=== PATIENT | female | born 1950 | race Caucasian/White ===

== ENCOUNTER 2022-04-20 11:32 | Outpatient (REF) | payer MEDICARE, OTHER, SELFPAY ==
[2022-04-20 13:52] LABS: Hematocrit 41.2 % (37.0-47.0); Hemoglobin 13.5 g/dl (12.0-16.0); Mean Corpuscular HGB Conc 32.8 g/dl (31.0-35.0); Mean Corpuscular Hemoglobin 27.2 pg (27.0-33.0); Mean Corpuscular Volume 82.9 fL (80.0-98.0); Mean Platelet Volume 10.8 fL (9.4-12.3); Platelet Count 329 X10*3/uL (160-400); Red Blood Count 4.97 X10*6/uL (4.20-5.50); Red Cell Distribution Width 13.4 % (11.0-16.0)
[2022-04-20 14:08] LABS: Alanine Aminotransferase 20 U/L (0-31); Albumin Level 4.4 g/dL (3.5-5.0); Alkaline Phosphatase 83 U/L (39-117); Anion Gap 15 (12-20); Aspartate Amino Transferase 20 U/L (5-31); Bilirubin Direct 0.2 mg/dL (0.0-0.5); Bilirubin Total 0.3 mg/dL (0.0-1.0); Blood Urea Nitrogen 12 mg/dL (9-16); C Reactive Protein 0.53 mg/dL (< or = 0.50); Calcium 9.5 mg/dL (8.4-10.2); Carbon Dioxide 24 mmol/L (22-29); Chloride 104 mmol/L (96-108); Estimated Glomerular Filt Rate > 60; Glucose Random 115 mg/dL (60-115); Potassium 4.1 mmol/L (3.3-5.1); Sodium 139 mmol/L (135-145); Total Protein 7.5 g/dL (6.5-8.0)
[2022-04-20 14:28] LABS: Erythrocyte Sedimentation Rate 22 MM/HR (0-20)
[2022-04-20 14:31] LABS: Thyroid Stimulating Hormone 1.27 uIU/mL (0.32-4.0)
== END 2022-04-20 11:33 | disposition home or self-care (01) ==
LOC: HO.HMGCLDS 11:32
PROVIDERS: Visit Provider Internal Medicine
DX: G43.909 Migraine, unspecified, not intractable, without status migrainosus (principal)
CPT/HCPCS: 36415; 80048; 80076; 84443; 85027; 85652; 86140

== ENCOUNTER → 2022-06-24 19:30 | Outpatient (REF) | payer MEDICARE, OTHER, SELFPAY | LOC: HO.SL 19:30 | PROVIDERS: PCP Physician Assistant Medical; Visit Provider Nurse Practitioner Primary Care | DX: G47.33 Obstructive sleep apnea (adult) (pediatric) (principal); G47.31 Primary central sleep apnea; G47.61 Periodic limb movement disorder; R06.83 Snoring | CPT/HCPCS: 95810 ==

== ENCOUNTER 2023-01-26 11:58 | Outpatient (AMB) | payer MEDICARE, OTHER, SELFPAY ==
--- OUTSIDE RECORDS SUMMARY | 2023-01-26 12:00 | XMS_ITS | Continuity of Care Document ---
Author Name Unknown Organization [facility] Address [address] [facility], 3r d Floor, [address] [place] [address]- Care Team Providers Care Professional Fighter Name Role Phone Alyce Fernandez Primary Care Physician Encounter [facility] [place] Date(s): 07/04/22 - 08/03/22 [facility] [address], 3[address] Floor, [address] [place] [id number] Allergies, Adverse Reactions, Alerts Substance Reaction Severity Status doxycycline rash hives Active sulfa drugs rash and itching Active penicillin rash and swelling Active lisinopril cough Active Immunizations Given and Recorded Vaccine Date Status Refusal Reason pneumococcal 23-valent vaccine 09/10/14 Recorded influenza virus vaccine, inactivated 03/18/12 Milton rded influenza virus vaccine, inactivated 06/19/11 Milton rded influenza virus vaccine, inactivated 04/11/10 Milton rded Medications Advair Diskus 100 mcg-50 mcg inhalation powder Inhalation, 2 times a day, Refills 0, Maintenance, 06/01/22 9:04:00 EST Start Date: 06/01/22 Status: Ordered amitriptyline 10 mg oral tablet 10 mg, 1, tablet, By Mouth, Daily at bedtime, # 30 tablet, Refills 2, Tot. Refills 2, Maintenance, 08/01/22 16:55:00 EST, Route to Pharmacy Electronically, [facility] #[id number], Partial fill upon patient request if the prescription is for a edith... Start Date: 08/01/22 Status: Ordered Buprenorphine 0 Refills, Maintenance, 06/01/22 9:06:00 EST, Partial fill upon patient request if the prescriptionis for a schedule II opioid drug. Start Date: 06/01/22 Status: Ordered celecoxib 100 mg oral capsule 1 capsule = 100 mg, By Mouth, Daily, PRN for pain, No refills before 30 days contents of capsule may be mixed with soft foods such as applesauce, # 14 capsule, 2 Refills, Maintenance, 08/01/22 16:55:00 EST, Capsule, [facility] #[id number], [place]... Start Date: 08/01/22 Status: Ordered Citracal Tablet 950 mg, By Mouth, 2 times a day, Refills 0, Maintenance, 09/26/15 11:08:13 Start Date: 09/26/15 Status: Ordered cyanocobalamin 1000 mcg/ml injectable solution = 1,000 mcg, Intramuscular, Every 28 days, Please dispense as 3 separate doses (each in its own vial)., # 3 Doses, 0 Refills, Maintenance, 04/03/16 10:05:04 Start Date: 04/03/16 Status: Ordered Freestyle Lite Test Strips See Instructions, # 600 each, Refills 3, Tot. Refills 3, Maintenance, Use as directed for Type 2 Diabetes Mellitus ICD 10 E 11.9. Test 4 times daily., 02/01/16 9:02:56, Compound Start Date: 02/01/16 Stop Date: 01/26/17 Status: Ordered LORazepam 0.5 mg oral tablet 1 tablet = 0.5 mg, By Mouth, Once, Take 1/2 hour before MRI, # 1 tablet, 0 Refills, Soft Stop, 07/05/22 15:55:00 EST, Tablet, [facility] #[id number], Partial fill upon patient request if the prescription is for a schedule II opioid drug., 169, cm... Start Date: 07/05/22 Status: Ordered metoprolol 25 mg oral tablet See Instructions, 2 tablets in AM and 1 tablet in PM, # 180 tablet, Refills 2, Tot. Refills 2, Maintenance, 03/16/16 15:12:44, Instructions Replace Required Details, Route to Pharmacy Electronically,[id number], [facility]... Start Date: 03/16/16 Status: Ordered Montelukast = 10 mg, By Mouth, Daily, 0 Refills, Maintenance, 07/28/15 6:59:27 Start Date: 1/14/16 Status: Ordered Multiple Vitamins with Minerals and Essential Fatty Acids oral kit Daily, 0 Refills, Maintenance Start Date: 10/16/10 Status: Ordered omeprazole 20 mg oral enteric coated capsule 1 capsule = 20 mg, By Mouth, Daily, # 30 capsule, 2 Refills, Maintenance, 06/01/22 14:08:00 EST, ECCthomasule, [facility] #[id number], Partial fill upon patient request if the prescription is for a schedule II opioid drug., 169, cm, 06/01/22 9:00:0... Start Date: 06/01/22 Status: Ordered spironolactone 25 mg oral tablet 25 mg, 1, tablet, By Mouth, 2 times a day, Refills 0, Maintenance, 09/21/16 14:55:29 Start Date: 09/21/16 Status: Ordered traZODone 50 mg oral tablet 50 mg, 1, tablet, By Mouth, 3 times a day, Refills 0, Maintenance, 12/29/15 13:28:22 Start Date: 12/29/15 Status: Ordered Victoza Victoza, Refills 0, Maintenance, 04/24/18 10:29:31 EDT, Compound Start Date: 04/24/18 Status: Ordered Problem List Condition Confirmation Course Effective Dates Status H ealth Status Informant Atypical chest pain 1 Confirmed Active Benign essential hypertension Confirmed Active Chronic Cough Confirmed Active Type 2 Diabetes mellitus Confirmed Active Fibromyalgia Confirmed Active GERD Confirmed Active L4-L5 Spondylitis Confirmed Active Irritable bowel syndrome Confirmed Active Pulmonary nodules 2 Confirmed Active Osteoarthritis Confirmed Active Obesity Confirmed Active Obstructive sleep apnea 3 Confirmed Active Severe obesity Confirmed Active History of SVT s/p ablation in 2010 Confirmed Active Thyroid nodule Confirmed Active 1Negative cardiac cath Jul 2015 2followed by [facility] pulmonology 3Has CPAP, but unable to use recently secondary to cough Social History Social History Type Response Smoking Status Never smoker entered on: 09/27/15 Sex Patient Care team information Care Team Personnel Name: Mita Red Position: S Outreach Member Role: Lifetime Consulting Physician Name: Alyce Fernandez Position: Reference Physician Member Role: PCP Address: Address: [address] [place] [address]- Care Team Related Persons Name: URSZULA ARAMBULA Address: home [address] [place] [address]
--- OUTSIDE RECORDS SUMMARY | 2023-01-26 12:00 | XMS_ITS | Continuity of Care Document ---
Author Name Unknown Organization [facility] ter Address [address] [place] [address]- Care Team Providers Care Product Sales Engineer Name Role Phone Yuri MOYA, Yudith Tai Primary Care Physician Encounter [facility] [place] Date(s): 09/01/19 - 09/01/[address] [address]- [facility] Attending Physician: Srini Ravi MD Allergies, Adverse Reactions, Alerts Substance Reaction Severity Status doxycycline rash hives Active penicillin rash and swelling Active lisinopril cough Active sulfa drugs rash and itching Active Immunizations Given and Recorded Vaccine Date Status Refusal Reason pneumococcal 23-valent vaccine 09/10/14 Recorded influenza virus vaccine, inactivated 03/18/12 Milton rded influenza virus vaccine, inactivated 06/19/11 Milton rded influenza virus vaccine, inactivated 04/11/10 Milton rded Medications aspirin 81 mg oral tablet 1 tablet = 81 mg, By Mouth, Daily, # 30 tablet, 0 Refills, Maintenance, 02/01/16 8:55:43, Tablet Start Date: 02/01/16 Status: Ordered Citracal Tablet 950 mg, By Mouth, 2 times a day, Refills 0, Maintenance, 09/26/15 11:08:13 Start Date: 09/26/15 Status: Ordered cyanocobalamin 1000 mcg/ml injectable solution = 1,000 mcg, Intramuscular, Every 28 days, Please dispense as 3 separate doses (each in its own vial)., # 3 Doses, 0 Refills, Maintenance, 04/03/16 10:05:04 Start Date: 04/03/16 Status: Ordered escitalopram 20 mg oral tablet 1 tablet = 20 mg, By Mouth, Daily, 0 Refills, Maintenance, 09/21/16 14:56:10 Start Date: 09/21/16 Status: Ordered Estrace Vaginal = 1 Gm, Vaginally, Daily at bedtime, 0 Refills, Maintenance, 10/27/15 11:16:39 Start Date: 10/27/15 Status: Ordered Freestyle Lite Test Strips See Instructions, # 600 each, Refills 3, Tot. Refills 3, Maintenance, Use as directed for Type 2 Diabetes Mellitus ICD 10 E 11.9. Test 4 times daily., 02/01/16 9:02:56, Compound Start Date: 02/01/16 Stop Date: 01/26/17 Status: Ordered hyoscyamine 0.125 mg sublingual tablet 1 tablet = 0.125 mg, Sublingual, Every 4 hours, # 30 tablet, 0 Refills, Maintenance, 12/29/15 14:37:44, Tablet Start Date: 12/29/15 Status: Ordered Lopressor Lopressor, Refills 0, Maintenance, 04/24/18 10:31:05 EDT, Compound Start Date: 04/24/18 Status: Ordered losartan 25 mg oral tablet 25 mg, 1, tablet, By Mouth, Daily, Refills 0, Maintenance, 09/21/16 14:55:40 Start Date: 09/21/16 Status: Ordered Lyrica 50 mg oral capsule 1 capsule = 50 mg, By Mouth, 2 times a day, 0 Refills, Maintenance, 09/21/16 14:55:58 Start Date: 09/21/16 Status: Ordered metoprolol 25 mg oral tablet See Instructions, 2 tablets in AM and 1 tablet in PM, # 180 tablet, Refills 2, Tot. Refills 2, Maintenance, 03/16/16 15:12:44, Instructions Replace Required Details, Route to Pharmacy Electronically,[id number], [facility]... Start Date: 03/16/16 Status: Ordered Montelukast = 10 mg, By Mouth, Daily, 0 Refills, Maintenance, 07/28/15 6:59:27 Start Date: 07/28/15 Status: Ordered Multiple Vitamins with Minerals and Essential Fatty Acids oral kit Daily, 0 Refills, Maintenance Start Date: 10/16/10 Status: Ordered spironolactone 25 mg oral tablet 25 mg, 1, tablet, By Mouth, 2 times a day, Refills 0, Maintenance, 09/21/16 14:55:29 Start Date: 09/21/16 Status: Ordered traZODone 50 mg oral tablet 50 mg, 1, tablet, By Mouth, 3 times a day, Refills 0, Maintenance, 12/29/15 13:28:22 Start Date: 12/29/15 Status: Ordered Trulicity Pen Subcutaneous Infusion, 0 Refills, Maintenance, 09/21/16 14:55:09 Start Date: 09/21/16 Status: Ordered Victoza Victoza, Refills 0, Maintenance, 04/24/18 10:29:31 EDT, Compound Start Date: 04/24/18 Status: Ordered Problem List Condition Effective Dates Status Health Status Inform ant Atypical chest pain(Confirmed) 1 Active Benign essential hypertension(Confirmed) Active Chronic Cough(Confirmed) Active Type 2 Diabetes mellitus(Confirmed) Active Fibromyalgia(Confirmed) Active GERD(Confirmed) Active L4-L5 Spondylitis(Confirmed) Active Irritable bowel syndrome(Confirmed) Active Pulmonary nodules(Confirmed) 2 Active Osteoarthritis(Confirmed) Active Obesity(Confirmed) Active Obstructive sleep apnea(Confirmed) 3 Active History of SVT s/p ablation in 2010(Confirmed) Active Thyroid nodule(Confirmed) Active 1Negative cardiac cath Jul 2015 2followed by [facility] pulmonology 3Has CPAP, but unable to use recently secondary to cough Social History Social History Type Response Smoking Status Never smoker entered on: 09/27/15 Sex
--- OUTSIDE RECORDS SUMMARY | 2023-01-26 12:00 | XMS_ITS | Continuity of Care Document ---
Author Name Unknown Organization [facility] ter Address [address] [place] [address]- Care Team Providers Care Netting Weaver Name Role Phone Yudith Welch MD Primary Care Physician [place] [facility] [place]/07[place] - 11/05/[address] [address] [facility] Discharge Disposition: A-D/C Home Attending Physician: Yao Hernandez MD Admitting Physician: Yao Hernandez MD Referring Physician: Yao Hernandez MD Allergies, Adverse Reactions, Alerts Substance Reaction [...] 0 Refills, Maintenance, 04/03/16 10:05:04 Start Date: 9/20/16 Status: Ordered escitalopram 20 mg oral tablet [...] Instructions Replace Required Details, Route to Pharmacy Electronically,[id number], [facility]... Start Date: 03/16/16 Status: Ordered [...] 1Negative cardiac cath Jul 2015 2followed by [facility] pulmonology 3Has CPAP, but unable to use recently secondary to cough Social History Social History Type Response Smoking Status Never smoker entered on: 09/27/15 Sex
--- OUTSIDE RECORDS SUMMARY | 2023-01-26 12:00 | XMS_ITS | Continuity of Care Document ---
Author Name Unknown Organization [facility] Address [address] [facility], [address]r d Floor, [address] [place] [address]- Care Team Providers Care Plate Glass Installer Helper Name Role Phone Alyce Fernandez Primary Care Physician Encounter [facility] [id number] Date(s): 10/02/22 - 11/01/22 [facility] [address], [address], [address] [place] [address] Attending Physician: Alexandria Farmer Admitting Physician: AdmtrAlexandria Referring Physician: Admtr, Ar8 Allergies, Adverse Reactions, Alerts Substance Reaction Severity [...] 08/01/22 16:55:00 EST, Route to Pharmacy Electronically, [facility] #[id number], Partial fill upon patient request if the prescription is for a edith... Start Date: 08/01/22 Status: Ordered Buprenorphine 0 Refills, Maintenance, 06/01/22 9:06:00 EST, Partial fill upon patient request if the prescriptionis for a schedule II opioid drug. Start Date: 06/01/22 Status: Ordered Citracal Tablet 950 mg, By [...] Date: 02/01/16 Stop Date: 01/26/17 Status: Ordered indomethacin 25 mg oral capsule 1 capsule, By Mouth, Daily, PRN NEEDED FOR PAIN WITH FOOD OR MILK, # 90 capsule, 2 Refills, Maintenance, 10/02/22 15:20:00 EDT, [facility] #[id number], 169, cm, 10/02/22 13:27:00 EDT, Height Start Date: 10/02/22 Status: Ordered LORazepam 0.5 mg oral tablet 1 tablet = 0.5 mg, By Mouth, Once, Take 1/2 hour before MRI, # 1 tablet, 0 Refills, Soft Stop, 07/05/22 15:55:00 EST, Tablet, [facility] #[id number], Partial fill upon patient request if the prescription is for a schedule II opioid drug., 169, cm... Start Date: 07/05/22 Status: Ordered metoprolol 25 mg oral tablet See Instructions, 2 tablets in AM and 1 tablet in PM, # 180 tablet, Refills 2, Tot. Refills 2, Maintenance, 03/16/16 15:12:44, Instructions Replace Required Details, Route to Pharmacy Electronically,[id number], [facility]... Start Date: 03/16/16 Status: Ordered Montelukast = 10 mg, By Mouth, Daily, 0 Refills, Maintenance, 07/28/15 6:59:27 Start Date: 07/28/15 Status: Ordered Multiple Vitamins with Minerals and Essential Fatty Acids oral kit Daily, 0 Refills, Maintenance Start Date: 10/16/10 Status: Ordered omeprazole 20 mg oral enteric coated capsule 1 capsule, By Mouth, Daily, # 30 capsule, 0 Refills, Maintenance, 09/08/22 15:18:00 EST, [facility] #[id number], 169, cm, 07/31/22 11:11:00 EST, Height Start Date: 09/08/22 Status: Ordered spironolactone 25 mg oral tablet [...] 1Negative cardiac cath Jul 2015 2followed by [facility] pulmonology 3Has CPAP, but unable to use recently secondary to cough Social History Social History Type Response Smoking Status Never smoker entered on: 09/27/15 Sex Patient Care team information Care Team Personnel Name: Mita Red Position: S Outreach Member Role: Lifetime Consulting Physician Name: Alyce Fernandez Position: Reference Physician Member Role: PCP Address: Address: [address] [place] [address]- Care Team Related Persons Name: URSZULA ARAMBULA Address: home [address] [place] [address]
--- OUTSIDE RECORDS SUMMARY | 2023-01-26 12:00 | XMS_ITS | Continuity of Care Document ---
Author Name Unknown Organization [facility] ter Address [address] [place] [address]- Care Team Providers Care Grain Shipper Name Role Phone Yuri MOYA, Yudith Tai Primary Care Physician [phone] [place] [facility] [place] Date(s): 07/30/19 - 08/06/[address] [address]- [facility] Attending Physician: Nikko Mares MD Allergies, Adverse Reactions, Alerts Substance Reaction [...] Instructions Replace Required Details, Route to Pharmacy Electronically,[id number], [facility] Start Date: 03/16/16 Status: Ordered [...] 1Negative cardiac cath Jul 2015 2followed by [facility] pulmonology 3Has CPAP, but unable to use recently secondary to cough Social History Social History Type Response Smoking Status Never smoker entered on: 09/27/15 Sex
--- OUTSIDE RECORDS SUMMARY | 2023-01-26 12:00 | XMS_ITS | Continuity of Care Document ---
Author Name Unknown Organization [facility] ter Address [address] [place] [address]- Care Team Providers Care Pump Station Operator Name Role Phone Yuri MOYA, Yudith Tai Primary Care Physician Encounter [facility] [place] Date(s): 08/21/19 - 08/21/[address] [address]- [facility] Attending Physician: Srini Ravi MD Allergies, Adverse [...] Instructions Replace Required Details, Route to Pharmacy Electronically,[id number], [facility] Start Date: 03/16/16 Status: Ordered [...] 1Negative cardiac cath Jul 2015 2followed by [facility] pulmonology 3Has CPAP, but unable to use recently secondary to cough Social History Social History Type Response Smoking Status Never smoker entered on: 09/27/15 Sex
--- OUTSIDE RECORDS SUMMARY | 2023-01-26 12:00 | XMS_ITS | Continuity of Care Document ---
Author Name Unknown Organization [facility] Address [address] [facility], [address]r d Floor, [address] [place] [address]- Care Team Providers Care Photoengraving Supervisor Name Role Phone Alyce Fernandez Primary Care Physician Encounter [facility] [place] Date(s): 07/04/22 - 08/03/22 [facility] [address], [address], [address] [place] [email or web address] Allergies, Adverse Reactions, Alerts Substance Reaction Severity [...] 08/01/22 16:55:00 EST, Route to Pharmacy Electronically, [facility] #[id number], Partial fill upon patient request if the [...] 2 Refills, Maintenance, 08/01/22 16:55:00 EST, Capsule, [facility] #[id number], [place]... Start Date: 08/01/22 Status: Ordered Citracal [...] Refills, Soft Stop, 07/05/22 15:55:00 EST, Tablet, [facility] #[id number], Partial fill upon patient request if the prescription is for a schedule II opioid drug., 169, cm... Start Date: 07/05/22 Status: Ordered metoprolol 25 mg oral tablet See Instructions, 2 tablets in AM and 1 tablet in PM, # 180 tablet, Refills 2, Tot. Refills 2, Maintenance, 03/16/16 15:12:44, Instructions Replace Required Details, Route to Pharmacy Electronically,[id number], [facility] Start Date: 03/16/16 Status: Ordered [...] 2 Refills, Maintenance, 06/01/22 14:08:00 EST, ECCthomasule, [facility] #[id number], Partial fill upon patient request if the [...] 1Negative cardiac cath Jul 2015 2followed by [facility] pulmonology 3Has CPAP, but unable to use recently secondary to cough Social History Social History Type Response Smoking Status Never smoker entered on: 09/27/15 Sex Patient Care team information Care Team Personnel Name: Mita Red Position: S Outreach Member Role: Lifetime Consulting Physician Name: Alyce Fernandez Position: Reference Physician Member Role: PCP Address: Address: [address] [place] [address]- Care Team Related Persons Name: URSZULA ARAMBULA Address: home [address] [place] [address]
--- OUTSIDE RECORDS SUMMARY | 2023-01-26 12:00 | XMS_ITS | Patient Health Record ---
Author Name Unknown [facility] Address [address] [place] [address] Care Team Providers Care Commercial Credit Lead Name Role Phone Alyce Pham Primary Care Provider Unavailabl e Arabella Charles Unavailable [phone] ALLERGIES Allergen (clinical drug ingredient) Drug/Non Drug Allergy documented on EMR Reaction Allergy Type Onset Date Status amoxicillin Amoxicillin Unknown Drug Allergy Act devora sulfamethoxazole / trimethoprim Bactrim Unknown Drug Allergy Active RESULTS Component Value Reference Range Notes HEMOGLOBIN A1C (GLYCOHEMOGLO BIN) Reviewed date:03/26/2022 10:58:26 AM Interpretation: Performing Lab: Notes/Report: TOTAL HEMOGLOBIN (HGBA1C) HEMOGLOBIN A1C (HH) HEMOGLOBIN A1C % (HH) 6.9 ESTIMATED AVG GLUCOSE REASON FOR REFERRAL No Information MEDICATIONS Medication SIG (Take, Route, Frequency, Duration) Notes Start Date End Date Status Extra Depth Orthopedic Shoes (1 Pair) with Customized Heat Molded Multidensity Innersoles (3 Pair) as directed Dx: NIDDM/Polyneuropath y (E11.42), Hammertoe Foot Deformity (M20.41,M20.42), Preulcerative Skin Lesion(s) (L85.1 Active Extra-Depth Diabetic Shoes with 3 Pair Custom heat-molded multi-density innersoles . for 1 year . Dx: pedal deformities and calloused lesions for . 10/15/2014 Active Clotrimazole-Betamethason e 1-0.05 % 1 application Externally Twice a day for 14 days 03/26/2022 Active Extra Depth Orthopedic Shoes (1 Pair) with Customized Heat Molded Multidensity Innersoles (3 Pair) as directed Dx: NIDDM/Polyneuropath y (E11.42), Hammertoe Foot Deformity (M20.41,M20.42), Preulcerative Skin Lesion(s) (L85.1 09/18/2021 Active Extra Depth Orthopedic Shoes (1 Pair) with Customized Heat Molded Multidensity Innersoles (3 Pair) as directed Dx: NIDDM/Polyneuropath y (E11.42), Hammertoe Foot Deformity (M20.41,M20.42), Preulcerative Skin Lesion(s) (L85.1 09/22/2018 Not-Taking Extra Depth Orthopedic Shoes (1 Pair) with Customized Heat Molded Multidensity Innersoles (3 Pair) as directed Dx: NIDDM/Polyneuropath y (E11.42), Hammertoe Foot Deformity (M20.41,M20.42), Preulcerative Skin Lesion(s) (L85.1 09/16/2017 Not-Taking Doxycycline Hyclate 100 MG 1 capsule Orally Once a day for 10 day(s) 06/27/2020 Not-Taking Ammonium Lactate 12 % 1 application Externally Twice a day for 30 days 10/01/2022 Active Singulair Active Victoza Not-Taking vitamin b-12 shot Active hydroCHLOROthiazide Not-Taking Cymbalta Not-Taking Ozempic Active Atorvastatin Calcium Not-Taking Januvia Not-Taking Ciclopirox Olamine 0.77 % 1 application to affected area Externally Twice a day for 30 days 09/16/2017 Active Amitriptyline HCl Ac tive Wellbutrin Not-Takin g Spironolactone 25 MG Orally Once a day Active Lopressor Active Ciclopirox Olamine 0.77% external Apply to effected areas twice a day for 30 days 12/23/2014 Not-Taking Ciclopirox Olamine 0.77 % 1 application to affected area Externally Twice a day for 30 days 09/16/2017 Not-Taking Trulicity 150mg once a week No t-Taking Zoloft Not-Taking IMMUNIZATIONS Vaccine Route Administration Date Status Comme nts COVID-19 Moderna Vaccine Unknown 10/24/2020 Administere d 09/26/2020 Influenza Unknown 03/15/2017 Administered Influenza Unknown 05/15/2018 Administered Influenza Unknown 04/01/2019 Administered Influenza Unknown 03/15/2020 Administered SOCIAL HISTORY Tobacco Use: Social History Observation Description Date Details (start date - stop date) Never Smoker NA - NA Sex Assigned At : Social History Observation Description Sex Assigned At Unknown Tobacco Use/Smoking Question Answer Notes Are you a: nonsmoker Additional Findings: Tobacco Non-User Current no n-smoker Alcohol Screen Question Answer Notes Did you have a drink containing alcohol in the p ast year? No Points 0 Interpretation Negative Tobacco use other than smoking: Question Answer Notes Are you an other tobacco user? No PROBLEMS Problem Type ICD Code Onset Dates Problem Status W/U Status Risk SNOMED Code Notes Problem Other hammer toe(s) (acquired), right foot (M20.41) Active confirmed Acquired hamme r toe of right foot (4648210394098639 ) Problem Other hammer toe(s) (acquired), left foot (M20.42) Active confirmed Acquired hamme r toe of left foot (2143340406903311 ) Problem Non-pressure chronic ulcer of other part of right foot limited to breakdown of skin (L97.511) Active confirmed Ulcer of toe (900348478) Problem Type 2 diabetes mellitus with other diabetic neurological complication (E11.49) Active confirmed Neurologic disorder associated with type II diabetes mellitus (313710237) Problem Type 2 diabetes mellitus with diabetic polyneuropathy (E11.42) Active confirmed Polyneuropathy due to type 2 diabetes mellitus (481592697) PROCEDURES Procedure Date Ordered Date Performed Result Body Sit e 07031-ZEYX SKIN LESIONS, 2 TO 4 03/26/2022 N/A 04731-VWFX NAIL(S) 03/26/2022 N/A 52769-DYBD SKIN LESIONS, 2 TO 4 10/01/2022 N/A 20211-WJYF NAIL(S) 10/01/2022 N/A Encounters Encounter Location Date Provider Diagnosis [facility] [address] [address] 03/26/2022 Aarbella Black Type 2 diabetes mellitus with diabetic polyneuropathy E11.42 and Tinea pedis B35.[address] [facility] [address] [address] 10/01/2022 Arabella Black Type 2 diabetes mellitus with diabetic polyneuropathy E11.42 ; Cramping of feet R25.2 ; Xerosis cutis L85.3 ; Other hammer toe(s) (acquired), right foot M20.41 and Other hammer toe(s) (acquired), left foot M20.42 ASSESSMENTS Encounter Date Diagnosis Assessment Notes Treatment Notes Treatment Clinical Notes 03/26/2022 Type 2 diabetes mellitus with diabetic polyneuropathy (ICD-10 - E11.42) 10/01/2022 Type 2 diabetes mellitus with diabetic polyneuropathy (ICD-10 - E11.42) 10/01/2022 Cramping of feet (ICD-10 - R25.2) 10/01/2022 Xerosis cutis (ICD-1 0 - L85.3) 03/26/2022 Tinea pedis (ICD-10 - B35.3) 10/01/2022 Other hammer toe(s) (acquired), right foot (ICD-10 - M20.41) 10/01/2022 Other hammer toe(s) (acquired), left foot (ICD-10 - M20.42) PLAN OF TREATMENT Pending Test Test Name Order Date 95032-Qqieqjek Plate 09/22/2018 13209-Yztqznqu Plate 03/28/2020 58725-QQC 06/27/2020 33360- Debride <25 sq cm 07/18/2020 03808-CUKM SKIN LESIONS, 2 TO 4 08/03/19 16 99911-DQPU SKIN LESIONS, 2 TO 4 10/16/19 15 52592-TZNI SKIN LESIONS, 2 TO 4 12/24/19 15 97294-BIPT SKIN LESIONS, 2 TO 4 09/17/19 18 31671-OGZS SKIN LESIONS, 2 TO 4 02/18/20 18 62552-LHQS SKIN LESIONS, 2 TO 4 06/23/20 18 86670-NNCR SKIN LESIONS, 2 TO 4 09/23/19 19 72804-VJHW SKIN LESIONS, 2 TO 4 12/24/19 20 39873-GRVJ SKIN LESIONS, 2 TO 4 11/15/19 21 03194-NBJP SKIN LESIONS, 2 TO 4 02/14/20 21 55172-WPZQ SKIN LESIONS, 2 TO 4 12/23/19 19 11806-NHHQ SKIN LESIONS, 2 TO 4 04/13/20 19 35389-OERJ SKIN LESIONS, 2 TO 4 07/20/19 20 16364-IJVJ SKIN LESIONS, 2 TO 4 09/21/19 20 83897-VDYY SKIN LESIONS, 2 TO 4 09/19/19 22 81365-CRDE SKIN LESIONS, 2 TO 4 03/26/20 22 90288-AJRP SKIN LESIONS, 2 TO 4 10/02/19 23 10616-TOKT SKIN LESIONS, 2 TO 4 03/28/20 20 13401-QRCV SKIN LESION 07/28/2014 37728-XQJW SKIN LESION 12/23/2014 79636-XTBD SKIN LESION 10/15/2014 68648-SPKP NAIL(S) 08/03/2015 16728-YJMS NAIL(S) 12/23/2014 12812-NIJT NAIL(S) 10/15/2014 66230-GKXY NAIL(S) 09/22/2018 27024-ZUFK NAIL(S) 06/23/2018 45760-UTNA NAIL(S) 02/17/2018 18292-CDGJ NAIL(S) 09/16/2017 29648-LETG NAIL(S) 09/21/2019 83720-XVFN NAIL(S) 07/20/2019 97283-RSBD NAIL(S) 04/13/2019 16364-RGEM NAIL(S) 12/22/2018 29798-JHUT NAIL(S) 02/13/2021 84463-FXAG NAIL(S) 11/14/2020 21681-DQOM NAIL(S) 12/24/2019 54401-HSFR NAIL(S) 03/28/2020 06942-EMSY NAIL(S) 10/01/2022 98553-CHNG NAIL(S) 03/26/2022 45238-VFMY NAIL(S) 09/18/2021 Next Appt Details Provider Name:Arabella Charles , 04/01/2023 11:00:00 AM, [address] [place], [address], Insurance Providers Payer Name Payer Address Payer Phone Subscriber Number Group Number Insured Name Patient Relationship to Insured Coverage Start Date Coverage End Date Medicare National [employer] [address] [place] [address] [id number] Yessi Joya Self - patient is the insured [facility] [place] [employer] [address] [place] [address] [phone] [id number] Joya, Yessi Self - patient is the insured MEDICAL (GENERAL) HISTORY Medical History History ICD Code Anemia Anxiety Arthritis Back,Hip,and Knee pain Diabetic Chicken pox Headaches Migraines Hypertension keloids Neuropathy Poor circulation Psoriasis/eczema Reflux Sciatica Thyroid disorder Measles Mumps Joint implants/screws Transfusions Surgical History Surgery Date(Month/Year) knee surgery, left knee surgery, right hysterectomy bypass surgery angioplasty vaginal surgery 07/2017 Right shoulder spur removed 07/2018 Hospitalization History Reason Date(Month/Year) [facility] ER; fall 09/2014
--- OUTSIDE RECORDS SUMMARY | 2023-01-26 12:00 | XMS_ITS | Continuity of Care Document ---
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 Name Role Phone Alyce Fernandez Primary Care Physician [place] [facility] [place] [facility] [address], [address], [address] [place] [phone]- Allergies, Adverse Reactions, Alerts Substance Reaction Severity [...] 9:04:00 EST Start Date: 06/01/22 Status: Ordered Buprenorphine 0 Refills, Maintenance, 06/01/22 [...] 02/01/16 Stop Date: 01/26/17 Status: Ordered indomethacin 75 mg oral capsule, extended release 1 capsule = 75 mg, By Mouth, Daily, with food or milk, # 30 capsule, 2 Refills, Maintenance, 06/01/22 14:07:00 EST, ER Capsule, [facility] #[id number], Partial fill upon patient request if the prescription is for a schedule II opioid drug., 169,... Start Date: 06/01/22 Status: Ordered LORazepam 0.5 mg oral tablet 1 tablet = 0.5 mg, By Mouth, Once, Take 1/2 hour before MRI, # 1 tablet, 0 Refills, Soft Stop, 07/05/22 15:55:00 EST, Tablet, [facility] #[id number], Partial fill upon patient request if the prescription is for a schedule II opioid drug., 169, cm... Start Date: 07/05/22 Status: Ordered metoprolol 25 mg oral tablet See Instructions, 2 tablets in AM and 1 tablet in PM, # 180 tablet, Refills 2, Tot. Refills 2, Maintenance, 03/16/16 15:12:44, Instructions Replace Required Details, Route to Pharmacy Electronically,[id number], [facility]... Start Date: 03/16/16 Status: Ordered Montelukast = 10 mg, By Mouth, Daily, 0 Refills, Maintenance, 07/28/15 6:59:27 Start Date: 07/28/15 Status: Ordered Multiple Vitamins with Minerals and Essential Fatty Acids oral kit Daily, 0 Refills, Maintenance Start Date: 10/16/10 Status: Ordered Nortriptyline By Mouth, 0 Refills, Maintenance, 06/01/22 9:04:00 EST, Partial fill upon patient request if the prescription is for a schedule II opioid drug. Start Date: 06/01/22 Status: Ordered omeprazole 20 mg oral enteric coated capsule 1 capsule = 20 mg, By Mouth, Daily, # 30 capsule, 2 Refills, Maintenance, 06/01/22 14:08:00 [facility][id number], Partial fill upon patient request if the [...] 1Negative cardiac cath Jul 2015 2followed by [facility] pulmonology 3Has CPAP, but unable to use recently secondary to cough Social History Social History Type Response Smoking Status Never smoker entered on: 09/27/15 Sex Patient Care team information Care Team Personnel Name: Mita Red Position: S Outreach Member Role: Lifetime Consulting Physician Name: Alyce Fernandez Position: Reference Physician Member Role: PCP Address: Address: [address] [place] [address]- Care Team Related Persons Name: URSZULA ARAMBULA Address: home [address] [place] [address]
--- NOTE | 2023-01-26 12:02 | MHC.OFFWIV ---
Intake Vital Signs 01/26/23 12:04 Height 5 ft 6 in BP 130/80 Blood Pressure Location Lt brachial Position Sitting Pulse 89 Pulse Source Pulse Oximeter Temp 97.6 F Temp Source Oral Pulse Oximetry (%) 97 Intake Visit Reasons: EP ear infection? vertigo Intake Note: pt is here for c/o head pounding, dizziness Patient Tobacco Use Status: Never used Tobacco Allergies penicillin V Allergy (Mild, Verified 01/26/23 12:22) Rash Medication List - Last Reconciled 01/26/23 by Jeff Powell PA-C albuterol sulfate 90 mcg/actuation 2 puffs inhalation Q4H PRN buprenorphine 5 mcg/hour 1 patch topical QWEEK cyanocobalamin (vitamin B-12) 500 mcg PO DAILY cyclosporine 0.05% drps ophthalmic (eye) duloxetine mg PO fluticasone propionate 110 mcg/actuation (Flovent HFA) 2 puffs inhalation BID indomethacin 50 mg PO TID liraglutide (Victoza 2-Tyler) 1.2 mg subcut DAILY metoprolol tartrate 50 mg PO BID montelukast (Singulair) 10 mg PO DAILY semaglutide (Ozempic) mg subcut spironolactone 25 mg PO DAILY trazodone 100 mg PO BEDTIME triamcinolone acetonide 0.1% topical BID PRN Do you need a note to return to daycare/school/sports/work: No HPI EP ear infection? vertigo HPI Details Patient is a 72-year-old female here today reporting headaches, dizziness and left ear pain over the last 4 days. report having some nausea and hot flashes. She denies any sick contacts. Otherwise denies any coughing, vomiting, chest discomfort or shortness of breath. Does report recently having diarrhea over the last week to which she attributes to IBS- D [facility] Social History Patient Tobacco Use Status: Never used Tobacco Review of Systems Const Denies headache(s) Eyes Denies loss of vision ENT Denies vertigo, Denies dizziness, Denies headache(s) and Denies sore throat Card Denies chest pain, Denies leg edema and Denies lightheadedness Resp Denies cough, Denies hemoptysis and Denies wheezing GI Denies abdominal pain, Denies melena, Denies constipation, Denies diarrhea and Denies vomiting Denies urinary frequency, Denies dysuria and Denies urinary urgency Musc Denies arthralgias, Denies joint swelling, Denies numbness and Denies tingling Neuro Denies Abnormal speech present, Denies behavioral changes, Denies vertigo, Denies dizziness, Denies headache(s), Denies loss of vision, Denies memory loss, Denies numbness and Denies tingling Psych Denies anxiety, Denies behavioral changes, Denies depression, Denies memory loss and Denies panic attacks Ricky/Lymph Denies easy bleeding and Denies easy bruising Aller/Immun Denies wheezing Physical Exam Vital Signs: Last Vital Signs Temp 97.6 F 01/26/23 12:04 Pulse 89 01/26/23 12:04 BP 130/80 01/26/23 12:04 Pulse Ox 97 01/26/23 12:04 Const General: healthy appearing, no acute distress, alert and awake Nutritional Appearance: well nourished Orientation/consciousness: oriented to person, oriented to place and oriented to time HEENT Ears: TM's normal bilaterally General nose exam: Normal nasal mucous membranes and turbinates present Eyes Conjunctivae: conjunctivae normal Sclerae: sclerae normal Pupils: Equal, round and reactive pupils present Neck Neck: Yes no lymphadenopathy and Yes no JVD Thyroid: Thyroid normal Carotids: no bruits Resp Effort & Inspection: normal respiratory effort and not tachypneic Auscultation: no crackles, no rales, no rhonchi and no wheezes Cardio Rate: regular rate Rhythm: regular rhythm Heart sounds: no murmurs and normal S1 and S2 GI Palpation (GI): Soft to palpation, nontender, no hepatomegaly and no splenomegaly Auscultation: normal bowel sounds Skin General skin exam: no rashes or lesions noted and dry skin Neuro General: oriented to person, oriented to place and oriented to time Cranial nerves: Yes Equal, round and reactive pupils present Speech: No Abnormal speech present Gait exam (Neuro): Normal gait present Motor exam (neuro): no tremor noted Extrem Right upper extremity: full ROM Left upper extremity: full ROM Right lower extremity: full ROM; no edema Left lower extremity: full ROM; no edema Psych Mental Status: mental status grossly normal Speech and movement: Normal speech and movement present Affect: normal affect Attitude: cooperative Thought process: Normal thought process present Assessment & Plan Assessment & Plan (1) Otitis media: Code(s): H66.90 - Otitis media, unspecified, unspecified ear Qualifiers: Chronicity: acute Laterality: left Otitis media type: serous Recurrence: non-recurrent Qualified Code(s): H65.02 - Acute serous otitis media, left ear Plan: Patient with erythematous left tympanic membrane most consistent with otitis media. Will supply with doxycycline and on dancer trying for nausea. (2) Nausea: Code(s): R11.0 - Nausea Medications: New doxycycline monohydrate 100 mg PO BID 5 days 10 caps 0RF H65.02 - Acute serous otitis media, left ear ondansetron HCl 4 mg PO Q8H 5 days 15 tabs 0RF R11.0 - Nausea Coding Level of Care Code Est Pt Level 3 (35444) Diagnoses Otitis media H65.02 Chronicity: acute Laterality: left Otitis media type: serous Recurrence: non-recurrent Nausea R11.0
[2023-01-26 12:04] VITALS: BP 130/80; PULSE 89; TEMP 36.4; O2SAT 97
== END 2023-01-26 13:01 | disposition home or self-care (01) ==
PROVIDERS: PCP Physician Assistant Medical; Visit Provider Physician Assistant
DX: H65.02 Acute serous otitis media, left ear (principal); R11.0 Nausea
CPT/HCPCS: 99213

== ENCOUNTER → 2023-02-18 09:06 | Outpatient (REF) | payer MEDICARE, OTHER, SELFPAY ==
--- NOTE | 2023-02-18 09:09 | CA_ITS ---
Transthoracic Echocardiogram Patient (Last, First, Middle): Yessi Joya W Gender: Female Date of : 1950 Age: 73 Procedure Date: 02/18/2023 Procedure Type: Transthoracic Echocardiogram Location: OP Height: 167.64 cm Weight: 116.58 kg BSA: 2.23 m2 Heart Rate: bpm BP: 120 / 74 mmHg Merchant Police: STEPHANIA Referring MD: Yonny Masters CNP Symptoms: G47.31 CENTRALK SLEEP URRTFZ97.10 ASCD Study Quality: Fair ECG Rhythm: Sinus with prolonged ME Conclusions: - The left ventricular systolic function is normal. The calculated ejection fraction is 64% by biplane method. - There is paradoxical septal motion consistent with a left bundle branch block. - No obvious valvular pathology seen on this study. Findings Left Ventricle Normal left ventricular cavity size. There is mildly increased left ventricular wall thickness. The left ventricular systolic function is normal. The calculated ejection fraction is 64% by biplane method. There is no evidence of regional wall motion abnormalities. There is paradoxical septal motion consistent with a left bundle branch block. Evidence suggests grade I (mild) diastolic dysfunction. Right Ventricle Normal right ventricular cavity size and systolic function. Atria Both atria are normal in size. Aortic Valve There is a normal trileaflet aortic valve. There is no aortic valve stenosis. There is no aortic valve regurgitation. Mitral Valve There is mild anterior mitral leaflet thickening. There is mild mitral annular calcification. There is no mitral valve regurgitation. There is no mitral valve stenosis. Pulmonic Valve The pulmonic valve is likely normal. Tricuspid Valve Normal tricuspid valve structure. There is mild tricuspid valve regurgitation. There is no evidence of pulmonary hypertension. Great Vessels The asc aorta is normal in size. Venous The inferior vena cava is normal in size and collapses greater than 50% with inspiration. Pericardium/Pleural There is no evidence of pericardial effusion. Prior Study Comparison No prior study available for comparison. Recommendations, Care & Conclusions No obvious valvular pathology seen on this study. Measurements 2D Linear Measurements IVSd: 1.21 0.6-0.9/0.6-1.0 cm LVIDd: 3.99 3.9-5.3/4.2-5.9 cm LVIDd Index: 1.79 2.4-3.2/2.2-3.1 cm/m2 LVIDs: 2.64 2.0-3.6 cm LVPWd: 1.10 0.7-1.1 cm LA Diam: 3.00 2.7-3.8/3.0-4.0 cm LAIDs Index: 1.35 1.5-2.3 cm/m2 LV Mass: 193.99 67-162/88-224 g LV Mass Index: 86.99 43-95/49-115 g/m2 LVOT Diam: 2.00 3.0+(-)1.3 cm 2D Systolic Function EF 4C: 63.70 >55% EF 2C: 65.00 >55% EF BiP: 63.70 >55% Mitral Valve MV Pk E: 0.46 MV PK A: 1.16 MV Decel Time: 130.00 E/A: 0.40 E'Lateral: 4.35 E'Medial: 4.35 E/E' Med: 10.60 E/E' Lat: 10.60 PHT: 38.00 MVA PHT: 5.79 Decel [place]: 3.52 Aortic Valve AoV Pk Sai: 2.35 AoV Mn Sai: 1.33 AoV VTI: 0.43 AoV Pk Grad: 22.00 Aov Mn Grad: 8.00 SWATHI Cont.VTI: 1.83 LVOT LVOT Pk Sai: 1.10 LVOT Mn Sai: 0.73 LVOT VTI: 0.25 LVOT Pk Grad: 5.00 LVOT Mn Grad: 2.00 LVOT Diam: 2.00 LVOT Area: 3.14 Diastolic Function MV Pk E: 0.46 MV Pk A: 1.16 E/A: 0.40 E'Medial: 4.35 E/E' Med: 10.60 E' Laterial: 4.35 E/E' Lat: 10.60 Right Ventricle TAPSE (mm): 24.30 TVS' Sai: 10.40 Tricuspid Valve TR Pk Sai: 2.44 TR Pk Grad: 24.00 RA Press: 3.00 RVSP: 27.00 Great Vessels Aorta Sinus of Valsalva: 2.99 2.0-3.[address] [place]: 2.49 1.7-3.4 cm Ao Asc: 3.20 2.1-3.4 cm Updated in Other Vendor System with Status of Final Rajesh Ambrosio MD electronically signed on 02/18/2023 12:22:32 PM with status of Final
== END ==
LOC: HO.CARD 09:06
PROVIDERS: PCP Physician Assistant Medical; Visit Provider Nurse Practitioner Primary Care
DX: I25.10 Atherosclerotic heart disease of native coronary artery without angina pectoris (principal); G47.31 Primary central sleep apnea
CPT/HCPCS: 93306

== ENCOUNTER → 2023-02-18 09:09 | Outpatient (BNV) | payer MEDICARE, OTHER, SELFPAY | PROVIDERS: PCP Physician Assistant Medical; Visit Provider Internal Medicine | DX: I25.10 Atherosclerotic heart disease of native coronary artery without angina pectoris (principal); I36.1 Nonrheumatic tricuspid (valve) insufficiency | CPT/HCPCS: 93306 ==

== ENCOUNTER 2023-03-20 07:09 | Outpatient (REF) | payer MEDICARE, OTHER, SELFPAY ==
--- NOTE | ~2023-03-20 | XR_ITS ---
EXAMINATION: XR KNEE, BILATERAL CLINICAL INDICATION: Pain. TECHNIQUE: 3 views each knee. FINDINGS: RIGHT KNEE: There is a total right knee prosthesis with prosthetic components in satisfactory alignment. No visible acute fracture, dislocation or subluxation seen. The soft tissues are normal. LEFT KNEE: There is a total left knee prosthesis with prosthetic components in satisfactory alignment. No visible acute fracture, dislocation or subluxation seen. XR/XR knee RT 3V IMPRESSION: Bilateral total left knee prosthesis with prosthetic components in alignment. No loosening seen. No joint effusion. No acute fracture.
--- NOTE | ~2023-03-20 | XR_ITS ---
EXAMINATION: XR KNEE, BILATERAL CLINICAL INDICATION: Pain. TECHNIQUE: 3 views each knee. FINDINGS: RIGHT KNEE: There is a total right knee prosthesis with prosthetic components in satisfactory alignment. No visible acute fracture, dislocation or subluxation seen. The soft tissues are normal. LEFT KNEE: There is a total left knee prosthesis with prosthetic components in satisfactory alignment. No visible acute fracture, dislocation or subluxation seen. XR/XR knee LT 3V IMPRESSION: Bilateral total left knee prosthesis with prosthetic components in alignment. No loosening seen. No joint effusion. No acute fracture.
== END 2023-03-20 07:10 | disposition home or self-care (01) ==
LOC: HO.HOSX 07:09
PROVIDERS: Visit Provider Orthopaedic Surgery
DX: M25.561 Pain in right knee (principal); M25.562 Pain in left knee; M54.50 Low back pain, unspecified
CPT/HCPCS: 73562; 99212

== ENCOUNTER 2023-03-20 10:46 | Outpatient (AMB) | payer MEDICARE, OTHER, SELFPAY ==
--- NOTE | 2023-03-20 10:52 | MHC.OFFVIS ---
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 Today she is most concerned with low back pain which radiates down her left leg. She has been seen at [facility] for low back pain. She states that she had a cortisone injection given into her low back approximately 1 year ago which gave her fairly good relief. She denies any fevers or chills. She has taken Tylenol which gives only mild relief. She also reports intermittent weakness in her left leg. She does not wish to get an MRI at this time because of claustrophobia. Allergies penicillin V Allergy (Mild, Verified 01/26/23 12:22) Rash Medication List - Last Reconciled 03/20/23 by Alec uDrant MD albuterol sulfate 90 mcg/actuation 2 puffs inhalation Q4H PRN buprenorphine 5 mcg/hour 1 patch topical QWEEK cyanocobalamin (vitamin B-12) 500 mcg PO DAILY cyclosporine 0.05% drps ophthalmic (eye) doxycycline monohydrate 100 mg PO BID 5 days fluticasone propionate 110 mcg/actuation (Flovent HFA) 2 puffs inhalation BID metoprolol tartrate 50 mg PO BID montelukast (Singulair) 10 mg PO DAILY semaglutide (Ozempic) mg subcut spironolactone 25 mg PO DAILY trazodone 100 mg PO BEDTIME triamcinolone acetonide 0.1% topical BID PRN PFSH Surgical History (Updated 03/20/23 @ 11:07 by Adriane Castillo Wilfred) History of bilateral knee replacement Hx of shoulder surgery Social History Patient Tobacco Use Status: Never used Tobacco Current occupational status: unemployed Physical Exam Const Other: Well-nourished well-developed very friendly female awake alert and oriented x3 in no acute distress Extrem Other: Bilateral lower extremity examination shows good capillary refill, no skin lesions noted, normal sensation light touch Bilateral knee examination shows that the surgical incisions are well healed, no erythema, full active extension and flexion 115 degrees, her patellae track well Results Reviewed Results Reviewed: Her x-rays of the patient's bilateral knee show total knee arthroplasties in good position with no signs of loosening, no acute bony abnormalities Assessment & Plan Assessment & Plan (1) Right knee pain: Code(s): M25.561 - Pain in right knee Plan: Ms. Joya continues to do fairly well after undergoing bilateral total knee replacement surgeries. She will continue with her home exercise program. She does know to take antibiotics before any dental work. Patient does have low back pain which radiates down her left leg most likely due to lumbar stenosis versus a disc herniation. The patient does not want to get an MRI at this point because of claustrophobia. The patient has had cortisone injections given into her low back at [facility] which gave her fairly good relief. She would like to be evaluated by our physiatry team here at [facility]. Thus, I placed a referral for her. I also gave her a prescription for tramadol to help with her discomfort. She will contact me prior to her follow-up appointment in 3 months should then questions or concerns arise. Feel free to call me at any time should questions regarding her orthopedic management arise. I spent 22 minutes in reviewing the patient's records and imaging studies, seeing the patient and documenting in the medical record. (2) Left knee pain: Code(s): M25.562 - Pain in left knee (3) Low back pain: Code(s): M54.50 - Low back pain, unspecified Orders: Orders XR knee LT 3V Today M25.562 - Pain in left knee XR knee RT 3V Today M25.561 - Pain in right knee Referrals Pain Management Referral M54.50 - Low back pain, unspecified Medications: New tramadol 50 mg PO Q8H PRN 40 tabs 0RF pain Coding Level of Care Code Est Pt Level 2 (14149) Diagnoses Right knee pain M25.561 Left knee pain M25.562 Low back pain M54.50
[2023-03-20 11:08] VITALS: BMI 41.3
== END 2023-03-20 11:41 | disposition home or self-care (01) ==
PROVIDERS: PCP Physician Assistant Medical; Visit Provider Orthopaedic Surgery
DX: M25.561 Pain in right knee (principal); M25.562 Pain in left knee; M54.50 Low back pain, unspecified
CPT/HCPCS: 99212

== ENCOUNTER → 2023-03-22 20:30 | Outpatient (BNV) | payer MEDICARE, OTHER, SELFPAY | PROVIDERS: Visit Provider Internal Medicine | DX: G47.33 Obstructive sleep apnea (adult) (pediatric) (principal) | CPT/HCPCS: 95811 ==

== ENCOUNTER → 2023-03-22 20:30 | Outpatient (REF) | payer MEDICARE, OTHER, SELFPAY | LOC: HO.SL 20:30 | PROVIDERS: Visit Provider Nurse Practitioner Primary Care | DX: G47.33 Obstructive sleep apnea (adult) (pediatric) (principal) | CPT/HCPCS: 95811 ==

== ENCOUNTER 2023-03-25 09:47 | Outpatient (AMB) | payer MEDICARE, OTHER, SELFPAY ==
[2023-03-25 09:52] VITALS: BP 114/72; PULSE 85; RESP 14; O2SAT 97; BMI 42.4
--- NOTE | 2023-03-25 09:52 | A.OFFVIS_ITS ---
Intake Vital Signs 03/25/23 09:52 Height 5 ft 6 in Weight 263 lb BMI 42.4 BP 114/72 Blood Pressure Location Rt brachial Position Sitting Respiration 14 Pulse 85 Pulse Source Pulse Oximeter Pulse Oximetry (%) 97 Oxygen Delivery Method Room Air Intake Visit Reasons: Low back pain, unspecified Allergies penicillin V Allergy (Mild, Verified 03/25/23 09:55) Rash Medication List - Last Reconciled 03/25/23 by Hina Mcgarry LPN albuterol sulfate 90 mcg/actuation 2 puffs inhalation Q4H PRN buprenorphine 5 mcg/hour 1 patch topical QWEEK cyanocobalamin (vitamin B-12) 500 mcg PO DAILY cyclosporine 0.05% drncik ophthalmic (eye) fluticasone propionate 110 mcg/actuation (Flovent HFA) 2 puffs inhalation BID metoprolol tartrate 50 mg PO BID montelukast (Singulair) 10 mg PO DAILY semaglutide (Ozempic) mg subcut spironolactone 25 mg PO DAILY tramadol 50 mg PO Q8H PRN trazodone 100 mg PO BEDTIME triamcinolone acetonide 0.1% topical BID PRN HPI Low back pain, unspecified HPI Details 73-year-old female who presents today to the office for a new patient evaluation of low back pain that has been going on for several years. The patient was referred by Dr. Ernandez. The pain is described as an aching, stabbing sensation. She also complains of radiation down her legs with pins and needles and a numbness sensation in her bilateral calves and toes. She also complains of an aching, burning sensation in her neck and shoulders that radiates down to her upper extremities, with a pins and needles sensation in her hands. These pain complaints are constant in nature, are worse in the evenings, and interfere with our general activity as well as sleeping. The patient had some epidural steroid injections at [facility] that were moderately helpful last year. She also underwent an MRI at [facility] about three years ago, the results of which are not available for review today. Today, her worst pain is in the low back. The patient is claustrophobic and requested a script for lorazepam. She has a prior history of shoulder pain secondary to mild right glenohumeral arthritis and has had an acromioplasty on the left shoulder. She had bilateral knee replacements. [facility] Surgical History (Updated 03/20/23 @ 11:07 by SLAVA Gusman) Hx of shoulder surgery History of bilateral knee replacement Social History (Updated 03/20/23 @ 11:08 by SLAVA Gusman) Patient Tobacco Use Status: Never used Tobacco Current occupational status: unemployed Review of Systems Const All systems reviewed & are unremarkable except as noted in HPI and below Physical Exam Vital Signs: Last Vital Signs Pulse 85 03/25/23 09:52 Resp 14 03/25/23 09:52 BP 114/72 03/25/23 09:52 Pulse Ox 97 03/25/23 09:52 Oxygen Delivery Method Room Air 03/25/23 09:52 BMI result Body Mass Index 42.4 General: Appears afebrile. Alert and oriented. Mood and affect appropriate. Follows and participates in conversation appropriately. Respiratory effort is unlabored. Able to transition from sit to stand unassisted. Ambulates with bilaterally normal heel strike and toe off. Results Reviewed Results Reviewed: 03/19/23: XR KNEE, BILATERAL FINDINGS: RIGHT KNEE: There is a total right knee prosthesis with prosthetic components in satisfactory alignment. No visible acute fracture, dislocation or subluxation seen. The soft tissues are normal. LEFT KNEE: There is a total left knee prosthesis with prosthetic components in satisfactory alignment. No visible acute fracture, dislocation or subluxation seen. IMPRESSION: Bilateral total left knee prosthesis with prosthetic components in alignment. No loosening seen. No joint effusion. No acute fracture. Assessment & Plan Assessment & Plan (1) Low back pain: Code(s): M54.50 - Low back pain, unspecified Qualifiers: Chronicity: chronic Back pain laterality: bilateral Sciatica presence: with sciatica Sciatica laterality: bilateral sciatica Qualified Code(s): M54.42 - Lumbago with sciatica, left side; M54.41 - Lumbago with sciatica, right side; G89.29 - Other chronic pain Plan Ordered an MRI of the lumbar spine for further evaluation. The patient will follow up to review the MRI images and report, and we can discuss the potential treatment options based on the MRI findings. A script of Lorazepam was provided to the patient. Advised to take one hour prior to her MRI. Scribed for Dr. Alegre by David Rai, biomedical technician, on 03/25/2023. I, Dr. Alegre, have personally reviewed and agree with the information entered by the scribe. Medications: New lorazepam Take 1 hour prior to MRI 1 mg PO DAILY PRN 1 tab 0RF anxiety Coding Level of Care Code New Pt Level 3 (52044) Diagnoses Chronic bilateral low back pain with bilateral sciatica M54.42; M54.41; G89.29 Chronicity: chronic Back pain laterality: bilateral Sciatica presence: with sciatica Sciatica laterality: bilateral sciatica
== END 2023-03-25 10:19 | disposition home or self-care (01) ==
PROVIDERS: PCP Physician Assistant Medical; Visit Provider Internal Medicine
DX: M54.42 Lumbago with sciatica, left side (principal); M54.41 Lumbago with sciatica, right side; G89.29 Other chronic pain
CPT/HCPCS: 99203

== ENCOUNTER → 2023-03-25 09:47 | Outpatient (BNVA) | payer MEDICARE, OTHER, SELFPAY | PROVIDERS: PCP Physician Assistant Medical; Visit Provider Internal Medicine ==

== ENCOUNTER 2023-06-19 12:46 | Outpatient (AMB) | payer MEDICARE, OTHER, SELFPAY ==
--- NOTE | 2023-06-19 12:53 | A.OFFVIS_ITS ---
Intake Vital Signs 06/19/23 12:56 Height 5 ft 6 in Weight 263 lb BMI 42.4 Intake Visit Reasons: OV-B/L knee follow up Intake Note: Yessi is a 73 year old female who presents today for a follow up of her bilateral knee pain. Patient reports that tramadol is helping her with her pain. She reports mild intermittent discomfort in both of her knees. She denies any fevers or chills. The patient also has progressively worsening low back pain which radiates into both of her legs. She has done physical therapy exercises which aggravated her pain. She has not had surgery on her low back. Allergies penicillin V Allergy (Mild, Verified 06/19/23 12:56) Rash [facility] Surgical History (Updated 03/20/23 @ 11:07 by Adriane Castillo Wilfred) Hx of shoulder surgery History of bilateral knee replacement Social History Patient Tobacco Use Status: Never used Tobacco Current occupational status: unemployed Physical Exam Vital Signs: BMI result Body Mass Index 42.4 Const Other: Well-nourished well-developed very friendly female awake alert and oriented x3 in no acute distress Extrem Other: Bilateral lower extremity examination shows good capillary refill, no skin lesions noted, normal sensation light touch Bilateral knee examination shows that the surgical incisions are well healed, no erythema, full active extension and flexion to 120 degrees, her patellae track well Results Reviewed Results Reviewed: MRI report of the patient's lumbar spine shows severe facet arthropathy at level L4-L5, mild to moderate left and mild right neural foraminal narrowing at L4-L5 Assessment & Plan Assessment & Plan (1) Low back pain: Code(s): M54.50 - Low back pain, unspecified Qualifiers: Back pain laterality: bilateral Chronicity: chronic Sciatica laterality: bilateral sciatica Sciatica presence: with sciatica Qualified Code(s): M54.42 - Lumbago with sciatica, left side; M54.41 - Lumbago with sciatica, right side; G89.29 - Other chronic pain Plan Ms. Joya continues to do well after undergoing bilateral total knee replacement surgeries. She will continue with her home stretching program to prevent stiffness. She does know to take antibiotics before any dental work. The patient does have intermittent low back pain most likely due to lumbar stenosis. I will refer her to the neurosurgery department here at [facility] for further evaluation. She will contact me prior to her annual follow-up appointment should any questions or concerns arise. Feel free to call me at any time should questions regarding her orthopedic management arise. I spent 22 minutes in reviewing the patient's records and imaging studies, seeing the patient and documenting in the medical record. Orders: Referrals Neurosurgery Referral M54.50 - Low back pain, unspecified Medications: New gabapentin 300 mg PO BEDTIME 30 caps 0RF Refilled tramadol 50 mg PO Q8H PRN 40 tabs 0RF pain Coding Level of Care Code Est Pt Level 2 (06892) Diagnoses Chronic bilateral low back pain with bilateral sciatica M54.42; M54.41; G89.29 Back pain laterality: bilateral Chronicity: chronic Sciatica laterality: bilateral sciatica Sciatica presence: with sciatica
[2023-06-19 12:56] VITALS: BMI 42.4
== END 2023-06-19 13:35 | disposition home or self-care (01) ==
PROVIDERS: PCP Physician Assistant Medical; Visit Provider Orthopaedic Surgery
DX: M54.42 Lumbago with sciatica, left side (principal); M54.41 Lumbago with sciatica, right side; G89.29 Other chronic pain
CPT/HCPCS: 99212

== ENCOUNTER → 2023-06-19 12:46 | Outpatient (BNVA) | payer MEDICARE, OTHER, SELFPAY | PROVIDERS: PCP Physician Assistant Medical; Visit Provider Orthopaedic Surgery | DX: M54.42 Lumbago with sciatica, left side (principal); M54.41 Lumbago with sciatica, right side; G89.29 Other chronic pain | CPT/HCPCS: 99212 ==

== ENCOUNTER 2023-08-14 13:20 | Outpatient (AMB) | payer MEDICARE, OTHER, SELFPAY ==
--- NOTE | 2023-08-14 13:36 | HO.SPINEOV ---
Intake Intake Visit Reasons: low back pain Allergies penicillin V Allergy (Mild, Verified 06/19/23 12:56) Rash Assessment & Plan Assessment & Plan (1) Low back pain: Code(s): M54.50 - Low back pain, unspecified Qualifiers: Chronicity: chronic Back pain laterality: bilateral Sciatica presence: with sciatica Sciatica laterality: bilateral sciatica Qualified Code(s): M54.42 - Lumbago with sciatica, left side; M54.41 - Lumbago with sciatica, right side; G89.29 - Other chronic pain (2) Spondylolisthesis, lumbar region: Code(s): M43.16 - Spondylolisthesis, lumbar region Plan Dear colleague Thank you for referring Yessi Joya to the office today with a chief complaint of progressive low back pain. HPI: This 73-year-old female is complaining of progressive low back pain. The pain starts in the center of her lower spine and then radiates to the front and then down her left leg into her foot. She denies weakness or numbness. She tried physical therapy, acupuncture and cortisone injections in the past without improvement. ts PMH: Hypertension, diabetes, fibromyalgia Bilateral knee replacement, cholecystectomy, hysterectomy Medications: Lopressor, spironolactone, tramadol, trazodone, Ativan, Cymbalta Allergies: Penicillin and sulfa drugs Social history: Nonsmoker Physical Exam: Pleasant female height 5 ft 6 weight 260 lb. Normal gait. Absent pain on palpation of the lumbar spine. Straight leg raise negative. No neurological deficits for motor sensation or reflexes. Radiological Studies: MRI done at [facility] on 04/01/2023 shows a grade 1 L3-4 spondylolisthesis with mild central spinal stenosis; severe lumbar degenerative disc disease L4-5, severe facet arthropathy and mild left L5 foraminal stenosis. Dynamic x-rays of the lumbar spine show no instability of the L3-4 spondylolisthesis Impression/Plan: This patient is suffering from back pain with radiation down her left leg that can not be explained by the MRI findings. Her symptoms are not severe enough to offer her a 2 level lumbar fusion to address the L3-4 spondylolisthesis and severe degenerative disc disease L4-5. I reviewed the images in detail with the patient and she agreed with my advice. I discharge her from further follow-up Thank you for allowing me to participate in your patients care. total time spent was 50 minutes in counseling ,coordination of plan, personal review of imaging, and subsequent plan Jose Juan Dunn MD, PhD Spine Fellowship Trained Neurosurgeon Director, [facility] Orders: Orders XR lumbar spine 4V min Today M54.50 - Low back pain, unspecified Coding Level of Care Code New Pt Level 4 (94091) Diagnoses Chronic bilateral low back pain with bilateral sciatica M54.42; M54.41; G89.29 Chronicity: chronic Back pain laterality: bilateral Sciatica presence: with sciatica Sciatica laterality: bilateral sciatica Spondylolisthesis, lumbar region M43.16
== END 2023-08-14 14:06 | disposition home or self-care (01) ==
PROVIDERS: PCP Physician Assistant Medical; Referring Provider Orthopaedic Surgery; Visit Provider Neurological Surgery
DX: M54.42 Lumbago with sciatica, left side (principal); M54.41 Lumbago with sciatica, right side; G89.29 Other chronic pain; M43.16 Spondylolisthesis, lumbar region
CPT/HCPCS: 99204

== ENCOUNTER 2023-08-14 13:20 | Outpatient (REF) | payer MEDICARE, OTHER, SELFPAY ==
--- NOTE | ~2023-08-14 | XR_ITS ---
EXAMINATION: XR LUMBOSACRAL SPINE WITH OBLIQUES CLINICAL INFORMATION: Low back pain COMPARISON: None available. TECHNIQUE: AP, and lateral views of the lumbar spine. Lateral flexion and extension view of the lumbar spine. FINDINGS: The visualized lumbar vertebrae are intact with mild L3-L4 levoscoliosis. There is sacralization of L5. Bilateral 12th ribs are rudimentary. Intervertebral disc space is markedly decreased at L4-L5. There is anterior L3 on L4 displacement by 0.5 cm, which remains unchanged in flexion and extension. XR/XR lumbar spine 4V min IMPRESSION: 1. Grade 1 L3-L4 spondylolisthesis, unchanged in flexion and extension. 2. Advanced L4-L5 degenerative lumbar disc disease. 3. No fracture or dislocation of lumbar spine is seen.
== END 2023-08-14 13:21 | disposition home or self-care (01) ==
LOC: HO.HOSX 13:20
PROVIDERS: PCP Physician Assistant Medical; Referring Provider Orthopaedic Surgery; Visit Provider Neurological Surgery
DX: M54.42 Lumbago with sciatica, left side (principal); M54.41 Lumbago with sciatica, right side; G89.29 Other chronic pain; M43.16 Spondylolisthesis, lumbar region
CPT/HCPCS: 72110; 99202

== ENCOUNTER 2024-09-16 08:28 | Outpatient (AMB) | payer MEDICARE, OTHER, SELFPAY ==
[2024-09-16 08:30] VITALS: BMI 42.4
--- NOTE | 2024-09-16 08:30 | A.OFFVIS_ITS ---
Vital Signs 09/16/24 08:30 Height 5 ft 6 in Weight 263 lb BMI 42.4 Intake Visit Reasons: Low back pain Intake Note: Yessi is a 74 year old female who presents with complaints of progressively worsening low back pain. She describes her as sharp severe in nature. The patient states that several months ago her low back pain was so intense that she was not able to get out of bed. She was seen in the emergency room and she was given morphine for her pain. She has tried physical therapy exercises which aggravated her pain. She also reports intermittent weakness in her legs. She has been seen by Dr. Dunn in the past. No surgery was recommended. Allergies penicillin V Allergy (Mild, Verified 09/16/24 08:30) Rash Medication List - Last Reconciled 09/16/24 by Alec Durant MD albuterol sulfate 90 mcg/actuation 2 puffs inhalation Q4H PRN buprenorphine 5 mcg/hour 1 patch topical QWEEK cyanocobalamin (vitamin B-12) 500 mcg PO DAILY cyclosporine 0.05% drps ophthalmic (eye) fluticasone propionate 110 mcg/actuation (Flovent HFA) 2 puffs inhalation BID gabapentin 300 mg PO BEDTIME lorazepam 1 mg PO DAILY PRN metoprolol tartrate 50 mg PO BID montelukast (Singulair) 10 mg PO DAILY semaglutide (Ozempic) mg subcut spironolactone 25 mg PO DAILY tramadol 50 mg PO Q8H PRN trazodone 100 mg PO BEDTIME triamcinolone acetonide 0.1% topical BID PRN PFSH Surgical History (Updated 03/20/23 @ 11:07 by Adriane Castillo Wilfred) Hx of shoulder surgery History of bilateral knee replacement Social History Patient Tobacco Use Status: Never used Tobacco Current occupational status: unemployed Physical Exam Vital Signs: BMI result Body Mass Index 42.4 Back/Spine/Pelvis Other: Low back examination shows bilateral paraspinal muscle tenderness, pain with range of motion, positive straight leg raise test bilaterally at 70 degrees Results Reviewed Results Reviewed: MRI of the patient's lumbar spine shows evidence of moderate to severe lumbar st enosis and degenerative disc disease Assessment & Plan Assessment & Plan (1) Low back pain: Code(s): M54.50 - Low back pain, unspecified Category: Medical Qualifiers: Chronicity: chronic Back pain laterality: bilateral Sciatica presence: with sciatica Sciatica laterality: bilateral sciatica Qualified Code(s): M54.42 - Lumbago with sciatica, left side; M54.41 - Lumbago with sciatica, right side; G89.29 - Other chronic pain Plan Ms. Joya presents with progressively worsening low back pain which radiates down both of her legs as well as bilateral leg weakness possibly due to lumbar stenosis. I had a lengthy discussion with the patient regarding the treatment options. The patient states that she would like to get a 2nd opinion regarding her back pain treatment options. I agree with this plan. She states that she would like to see Dr. Martinez from [facility]. She will contact his office to make a consultation appointment. She will call me prior to that appointment should her symptoms worsen in any way. I spent 22 minutes in reviewing the patient's records and imaging studies, seeing the patient and documenting in the medical record. Coding Level of Care Code Est Pt Level 3 (01607) Complex EM visit Add On G2211 Diagnoses Chronic bilateral low back pain with bilateral sciatica M54.42; M54.41; G89.29 Chronicity: chronic Back pain laterality: bilateral Sciatica presence: with sciatica Sciatica laterality: bilateral sciatica
--- OUTSIDE RECORDS SUMMARY | 2024-09-16 09:01 | XMS_ITS | Clinical Summary ---
Author Organization [facility] [address] [facility] Address [address] [place] [address] Phone Care Team Providers Care Alternative Education Teacher Name Role Phone Alyce Pham Primary Care Provider [phone] Allergies Active Allergy Reactions Criticality Noted Date Comments Cephalexin Rash 05/31/2024 Doxycycline 10/28/2017 Other Reaction(s): Hives/Urticaria Lisinopril Cough 10/18/2017 Penicillins Low 11/12/2001 Other Reaction(s): Hives/Urticaria, Rash/Dermatitis rash Quetiapine 04/01/2019 Sulfa (Sulfonamide Antibiotics) 10/18/2017 Other Reaction(s): Hives/Urticaria Sulfadiazine 05/04/2024 Sulfamethoxazole-Trimethopri m 11/12/2001 Other Reaction(s): OTHER rash Allergy entered as BACTRIM Medications albuterol HFA (PROAIR HFA ; PROVENTIL HFA ; VENTOLIN HFA) 90 mcg/actuation inhaler albuterol sulfate HFA 90 mcg/actuation aerosol inhaler Active cholecalciferol (VITAMIN D-3) 1,250 mcg (50,000 unit) capsule Take 1 Capsule by mouth every 7 days. 04/18/20 22 Active flash glucose sensor (FREESTYLE ELOISE 14 DAY SENSOR MISC) 08/07/19 21 Active fluconazole (DIFLUCAN) 200 mg tablet TAKE 1 TABLET BY MOUTH EVERY Saturday02/14/20 21 Active hydrOXYzine HCL (ATARAX) 10 mg tablet Take 1 Tab by mouth daily as needed for Anxiety. 06/13/20 20 Active insulin glargine (Lantus Solostar U-100 Insulin) 100 unit/mL (3 mL) injection pen Inject 22 Units into the skin at bedtime. Active insulin lispro 100 unit/mL injection Inject as directed. Active metFORMIN XR (GLUCOPHAGE-XR) 500 mg 24 hr tablet Take 3 Tablets by mouth daily (with breakfast). Active montelukast (SINGULAIR) 10 mg tablet Take 1 tablet by mouth at bedtime. 04/25/20 21 Active metoprolol tartrate (LOPRESSOR) 50 mg tablet Take 1 Tab by mouth 2 times daily. 06/14/20 20 Active multivit-min/iro n/folic acid/K (ADULTS MULTIVITAMIN ORAL) Take by mouth daily. Active omeprazole (PriLOSEC) [address] capsule TAKE 1 CAPSULE BY MOUTH EVERY MORNING 08/19/19 21 Active rosuvastatin (CRESTOR) 5 mg tablet Take 1 Tablet by mouth daily. 09/12/19 24 Active spironolactone (ALDACTONE) 25 mg tablet Take 1 tablet by mouth daily. 04/25/20 21 Active traZODone (DESYREL) 50 mg tablet Take 1 tablet by mouth at bedtime. 04/25/20 21 Active tirzepatide (MOUNJARO) 2.5 mg/0.5 mL injection Inject 0.5 mL (2.5 mg total) under the skin. Active diazePAM (VALIUM) 5 mg tablet Take 1 tablet (5 mg total) by mouth 3 (three) times a day if needed for muscle spasms (severe pain) for up to 20 doses. Max Daily Amount: 15 mg 20 each 05/31/20 24 Active chlordiazePOXIDE -clidinium (LIBRAX) 5-2.5 mg per capsuleIndicatio ns:Functional diarrhea,Left sided abdominal pain Take 1 capsule by mouth 3 (three) times a day with meals. Take with meals and at bedtime 90 capsule 5 08/21/19 25 02/07/2 025 Discontinued Active Problems Problem Noted Date Diagnosed Date Morbid obesity with BMI of 45.0-49.9, adult 04/15 Multiple premature ventricular complexes 024 Overview (05/04/2024): Frequent PVCs documented by twelve-lead ECG. Left ventricular origin. Normal left ventricular function by PET/CT scan and echocardiogram. Last Assessment & Plan: It is not completely clear whether the PVCs are causing any symptoms as the patient does feel some heart pounding from time to time. Nevertheless, there is no LV dysfunction based on the recent studies from the past year. I talked her about the potential to use catheter ablation or suppress these pharmacologically but at this point I do not see a compelling need. I did recommend continued efforts at weight loss and healthy diet. She will continue with metoprolol. Lumbar facet arthropathy 11/07/2020 Overview (05/04/2024): Follows with Dr. Bland from physical medicine and rehab receiving facet injections Paroxysmal supraventricular tachycardia 10/05/19 Overview (05/04/2024): Paroxysmal supraventricular tachycardia status post radiofrequency ablation in 2010 without recurrence Last Assessment & Plan: Doing well with no recurrent SVT. No specific treatment needed as this should be cured long-term. Dyspnea 10/04/2020 Overview (05/04/2024): Dyspnea Conduction disorder of the heart 10/04/2020 Overview (05/04/2024): Conduction disorder of the heart Chronic diarrhea 09/27/2020 Overview (05/04/2024): Follows with GI, stomach biopsies negative for H. pylori. Negative celiac's work-up, negative esophageal biopsies as well as colon biopsies. 3 precancerous polyps removed. Repeat colonoscopy in 3 years CKD (chronic kidney disease) stage 3, GFR 30-59 ml/min 04/08/2020 Trigger finger of right thumb 03/24/2020 Primary osteoarthritis of left shoulder 09/03/19 20 Pain in both hands 09/03/2019 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 f 09/03/2019 Dry eyes 09/03/2019 Type 2 diabetes mellitus 08/26/2019 Vitamin D deficiency 10/10/2018 Restless leg syndrome 10/10/2018 Pernicious anemia 10/10/2018 Overactive bladder 10/10/2018 Overview (05/04/2024): Mixed urinary incontinence. Major depressive disorder, recurrent episode, mo derate 10/10/2018 DDD (degenerative disc disease), lumbar 10/11/19 19 Agoraphobia with panic disorder 10/10/2018 Osteoarthritis 10/28/2017 Overview (05/04/2024): Spine, knees Follows with [facility] YAN (obstructive sleep apnea) 10/28/2017 Overview (05/04/2024): Unable to tolerate CPAP Multinodular goiter 10/28/2017 Overview (05/04/2024): 2010 Right jeannine thyroidectomy IBS (irritable bowel syndrome) 10/28/2017 Overview (05/04/2024): Follows with gastroenterology Assessment & Plan (08/21/2024 11:57 AM EST): Hypertension 10/28/2017 GERD (gastroesophageal reflux disease) 8 Coronary artery disease 10/28/2017 Overview (05/04/2024): Cardiac catheterization 2016 showed minor luminal irregularities. This followed a nuclear study anteroseptal wall hypokinesis. She is an insulin-dependent diabetic. She is tolerating a small dose of Crestor with a higher dose causing muscle aches. Last Assessment & Plan: Patient will continue efforts at weight loss and improving the diet. She will continue low-dose Crestor and metoprolol. Continue diabetic management to her primary care team. Fibromyalgia 10/28/2017 Allergic rhinitis 10/28/2017 Moderate asthma 10/18/2017 Encounters Date Type Department Care Team Description 09/10/2024 Lab Requisition [facility] - Main Lab [address] [facility] [employer] [place] [address] Corrina Alvarez PA Urinary tract infection, site not specified 09/07/2024 10:01 AM EST - 09/07/2024 11:59 PM EST Hospital Encounter [facility] at [address] [phone] Encounter for screening mammogram for malignant neoplasm of breast Discharge Disposition: Home or Self Care 08/21/2024 10:40 AM EST Office Visit Gastroenterology - [address] [phone] Wilfrido May PA Functional diarrhea (Primary Dx); Left sided abdominal pain; Irritable bowel syndrome with both constipation and diarrhea 06/26/2024 2:34 PM EST - 06/26/2024 11:59 PM EST Hospital Encounter [facility] Xray [address] [place] [phone] Right sided abdominal pain Discharge Disposition: Home or Self Care 06/26/2024 1:40 PM EST Office Visit Gastroenterology - [address] [phone] Wilfrido May PA Diarrhea, unspecified type (Primary Dx); Right sided abdominal pain; Other specified diabetes mellitus with diabetic autonomic (poly)neuropathy ([facility]) 06/26/2024 Telephone Gastroenterology - [address] [place] [phone] Wilfrido May PA from Last 3 Months Immunizations Name Administration Dates Next Due Influenza, Unspecified 03/25/2020 Moderna SARS-CoV-2 COVID-19, mRNA, LNP-S, preservative free 10/24/2020,09/26/2020 Surgical History Surgery Date Site/Laterality Comments APPENDECTOMY 1970 PROCEDURE: HISTORICAL APPENDECTOMY HYSTERECTOMY 1996 PROCEDURE: HISTORICAL HYSTERECTOMY; COMMENT: partial BREAST LUMPECTOMY 1980 Left PROCEDURE: HISTORICAL BREAST LUMPECTOMY CHOLECYSTECTOMY 2006 PROCEDURE: HISTORICAL CHOLECYSTECTOMY GASTRIC BYPASS 2002 PROCEDURE: GASTRIC BYPASS FOR OBESIT TOTAL KNEE ARTHROPLASTY 2013 Right PROCEDURE: HISTORICAL TOTAL KNEE REPLACE; COMMENT: Left 2010 OTHER SURGICAL HISTORY 05/2011 Right PROCEDURE: HISTORICAL SUBTOTAL THYROIDECTOMY; COMMENT: Right jeannine thyroidectomy OTHER SURGICAL HISTORY 2003 Left PROCEDURE: ARTHROSCOPY PROCEDURE NEC OTHER SURGICAL HISTORY 12/19/2011 PROCEDURE: PULMONOLOGY BRONCHOSCOPY; COMMENT: & 04/07/2012 OTHER SURGICAL HISTORY 12/2013 Left PROCEDURE: ARTHROSCOPY SHOULDER SURGI; COMMENT: bone spur FOOT SURGERY 12/2015 Left PROCEDURE: HISTORICAL FOOT SURGERY ANGIOPLASTY 07/28/2015 PROCEDURE: HISTORICAL ANGIOPLASTY SHOULDER SURGERY PROCEDURE: HISTORICAL SHOULDER SURGERY; COMMENT: 2018; spur removal COLONOSCOPY 12/14/2023 - 01/12/2024 TA x6 HP x1 left sided tics, rhoids ESOPHAGOGASTRODUODENOSCOPY 08/15/2020 - 09/11/202009/04 gastric bypass with medium pouch. Nl bx of stomach, sb and esophagus COLONOSCOPY 08/15/2020 - 09/11/2020 TA x3 HPx1 left sided tics, rhoids BREAST BIOPSY Left Medical History Medical History Date Comments YAN (obstructive sleep apnea) 10/28/2017 DX :YAN (obstructive sleep apnea); COMMENT: Unable to tolerate CPAP Morbid obesity with BMI of 4 5.0-49.9, adult ([facility]) 10/18/2017 DX:Morbid obesity with BMI o f 45.0-49.9, adult ([facility]) Moderate asthma 10/18/2017 DX:Moderate asth ma Osteoarthritis 10/28/2017 DX:Osteoarthriti s; COMMENT: spine, knees GERD (gastroesophageal reflux disease) 10/28/2017 DX:GERD (gastroesophageal reflux disease) Hypertension 10/28/2017 DX:Hypertension Multinodular goiter 10/28/2017 DX:Multinodu lar goiter; COMMENT: Right jeannine thyroidectomy Allergic rhinitis 10/28/2017 DX:Allergic rh initis IBS (irritable bowel syndrome) 10/28/2017 D X:IBS (irritable bowel syndrome) Fibromyalgia 10/28/2017 DX:Fibromyalgia History of cardiac arrhythmia 10/28/2017 DX :History of cardiac arrhythmia; COMMENT: S/p Ablation Diabetes mellitus type 2, uncomplicated ([facility]) 10/28/2017 DX:Diabetes mellitus type 2, uncomplicated ([facility]) H/O total knee replacement 10/28/2017 DX:H/ O total knee replacement; COMMENT: Left 2010 CAD (coronary artery disease) 10/28/2017 DX :CAD (coronary artery disease); COMMENT: 2016 Angioplasty Major depressive disorder, r ecurrent episode, moderate ([facility]) 10/10/2018 DX:Major depressive disord er, recurrent episode, moderate (HCC) Agoraphobia with panic disorder 10/10/2018 DX:Agoraphobia with panic disorder Restless leg syndrome 10/10/2018 DX:Restles s leg syndrome Vitamin D deficiency 10/10/2018 DX:Vitamin D deficiency Pernicious anemia 10/10/2018 DX:Pernicious anemia Overactive bladder 10/10/2018 DX:Overactive bladder; COMMENT: Mixed urinary incontinence. DDD (degenerative disc disea se), lumbar 10/10/2018 DX:DDD (degenerative disc di sease), lumbar First degree AV block 10/10/2018 DX:First d egree AV block Colon polyp Family History Medical History Relation Name Comments Diabetes Aunt maternal (myast henia gravis, hypothyroidism), Cousins Lung cancer Father CAD, @ 67 Diabetes Father's side Aunt, Uncle Breast cancer Mother TIA, Osteoarth ritis, hypertension, CAD Diabetes Sister IBS, Hypertensi on,Hypothyroidism, Osteoarthritis, GERD Relation Name Status Comments Aunt Father Father's side Mother Sister Social History Tobacco Use Types Packs/Day Years Used Date Smoking Tobacco: Never Smokeless Tobacco: Never Alcohol Use Standard Drinks/Week Comments No 0 (1 standard drink = 0.6 oz pur e alcohol) Comments No Sex and Gender Information Value Date Recorded Sex Assigned at Female 06/23/2024 10:17 AM EST Legal Sex Female 10:59 PM EST Gender Identity Female 06/23/2024 10:17 AM EST Sexual Orientation Straight 06/23/2024 10 :17 AM EST Obstetrics History Para Term AB IAB SAB Ectopic Multiple Livin g Live Births 2 Last Filed Vital Signs Vital Sign Reading Time Taken Comments Blood Pressure 143/81 05/31/2024 7:51 AM EST Pulse 81 05/31/2024 7:51 AM EST Temperature 36.5 ??C (97.7 ??F) 05/31/2024 7:51 AM ES T Respiratory Rate 18 05/31/2024 7:51 AM EST Oxygen Saturation 100% 05/31/2024 7:51 AM EST Inhaled Oxygen Concentration - - Weight 118 kg (260 lb) 09/07/2024 10:16 AM EST Height 167.6 cm (5' 6 ) 09/07/2024 10:16 AM EST Body Mass Index 41.97 09/07/2024 10:16 AM EST Plan of Treatment Health Maintenance Due Date Last Done Comments Diabetes: Annual Foot Exam 1959 Diabetes: Annual Retina Eye Exam 1959 Zoster Vaccines (2 of 3) 09/09/2010 07/15/2010 Depression Screening 06/22/2022 Falls Risk Assessment 06/22/2022 Osteoporosis Screening (Bone Density Screening) 06/22/2022 Social Influencers of Health Screening 06/22/2022 Diabetes: Blood Sugar Control Test (HGBA1C) 04/03/2023 10/01/2022 Medicare Annual Wellness Visit 08/20/2023 08/20/2022 Diabetes: Annual Urine Albumin-Creatinine Ratio (uACR) 06/16/2025 06/16/2024, 04/17/2022 Diabetes: Annual GFR (Glomerular Filtration Rate) 06/16/2025 06/16/2024, 01/10/2023, 01/10/2023, Additional history exists Hypertension/CHF/CAD Annual BMP Blood Test 06/16/2025 06/16/2024, 01/10/2023, 01/10/2023, Additional history exists Cholesterol Screening (Lipid Panel) 09/24/2028 09/25/2023 Colorectal Cancer Screening: Colonoscopy 09/09/2030 09/09/2020 DTaP,Tdap,and Td Vaccines (2 - Td or Tdap) 06/06/2031 06/06/2021 Hepatitis C Screening Completed 09/17/2018 RSV Immunization Patients 60+ Years Old Completed 03/15/2023 Pneumococcal Vaccine: 50+ Years Completed 06/25/2023, 07/10/2022, 04/24/2019, Additional history exists COVID-19 Vaccine Completed 03/24/2024, 06/2023, 04/13/2022, Additional history exists Influenza Vaccine Completed 03/24/2024, , 04/13/2022, Additional history exists Breast Cancer Screening Discontinued 09/07/19, 09/04/2023, 08/23/2020, Additional history exists HIB Vaccines Aged Out No longer eligi ble based on patient's age to complete this topic HPV Vaccines Aged Out No longer eligi ble based on patient's age to complete this topic Hepatitis A Vaccines Aged Out No long er eligible based on patient's age to complete this topic Hepatitis B Vaccines Aged Out No long er eligible based on patient's age to complete this topic IPV Vaccines Aged Out No longer eligi ble based on patient's age to complete this topic MMR Vaccines Aged Out No longer eligi ble based on patient's age to complete this topic Meningococcal ACWY Vaccine Aged Out N o longer eligible based on patient's age to complete this topic Meningococcal B Vacine Aged Out No lo nger eligible based on patient's age to complete this topic RSV Immunization Patients Under 20 months Aged Out No longer eligible based on patient's age to complete this topic Varicella Vaccines Aged Out No longer eligible based on patient's age to complete this topic Procedures Procedure Name Priority Date/Time Associated Diagnosis Comments GASTROINTESTINAL PATHOGENS BY PCR Routine 09/15/2024 1:56 PM EST Diarrhea, unspecified type Other specified diabetes mellitus with diabetic autonomic (poly)neuropathy (CMS/HCC) CULTURE URINE Routine 09/10/2024 12:00 AM EST Urinary tract infection, site not specified MG MAMMO DIGITAL SCREENING W HARSHA BILAT Routine 09/07/2024 10:29 AM EST Encounter for screening mammogram for malignant neoplasm of breast XR ABDOMEN 1 VIEW STAT 06/26/2024 2:5 2 PM EST Right sided abdominal pain LIPID PANEL Routine 09/25/2023 ANNUAL BMP BLOOD TEST Routine 01/10/2023 HEMOGLOBIN A1C Routine 10/01/2022 URINE ALBUMIN CREATININE RATIO Routine 04/17/2022 COLONOSCOPY Routine 09/09/2020 HEPATITIS C SCREENING Routine 09/17/2018 from Last 3 Months or Most Recently Relevant to Health Maintenance Results * Gastrointestinal pathogens molecular study (09/15/2024 1:56 PM EST) Campylobacter Detection by PCR Not Detected Not Detected LAB MICROBIOLOGY METHOD 5:39 PM [facility] Plesiomonas shigelloides Detection by PCR Not Detected Not Detected LAB MICROBIOLOGY METHOD 5 5:39 PM [facility] Salmonella Detection by PCR Not Detected Not Detected LAB MICROBIOLOGY METHOD 5 5:39 PM [facility] Vibrio Detection by PCR Not Detected Not Detected LAB MICROBIOLOGY METHOD 5 5:39 PM [facility] Vibrio cholerae Detection by PCR Not Detected Not Detected LAB MICROBIOLOGY METHOD 5 5:39 PM [facility] Yersinia enterocolitica Detection by PCR Not Detected Not Detected LAB MICROBIOLOGY METHOD 5 5:39 PM [facility] Enteroaggregative E coli EAEC Detection by PCR Not Detected Not Detected LAB MICROBIOLOGY METHOD 5 5:39 PM [facility] Enteropathogenic E coli EPEC Detection Not Detected Not Detected LAB MICROBIOLOGY METHOD 5 5:39 PM [facility] Enterotoxigenic E coli ETEC LTST Detection Not Detected Not Detected LAB MICROBIOLOGY METHOD 5 5:39 PM [facility] Shiga-like toxin producing E coli STEC STX1 STX2 Det Not Detected Not Detected LAB MICROBIOLOGY METHOD 5 5:39 PM [facility] Shigella Enteroinvasive E coli EIEC Detection Not Detected Not Detected LAB MICROBIOLOGY METHOD 5 5:39 PM [facility] Cryptosporidium Detection by PCR Not Detected Not Detected LAB MICROBIOLOGY METHOD 5 5:39 PM [facility] Cyclospora cayetanensis Detection by PCR Not Detected Not Detected LAB MICROBIOLOGY METHOD 5 5:39 PM [facility] Entamoeba histolytica Detection by PCR Not Detected Not Detected LAB MICROBIOLOGY METHOD 5 5:39 PM [facility] Giardia lamblia Detection by PCR Not Detected Not Detected LAB MICROBIOLOGY METHOD 5 5:39 PM EST [facility] Adenovirus F 40 41 Detection by PCR Not Detected Not Detected LAB MICROBIOLOGY METHOD 5 5:39 PM EST [facility] Astrovirus Detection by PCR Not Detected Not Detected LAB MICROBIOLOGY METHOD 5 5:39 PM EST [facility] Norovirus GI GII Detection by PCR Not Detected Not Detected LAB MICROBIOLOGY METHOD 5 5:39 PM EST [facility] Sapovirus Detection by PCR Not Detected Not Detected LAB MICROBIOLOGY METHOD 5 5:39 PM [facility] Rotavirus A Detection by PCR Not Detected Not Detected LAB MICROBIOLOGY METHOD 5 5:39 PM [facility] Stool Rectum structure / Unknown Non-blood Collection / Unknown 09/15/2024 1:56 PM EST 09/15/2024 4:08 PM EST Narrative [facility] - 09/15/2024 5:39 PM EST PCR testing is much more sensitive than traditional techniques and allows for the detection of low numbers of stool pathogens. The clinical correlation of PCR results with the need for treatment and clinical outcomes has not been established. Therefore the results of PCR testing for stool pathogens must be taken into clinical context when making treatment decisions. This is a diagnostic test only, repeat testing for cure is not advised. You may consider infectious disease consult for additional guidance. ??Testing Performed by MULTIPLEXED PCR us Wilfrido KENYON LAB MICROBIOLOGY - GENERAL O RDERABLES Final Result [facility] [address] [place] [address], * (ABNORMAL) Culture urine (09/10/2024 12:00 AM EST) Culture, Urine >100,000 CFU/mL Klebsiella pneumoniae ssp pneumoniae(A) BRENT 09/12/2024 10:33 AM EST [facility] Comment: This is an edited result. Previous organism was Gram negative bacilli on 09/11/2024 at 1340 EST. Urine Urine specimen obtained by clean catch procedure / Unknown 09/10/2024 09/10/2024 6:44 PM EST Narrative Organism Antibiotic Method Susceptibility Klebsiella pneumoniae ssp pneumoniae Amoxicillin/Clavulanate BRENT <=2 ug/ml: Susceptible Klebsiella pneumoniae ssp pneumoniae Ampicillin/Sulbactam BRENT 4 ug/ml: Susceptible Klebsiella pneumoniae ssp pneumoniae Piperacillin/Tazobactam BRENT <=4 ug/ml: Susceptible Klebsiella pneumoniae ssp pneumoniae Cefazolin (Urine) BRENT 2 ug/ml: Susceptible Klebsiella pneumoniae ssp pneumoniae Cefoxitin BRENT <=4 ug/ml: Susceptible Klebsiella pneumoniae ssp pneumoniae Ceftazidime BRENT <=0.5 ug/ml: Susceptible Klebsiella pneumoniae ssp pneumoniae Ceftriaxone BRENT <=0.25 ug/ml: Susceptible Klebsiella pneumoniae ssp pneumoniae Cefepime BRENT <=0.12 ug/ml: Susceptible Klebsiella pneumoniae ssp pneumoniae Meropenem BRENT <=0.25 ug/ml: Susceptible Klebsiella pneumoniae ssp pneumoniae Amikacin BRENT <=1 ug/ml: Susceptible Klebsiella pneumoniae ssp pneumoniae Gentamicin BRENT <=1 ug/ml: Susceptible Klebsiella pneumoniae ssp pneumoniae Ciprofloxacin BRENT <=0.06 ug/ml: Susceptible Klebsiella pneumoniae ssp pneumoniae Levofloxacin BRENT <=0.12 ug/ml: Susceptible Klebsiella pneumoniae ssp pneumoniae Nitrofurantoin BRENT 32 ug/ml: Susceptible Klebsiella pneumoniae ssp pneumoniae Trimethoprim/Sulfamethoxazo le BRENT <=20 ug/ml: Susceptible us Corrina KENYON LAB MICROBIOLOGY - GENERAL ORD ERABLES Final Result [facility] [address] [place] [address], * MG Mammo Digital Screening w Harsha bilat (09/07/2024 10:29 AM EST) Anatomical Region Laterality Modality Breast Bilateral Mammography 09/07/2024 1:33 PM EST Impressions 09/07/2024 1:59 PM EST No mammographic evidence of malignancy. ?? No suspicious interval change. A negative mammogram in the presence of a clinically suspicious palpable abnormality does not preclude the possibility of malignancy or alter the indications for biopsy. ASSESSMENT: ?? BI-RADS 2: BENIGN RECOMMENDATION(S): 1: Routine screening mammogram BILATERAL in 1 year. -------- FINAL REPORT -------- Dictated By: Kyler Vizcarra Dictated Date: 09/07/2024 13:33 ET Assigned Physician: Kyler Vizcarra Reviewed and Electronically Signed By: Kyler Vizcarra Signed Date: 09/07/2024 13:59 ET Workstation ID: [id number] Transcribed By: Self Edit Transcribed Date: 09/07/2024 13:41 ET Narrative 09/07/2024 1:59 PM EST EXAM: ??SCREENING MAMMOGRAPHY, BILATERAL HISTORY: ??SCREENING. ??Previous report indicates left breast biopsy 1981 yielding benign results yielded mother diagnosed with breast cancer age 75 COMPARISON: ??09/04/2023, 08/23/2020, 05/06/2019, 09/19/2017, 06/01/2016 TECHNIQUE: Synthesized CC and MLO projections of each breast. ??Tomosynthesis of each breast in the CC and MLO projections. ADDITIONAL IMAGING: None Computer-aided detection was employed with the iCAD ??profound AI 3-D. TISSUE DENSITY: There are scattered areas of fibroglandular density. (BI-RADS category B) FINDINGS: RIGHT BREAST: No new suspicious mass. No new suspicious calcification. No distortion. ?? There is a stable low-density focal asymmetry in the 3 o'clock position 6.6 cm from the nipple (40/69; 63/94). There are multiple groups of calcifications. ??The calcifications are not tightly associated with each other and have coarse heterogeneous configuration. ??Some may be associated with a small mass. ??These may represent degenerating fibroadenomas. ??No suspicious interval changes LEFT BREAST: No suspicious mass. No suspicious calcification. No new areas of distortion. ?? No additional suspicious left breast findings. Evidence of previous surgery in the 12 o'clock region. Procedure Note Kyler Vizcarra MD - 09/07/2024 EXAM: SCREENING MAMMOGRAPHY, BILATERAL HISTORY: SCREENING. Previous report indicates left breast biopsy 1981yielding benign results yielded mother diagnosed with breast cancer age75 COMPARISON: 09/04/2023, 08/23/2020, 05/06/2019, 09/19/2017, 06/01/2016 TECHNIQUE: Synthesized CC and MLO projections of each breast.Tomosynthesis of each breast in the CC and MLO projections. ADDITIONAL IMAGING: None Computer-aided detection was employed with the iCAD profound AI 3-D. TISSUE DENSITY: There are scattered areas of fibroglandular density.(BI-RADS category B) FINDINGS: RIGHT BREAST: No new suspicious mass. No new suspicious calcification. No distortion. There is a stable low-density focal asymmetry in the 3 o'clock position6.6 cm from the nipple (40/69; 63/94). There are multiple groups of calcifications. The calcifications are nottightly associated with each other and have coarse heterogeneousconfiguration. Some may be associated with a small mass. These mayrepresent degenerating fibroadenomas. No suspicious interval changes LEFT BREAST: No suspicious mass. No suspicious calcification. No new areas ofdistortion. No additional suspicious left breast findings. Evidence of previous surgery in the 12 o'clock region. IMPRESSION: No mammographic evidence of malignancy. No suspicious interval change. A negative mammogram in the presence of a clinically suspicious palpableabnormality does not preclude the possibility of malignancy or alter theindications for biopsy. ASSESSMENT: BI-RADS 2: BENIGN RECOMMENDATION(S): 1: Routine screening mammogram BILATERAL in 1 year. -------- FINAL REPORT -------- Dictated By: Kyler Vizcarra Dictated Date: 09/07/2024 13:33 ET Assigned Physician: Kyler Vizcarra Reviewed and Electronically Signed By: Kyler Vizcarra Signed Date: 09/07/2024 13:59 ET Workstation ID: [id number] Transcribed By: Self Edit Transcribed Date: 09/07/2024 13:41 ET us Malgorzata Wilkerson MD IMG BI PROCEDURES Final Resu lt * XR Abdomen 1 View (06/26/2024 2:52 PM EST) Anatomical Region Laterality Modality Body Radiographic Bre ging 06/26/2024 2:54 PM EST Impressions 06/26/2024 2:57 PM EST No acute findings. -------- FINAL REPORT -------- Dictated By: Fernandez Lucia Dictated Date: 06/26/2024 14:54 ET Assigned Physician: Fernandez Lucia Reviewed and Electronically Signed By: Fernandez Lucia Signed Date: 06/26/2024 14:57 ET Workstation ID: [id number] Transcribed By: Self Edit Transcribed Date: 06/26/2024 14:54 ET Narrative 06/26/2024 2:57 PM EST Abdominal radiographs, 06/26/2024. HISTORY: abdominal pain of unknown cause diarrhea with history of constipation, rule out overflow. COMPARISON: 09/01/2022. FINDINGS: Limited views of the lung bases are unremarkable. ??Cholecystectomy clips. ??Nonobstructive bowel gas pattern. ??Surgical clip in the right lower quadrant pain and the left pelvis. ??No significant colonic fecal loading. ??No extraluminal gas collection. ??No concerning calcification. ??Slight S-shaped curvature of the lower thoracic and lumbar spine with degenerative changes of the spine, hips, and pubic symphysis. ??Transitional anatomy on the left at the lumbosacral junction with degenerative changes of an associated pseudoarticulation. Procedure Note Fernandez Lucia MD - 06/26/2024 Abdominal radiographs, 06/26/2024. HISTORY: abdominal pain of unknown cause diarrhea with history of constipation, rule out overflow. COMPARISON: 09/01/2022. FINDINGS: Limited views of the lung bases are unremarkable. Cholecystectomy clips.Nonobstructive bowel gas pattern. Surgical clip in the right lowerquadrant pain and the left pelvis. No significant colonic fecal loading.No extraluminal gas collection. No concerning calcification. SlightS-shaped curvature of the lower thoracic and lumbar spine withdegenerative changes of the spine, hips, and pubic symphysis.Transitional anatomy on the left at the lumbosacral junction withdegenerative changes of an associated pseudoarticulation. IMPRESSION: No acute findings. -------- FINAL REPORT -------- Dictated By: Fernandez Lucia Dictated Date: 06/26/2024 14:54 ET Assigned Physician: Fernandez Lucia Reviewed and Electronically Signed By: Fernandez Lucia Signed Date: 06/26/2024 14:57 ET Workstation ID: [id number] Transcribed By: Self Edit Transcribed Date: 06/26/2024 14:54 ET Result [facility] Wilfrido KENYON IMG XR PROCEDURES Final Resu lt * Lipid panel (09/25/2023) [facility] LDL/HDL Ratio 3 0 - 4 Triglycerides 82 0 - 150 mg/dL Cholesterol 149 0 - 200 mg/dL HDL 54 >=40 mg/dL LDL Cholesterol 79 0 - 100 mg/dL Blood Venous blood specimen / Unknown Result [facility] Provider LAB BLOOD ORDERABLES Leona l Result * Annual BMP Blood Test (01/10/2023) [facility] Annual BMP Blood Test Abstracted Result [facility] Provider HEALTH MAINTENANCE Final Result * Hemoglobin A1c (10/01/2022) [facility] Hemoglobin A1C 0.0 % Comment:No interpretation Blood Venous blood specimen / Unknown Result [facility] Provider LAB BLOOD ORDERABLES Leona l Result * Urine Albumin Creatinine Ratio (04/17/2022) [facility] Urine Albumin Creatinine Ratio Abstracted Result [facility] Provider HEALTH MAINTENANCE Final Result * Colonoscopy (09/09/2020) [facility] Colonoscopy Abstracted, No interpretation Anatomical Region Laterality Modality Other Result [facility] Provider HEALTH MAINTENANCE Final Result * Hepatitis C Screening (09/17/2018) [facility] Hepatitis C Screening Abstracted Result [facility] Provider HEALTH MAINTENANCE Final Result from Last 3 Months or Most Recently Relevant to Health Maintenance Insurance MEDICARE [facility] Advance Directives Documents on File Type Date Recorded Patient Preschool Assistant Teacher Expl anation Health Care Decision (hx) 08/14/2010 AD RILEY DIRECTIVE Health Care Decision (hx) 08/14/2010 AD RILEY DIRECTIVE Health Care Decision (hx) 08/14/2010 AD RILEY DIRECTIVE Health Care Decision (hx) 08/14/2010 AD RILEY DIRECTIVE Health Care Decision (hx) 08/14/2010 AD RILEY DIRECTIVE Health Care Decision (hx) 08/14/2010 AD RILEY DIRECTIVE Health Care Decision (hx) 08/14/2010 AD RILEY DIRECTIVE Health Care Decision (hx) 08/14/2010 AD RILEY DIRECTIVE Health Care Decision (hx) 08/14/2010 AD RILEY DIRECTIVE Health Care Decision (hx) 08/14/2010 AD RILEY DIRECTIVE Health Care Decision (hx) 08/14/2010 AD RILEY DIRECTIVE Care Teams Alternative Education Teacher Relationship Specialty Start Date End Date Alyce Pham PA PCP - General 08/09/22
--- OUTSIDE RECORDS SUMMARY | 2024-09-16 09:01 | XMS_ITS | Continuity of Care Document ---
Author Organization [facility] Address [address] [place] [address]- Care Team Providers Care Floor Inspector Name Role Phone Alyce Fernandez Primary Care Physician Encounter 09/03/24 - 09/10/24 [facility] [address], [address] [place], [place] [address] Attending Physician: Frederick Martinez Admitting Physician: Frederick Martinez Referring Physician: Frederick Martinez Encounter Type: OutPatient One Time Allergies, Adverse Reactions, Alerts Substance Criticality Severity Reaction Reaction Severity Status doxycycline rash hives Active penicillin rash and swelling A ctive lisinopril cough Active sulfa drugs rash and itching A ctive Immunizations Given and Recorded Vaccine Date Status Refusal Reason pneumococcal 23-valent vaccine 09/10/14 Recorded influenza virus vaccine, inactivated 03/18/12 Milton rded influenza virus vaccine, inactivated 06/19/11 Milton rded influenza virus vaccine, inactivated 04/11/10 Milton rded Medications Citracal Tablet 950 mg, By Mouth, 2 times a day, Refills 0, Maintenance, 09/26/15 11:08:13 AM EDT Start Date: 09/26/15 Status: Ordered Repeat number: 1 clobetasol 0.05% topical ointment 1 application, Topically, 2 times a day, # 180 each, 3 Refills, Maintenance, 05/06/23 3:12:00 PM EDT, Ointment, [facility], Partial fill upon patient request if the prescription isfor a schedule II opioid drug., 1 application Topically 2 times a day, 169, cm, 03/25/23 13:28:00 EDT, Height, 121.5, kg, 05/06/23 14:30:00 EDT, Dry Weight Start Date: 05/06/23 Status: Ordered Quantity: 180.0 Unit: each Repeat number: 4 fluconazole 150 mg oral tablet 1 tablet = 150 mg, By Mouth, Once, # 1 tablet, 1 Refills, Soft Stop, 06/12/23 10:27:00 AM EST, Tablet, [id number], Partial fill upon patient request if the prescription is for a schedule II opioid drug., 168, cm, 05/24/23 12:26:00 EST, Height, 123, kg, 06/12/23 9:47:00 EST, Dry Weight Start Date: 06/12/23 Status: Ordered Quantity: 1.0 Unit: tablet Repeat number: 2 Freestyle Lite Test Strips See Instructions, # 600 each, Refills 3, Tot. Refills 3, Maintenance, Use as directed for Type 2 Diabetes Mellitus ICD 10 E 11.9. Test 4 times daily., 02/01/16 9:02:56 AM EDT, Compound Start Date: 02/01/16 Stop Date: 01/26/17 Status: Ordered Quantity: 600.0 Unit: each Repeat number: 4 Lantus 100 u/ml subcutaneous solution = 10 units, Subcutaneous Injection, Daily at bedtime, # 10 mL, 0 Refills, Maintenance, 09/10/23 1:07:00 PM EST, Solution, Partial fill upon patient request if the prescription is for a schedule II opioid drug. Start Date: 09/10/23 Status: Ordered Quantity: 10.0 Unit: mL Repeat number: 1 metFORMIN 1000 mg oral tablet 1 tablet = 1,000 mg, By Mouth, Daily, 0 Refills, Maintenance, 09/10/23 1:08:00 PM EST, Partial fill upon patient request if the prescription is for a schedule II opioid drug. Start Date: 09/10/23 Status: Ordered Repeat number: 1 methenamine hippurate 1 gm oral tablet 1 tablet = 1 Gm, By Mouth, 2 times a day, for 30 days, # 60 tablet, 5 Refills, Acute 09/13/24 9:15:00AM EST, 03/17/24 9:15:00 AM EDT, Tablet, [facility] #[id number], Partial fill upon patient request if the prescription is for a schedule II opioid drug., 168, cm, 01/21/24 9:31:00 EDT, Height, 120.6, kg, 09/16/23 9:29:00 EST, Dry Weight Start Date: 03/17/24 Stop Date: 09/13/24 Status: Ordered Quantity: 60.0 Unit: tablet Repeat number: 6 metoprolol 50 mg oral tablet 50 mg, 1, tablet, By Mouth, 2 times a day, # 180 tablet, Refills 0, Maintenance, 09/10/23 1:07:00 [facility], Partial fill upon patient request if the prescription is for a schedule II opioid drug. Start Date: 09/10/23 Status: Ordered Quantity: 180.0 Unit: tablet Repeat number: 1 Montelukast = 10 mg, By Mouth, Daily, 0 Refills, Maintenance, 07/28/15 6:59:27 AM EST Start Date: 07/28/15 Status: Ordered Repeat number: 1 Multiple Vitamins with Minerals and Essential Fatty Acids oral kit Daily, 0 Refills, Maintenance, 10/16/10 7:46:00 AM EDT Start Date: 10/16/10 Status: Ordered Repeat number: 1 omeprazole 20 mg oral enteric coated capsule 1 capsule, By Mouth, Daily, # 30 capsule, 0 Refills, Maintenance, 09/08/22 3:18:00 PM EST, [facility] #[id number], 169, cm, 07/31/22 11:11:00 EST, Height Start Date: 09/08/22 Status: Ordered Quantity: 30.0 Unit: capsule Repeat number: 1 phenazopyridine 200 mg oral tablet 200 mg, 1, tablet, By Mouth, 3 times a day after meals, PRN, with food, # 21 tablet, Refills 0, Tot. Refills 0, Maintenance, as needed for urinary discomfort, 09/16/23 11:38:00 AM EST, Route to Pharmacy Electronically, [facility] #[id number], Partial fill upon patient request if the prescriptionis for a schedule II opioid drug., 168, cm, 09/16/23 9:29:00 EST, Height, 120.6, kg, 09/16/23 9:29:00 EST, Dry Weight Start Date: 09/16/23 Status: Ordered Quantity: 21.0 Unit: tablet Repeat number: 1 phenazopyridine 200 mg oral tablet 200 mg, 1, tablet, By Mouth, 3 times a day after meals, PRN, with food, # 21 tablet, Refills 0, Tot. Refills 0, Maintenance, as needed for urinary discomfort, 05/24/23 12:51:00 PM EST, Route to Pharmacy Electronically, [facility] #[id number], Partial fill upon patient request if the prescription is for a schedule II opioid drug., 168, cm, 05/24/23 12:26:00 EST, Height, 120.5, kg, 05/24/23 12:26:00 EST, Dry Weight Start Date: 05/24/23 Stop Date: 05/31/23 Status: Ordered Quantity: 21.0 Unit: tablet Repeat number: 1 spironolactone 25 mg oral tablet 25 mg, 1, tablet, By Mouth, 2 times a day, Refills 0, Maintenance, 09/21/16 2:55:29 PM EST Start Date: 09/21/16 Status: Ordered Repeat number: 1 tiZANidine 4 mg oral tablet 4 mg, 1, tablet, By Mouth, Daily at bedtime, # 30 tablet, Refills 3, Tot. Refills 3, Maintenance, 05/22/24 10:49:00 AM EST, Route to Pharmacy Electronically, [facility] #[id number], Partial fill upon patient request if the prescription is for a schedule II opioid drug., 168, cm, 05/22/24 10:27:0 0 EST, Height, 120.6, kg, 09/16/23 9:29:00 EST, Dry Weight Start Date: 05/22/24 Status: Ordered Quantity: 30.0 Unit: tablet Repeat number: 4 traZODone 50 mg oral tablet 50 mg, 1, tablet, By Mouth, Daily at bedtime, Refills 0, Maintenance, 12/29/15 1:28:22 PM EDT Start Date: 12/29/15 Status: Ordered Repeat number: 1 Vitamin C 500 mg oral tablet 1 tablet = 500 mg, By Mouth, 2 times a day, # 60 tablet, 5 Refills, Maintenance, 03/17/24 9:15:00 AM EDT, Tablet, [id number], Partial fill upon patient request if the prescription is for a schedule II opioid drug., 168, cm, 01/21/24 9:31:00 EDT, Height, 120.6, kg, 09/16/23 9:29:00 EST, Dry Weight Start Date: 03/17/24 Stop Date: 09/13/24 Status: Ordered Quantity: 60.0 Unit: tablet Repeat number: 6 Problem List Condition Confirmation Course Effective Dates [...] 1Negative cardiac cath Jul 2015 [address] [facility] pulmonology 3Has CPAP, but unable to use recently secondary to cough Results Radiology Reports * Exam Date Time Procedure Performing Provider Status 09/03/24 10:44 AM US Renal Bladder Carlos Manuel Goldberg; [facility] (Verified) Notes: (US Renal Bladder) Reason For Exam: Mixed incontinence RESULT: US Renal Bladder [facility], [address] [place] [address] Reason: Mixed incontinence COMPARISON: 08/25/2021. Correlation is made with CT abdomen/pelvis dated 05/07/2024. FINDINGS: Right kidney: 10.6 cm in length. Overall size may have been underestimated due to partial obscuration of the upper pole and lower pole. No hydronephrosis. Normal parenchymal thickness and echotexture. No stones. No suspicious mass. Left kidney: 10.9 cm in length. No hydronephrosis. Normal parenchymal thickness and echotexture. Nostones. No suspicious mass. Urinary bladder: Incompletely distended, but no evidence of stone, mass or debris. Ureteral jets are not visualized during the course of the scan. Prevoid volume: 125.3 cc. Postvoid volume: 19.1 cc. IMPRESSION: Normal kidneys and underdistended bladder. WSN: [id number] Ordering Physician: Frederick Forrest Dictated By: Nan Burnham MD Dictated Date/Time: 09/03/24 11:38 a Reviewed By: Nan Burnham MD Signed By: Nan Burnham MD Signed Date/Time: 09/03/24 11:38 am Transcribed By: SITA Transcribed Date/Time: 09/03/24 11:35 am Social History Social History Type Response Smoking Status Never smoker entered on: 09/27/15 Sex Sex Representation Female (finding) Patient Care team information Care Team Personnel Name: Mita Red [facility] Member Role: Lifetime Consulting Physician Name: Alyce Fernandez Position: Reference Physician Member Role: PCP [address]: [address] [place] [address] Telecom: Care Team Related Persons Name: URSZULA ARAMBULA Name: SVITLANA ARAMBULA Insurance Providers Guarantor name: FRANCISCO ARAMBULA Health Plan Information #: 2 Payer: [employer] A ONLY Member Number: [id number] Policy Number: NA Group Number: [id number] Health Plan Information #: 1 Payer: MEDICARE PART B OUTPT Member Number: [id number] Policy Number: NA Group Number: [id number]
--- OUTSIDE RECORDS SUMMARY | 2024-09-16 09:01 | XMS_ITS ---
Author Organization [facility] Address [address] [place] [address] Care Team Providers Care Ham Trimmer Name Role Phone PhamAlyce davis Primary Care Provider UnavailArabella Singh Unavailable [phone] REASON FOR VISIT Shoe Rx Medications Medication SIG (Take, Route, Frequency, Duration) Notes Start Date End Date Status Extra-Depth Diabetic Shoes with 3 Pair Custom heat-molded multi-density innersoles . for 1 year . Dx: pedal deformities and calloused lesions for . 10/15/2014 Active Encounters Encounter Location Date Provider Diagnosis [address] [address] 05/11/2024 Arabella Melvin Diabetic - NIDDM/Neuropathy 250.60 Assessments Encounter Date Diagnosis (ICD Code) Assessment Notes Treatment Notes Treatment Clinical Notes Section Notes 05/11/2024 Diabetic - NIDDM/Neuropath y (ICD9-CM - 250.60) Plan Of Treatment Medication Medication Name Sig Start Date Stop Date Notes Extra-Depth Diabetic Shoes with 3 Pair Custom heat-molded multi-density innersoles . for 1 year . Dx: pedal deformities and calloused lesions for . 10/15/2014 Next Appt Details Provider Name:Arabella Charles , 02/04/2025 11:00:00 AM, [address] [place], [address], Progress Notes * Anabela JOYAOB:1950 ( 74 yo F)Acc No.[id number]:05/11/2024 Patient:?Yessi Joya :1950???Age:74 Y???Sex:Female Address:[address] [place] [address], [facility] * Refills? Refill Extra-Depth Diabetic Shoes with 3 Pair Custom heat-molded multi-density innersoles ., ., ., for 1 year, Dx: pedal deformities and calloused lesions, ., Refills=0 * true * Date:? Generated for Elijah thompson/Bassam/eTransmitting on:?09/16/2024 09:00 AM EST
--- OUTSIDE RECORDS SUMMARY | 2024-09-16 09:01 | XMS_ITS | Data Portability ---
Author Organization [place] - [facility],, MALGORZATA WILKERSON MD Address [address] [address] Care Team Providers Care Prototype Sewer Name Role Phone ANTONI ANDREW Primary Care Provider Assessment No assessment recorded. Plan of Treatment Reminders Order Date Submit Date Provider Last Modified By Organization Details Last Modified Time Details Appointments None recorded. Lab cytology report, thin prep, smear or scraping, cervical or vaginal 2023 024 PASCALE [facility] (Centralized Electronic Ordering - All Locations), Patient Can Go To The Location Of Their Choice, [id number] 4 12:16:28 pap test, thinprep, cervical 2021 022 [facility] ([facility] Order[facility] - All Locations), Patient Can Go To The Location Of Their Choice, [id number] 2 07:33:41 urinalysi s, dipstick, auto 2019 020 P[place] In-Office Order, Internal Use Only DO Not Attach Compendium DO Not Attach Compendium, Do Not Delete/merge, [id number] 0 14:25:11 culture, urine 2019 020 [facility], [address] [place], [address], 0 08:30:15 pap test, thinprep, cervical 2019 020 [facility], Cytopathology Service, [address] [place], [address], 0 07:35:03 Referral None recorded. Procedures None recorded. Surgeries None recorded. Imaging MAMMO, screening , digital, bilateral - Breast Aspiratio n and/or Biopsy if needed 2023 024 [facility], [address], [place], [address], 5 14:15:54 bone density 2023 024 [email or web address], [address], [place], [address], 4 10:53:46 MAMMO, screening , digital, bilateral 2021 022 [facility] (Mammography), [address], [place], [address], 4 07:14:02 bone density 2021 022 [facility], [address], [address], [place], [address], 4 07:35:21 MAMMO, screening , digital, bilateral 2019 020 [facility], [address], [address], [place], [address], 1 11:51:11 bone density 2019 020 [facility], [address], [address], [place], [address], 2 07:28:43 Medication Orders nystatin 100,000 unit/gram topical powder [address] [facility] #[id number], [address] [place], [address], 4 09:47:31 triamcino lone acetonide 0.1 % topical ointment [address] [facility] #[id number], [address] [place], [address], 4 09:44:01 triamcino lone acetonide 0.1 % topical ointment 2023 024 [facility], [address] [place] [address], [address], 4 10:35:23 estradiol 0.01% (0.1 mg/gram) vaginal cream 2023 024 smacmillan 1 [facility], [address] [place] [address], [address], 4 11:55:44 triamcino lone acetonide 0.1 % topical ointment 2021 022 [id number], [address] [facility] [place], [id number], 2 11:31:00 fluconazo le 200 mg tablet 2021 022 pending sale to [facility], [address] [place] [address], [address], 4 09:23:46 Estring 2 mg (7.5 mcg/24 hour) vaginal ring 2021 022 pending [facility] to [facility], [address] [place] [address], [address], 4 10:24:53 Patient TargetsNo targets recorded. Patient Instructions Encounter Date Encounter Id Patient Instructions Last Modified By Organization Details Last Modified Time 04/15/2020 [id number] urinary tract infection in women information Not available 04/15/2020 14:21:16 atrophic vaginit is: care instructions Not available 04/15/2020 14:21:16 learning about healthy weight Not available 04/15/2020 14:21:16 She had an Enterobacter UTI with > 10 6th colonies, she has now finished her antibiotic, and is here for ANGELA, and also for her annual exam. __ note from 03/31/20: She was here initially for her annual, but she has had 6 days of progressively worsening dysuria, frequency and urgency. It started 7 days ago with a sharp pain that kept her in bed for several hours, starting in the right renal area and slowly progressing down her back and around to her lower right pelvic front, with the pain coming in waves every several minutes. She has nausea, no vomiting. Did have lightheadedness. After that pain resolved she started to have spasms in the suprapubic area that have persisted to the present time. She has a significant UTI, and may have a renal stone that passed from the right kidney to the bladder and may still be in the bladder. RX macrobid, call if symptoms persist or wrosen. She is advised on how to get a bladder stone to pass, using a pelvic 3 D model for instruction. All questions answered. Return in 10-14 days for annual and also to do ANGELA. Note from 2019: She is here for annual exam, she just had right shoulder surgery for a bone spur, still in therapy. She has been having recurrent vaginal yeast, she had antibiotics for surgery and since then it has been an issue. Her HgB A1C was last 6.8. She appears to be doing well. Her UTI symptoms are allresolved, check urine culture for ANGELA. She is advised to get 1500 mg of calcium daily into her diet and supplements combined. We discussed the benefits of adequate vitamin D supplementation to at least 400 units daily, daily aerobic exercise of 30 minutes, and stress reduction. Monthly self breast exam was taught, and stressed, and is advised to call if she discovers any new mass in the breast. Seat belt use for herself and passengers advised. The significant health benefits of becoming and remainig fit, with an optimal BMI, were also discussed. We discussed the potential reduction in chronic discomfort, the diminished risks of hypertension, diabetes, and heart disease with the proper weight management, and improved mobility as she ages. Strategies to reach and maintain her target weight wer discussed in detail, all questions answered. Not available 04/15/2020 14:21:53 09/05/2021 [id number] vaginal yeast infection: care instructions Not available 09/05/2021 10:31:18 type 2 diabetes: care instructions Not available 09/05/2021 12:03:37 This visit is a phone telehealth visit. The patient consented to the visit by phone. The patient was at home at the time of the call and the provider and patient were the only people on the line. I was at [address] [place] [address], [address], [place], at the time of the call. 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 It has worked well but the dermatology department was let go by [place] and she has no access to a transformer assembly supervisor right now, and she is out of pills. She has been using the E2 vaginal cream three times a week, 1 gram, but she still had 4 UTIs last year. Also she has vaginal mesh after surgery, and had recent radiology testing to find out if the mesh is causing the UTIs. Her type 2 diabetes has been in good control, her A1C was 6.2 recently. We discussed that using the estradiol daily may help to improve the recurrent UTIs and vaginal yeast infections. It is difficult for her to remember daily. We discussed the option of the Estring, she would like to try that. On annual exam no mesh issues had been noted so it should be reasonable to try the Estring. We discussed that if her vaginal canal is properly estrogenized, and her sugars are in good control, it would be reasonable to stop the weekly diflucan to see if the problem persists. She will use three months of the Estring then stop the diflucan and see what happens. Also the dermatologists will be in our building in October so she can follow up with them. She has a past history of UT, however the estradiol levels in serum are not significantly affected by the vaginal estrogen in standard amounts and so it is reasonable to use this treatment. All questions answered. The patient was agreeable to this plan. She is aware of the limitations caused by the covid restrictions, and this phone call, but was appreciative of the efforts to complete the evaluation. Face to face discussion 30 minutes olivia Not available 09/05/2021 12:04:47 06/13/2022 [id number] type 2 diabetes: care instructions Not available 06/13/2022 11:30:51 atrophic vaginit is: care instructions Not available 06/13/2022 11:30:51 learning about healthy weight Not available 06/13/2022 11:30:51 She is here for annual exam, is grieving, she found her son from cardiac issues. She needs a refill on her aristocort which is working well for her lichen sclerosis. Note from 2019: She had an Enterobacter UTI with > 10 6th colonies, she has now finished her antibiotic, and is here for ANGELA, and also for her annual exam. __ She appears to be doing well. Monthly self breast exam was taught, and stressed, and is advised to call if she discovers any new mass in the breast. [email or web address] Not available 06/13/2022 11:31:09 09/17/2023 [id number] This visit is a phone telehealth visit. The patient consented to the visit by phone. The patient was at home at the time of the call and the provider and patient were the only people on the line. I was at [address] [facility], [address], [place], [place], at the time of the call. She had a recent mammogram that showed dense breasts and she has concerns about needing a screening breast sonogram. My life is in the toilet. Her son and her sister both and she is still grieving. Her diabetes ins not in good control, her A1C was 9, she is taking metformin and also lantus. She tried ozempic but had pruritus, and had to stop it. She was taking Victoza until it was denied in 2021, that was keeping her A1Cs in the normal range and she tolerated it well but she has tried to do prior auth and appeals since then and they keep denying the only thing that works for me! She also needs refills on her aristocort and her estradiol vaginal cream. We had a long discussion about all this, and advised on ways to try to get her necessary meds prior auth'd. Refill estradiol vaginal cream, and Aristocort, discussed posible side effects and how to best use it. The patient was agreeable to this plan. She is aware of the limitations caused by the covid restrictions, and this phone call. Face to face discussion 14 minutes Not available 09/17/2023 12:01:48 06/22/2024 [id number] atrophic vaginit is: care instructions Not available 06/22/2024 09:43:59 learning about healthy weight Not available 06/22/2024 09:43:59 She is here for annual, doing well, needs refill on Aristocort. She has been having a terrible pain in the stomach had a recent CT scan, nothing was found. Note from 2021: She is here for annual exam, is grieving, she found her son from cardiac issues. She needs a refill on her aristocort which is working well for her lichen sclerosis. She has a stable right hydrosalpinx, she has declined surgery in the past. She notes the CT showed it to be stable still, she will get me a copy of that test to review. Her pain was right flank radiating to the right lower quadrant, a mnth ago, it was worse a month ago but still noticeable. She notes the urologist stated she did not have a stone. She had gone to the ED, and then saw urology. She notes a topical pain in her axillae fo several weeks, she has visual monilia there, rx nystop powder nad advised to see her transformer assembly supervisor if it does not improve. She appears to be doing well. Monthly self breast exam was taught, and stressed, and is advised to call if she discovers any new mass in the breast. Not available 06/22/2024 09:48:36 Reason for Referral None Reported. Results Created Date Observation Date Name Description Value Unit Range Abnormal Flag Note LastModifiedBy Organization Detail LastModifiedTime 03/31/20 20 03/31/2020 cultu re, urine comments [facility] [address] [place] [address] Medic al Dire trice davidson MD NURSE D/O @1015 [facility] E: URINE ,ADAM N CATCH ; Not Available [facility] [address] [place] [address], [address], 04/02/2020 09:51:35 03/31/20 20 04/02/2020 cultu re, urine urine culture [facility] [address] [place] [address] Medic al Dire trice davidson MD NURSE D/O @1015 COLLE CTION TIME: 2019 10:00 :00 AM -04:0 0 URINE CULTU RE ENTER OBACT ER AEROG DANIELLE ( ENTAE R ) F URINE CULTU RE COLON Y COUNT F URINE CULTU RE >100, 000 F Not Available [facility] [address] [place] [address], [address], 04/02/2020 09:51:35 03/31/20 20 03/31/2020 antib iotic sensi tivit y, isola te comments PAREN T ORGAN ISM: ENTER OBACT ER AEROG DANIELLE ( ENTAE R ) [facility] [address] [place] [address] Medic al Dire trice davidson MD [facility] E: URINE ,ADAM N CATCH ; Not Available [facility] [address] [place] [address], [address], 04/02/2020 09:51:41 03/31/20 20 04/02/2020 antib iotic sensi tivit y, isola te gram negative susceptibili ty [facility] [address] [place] [address] Medic al Dire trice davidson MD COLLE CTION TIME: 2019 10:00 :00 AM -04:0 0 TRIME THOPR IM/PASCUAL LFAME THOXA ZOLE <=20 S F AMOXI CILLI N/CLA VULAN IC ACID 16 R F CEFAZ PADMINI >=64 R F CEFTA ZIDIM E <=1 S F CEFTR IAXON E <=1 S F CEFEP FRANCISCO <=1 S F CIPRO FLOXA KJ <=0.2 5 S F ERTAP ENEM <=0.5 S F GENTA MICIN <=1 S F LEVOF LOXAC IN <=0.1 2 S F IMIPE NEM 2 I F NITRO FURAN TOIN 128 R F TOBRA MYCIN <=1 S F Not Available [facility] [address] [facility], [place], [address], 04/02/2020 09:51:41 03/31/2003/31/2020 urina lysis , dipst ick, auto glucose negati ve Not Available In-Office Order Internal Use Only DO Not Attach Compendium DO Not Attach Compendium, Do Not Delete/merge, [id number] 03/31/2020 09:49:47 03/31/20 20 03/31/2020 urina lysis , dipst ick, auto MEENAKSHI negati ve Not Available In-Office Order Internal Use Only DO Not Attach Compendium DO Not Attach Compendium, Do Not Delete/merge, [id number] 03/31/2020 09:49:47 03/31/2003/31/2020 urina lysis , dipst ick, auto ket negati ve Not Available In-Office Order Internal Use Only DO Not Attach Compendium DO Not Attach Compendium, Do Not Delete/merge, [id number] 03/31/2020 09:49:47 03/31/20 20 03/31/2020 urina lysis , dipst ick, auto SG 1.030 Not Available In-Office Order Internal Use Only DO Not Attach Compendium DO Not Attach Compendium, Do Not Delete/merge, [id number] 03/31/2020 09:49:47 03/31/2003/31/2020 urina lysis , dipst ick, auto BLO HEMOLY ZED: TRACE Not Available In-Office Order Internal Use Only DO Not Attach Compendium DO Not Attach Compendium, Do Not Delete/merge, 03/31/2020 09:49:47 03/31/2003/31/2020 urina lysis , dipst ick, auto PH 5.0 Not Available In-Office Order Internal Use Only DO Not Attach Compendium DO Not Attach Compendium, Do Not Delete/merge, 03/31/2020 09:49:47 03/31/20 20 03/31/2020 urina lysis , dipst ick, auto PRO NEGATI VE Not Available In-Office Order Internal Use Only DO Not Attach Compendium DO Not Attach Compendium, Do Not Delete/merge, 03/31/2020 09:49:47 03/31/20 20 03/31/2020 urina lysis , dipst ick, auto URO 0.2 E.U. /dl Not Available In-Office Order Internal Use Only DO Not Attach Compendium DO Not Attach Compendium, Do Not Delete/merge, 03/31/2020 09:49:47 03/31/2003/31/2020 urina lysis , dipst ick, auto NIT POSITI VE Not Available In-Office Order Internal Use Only DO Not Attach Compendium DO Not Attach Compendium, Do Not Delete/merge, 03/31/2020 09:49:47 03/31/20 20 03/31/2020 urina lysis , dipst ick, auto ALEKSEY TRACE Not Available In-Office Order Internal Use Only DO Not Attach Compendium DO Not Attach Compendium, Do Not Delete/merge, 03/31/2020 09:49:47 04/15/2004/15/2020 cultu re, urine comments [facility] a [facility] of [facility] [address] [facility] [place] [address] Medic al Dire trice davidson MD [facility] E: URINE ,ADAM N CATCH ; Not Available [facility] [address], [place], [address], 04/16/2020 08:30:15 04/15/20 20 04/16/2020 cultu re, urine urine culture [facility], a [facility] r of [facility] nd [address] [place] [address] Medic al Direc MD CHEYENNE Nichols CTION TIME: 2019 11:00 :00 AM -04:0 0 URINE CULTU RE 10,00 0 - 49,00 0 CFU/m L F URINE CULTU RE TIAGO L SKIN/ UROGE NITAL ZEINAB PRESE NT. F Not Available [facility] [address] [place], [address], 04/16/2020 08:30:15 04/15/2004/15/2020 pap test, thinp rep, cervi love [id number] ThinP rep Pap, Image d: NEGAT JIM FOR SQUAM OUS INTRA EPITH ELIAL LESIO N AND MALIG KATI . Patricia Farfan , CT( CP) (Case elect munir franklin d 04 19 2020) ADEQU ACY: Satis facto ry . SOURC E: ThinP rep Pap HPV IF ASCUS , Vagin al, Image d CLINI LOVE INFOR MATIO N: HPV If Diagn osis of ASCUS . LPS NEG [Z12. 4] Not Available [facility], Cytopathology Service [address] [place], [address], 04/19/2020 12:41:05 04/15/2004/15/2020 urina lysis , dipst ick, auto glucose negati ve Not Available In-Office Order Internal Use Only DO Not Attach Compendium DO Not Attach Compendium, Do Not Delete/merge, [id number] 04/15/2020 11:00:55 04/15/2004/15/2020 urina lysis , dipst ick, auto MEENAKSHI small Not Available In-Office Order Internal Use Only DO Not Attach Compendium DO Not Attach Compendium, Do Not Delete/merge, [id number] 04/15/2020 11:00:55 04/15/2004/15/2020 urina lysis , dipst ick, auto ket negati ve Not Available In-Office Order Internal Use Only DO Not Attach Compendium DO Not Attach Compendium, Do Not Delete/merge, 04/15/2020 11:00:55 04/15/2004/15/2020 urina lysis , dipst ick, auto SG 1.030 Not Available In-Office Order Internal Use Only DO Not Attach Compendium DO Not Attach Compendium, Do Not Delete/merge, 04/15/2020 11:00:55 04/15/2004/15/2020 urina lysis , dipst ick, auto BLO NEGATI VE Not Available In-Office Order Internal Use Only DO Not Attach Compendium DO Not Attach Compendium, Do Not Delete/merge, 04/15/2020 11:00:55 04/15/2004/15/2020 urina lysis , dipst ick, auto PH 5.0 Not Available In-Office Order Internal Use Only DO Not Attach Compendium DO Not Attach Compendium, Do Not Delete/merge, 04/15/2020 11:00:55 04/15/2004/15/2020 urina lysis , dipst ick, auto PRO NEGATI VE Not Available In-Office Order Internal Use Only DO Not Attach Compendium DO Not Attach Compendium, Do Not Delete/merge, 04/15/2020 11:00:55 04/15/2004/15/2020 urina lysis , dipst ick, auto URO 0.2 E.U. /dl Not Available In-Office Order Internal Use Only DO Not Attach Compendium DO Not Attach Compendium, Do Not Delete/merge, 04/15/2020 11:00:55 04/15/2004/15/2020 urina lysis , dipst ick, auto NIT NEGATI VE Not Available In-Office Order Internal Use Only DO Not Attach Compendium DO Not Attach Compendium, Do Not Delete/merge, 04/15/2020 11:00:55 04/15/2004/15/2020 urina lysis , dipst ick, auto ALEKSEY NEGATI VE Not Available In-Office Order Internal Use Only DO Not Attach Compendium DO Not Attach Compendium, Do Not Delete/merge, 04/15/2020 11:00:55 06/13/20 22 06/13/2022 [facility] [facility] [place] Live nt Name: YESSI ARAMBULA nt : 1949 (Age: 72) Lab Acces eligio #: [id number] Colle ction Date: 06/13 Acces eligio Date: 2021 Sign Out Date: 2021 Tissu e Sourc e: 1: 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 Satis facto ry for evalu ation . Clini love Histo ry: Date of Last Menst rual Perio d: not avail able Menst rual Histo ry: Post- menop ausal Contr acept jim Histo ry: not avail able Ancil gómez Testi ng: HPV (ASCU S) Case image d by the ThinP rep Imagi ng Syste m with corinne forbes or keiko gaming Perfo rmed at [facility] ate Refer ence Labor atory depar t[facility] Cytol ogy, [address] [place] Clini love Histo ry (othe r): Z12.4 , LPS 04/15 negat jim, routpiotr jacobs scree n, low risk, cervi love, every 2 years Phone #: [phone], On-Ca ll Patho logis t: [id number] Not Available [facility] (Centralized Electronic Ordering - All Locations) Patient Can Go To The Location Of Their Choice, [id number] 06/18/2022 14:46:07 06/22/2006/27/2024 IGP, RFX APTIM A HPV ASCU diagnosis: Commen t NEGAT JIM FOR INTRA EPITH ELIAL LESIO N OR MALIG KATI . Not Available [facility] ([facility]) [address] [facility], [place], [address], 06/27/2024 12:16:27 06/22/20 24 06/27/2024 IGP, RFX APTIM A HPV ASCU specimen adequacy: Commen t Satis facto ry for evalu ation . No endoc ervic al compo nent is ident ified . Not Available [facility] ([facility]) [address] [facility], [place], [address], 06/27/2024 12:16:27 06/22/20 24 06/27/2024 IGP, RFX APTIM A HPV ASCU clinician provided ICD10: Ashley larsen Z12.4 Not Available [facility] ([facility]) [address] [facility], [place], [address], 06/27/2024 12:16:27 06/22/20 24 06/27/2024 IGP, RFX APTIM A HPV ASCU performed by: Ashley enrique, Kristal larsen (ASCP ) Not Available [facility] ([facility]) [address] [facility], [place], [address], 06/27/2024 12:16:27 06/22/20 24 06/27/2024 IGP, RFX APTIM A HPV ASCU . . Not Available [facility] ([facility]) [address] [facility], [place], [address], 06/27/2024 12:16:27 06/22/20 24 06/27/2024 IGP, RFX APTIM A HPV ASCU note: Ashley larsen The Pap smear is a scree dalia test desmarcelo ronald to aid in the detec tion of cristela ligna nt and malig nant condi tions of the uteri ne cervi x. It is not a diagn ostic proce dure and shoul d not be used as the sole means of detec ting cervi love cance r. Both false -posi tive and false -nega tive repor ts do occur . Not Available [facility] ([facility]) [address] [facility], [place], [address], 06/27/2024 12:16:27 06/22/20 24 06/27/2024 IGP, RFX APTIM A HPV ASCU test methodology: Commen t This liqui d based ThinP rep(R ) pap test was aki cardenas with the use of an image guide ilene lieberman Not Available [facility] ([facility]) [address] [facility], [place], [address], 06/27/2024 12:16:27 06/22/20 24 06/27/2024 IGP, RFX APTIM A HPV ASCU . Commen t The HPV DNA refle x crite brianna were not met with this speci men resul t there fore, no HPV testi ng was perfo rmed. Not Available [facility] ([facility]) [address] [facility], [place], [address], 06/27/2024 12:16:27 08/23/19 21 08/23/2020 MAMMO , scree dalia, digit al, bilat eral No observ ation record ed. [address] [facility] Dept [address] [place], [address], 08/23/2020 12:05:17 09/04/19 24 09/04/2023 MAMMO , scree dalia, digit al, bilat eral No observ ation record ed. [address] [facility] [address] [place], [address], 09/05/2023 08:16:44 09/07/19 25 09/07/2024 MAMMO , scree dalia, digit al, bilat eral No observ ation record ed. [address] [place], [address], 09/07/2024 14:35:46 Result Notes None recorded. Problems Name Problem SNOMED Code Status Onset Date Resolution Date Notes Provider Name and Address Organization Details Recorded Time Dysuria 52661790 Active Malgorzata Wilkerson MD [address] [place] [address], [address], [place], [address], [place] [facility], 6 11:10:51 Type 2 diabetes mellitus without complicati on 458889204 Active Malgorzata Wilkerson MD [address], [place], [address], [place] - [facility], 6 11:10:51 Candidal vulvovagin itis 38437285 Active Malgorzata Wilkerson MD [address], [place], [address], [place] - [facility], 6 11:32:46 Obesity 248091962 Active Malgorzata Wilkerson MD [address], SULAIMAN Fang, 5, [place] - [facility], 6 11:10:51 Female stress incontinen ce [id number] Active Malgorzata Wilkerson MD [address], [place] Fang, 5, [place] - [facility], 6 11:10:51 Acute lower urinary tract infection [id number] Active Malgorzata Wilkerson MD [address], [place] Fang, 5, [place] - [facility], 6 11:10:51 Benign essential hypertensi on [id number] Active Malgorzata Wilkerson MD [address], [place]IMAN Fang, 5, [place] - [facility], 6 11:10:51 Silent myocardial infarction [id number] Active stress test 06/2015, angioplast y 07/2015. Malgorzata Wilkerson MD [address], [place]IMAN Fang, 5, [place] - [facility], 6 11:10:51 Atrophic vulvovagin itis [id number] Active Malgorzata Wilkerson MD [address], [place]IM[place] Fang, 5, [place] - [facility], 6 11:32:46 Complex cyst of uterine adnexa [id number] Active 2016 right side She had a laparoscop y by a surgeon in [place] in 04/2017. His operative note reads: The pelvis was free of pathology. MD [address]anta Cummings,[address], [place], [phone], [place] - [facility], 8 09:46:16 Hydrosalpi nx [id number] Active 2018 MD [address]anta Cummings,[address], [place] Fang, [address], [place] - [facility], 9 11:21:41 Diverticul osis of colon [id number] Active 2018 Malgorzata Wilkerson MD [address], [place], [address], [place] - [facility], 9 11:21:55 Pain in pelvis 90636226 Active 2018 Malgorzata Wilkerson MD [address], [place] Fang, [address], [place] - [facility], 9 11:22:06 Neoplasm of skin [id number] Active 11/2018: On exam she has a 4 by 5 mm triangular raised lesion of upper left abdominal wall, lateral to xyphoid, dark black with slightly irregular edges. She notes it was new 2 years ago and smaller, has been steadily growing in size. Strongly advised to see dermatolog y right away to have it checked, she will do so. MD Fanta Cummings,[address], [place], [address], [place] - [facility], 9 09:57:36 Menopausal syndrome [id number] Active MD Fanta Cummings,[address], [place], [phone], [place] - [facility], 6 11:10:51 Problem Notes None recorded. Procedures Surgical History Date Name Laterality Status Provider Name and Address Organization Details Recorded Time 09/04/19 24 Most Recent Mammogram completed Lina Mota [place] - [facility], 09/17/2023 10:29:40 07/24/19 19 Unlisted procedure shoulder completed Lina Mecsalimawor [place] - [facility], 11/21/2018 09:23:21 05/06/20 17 Laparoscopy completed Charo Sykes [place] - [facility], 05/28/2017 13:07:38 01/09/20 16 Other completed Lina Meczywor [place] - [facility], 02/15/2016 08:13:26 10/10/19 14 Most Recent Bone Density completed Charo Sykes [place] - [facility], 03/20/2016 13:44:35 07/15/19 14 Other completed Lina Meczywor [place] - [facility], 11/22/2014 10:38:40 07/15/19 14 Other completed Lina Meczywor [place] - [facility], 11/22/2014 10:38:40 07/15/19 11 Thyroid Surgery completed Malgorzata Wilkerson MD [address], [place], [phone], [place] - [facility], 08/01/2012 11:02:31 07/15/19 07 Other completed Lina Mecsarahor [place] - [facility], 08/01/2012 10:45:35 07/15/19 05 Cholecystectomy completed Lina Meczidaliawor [place] - [facility], 08/01/2012 10:45:35 07/15/19 03 Other completed Lina Funmilayoor [place] - [facility], 08/01/2012 10:45:35 07/15/18 96 Hysterectomy completed Malgorzata Wilkerson MD [address], [place], [phone], [place] - [facility], 03/21/2017 14:29:46 01/01/19 82 Other completed Malgorzata Wilkerson MD [address] [facility],[address], [place], [phone], SULAIMAN Price in [facility], 08/01/2012 11:00:31 07/15/18 70 Appendectomy completed Lina [facility] in [facility], 08/01/2012 10:45:35 Imaging Results Imaging Date Name Status LastModified by Organiz ation Details LastModified Time 08/23/2020 MAMMO, screening, digital, bilateral completed [address] [facility] [address] [place] [address], [id number], 08/23/2020 12:05:17 09/04/2023 MAMMO, screening, digital, bilateral completed [address] [facility] [address] [place] [address], [id number], 09/05/2023 08:16:44 09/07/2024 MAMMO, screening, digital, bilateral completed [address] Department [address] [place] [address], [id number], 09/07/2024 14:35:46 Procedure Notes None recorded. Medical Equipment None Reported. Allergies Allergen ID Allergen Name Allergen Category Reaction Reaction Severity Criticality Documentation Date Start Date Code Code System Note Provider Name and Address Organization Details Recorded Time 30007 Seroquel medicatio n other Not available Not available 09/15/2013 88938 RxNorm make her ...ou t of it... . SULAIMAN Butcher in [facility], 4 10:51:58 6224 Product containin g penicilli n (product) medicatio n rash Not available Not available 08/01/2012 50391 [id number] SNOMED SULAIMAN Butcher in [facility], 3 10:45:36 Medications Name Sig Start Date Stop Date Status Note LastModified by Organization Details LastModified Time vitamin b12 500mcg tablets 100's TK 1 T PO QD 09/05 completed Not Available Not Available Not Available vitamin b-12 500mcg tablets TAKE 1 TABLET BY MOUTH ONCE DAILY active Not Available Not Available No t Available carisoprodo l 350 mg tablet active Not Available Not Available Not Available celecoxib 200 mg capsule 09/05 completed Not Available Not Available Not Available cyclobenzap rine 10 mg tablet TAKE 1 TABLET BY MOUTH THREE TIMES NEEDED 07/04 completed Not Available Not Available Not Available amoxicillin 500 mg capsule active Not Available Not Available Not Available fluconazole 100 mg tablet 07/04 completed Not Available Not Available Not Available atorvastati n 40 mg tablet TAKE 1 TABLET BY ORAL ROUTE EVERY DAY 10/15 completed Not Available Not Available Not Available methocarbam ol 500 mg tablet 03/31 completed Not Available Not Available Not Available clotrimazol e 10 mg jorge a HOLD 1 JORGE A IN THE MOUTH 5 TIMES A DAY active Not Available Not Available No t Available buspirone 5 mg tablet 07/04 completed Not Available Not Available Not Available Levsin 0.125 mg tablet 07/04 completed Not Available Not Available Not Available terconazole 0.4 % vaginal cream active Not Available Not Available Not Available clonidine HCl 0.1 mg tablet active Not Available Not Available Not Available prednisone 10 mg tablet TAKE 2 TABS BY MOUTH FOR 5 DAYS THEN 1 TAB DAILY FOR 5 DAYS THEN DISCONTIN UE 03/31 completed Not Available Not Available Not Available Estring 2 mg (7.5 mcg/24 hour) vaginal ring Insert 1 vaginal ring every 3 months by vaginal route. 09/16 completed Not Available Not Available Not Available doxycycline hyclate 100 mg capsule TAKE 1 CAPSULE BY MOUTH EVERY DAY FOR ACUTE OPIOID THERAPY DAYS 09/05 completed Not Available Not Available Not Available cefuroxime axetil 250 mg tablet 03/31 completed Not Available Not Available Not Available ketoconazol e 2 % shampoo SHAMPOO EVERY OTHER DAY AND A FACE WASH EVERY DAY active Not Available Not Available No t Available tizanidine 2 mg tablet TAKE 1 TABLET BY MOUTH AT BEDTIME MAY INCREASE TO TWICE A DAY IF TOLERATED WELL 10/15 completed Not Available Not Available Not Available clindamycin HCl 300 mg capsule active Not Available Not Available Not Available albuterol sulfate 2.5 mg/3 mL (0.083 %) solution for nebulizatio n INHALE 1 VIAL VIA NEBULIZER Q 4 H PRF SOB 10/15 completed Not Available Not Available Not Available ammonium lactate 12 % lotion APPLY 1 APPLICATI ON EXTERNALL Y TWICE DAILY active Not Available Not Available No t Available trazodone 50 mg tablet TAKE 1-2 TABLETS BY MOUTH AT BEDTIME NEEDED active Not Available Not Available No t Available oxybutynin chloride ER 10 mg tablet,exte nded release 24 hr TK 1 T PO ONCE D 07/04 completed Not Available Not Available Not Available azithromyci n 250 mg tablet TAKE 2 TABLET BY MOUTH 1 HOUR BEFORE INJECTION 06/22 completed Not Available Not Available Not Available ibuprofen 800 mg tablet TAKE 1 TABLET BY MOUTH 3 TIMES A DAY NEEDED active Not Available Not Available No t Available tizanidine 4 mg tablet TAKE 1 TABLET BY MOUTH DAILY AT BEDTIME active Not Available Not Available No t Available fluconazole 150 mg tablet TAKE 1 TABLET BY MOUTH 1 TIME 09/16 completed Not Available Not Available Not Available valacyclovi r 1 gram tablet TAKE 1 TABLET BY MOUTH THREE TIMES DAILY FOR 7 DAYS 09/05 completed Not Available Not Available Not Available ranitidine 300 mg tablet TAKE 1 TABLET BY MOUTH AT BEDTIME active Not Available Not Available No t Available sumatriptan 100 mg tablet active Not Available Not Available Not Available hydrocodone 5 mg-acetamin ophen 325 mg tablet TAKE 1 TABLET BY MOUTH EVERY 24 HOURS NEEDED FOR PAIN 06/13 completed Not Available Not Available Not Available minocycline 100 mg capsule TAKE ONE CAPSULE BY MOUTH TWICE A DAY active Not Available Not Available No t Available fluconazole 200 mg tablet TAKE 1 TABLET BY MOUTH EVERY DAY X3-5 DAYS THEN NEEDED 06/22 completed Not Available Not Available Not Available meloxicam 15 mg tablet TAKE 1 TABLET BY MOUTH DAILY FOR PAIN 09/05 completed Not Available Not Available Not Available FreeStyle Lancets 28 gauge USE TO TEST BLOOD SUGAR QD active Not Available Not Available No t Available phenazopyri dine 200 mg tablet TAKE 1 TABLET BY MOUTH THREE TIMES DAILY AFTER MEALS FOR 7 DAYS NEEDED FOR URINARY DISCOMFOR T WITH FOOD 09/16 completed Not Available Not Available Not Available ondansetron HCl 4 mg tablet TAKE 1 TABLET BY MOUTH EVERY 8 HOURS FOR 5 DAYS 09/16 completed Not Available Not Available Not Available prednisone 20 mg tablet TAKE 3 TABLETS BY MOUTH DAILY 09/16 completed Not Available Not Available Not Available sertraline 100 mg tablet 10/15 completed Not Available Not Available Not Available metronidazo le 250 mg tablet TAKE 1 TABLET BY MOUTH THREE TIMES A DAY active Not Available Not Available No t Available Allergy Relief (chlorpheni ramine) 4 mg tablet TAKE 1 TABLET BY MOUTH EVERY 4 TO 6 HOURS NEEDED active Not Available Not Available No t Available clindamycin HCl 150 mg capsule TAKE 2 CAPSULE BY MOUTH EVERY 6 HOURS FOR 7 DAYS 09/16 completed Not Available Not Available Not Available diphenoxyla te-atropine 2.5 mg-0.025 mg tablet TAKE 1 TO 2 TABLETS BY MOUTH TWICE DAILY NEEDED 09/05 completed Not Available Not Available Not Available Nexium 40 mg capsule,del ayed release active Not Available Not Available Not Available topiramate 25 mg tablet TAKE 1 TABLET BY MOUTH ONCE DAILY AT BEDTIME FOR 2 WEEKS THEN HERSON... (REFER TO PRESCRIPT ION NOTES). active Not Available Not Available No t Available amlodipine 2.5 mg tablet 09/16 completed Not Available Not Available Not Available potassium chloride ER 10 mEq tablet,exte nded release TAKE 2 TABLETS BY MOUTH EVERY DAY WITH FOOD. 05/15 completed Not Available Not Available Not Available metronidazo le 500 mg tablet TAKE 1 TABLET BY MOUTH THREE TIMES A DAY 03/20 completed Not Available Not Available Not Available acetaminoph en 300 mg-codeine 30 mg tablet active Not Available Not Available Not Available ciprofloxac in 250 mg tablet TAKE 1 TABLET BY MOUTH EVERY 12 HOURS FOR 5 DAYS 06/22 completed Not Available Not Available Not Available levofloxaci n 250 mg tablet TAKE 1 TAB BY MOUTH DAILY active Not Available Not Available No t Available valacyclovi r 500 mg tablet TAKE 1 TABLET BY MOUTH EVERY DAY active Not Available Not Available No t Available ciprofloxac in 500 mg tablet TAKE ONE TBALET BY MOUTH TWICE A DAY X 5 DAYS 06/22 completed Not Available Not Available Not Available sulfamethox azole 800 mg-trimetho prim 160 mg tablet TK 1 T PO Q 12 H FOR 7 DAYS 04/15 completed Not Available Not Available Not Available hydrocodone 10 mg-acetamin ophen 325 mg tablet TAKE 1/2 TO 1 TABLET BY MOUTH UP TO THREE TIMES DAILY 09/05 completed Not Available Not Available Not Available omeprazole 40 mg capsule,del ayed release TAKE ONE CAPSULE EVERY DAY active Not Available Not Available No t Available tramadol 50 mg tablet TAKE 1 TABLET BY MOUTH DAILY FOR BREAKTHRO UGH PAIN WITH TYLENLOL active Not Available Not Available No t Available quetiapine 100 mg tablet active Not Available Not Available Not Available spironolact one 25 mg tablet active Not Available Not Available Not Available butalbital- acetaminoph en-caffeine 50 mg-325 mg-40 mg tablet active Not Available Not Available Not Available Cholestyram ine Light 4 gram powder for susp in a packet 05/28 completed Not Available Not Available Not Available lamotrigine 25 mg tablet 05/28 completed Not Available Not Available Not Available terconazole 80 mg vaginal suppository INSERT 1 SUPPOSITO RY VAGINALLY BID X 3 DAYS 05/28 completed Not Available Not Available Not Available nystatin-tr iamcinolone 100,000 unit/gram-0 .1 % topical ointment APPLY TO THE AFFECTED AREA(S) BY TOPICALLY 2 TIMES PER DAY 10/02 completed Not Available Not Available Not Available nortriptyli ne 25 mg capsule TK 1 C PO HS 10/15 completed Not Available Not Available Not Available meloxicam 7.5 mg tablet 03/31 completed Not Available Not Available Not Available oxycodone-a cetaminophe n 5 mg-325 mg tablet TAKE 1 TABLET BY MOUTH UP TO 3 TIMES A DAY FOR SEVERE PAIN 09/05 completed Not Available Not Available Not Available alprazolam 0.5 mg tablet TAKE 1 TABLET BY MOUTH TWICE DAILY NEEDED FOR ANXIETY 05/15 completed Not Available Not Available Not Available methenamine hippurate 1 gram tablet TAKE 1 TABLET BY MOUTH TWICE DAILY active Not Available Not Available No t Available alprazolam 0.25 mg tablet TAKE 1 TABLET BY MOUTH 2 HOURS BEFORE MRI 09/16 completed Not Available Not Available Not Available hydrocortis one-pramoxi ne 2.5 %-1 % topical cream APPLY A SMALL AMOUNT TO AFFECTED AREA TWICE A DAY active Not Available Not Available No t Available ziprasidone 20 mg capsule take 1 capsule by mouth once daily 02/14 completed Not Available Not Available Not Available potassium chloride ER 20 mEq tablet,exte nded release(par t/cryst) take 1 tablet by mouth once daily 11/21 completed Not Available Not Available Not Available magnesium oxide 400 mg (241.3 mg magnesium) tablet take 1 tablet by mouth twice a day active Not Available Not Available No t Available lorazepam 0.5 mg tablet TAKE 1/2 A TABLET BY MOUTH 1/2 AN HOUR BEFORE MRI 06/13 completed Not Available Not Available Not Available methocarbam ol 750 mg tablet 10/15 completed Not Available Not Available Not Available cyanocobala min (vit B-12) 500 mcg tablet TAKE 1 TABLET BY MOUTH ONCE DAILY 06/22 completed Not Available Not Available Not Available ascorbic acid (vitamin C) 500 mg tablet TAKE 1 TABLET BY MOUTH TWICE DAILY active Not Available Not Available No t Available Nitrostat 0.[address] 1 TABLET UNDER TONGUE 1ST SIGN OF ATTACK,RE PEAT EVERY 5 MINUTES X 3.IF 2 TABS NEEDED 911 10/15 completed Not Available Not Available Not Available aspirin 325 mg tablet,socorro yed release TAKE 1 TABLET BY MOUTH EVERY DAY 03/20 completed Not Available Not Available Not Available trazodone 100 mg tablet TAKE 1 TABLET BY MOUTH EVERY DAY AT BEDTIME active Not Available Not Available No t Available dicyclomine 20 mg tablet TAKE 1 TABLET BY MOUTH THREE TIMES DAILY 06/22 completed Not Available Not Available Not Available amitriptyli ne 10 mg tablet TAKE 1 TABLET BY MOUTH DAILY AT BEDTIME 09/16 completed Not Available Not Available Not Available meclizine 25 mg tablet 07/04 completed Not Available Not Available Not Available diazepam 2 mg tablet active Not Available Not Available No t Available phenazopyri dine 100 mg tablet TAKE 1 TABLET BY MOUTH 3 TIMES A DAY NEEDED FOR 2 DAYS active Not Available Not Available No t Available baclofen 10 mg tablet active Not Available Not Available No t Available doxycycline monohydrate 100 mg capsule TAKE 1 CAPSULE BY MOUTH TWICE DAILY FOR 5 DAYS 09/16 completed Not Available Not Available Not Available hydrocodone 7.5 mg-acetamin ophen 325 mg tablet TAKE 1/2 TO 1 TABLET BY MOUTH UP TO THREE TIMES DAILY 09/05 completed Not Available Not Available Not Available ropinirole 2 mg tablet 10/15 completed Not Available Not Available Not Available cephalexin 500 mg capsule 03/31 completed Not Available Not Available Not Available pantoprazol e 40 mg tablet,socorro yed release active Not Available Not Available Not Available erythromyci n 5 mg/gram (0.5 %) eye ointment APPLY TO AFFECTED EYELID BOTH EYES EVERY NIGHT AT BEDTIME active Not Available Not Available No t Available nortriptyli ne 10 mg capsule TAKE 1 CAPSULE BY MOUTH EVERY DAY AT BEDTIME 09/16 completed Not Available Not Available Not Available cyanocobala min (vit B-12) 1,000 mcg/mL injection solution INJECT 1000MCG EVERY 28 DAYS 09/05 completed Not Available Not Available Not Available tacrolimus 0.1 % topical ointment 03/31 completed Not Available Not Available Not Available trazodone 150 mg tablet TAKE 1 TABLET BY MOUTH AT BEDTIME active Not Available Not Available No t Available oseltamivir 75 mg capsule 10/15 completed Not Available Not Available Not Available ferrous sulfate 325 mg (65 mg iron) tablet take 1 tablet by mouth twice a day active Not Available Not Available No t Available nitrofurant oin macrocrysta l 100 mg capsule TAKE 1 CAPSULE BY MOUTH TWICE DAILY FOR 5 DAYS 09/16 completed Not Available Not Available Not Available triamcinolo ne acetonide 0.1 % topical ointment Apply 1 applicati on twice a day by topical route as needed for 30 days. active Not Available Not Available No t Available nystatin 100,000 unit/gram topical cream APPLY PEA SIZED AMOUNT TOPICALLY TO THE AFFECTED AREA THREE TIMES DAILY AFTER MEALS active Not Available Not Available No t Available ranitidine 150 mg tablet TK 1 T PO BID 11/21 completed Not Available Not Available Not Available dexamethaso ne 4 mg tablet 10/15 completed Not Available Not Available Not Available buspirone 10 mg tablet TAKE 1 TABLET BY MOUTH TWICE DAILY 06/22 completed Not Available Not Available Not Available clotrimazol e-betametha sone 1 %-0.05 % topical cream APPLY TOPICALLY TO THE AFFECTED AREA TWICE DAILY FOR 14 DAYS active Not Available Not Available No t Available olopatadine 0.1 % eye drops INT 1 GTT IN OU QAM PRF ITCHING 09/05 completed Not Available Not Available Not Available Alrex 0.2 % eye drops,suspe nsion INSTILL 1 DROP IN BOTH EYES 4 TIMES A DAY active Not Available Not Available No t Available lidocaine 5 % topical patch APPLY 1 PATCH TOPICALLY TO THE SKIN DAILY. MAY WEAR UP TO 12 HOURS ON AND 12 HOURS OFF active Not Available Not Available No t Available metronidazo le 0.75 % topical cream APPLY TOPICALLY ONCE A DAY active Not Available Not Available No t Available losartan 25 mg tablet 10/15 completed Not Available Not Available Not Available indomethaci n 25 mg capsule TAKE 1 CAPSULE BY MOUTH DAILY NEEDED FOR PAIN WITH FOOD OR MILK active Not Available Not Available No t Available metoprolol tartrate 50 mg tablet TAKE 1 TABLET BY MOUTH EVERY DAY FOR 14 DAYS active Not Available Not Available No t Available indomethaci n 50 mg capsule TAKE 1 CAPSULE BY MOUTH THREE TIMES DAILY WITH FOOD OR MILK 09/16 completed Not Available Not Available Not Available hydrochloro thiazide 12.5 mg capsule TAKE 1 CAPSULE EVERY DAY 10/15 completed Not Available Not Available Not Available fluoxetine 10 mg capsule TAKE 1 CAPSULE BY MOUTH EVERY NIGHT 09/05 completed Not Available Not Available Not Available pramipexole 0.25 mg tablet 10/15 completed Not Available Not Available Not Available betamethaso ne, augmented 0.05 % topical ointment apply to affected area twice a day for 10 days active Not Available Not Available No t Available gabapentin 300 mg capsule TAKE 1 CAPSULE BY MOUTH AT BEDTIME 09/16 completed Not Available Not Available Not Available lidocaine HCl 2 % mucosal solution active Not Available Not Available Not Available omeprazole 20 mg capsule,del ayed release TAKE 1 CAPSULE BY MOUTH DAILY 09/16 completed Not Available Not Available Not Available chlordiazep oxide-clidi nium 5 mg-2.5 mg capsule 03/31 completed Not Available Not Available Not Available diclofenac sodium 75 mg tablet,socorro yed release active Not Available Not Available Not Available cephalexin 500 mg tablet TAKE 1 TABLET BY MOUTH TWICE DAILY FOR 5 DAYS 09/16 completed Not Available Not Available Not Available montelukast 10 mg tablet TAKE 1 TABLET BY MOUTH ONCE A DAY active Not Available Not Available No t Available hydroxyzine HCl 25 mg tablet TAKE 1 TABLET BY MOUTH THREE TIMES DAILY EVERY DAY NEEDED FOR ANXIETY active Not Available Not Available No t Available morphine ER 15 mg tablet,exte nded release active Not Available Not Available Not Available hydrocodone 5 mg-acetamin ophen 500 mg tablet active Not Available Not Available No t Available Levsin/SL 0.125 mg sublingual tablet DISSOLVE 1 TABLET UNDER THE TONGUE TWICE DAILY active Not Available Not Available No t Available hydrochloro thiazide 25 mg tablet active Not Available Not Available No t Available mometasone 0.1 % topical ointment 03/31 completed Not Available Not Available Not Available mupirocin 2 % topical ointment active Not Available Not Available Not Available gabapentin 100 mg capsule TK 1 C PO HS 09/05 completed Not Available Not Available Not Available ergocalcife rol (vitamin D2) 1,250 mcg (50,000 unit) capsule 07/04 completed Not Available Not Available Not Available clobetasol 0.05 % topical ointment active Not Available Not Available Not Available nystatin 100,000 unit/gram topical powder Apply 1 applicati on twice a day by topical route as needed for 30 days. active Not Available Not Available No t Available dexamethaso ne sodium phosphate 4 mg/mL injection solution active Not Available Not Available Not Available lorazepam 1 mg tablet TAKE 1 TABLET BY MOUTH ONCE A DAY NEEDED EXTREME ANXIETY active Not Available Not Available No t Available azelastine 137 mcg (0.1 %) nasal spray USE 2 SPRAYS IN EACH NOSTRIL TWICE DAILY DIRECTED active Not Available Not Available No t Available warfarin 1 mg tablet take 6 tablets by mouth once daily active Not Available Not Available No t Available acebutolol 200 mg capsule 07/04 completed Not Available Not Available Not Available ibuprofen 600 mg tablet TAKE 1 TABLET ONE HOUR PRIOR TO DENTAL APPOINTME NT AND 1 TABLET EVERY 6 HOURS FOR PAIN 06/22 completed Not Available Not Available Not Available levofloxaci n 500 mg tablet TAKE 1 TABLET BY MOUTH EVERY DAY 02/14 completed Not Available Not Available Not Available estradiol 0.01% (0.1 mg/gram) vaginal cream Insert 0.5 g every day by vaginal route for 85 days. active Not Available Not Available No t Available zolpidem 10 mg tablet active Not Available Not Available No t Available methylpredn isolone 4 mg tablets in a dose pack TAKE 1 TABLET DIRECTED ORAL FOR 6 DAYS 03/31 completed Not Available Not Available Not Available albuterol sulfate HFA 90 mcg/actuati on aerosol inhaler INHALE 2 PUFFS BY MOUTH INTO THE LUNGS EVERY 4 HOURS NEEDED FOR WHEEZING/ SHORTNESS OF BREATH USE WITH A SPACER active Not Available Not Available No t Available ipratropium bromide 42 mcg (0.06 %) nasal spray SPRAY 2 SPRAYS IN EACH NOSTRIL 2 TO 3 TIMES DAILY 03/31 completed Not Available Not Available Not Available Vitamin B-1 100 mg tablet active Not Available Not Available Not Available hydroxyzine HCl 10 mg tablet 09/05 completed Not Available Not Available Not Available indomethaci n ER 75 mg capsule,ext ended release TAKE 1 CAPSULE BY MOUTH DAILY WITH FOOD OR MILK 09/16 completed Not Available Not Available Not Available clobetasol 0.05 % scalp solution 10/15 completed Not Available Not Available Not Available fluticasone propionate 50 mcg/actuati on nasal spray,suspe nsion SPRAY ONCE TO SKIN WHERE PATCH WILL BE APPLIED ALLOW TO DRY APPLY PATCH active Not Available Not Available No t Available metformin ER 500 mg tablet,exte nded release 24 hr active Not Available Not Available Not Available clotrimazol e 1 % topical cream 03/31 completed Not Available Not Available Not Available doxycycline hyclate 100 mg tablet TAKE 1 TABLET BY MOUTH TWICE DAILY 09/05 completed Not Available Not Available Not Available dicyclomine 10 mg capsule TK 1 C PO TID 03/31 completed Not Available Not Available Not Available lamotrigine 100 mg tablet 05/28 completed Not Available Not Available Not Available ipratropium bromide 21 mcg (0.03 %) nasal spray USE 2 SPRAYS IN EACH NOSTRIL TWICE DAILY DIRECTED 09/05 completed Not Available Not Available Not Available sulindac 200 mg tablet 03/31 completed Not Available Not Available Not Available Lotemax 0.5 % eye drops,suspe nsion 03/31 completed Not Available Not Available Not Available diazepam 5 mg tablet TAKE 1 TABLET BY MOUTH 3 TIMES A DAY IF NEEDED FOR MUSCLE SPASMS (SEVERE PAIN) FOR UP TO 20 DOSES. 06/22 completed Not Available Not Available Not Available metoclopram elysia 10 mg tablet active Not Available Not Available Not Available oxycodone 5 mg tablet TAKE 1 TO 2 TABLETS BY MOUTH EVERY 4 HOURS NEEDED FOR PAIN 06/13 completed Not Available Not Available Not Available neomycin-po lymyxin-hyd rocort 3.5 mg-10,000 unit/mL-1 % ear drops,susp active Not Available Not Available N ot Available Anefrin 0.05 % nasal spray 2 SPRAY IN NOSTRIL BID FOR 3 DAYS 09/16 completed Not Available Not Available Not Available ciclopirox 0.77 % topical cream MARGARET EXT AA BID 11/21 completed Not Available Not Available Not Available azithromyci n 500 mg tablet active Not Available Not Available Not Available escitalopra m 10 mg tablet 10/02 completed Not Available Not Available Not Available escitalopra m 20 mg tablet 10/15 completed Not Available Not Available Not Available cyclobenzap rine 5 mg tablet TAKE 1 TABLET BY MOUTH DAILY AT BEDTIME active Not Available Not Available No t Available cyclosporin e 0.05 % eye drops in a dropperette INSTILL 1 DROP INTO BOTH EYES TWICE DAILY active Not Available Not Available No t Available Lorata-D 10 mg-240 mg tablet,exte nded release take 1 tablet by mouth once daily active Not Available Not Available No t Available cholestyram ine (with sugar) 4 gram powder for susp in a packet 03/31 completed Not Available Not Available Not Available rosuvastati n 5 mg tablet TAKE 1 TABLET BY MOUTH DAILY active Not Available Not Available No t Available Klor-Con M10 mEq tablet,exte nded release TAKE 1 TABLET TWICE DAILY 05/15 completed Not Available Not Available Not Available bupropion HCl XL 150 mg 24 hr tablet, extended release active Not Available Not Available Not Available metoprolol tartrate 25 mg tablet TK 2 TS PO BID X 5 DAYS 11/21 completed Not Available Not Available Not Available topiramate 50 mg tablet TAKE 1 TABLET BY MOUTH ONCE A DAY AT BEDTIME active Not Available Not Available No t Available clobetasol 0.05 % shampoo active Not Available Not Available Not Available nitrofurant oin monohydrate /macrocryst als 100 mg capsule TAKE 1 CAPSULE BY MOUTH EVERY 12 HOURS FOR 7 DAYS 06/22 completed Not Available Not Available Not Available duloxetine 20 mg capsule,del ayed release TAKE 1 CAPSULE BY MOUTH TWICE DAILY 09/16 completed Not Available Not Available Not Available duloxetine 30 mg capsule,del ayed release TAKE 1 CAPSULE BY MOUTH EVERY DAY 09/05 completed Not Available Not Available Not Available duloxetine 60 mg capsule,del ayed release TAKE 1 CAPSULE BY MOUTH EVERY DAY 06/22 completed Not Available Not Available Not Available Vesicare 5 mg tablet active Not Available Not Available No t Available Flovent HFA 110 mcg/actuati on aerosol inhaler active Not Available Not Available Not Available Rayna-D 24 Hour 180 mg-240 mg tablet,exte nded release TAKE 1 TABLET EVERY DAY 05/15 completed Not Available Not Available Not Available Lyrica 50 mg capsule 10/15 completed Not Available Not Available Not Available chlorhexidi ne gluconate 0.12 % mouthwash active Not Available Not Available No t Available Daily Multi-Vitam in active Not Available Not Available Not Available Calcium 500 + D active Not Available Not Available Not Available vitamin L70-kggcb acid and b1 07/04 completed Not Available Not Available Not Available lubiproston e 24 mcg capsule TAKE 1 CAPSULE BY MOUTH TWICE DAILY 06/22 completed Not Available Not Available Not Available mometasone 0.1 % topical solution 03/31 completed Not Available Not Available Not Available Zostavax (PF) 19,400 unit/0.65 mL subcutaneou s suspension active Not Available Not Available N ot Available Oracea 40 mg capsule,imm ediate - delay release active Not Available Not Available Not Available fluticasone propionate 115 mcg-salmete rol 21 mcg/actuati on HFA inhaler active Not Available Not Available Not Available Xopenex HFA 45 mcg/actuati on aerosol inhaler active Not Available Not Available Not Available Januvia 100 mg tablet active Not Available Not Available No t Available Symbicort 160 mcg-4.5 mcg/actuati on HFA aerosol inhaler active Not Available Not Available Not Available Symbicort 80 mcg-4.5 mcg/actuati on HFA aerosol inhaler active Not Available Not Available Not Available FreeStyle Lite Meter kit USE TO TEST BLOOD GLUCOSE UTD active Not Available Not Available No t Available Veramyst 27.5 mcg/actuati on nasal spray,suspe nsion active Not Available Not Available Not Available FreeStyle Lite Strips USE TO TEST BLOOD SUGAR QD active Not Available Not Available No t Available cholecalcif misbah (vitamin D3) 1,250 mcg (50,000 unit) capsule TAKE 1 CAPSULE BY MOUTH EVERY WEEK active Not Available Not Available No t Available Lantus Solostar U-100 Insulin 100 unit/mL (3 mL) subcutaneou s pen INJECT 10 UNITS UNDER THE SKIN EVERY NIGHT AT BEDTIME active Not Available Not Available No t Available budesonide 1 mg/2 mL suspension for nebulizatio n INHALE 1 THE CONTENTS OF 1 VIAL, VIA NEBULIZER , TWICE A DAY 03/20 completed Not Available Not Available Not Available Humalog KwikPen (U-100) Insulin 100 unit/mL subcutaneou s 06/22 completed Not Available Not Available Not Available PreviDent 5000 Dry Mouth 1.1 % dental paste BRUSH THOROUGHL Y ONCE DAILY X 2 MINS AT BEDTIME DO NOT EAT,RINSE OR DRINK FOR 30 MINUTES active Not Available Not Available No t Available Novofine 32 32 gauge x 1/4 needle USE TO INJECT VICTOZA ONCE A DAY active Not Available Not Available No t Available lubiproston e 8 mcg capsule TAKE 1 CAPSULE BY MOUTH TWICE DAILY 09/16 completed Not Available Not Available Not Available Flovent Diskus 250 mcg/actuati on powder for inhalation INHALE 1 PUFF TWICE A DAY 02/14 completed Not Available Not Available Not Available Savella 12.5 mg tablet active Not Available Not Available Not Available Savella 25 mg tablet active Not Available Not Available No t Available Promiseb topical cream active Not Available Not Available Not Available Creon 24,000-76,0 00-120,000 unit capsule,del ayed release active Not Available Not Available Not Available Botox 200 unit injection active Not Available Not Available No t Available Prevnar 13 (PF) 0.5 mL intramuscul ar syringe ADM 0.5ML IM UTD active Not Available Not Available No t Available OneTouch Delica Lancets 33 gauge active Not Available Not Available Not Available Xifaxan 550 mg tablet TAKE 1 TABLET BY MOUTH THREE TIMES A DAY 09/05 completed Not Available Not Available Not Available buprenorphi ne 5 mcg/hour weekly transdermal patch APPLY 1 PATCH TOPICALLY ONCE WEEKLY 06/22 completed Not Available Not Available Not Available Adult Wal-Tussin 100 mg/5 mL oral liquid TK 5 ML PO BID FOR 10 DAYS 03/31 completed Not Available Not Available Not Available Vitamin D3 50 mcg (2,000 unit) capsule TAKE 2 CAPSULES BY MOUTH ONCE A DAY active Not Available Not Available No t Available Viibryd 40 mg tablet 07/04 completed Not Available Not Available Not Available lidocaine 5 % topical ointment APPLY TOPICALLY UP TO THREE TIMES DAILY TO PAINFUL AREA ON THE LEFT BACK 09/05 completed Not Available Not Available Not Available Combivent Respimat 20 mcg-100 mcg/actuati on solution for inhalation 09/05 completed Not Available Not Available Not Available Linzess 145 mcg capsule active Not Available Not Available Not Available Gynazole-1 2 % vaginal cream Insert 1 applicato rful every day by vaginal route for 1 day. 05/28 completed Not Available Not Available Not Available Lotemax 0.5 % eye gel drops INT 1 GTT IN OS QID 03/31 completed Not Available Not Available Not Available Comfort EZ Pen [place] 32 gauge x 5/32 USE DIRECTED DAILY active Not Available Not Available No t Available Vitron-C 65 mg iron-125 mg tablet,socorro yed release TAKE 1 TABLET BY MOUTH EVERY DAY active Not Available Not Available No t Available Victoza 3-Tyler 0.6 mg/0.1 mL (18 mg/3 mL) subcutaneou s pen injector INJECT 1.2 MG D SC 09/16 completed Not Available Not Available Not Available Barbie-rachell 8.6 mg tablet 09/05 completed Not Available Not Available Not Available Fetzima 40 mg capsule,ext ended release 07/04 completed Not Available Not Available Not Available Fetzima 120 mg capsule,ext ended release active Not Available Not Available Not Available Virtussin AC 10 mg-100 mg/5 mL oral liquid TK 5 ML PO Q 4 TO 6 H PRN 05/28 completed Not Available Not Available Not Available Fluzone High-Dose 2013- (PF) 180 mcg/0.5 mL intramuscul ar syringe inject 0.5 millilite r intramusc ularly active Not Available Not Available No t Available Bydureon 2 mg/0.65 mL subcutaneou s pen injector USE 1 PRE-FILLE D PEN SYRINGE WEEKLY SUBCUTANE OUS 02/14 completed Not Available Not Available Not Available NovoFine Plus 32 gauge x 1/6 needle active Not Available Not Available Not Available Trulicity 1.5 mg/0.5 mL subcutaneou s pen injector 10/15 completed Not Available Not Available Not Available ProAir RespiClick 90 mcg/actuati on breath activated INHALE 2 PUFFS EVERY 4 HOURS NEEDED FOR SHORTNESS OF BREATH/WH EEZING/CO UGH 10/15 completed Not Available Not Available Not Available duloxetine 40 mg capsule,del ayed release TAKE 1 CAPSULE BY MOUTH TWICE DAILY 09/16 completed Not Available Not Available Not Available Viberzi 75 mg tablet TAKE 1 TABLET BY MOUTH TWICE A DAY 05/15 completed Not Available Not Available Not Available Fluzone High-Dose (PF) 180 mcg/0.5 mL intramuscul ar syringe TO BE ADMINISTE RED BY PHARMACIS T FOR IMMUNIZAT ION active Not Available Not Available No t Available Proctosol HC 2.5 % topical cream perineal applicator APPLY TOPICALLY TO THE AFFECTED AREA TWICE DAILY active Not Available Not Available No t Available Trulance 3 mg tablet TAKE 1 TABLET BY MOUTH EVERY DAY 09/16 completed Not Available Not Available Not Available Ozempic 0.25 mg or 0.5 mg (2 mg/1.5 mL) subcutaneou s pen injector INJECT 0.25MG UNDER THE SKIN EVERY WEEK FOR 4 WEEKS THEN 0.5MG UNDER THE SKIN ONCE A WEEK 09/16 completed Not Available Not Available Not Available Fluzone High-Dose (PF) 180 mcg/0.5 mL intramuscul ar syringe ADM 0.5ML IM UTD active Not Available Not Available No t Available FreeStyle Alexandra 14 Day Sensor kit USE TO CHECK BLOOD SUGAR CHANGE SENSOR EVERY 14 DAYS active Not Available Not Available No t Available Cequa 0.09 % eye drops in a dropperette INT 1 GTT IN OU BID active Not Available Not Available No t Available Fluzone High-Dose (PF) 180 mcg/0.5 mL intramuscul ar syringe ADM 0.5ML IM UTD active Not Available Not Available No t Available Rybelsus 14 mg tablet 09/16 completed Not Available Not Available Not Available Rybelsus 7 mg tablet 09/16 completed Not Available Not Available Not Available Rybelsus 3 mg tablet 09/16 completed Not Available Not Available Not Available Fluad Quad (6 5yr up)(PF) 60 mcg (15 mcg x 4)/0.5mL IM syringe ADM 0.5ML IM UTD active Not Available Not Available No t Available Ozempic 1 mg/dose (4 mg/3 mL) subcutaneou s pen injector 09/16 completed Not Available Not Available Not Available Mounjaro 5 mg/0.5 mL subcutaneou s pen injector active Not Available Not Available Not Available Mounjaro 2.5 mg/0.5 mL subcutaneou s pen injector INJECT 0.5 ML (2.5 MG) SUBCUTANE OUSLY ONE TIME PER WEEK active Not Available Not Available No t Available Ozempic 0.25 mg or 0.5 mg (2 mg/3 mL) subcutaneou s pen injector INJECT 0.5MG UNDER THE SKIN ONCE A WEEK 06/22 completed Not Available Not Available Not Available Vitals Date Recorded Body height Body mass index (BMI) Body weight Heart rate Body temperature Systolic blood pressure Diastolic blood pressure Provider Name and Address Organization Details Last Updated DateTime 0 168.91 cm 46.1 kg/m2 406314. 51 g 89 /min 97 [degF] 139 mm[Hg] 69 mm[Hg] Lina Price in [facility], 0 11:00:14 Date Recorded Body height Body mass index (BMI) Body weight Body temperature Heart rate Systolic blood pressure Diastolic blood pressure Provider Name and Address Organization Details Last Updated DateTime 2 167.64 cm 42.8 kg/m2 173928. 7 g 97.4 [degF] 101 /min 139 mm[Hg] 60 mm[Hg] Lina Price in [facility], 2 10:04:46 Date Recorded Body weight Body mass index (BMI) Body height Body temperature Heart rate Systolic blood pressure Diastolic blood pressure Provider Name and Address Organization Details Last Updated DateTime 4 414053. 42 g 41.8 kg/m2 167.64 cm 97.2 [degF] 73 /min 138 mm[Hg] 76 mm[Hg] Lina Price in [facility], 4 09:21:14 Social History Question Answer Notes LastModified by Organizat ion Details LastModified Time Tobacco Smoking Status Never Smoker Not Available [facility] 05/17/2020 03:19:42 What Is Your Level Of Alcohol Consumption? None [id number] Information not available 05/17/2020 What Is Your Level Of Caffeine Consumption? Moderate [id number] Information not available 05/17/2020 In The 14 Days Before Symptom Onset, Have You Had Close Contact With A Laboratory-confir med COVID-19 While That Case Was Ill? No Information not available 06/13/2022 In The 14 Days Before Symptom Onset, Have You Had Close Contact With A Person Who Is Under Investigation For COVID-19 While That Person Was Ill? No Information not available 06/13/2022 Have You Been To An Area Known To Be High Risk For COVID-19? No Information not available 06/13/2022 Are You Currently Employed? No Information not available 09/05/2021 What Type Of Diet Are You Following? REGULAR [id number] Information not available 05/17/2020 Which Illicit Or Recreational Drugs Have You Used? No [id number] Information not available 05/17/2020 Do You Reside In Or Have You Traveled To An Area Where Ebola Virus Transmission Is Active? No [id number] Information not available 05/17/2020 Do You Or Have You Ever Used E-cigarettes Or Vape? Never Used Electronic Cigarettes [id number] Information not available 05/17/2020 Education 2 Year College Informatio n not available 08/01/2012 What Is The Highest Grade Or Level Of School You Have Completed Or The Highest Degree You Have Received? [id number] Information not available 09/05/2021 What Is Your Occupation? Retired [id number] Information not available 05/17/2020 How Many Days In The Past Year Have You Had A Heavy Drinking Consumption (4+ Female, 5+ Male)? 0 [email or web address] Information no t available 03/20/2016 Are There Any Guns Present In Your Home? No Information not available 06/13/2022 High Number Of Sexual Partners No Information not available 02/15/2016 To Which Gender Do You Self-identify? Female Information not available 02/15/2016 Marital Status Informatio n not available 08/01/2012 What Was The Date Of Your Most Recent Tobacco Screening? 06/22/2024 Information not available 06/22/2024 What Is Your Relationship Status? Information not available 06/13/2022 Are You Sexually Active? No [id number] Information not available 05/17/2020 Do You Or Have You Ever Used Smokeless Tobacco? Never Used Smokeless Tobacco [id number] Information not available 05/17/2020 How Much Tobacco Do You Smoke? No [id number] Information not available 05/17/2020 General Stress Level High Information not available 09/15/2013 Do You Feel Stressed (tense, Restless, Nervous, Or Anxious, Or Unable To Sleep At Night)? [id number] Information not available 06/13/2022 Do You Use Any Illicit Or Recreational Drugs? No Information not available 06/13/2022 Have You Recently (within The Last 12 Weeks, Or During A Current ) Traveled To Or Lived In A Zika-affected Area? No Information not available 02/15/2016 Do You Or Have You Ever Used Any Other Forms Of Tobacco Or Nicotine? No Information not available 09/17/2023 Sex: Female Functional Status Question Answer Note LastModified by Organizat ion Details LastModified Time What is your exercise level? Occasional [id number] Information not available 05/17/2020 Mental Status None recorded. Family History Relationship Description Onset Age of this Age Resolved Age Notes LastModified by Organization Details LastModified Time Mother Malignant tumor of breast 76 previo usly record ed as Breast Cancer Not available 11/03/2015 11:12:21 Father Malignant tumor of lung previo usly record ed as Lung Cancer Not available 11/03/2015 11:12:21 Brother Kidney disease cancer Not available 10/14 11:12:21 Paternal Aunt Malignant tumor of colon 67 previo usly record ed as Colon Cancer Not available 11/03/2015 11:12:21 Medical History Condition Response Anesthesia complications N High Blood Pressure Y Candidate for MyRisk panel N Autoimmune Condition N Thyroid Problems Y Kidney or Bladder Problems Y GI Problems Y Lung Disease Y Depression N Defects or Inherited Disease N Anemia Y History of Ovarian Cancer N History of Breast Cancer N VETO exposure N BRCA testing in past N Osteopenia N Psychiatric Illness N Anxiety Disorder Y Diabetes Y Arthritis Y Headaches or Migraines Y Infertility N Asthma N History of Cancer N Endometriosis N Hepatitis N Heart Disease N Hypertension Y Osteoporosis N Gynecological History Statement/Question Response If Post Menopausal, Age at Menopause 46 Age at Menarche 10 Most Recent Mammogram 09/04/2023 Age at First Child 21 Most Recent Bone Density 10/09/2013 Obstetrics History GPAL:G 2 P 2 0 0 2 Type Value Full Term 2 Living 2 Total 2 Immunizations Vaccine Type Date Status Note Provider Nam e and Address Organization Details Recorded Time Influenza, split virus, quadrivalent, preservative 6 completed Lina [facility]eczywor [facility]yda [facility], 05/15/2016 14:00:19 Influenza, split virus, quadrivalent, preservative 7 completed Lina Meczywor null [facility], 04/24/2017 08:03:48 influenza, unspecified formulation 8 completed Charo call [facility], 05/26/2018 13:01:46 Pneumococcal conjugate PCV 13 8 completed Lina Saldivarzywor oneyda [facility], 09/17/2023 10:21:57 Influenza, adjuvanted, quadrivalent, PF 2 completed Lina Meczywor null [facility], 09/17/2023 10:21:57 Influenza, adjuvanted, quadrivalent, PF 1 completed Lina Meczywor null [facility], 09/17/2023 10:21:57 COVID-19, mRNA, LNP-S, PF, 100 mcg/0.5mL dose or 50 mcg/0.25mL dose 1 completed Lina Meczywor null [facility], 09/17/2023 10:21:57 COVID-19, mRNA, LNP-S, PF, 100 mcg/0.5mL dose or 50 mcg/0.25mL dose 2 completed Lina Meczywor null, [facility], 09/17/2023 10:21:57 COVID-19, mRNA, LNP-S, PF, 100 mcg/0.5mL dose or 50 mcg/0.25mL dose 1 completed Lina Meczywor null, [facility], 09/17/2023 10:21:57 COVID-19, mRNA, LNP-S, PF, 100 mcg/0.5mL dose or 50 mcg/0.25mL dose 1 completed Lina Meczywor null, [facility], 09/17/2023 10:21:57 COVID-19, mRNA, LNP-S, bivalent, PF, 50 mcg/0.5 mL or 25mcg/0.25 mL dose 2 completed Lina Meczywor null, [facility], 09/17/2023 10:21:57 Pneumococcal conjugate PCV 13 0 completed Lina Meczywor null, [facility], 09/17/2023 10:21:57 Pneumococcal conjugate PCV 13 9 completed Lina Meczywor null, [facility], 09/17/2023 10:21:57 Pneumococcal conjugate PCV 13 9 completed Lina Meczywor null, [facility], 09/17/2023 10:21:57 zoster live 1 completed Lina Meczywor null, [facility], 09/17/2023 10:21:57 Influenza, high-dose, trivalent, PF 6 completed Lina Meczywor null, [facility], 09/17/2023 10:21:57 Influenza, high-dose, trivalent, PF 8 completed Lina Meczywor null, [facility], 09/17/2023 10:21:57 Influenza, high-dose, trivalent, PF 9 completed Lina Meczywor null, [facility], 09/17/2023 10:21:57 Influenza, split virus, trivalent, preservative 4 completed Lina Meczywor null, [facility], 09/17/2023 10:21:57 Influenza, split virus, trivalent, preservative 3 completed Lina Meczywor null, [facility], 09/17/2023 10:21:57 Influenza, split virus, trivalent, preservative 5 completed Lina Meczywor null, [facility], 09/17/2023 10:21:57 Influenza, split virus, trivalent, preservative 2 completed Lina Meczywor null, [facility], 09/17/2023 10:21:58 Influenza, split virus, trivalent, PF 0 completed Lina Meczywor null, [facility], 09/17/2023 10:21:58 Td (adult), 2 Lf tetanus toxoid, preservative free, adsorbed 1 completed Lina Meczywor null, [facility], 09/17/2023 10:21:58 Pneumococcal Conjugate, unspecified formulation 0 completed Lina Meczywor null, [facility], 09/17/2023 10:21:58 Influenza, split virus, quadrivalent, preservative 1 completed Lina Meczywor null, [facility], 06/22/2024 09:20:59 Influenza, adjuvanted, quadrivalent, PF 3 completed Lina Meczywor null, [facility], 06/22/2024 09:20:59 COVID-19, mRNA, LNP-S, PF, 100 mcg/0.5mL dose or 50 mcg/0.25mL dose 1 completed Lina Meczywor null, [facility], 06/22/2024 09:20:59 COVID-19, mRNA, LNP-S, PF, 100 mcg/0.5mL dose or 50 mcg/0.25mL dose 1 completed Lina Meczywor null, [facility], 06/22/2024 09:20:59 COVID-19, mRNA, LNP-S, PF, 100 mcg/0.5mL dose or 50 mcg/0.25mL dose 1 completed Lina Meczywor null, [facility], 06/22/2024 09:20:59 Pneumococcal conjugate PCV20, polysaccharide [id number] conjugate, adjuvant, PF 3 completed Lina Meczywor null, [facility], 06/22/2024 09:20:59 Pneumococcal conjugate PCV20, polysaccharide [id number] conjugate, adjuvant, PF 2 completed Lina Meczywor null, [facility], 06/22/2024 09:20:59 RSV, recombinant, protein subunit RSVpreF, adjuvant reconstituted, 0.5 mL, PF 3 completed Lina Meczywor null, [facility], 06/22/2024 09:20:59 COVID-19, mRNA, LNP-S, PF, 50 mcg/0.5 mL 3 completed Lina Meczywor null, [facility], 06/22/2024 09:20:59 Past Encounters Encounter ID Performer Location Encounter Start Date Encounter Closed Date Diagnosis/Indication Diagnosis SNOMED-CT Code Diagnosis ICD10 Code Diagnosis Note [id number] MD MALGORZATA Cummings MD [address] [place] [id number] 08/01/2012 10:15:46 08/04/2012 08:23:04 [id number] Lina WILKERSON MD [address] [place] [address] 09/02/2012 07:46:58 09/02/2012 16:10:06 [id number] Lina WILKERSON MD [address] [place], [place] [address] [address] 03/31/2013 13:38:31 03/31/2013 15:42:54 [id number] Lina WILKERSON MD [address] [place], [place] [address] [address] 04/20/2013 13:04:31 04/20/2013 16:32:43 [id number] Lina WILKERSON MD [address] [place], [place] [address] [address] 09/15/2013 10:24:59 09/15/2013 16:13:58 Specialized medical examination [id number] Screening for malignant neoplasm of rectum 885663530 Screening mammography 00743444 Menopausal syndrome [id number] Acute lowe r urinary tract infection 232790033 Atrophic vulvovaginitis 16404803 [id number] MALGORZATA WILKERSON MD [address] [place] [address],[place] [address] 11/22/2014 10:23:00 11/22/2014 11:06:28 Dysuria [id number] MD MALGORZATA Cummings MD [address] [place] [address],[place] [address] 05/10/2015 10:17:59 05/10/2015 13:06:55 Candidal vulvovaginitis 46241926 B37.3 [id number] MD MALGORZATA Cummings MD [address] [place] [address],[place] [address] 11/03/2015 10:41:30 11/03/2015 12:12:49 Screening for malignant neoplasm of rectum 460348205 Z12.12 Screening for malignant neoplasm of cervix 293571557 Z12.4 Atrophic vulvovaginitis 89749924 N95.2 Candidal vulvovaginitis 37268456 B37.3 [id number] MD MALGORZATA Cummings MD [address] [place] [address], [place] [address] 02/15/2016 07:54:54 02/15/2016 10:48:29 Dysuria 38695220 R30.0 Candidal vulvovaginitis 55602067 B37.3 [id number] MD MALGORZATA Cummings MD [address] [place] [address],[facility] [place] [address] 03/20/2016 13:42:34 03/20/2016 15:08:31 Dysuria 21494116 R30.0 Pain in pelvis 76272380 R10.2 Screening mammography 24 139133 Z12.31 [id number] MD MALGORZATA Cummings MD [address] [place] [address],[facility] [place] [address] 05/15/2016 13:43:03 05/15/2016 14:48:17 Candidal vulvovaginitis 39380181 B37.3 Superficia l folliculitis 903911557 L73.9 Type 2 amy betes mellitus without complication 269572347 E11.[address] ess incontinence 70880780 N39.3 14204 MD MALGORZATA Cummings MD [address] [place] [address],[facility] [place] [address] 10/02/2016 09:35:29 10/02/2016 12:53:45 Candidal vulvovaginitis 87640541 B37.3 Vulvitis 01869741 N76.2 Dysuria 92557788 R30.0 Cares for self 480307226 Z76.89 [id number] MD MALGORZATA Cummings MD [address] [place] [address],[facility] [place] [address] 12/07/2016 09:10:47 12/07/2016 13:08:53 Candidal vulvovaginitis 48958657 B37.3 [id number] MD MALGORZATA Cummings MD [address] [place] [address],[facility] [place] [address] 12/20/2016 14:39:28 12/21/2016 10:11:22 Cyst of ovary 52189596 N83.01 Type 2 amy betes mellitus without complication 682027773 E11.9 [id number] MD MALGORZATA Cummings MD [address] [place] [address],[place] [address] 03/21/2017 09:59:52 03/21/2017 14:41:01 Complex cyst of uterine adnexa 432655285 N85.8 [id number] MD MALGORZATA Cummings MD [address] [place] [address],[place] [address] 04/24/2017 07:58:24 04/24/2017 11:29:00 Candidal vulvovaginitis 63116804 B37.3 Lichen scl erosus et atrophicus 05584881 L90.0 [id number] MD MALGORZATA Cummings MD [address] [place] [address], [place] [address] 05/28/2017 10:11:50 05/28/2017 13:12:39 Dysuria 23402560 R30.0 Abdominal pain 75674124 R10.31 Right lowe r quadrant pain 160385534 R10.31 [id number] MD MALGORZATA Cummings MD [address] [place] [address],[place] [address] 09/13/2017 10:44:59 09/13/2017 16:01:10 Dysuria 18360780 R30.0 Candidal vulvovaginitis 32908120 B37.3 Atrophic vulvovaginitis 19382051 N95.2 Screening mammography 24 728730 Z12.31 [id number] MD MALGORZATA Cummings MD [address] [place] [address],[place] [address] 10/15/2017 09:01:36 10/15/2017 13:09:18 Candidal vulvovaginitis 15883426 B37.3 Type 2 amy betes mellitus without complication 372239226 E11.[address] of uterine adnexa 221567998 N85.8 [id number] MD MALGORZATA Cummings MD [address] [place] [address],[place] [address] 11/21/2017 13:10:20 11/21/2017 15:51:25 Atrophic vulvovaginitis 00460278 N95.2 Screening for malignant neoplasm of cervix 103676991 Z12.4 Screening mammography 24 808490 Z12.31 Dysuria 06999158 R30.0 Candidal vulvovaginitis 56398367 B37.3 39474 MD MALGORZATA Cummings MD [address] [place] [address],[address] [place] [address] 05/26/2018 12:53:21 05/26/2018 13:42:49 Candidal vulvovaginitis 86587949 B37.3 [id number] MD MALGORZATA Cummings MD [address] [place] [address], [place] [address] 06/19/2018 10:38:10 06/19/2018 14:45:45 Pain in pelvis 17062476 R10.[address] of uterine adnexa 251352322 N85.8 Female str ess incontinence 19141128 N39.3 [id number] MD MALGORZATA Cummings MD [address] [place] [address],[address] [place] [address] 07/04/2018 14:39:45 07/04/2018 15:27:56 Pelvic mass 75188014 R19.00 [id number] MD MALGORZATA Cummings MD [address] [place] [address], [place] [address] 07/23/2018 08:52:55 07/23/2018 11:46:45 Hydrosalpinx 91501177 N70.11 Pain in pelvis 77662635 R10.2 Diverticul ar disease of colon 450108640 K57.30 [id number] MD MALGORZATA Cummings MD [address] [place] [address],[place] [address] 11/21/2018 08:53:56 11/21/2018 12:51:02 Candidal vulvovaginitis 97800285 B37.3 Screening for malignant neoplasm of cervix 370218969 Z12.4 Screening mammography 24 849183 Z12.31 [id number] MD MALGORZATA CummingsAN MD [address] [place] [address], [place] [address] 07/31/2019 09:53:19 07/31/2019 12:06:56 Mass of vulva 258523053 N90.89 Cyst of breast 315464133 N60.09 Unilateral mastalgia 315 788581 N64.4 [id number] MD MALGORZATA Cummings MD [address] [place], [place] [address]Mark [place] [address] 03/31/2020 09:37:06 03/31/2020 10:52:14 Dysuria 59478505 R30.0 [id number] MD MALGORZATA Cummings MD [address] [place], [place] [address] [place] [address] 04/15/2020 10:56:24 04/15/2020 14:33:15 Screening for malignant neoplasm of cervix 419530377 Z12.4 Screening mammography 24 099190 Z12.31 Screening for osteoporosis 380483155 Z13.820 Dysuria 11923742 R30.0 [id number] MD MALGORZATA Cummings MD [address] [place] [address] [place] [address] 09/05/2021 09:56:29 09/05/2021 12:08:32 Candidal vulvovaginitis 07629396 B37.3 Atrophic vulvovaginitis 64656312 N95.2 Type 2 amy betes mellitus without complication 450186435 E11.9 [id number] MD MALGORZATA Cummings MD [address] [place] [address] [place] [address] 06/13/2022 09:57:11 06/13/2022 11:50:21 Screening for malignant neoplasm of cervix 116996943 Z12.4 Screening mammography 24 665588 Z12.31 Screening for osteoporosis 452966069 N95.8 Type 2 amy betes mellitus without complication 270897325 E11.9 Genital li jimenez sclerosus 185318003 L90.0 [id number] MD MALGORZATA Cummings MD [address] [place] [address] [place] [address] 09/17/2023 10:18:36 09/17/2023 13:34:44 Genital lichen sclerosus 393097089 L90.0 Atrophic vulvovaginitis 29233495 N95.2 [id number] MD MALGORZATA Cummings MD [address] [facility] [address] [place] [address] 06/22/2024 09:10:11 06/22/2024 10:53:46 Genital lichen sclerosus 796683670 L90.0 Screening for malignant neoplasm of cervix 203162833 Z12.4 Screening mammography 24 709763 Z12.31 Screening for osteoporosis 960611993 N95.8 Candidiasis of skin 4988 3006 B37.2 Health Concerns Section Related Observation LastModified by Organization Detai ls LastModified Time None Recorded Concern Status LastModified by Organization Details LastModified Time None Recorded Advance Directives Directive None Recorded Payers Encounter Date Sequence Insurance Name Policy Number Policy Fournier Covered Member ID Fournier Member ID Guarantor Name 04/15/2020 2 WPS - FOR LIFE (MEDICARE SUPPLEMENT) Stephon Arambula [id number] Yessi Arambula 04/15/2020 1 MEDICARE [place]: [employer]ATIONAL [employer] Yessi Arambula [id number] Yessi Arambula 09/05/2021 2 WPS - FOR LIFE (MEDICARE SUPPLEMENT) Stephon Arambula [id number] Yessi Arambula 09/05/2021 1 MEDICARE [place]: NATIONAL [facility] SERVICES Yessi Bermudez Arambula [id number] Yessi Arambula 06/13/2022 2 WPS - FOR LIFE (MEDICARE SUPPLEMENT) Stephon Arambula [id number] Yessi Arambula 06/13/2022 1 MEDICARE [place]: [facility] Yessi Bermudez Arambula [id number] Yessi Arambula 09/17/2023 2 WPS - FOR LIFE (MEDICARE SUPPLEMENT) Stephon Arambula [id number] Yessi Arambula 09/17/2023 1 MEDICARE [place]: [facility] Yessi Arambula [id number] Yessi Arambula 06/22/2024 2 WPS - FOR LIFE (MEDICARE SUPPLEMENT) Stephon Arambula [id number] Yessi Arambula 06/22/2024 1 MEDICARE [place]: [facility] Yessi Arambula [id number] Yessi Arambula Notes Date Note Type Note Provider Name and Address Organization Details Recorded Time 04/15/2020 text/html She had an Enterobacter UTI with > 10 6th colonies, she has now finished her antibiotic, and is here for ANGELA, and also for her annual exam. __ note from 03/31/20: She was here initially for her annual, but she has had 6 days of progressively worsening dysuria, frequency and urgency. It started 7 days ago with a sharp pain that kept her in bed for several hours, starting in the right renal area and slowly progressing down her back and around to her lower right pelvic front, with the pain coming in waves every several minutes. She has nausea, no vomiting. Did have lightheadedness. After that pain resolved she started to have spasms in the suprapubic area that have persisted to the present time. She has a significant UTI, and may have a renal stone that passed from the right kidney to the bladder and may still be in the bladder. RX macrobid, call if symptoms persist or wrosen. She is advised on how to get a bladder stone to pass, using a pelvic 3 D model for instruction. All questions answered. Return in 10-14 days for annual and also to do ANGELA. ____ Note from 2019: She is here for annual exam, she just had right shoulder surgery for a bone spur, still in therapy. She has been having recurrent vaginal yeast, she had antibiotics for surgery and since then it has been an issue. Her HgB A1C was last 6.8. Malgorzata Wilkerson MD [address] [place] [address],[facility] [address], [place], [address], [place] - [facility], 04/15/2020 14:22:22 09/05/2021 text/html This visit is a phone telehealth visit. The patient consented to the visit by phone.The patient was at home at the time of the call and the provider and patient were the only people on the line.I was at [address] [place] [address], [place], at the time of the call. 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 It has worked well but the dermatology department was let go by [facility] and she has no access to a transformer assembly supervisor right now, and she is out of pills. She has been using the E2 vaginal cream three times a week, 1 gram, but she still had 4 UTIs last year. Also she has vaginal mesh after surgery, and had recent radiology testing to find out if the mesh is causing the UTIs. Her type 2 diabetes has been in good control, her A1C was 6.2 recently. Malgorzata Wilkerson MD [address] [facility],[address], [place], [address], [facility], 09/05/2021 12:05:10 06/13/2022 text/html She is here for annual exam, is grieving, she found her son from cardiac issues. She needs a refill on her aristocort which is working well for her lichen sclerosis. Note from 2020: She had an Enterobacter UTI with > 10 6th colonies, she has now finished her antibiotic, and is here for ANGELA, and also for her annual exam. Malgorzata Wilkerson MD [address] [facility],[address], [place], [address], [facility], 06/13/2022 11:31:29 09/17/2023 text/html This visit is a phone telehealth visit. The patient consented to the visit by phone.The patient was at home at the time of the call and the provider and patient were the only people on the line.I was at [address] [facility], [address], [place], [place], at the time of the call. She had a recent mammogram that showed dense breasts and she has concerns about needing a screening breast sonogram. My life is in the toilet. Her son and her sister both and she is still grieving. Her diabetes ins not in good control, her A1C was 9, she is taking metformin and also lantus. She tried ozempic but had pruritus, and had to stop it. She was taking Victoza until it was denied in 2021, that was keeping her A1Cs in the normal range and she tolerated it well but she has tried to do prior auth and appeals since then and they keep denying the only thing that works for me! She also needs refills on her aristocort and her estradiol vaginal cream. Malgorzata Wilkerson MD [address] [facility],[address], [place], [address], [place] - [facility], 09/17/2023 12:02:08 06/22/2024 text/html She is here for annual, doing well, needs refill on Aristocort. She has been having a terrible pain in the stomach had a recent CT scan, nothing was found. Note from 2021: She is here for annual exam, is grieving, she found her son from cardiac issues.She needs a refill on her aristocort which is working well for her lichen sclerosis. Malgorzata Wilkerson MD [address] [facility],[address], [place], [address], [place] - [facility], 06/22/2024 09:48:56 OBGyn Episode No OBEpisode recorded.
--- OUTSIDE RECORDS SUMMARY | 2024-09-16 09:01 | XMS_ITS | Data Portability ---
Author Organization [place] [facility] [place] Address [address] [facility] [address] [place] [address] Care Team Providers Care Academic Manager Name Role Phone HILDA VITALE Primary Care Provider [phone] Assessment Encounter Date Assessment Date Assessment LastModified by Organization Details LastModified Time 10/05/2022 10/05/2022 Ms. Joya presents with intermittent right shoulder pain due to glenohumeral joint arthritis. I had a lengthy discussion with the patient regarding the treatment options. At this point the patient's symptoms are tolerable to her. We will hold off on a cortisone injection. She will continue with her home stretching program to prevent stiffness. She will follow-up with me on an as-needed basis should her symptoms worsen in any way. [email or web address] Not available 10/05/2022 12:35:51 Plan of Treatment Reminders Order Date Submit Date Provider Last Modified By Organization Details Last Modified Time Details Appointments None record ed. Lab None record ed. Referral None record ed. Procedures None record ed. Surgeries None record ed. Imaging None record ed. Medication Orders None record ed. Patient TargetsNo targets recorded. Patient InstructionsNo instructions recorded. Reason for Referral None Reported. Problems Name Problem SNOMED Code Status Onset Date Resolution Date Notes Provider Name and Address Organization Details Recorded Time 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 [id number] 01 Active 2022 Alec Durant MD [address] [facility] [address], [place], [address] , [place] [facility], 12:36:02 Problem Notes None recorded. Procedures Surgical History Date Name Laterality Status Provider Name and Address Organization Details Recorded Time Appendectomy completed Fabiola Rizo [facility] 10/05/2022 11:36:25 hysteroscopy completed [facility], 10/05/2022 11:36:42 Gastric bypass for obesity completed [facility], P 10/05/2022 11:36:53 Shoulder Surgery completed [facility], P 10/05/2022 11:37:02 Knee Surgery completed [facility] - [facility], 10/05/2022 11:37:12 cholecystectomy completed [facility], P 10/05/2022 11:37:24 Imaging Results None recorded. Procedure Notes None recorded. Medical Equipment None Reported. Allergies Allergen ID Allergen Name Allergen Category Reaction Reaction Severity Criticality Documentation Date Start Date Code Code System Note Provider Name and Address Organization Details Recorded Time 863 Product containin g penicilli n (product) medicatio n Not available Not available Not available 10/05/2022 [id number] 11:34:06 864 Substance with sulfonami de structure and antibacte rial mechanism of action (substanc e) medicatio n Not available Not available Not available 10/05/2022 14190 [id number] [facility], P 3 11:34:13 Medications Name Sig Start Date Stop Date Status Note LastModified by Organization Details LastModified Time vitamin b-12 500mcg tablets TABLET TAKE 1 TABLET BY MOUTH EVERY DAY active Not Available Not Available No t Available Estring 2 mg (7.5 mcg/24 hour) vaginal ring active Not Available Not Available Not Available ketoconazole 2 % shampoo active Not Available Not Available Not Available ammonium lactate 12 % lotion APPLY TO SKIN AFTER BATH EVERY DAY active Not Available Not Available No t Available trazodone 50 mg tablet active Not Available Not Available No t Available fluconazole 150 mg tablet TAKE 1 TABLET BY MOUTH EVERY DAY AT BEDTIME FOR 1 DAY active Not Available Not Available No t Available hydrocodone 5 mg-acetamino phen 325 mg tablet TAKE 1 TABLET BY MOUTH EVERY 24 HOURS NEEDED FOR PAIN active Not Available Not Available No t Available senna 8.6 mg tablet TAKE 1 TABLET BY MOUTH AT BEDTIME NEEDED CONSTIPATIO N TAKE 2 TABLETS IF NEEDED active Not Available Not Available No t Available fluconazole 200 mg tablet TAKE 1 TABLET BY MOUTH EVERY DAY FOR 3-5 DAYS THEN NEEDED active Not Available Not Available No t Available prednisone 20 mg tablet TAKE 3 TABLETS BY MOUTH DAILY active Not Available Not Available Not Available amlodipine 2.5 mg tablet active Not Available Not Available Not Available ciprofloxaci n 250 mg tablet TAKE 1 TABLET BY MOUTH EVERY 12 HOURS FOR 3 DAYS active Not Available Not Available N ot Available valacyclovir 500 mg tablet TAKE 1 TABLET BY MOUTH EVERY DAY active Not Available Not Available No t Available spironolacto ne 25 mg tablet active Not Available Not Available Not Available methenamine hippurate 1 gram tablet TAKE 1 TABLET BY MOUTH TWICE DAILY active Not Available Not Available No t Available lorazepam 0.5 mg tablet TAKE 1/2 A TABLET BY MOUTH 1/2 AN HOUR BEFORE MRI active Not Available Not Available N ot Available amitriptylin e 10 mg tablet TAKE 1 TABLET BY MOUTH DAILY AT BEDTIME active Not Available Not Available N ot Available nortriptylin e 10 mg capsule TAKE 1 CAPSULE BY MOUTH EVERY DAY active Not Available Not Available No t Available triamcinolon e acetonide 0.1 % topical ointment APPLY THIN LAYER TOPICALLY TO THE AFFECTED AREA TWICE DAILY NEEDED active Not Available Not Available No t Available clotrimazole -betamethaso ne 1 %-0.05 % topical cream APPLY TOPICALLY TO THE AFFECTED AREA TWICE DAILY FOR 14 DAYS active Not Available Not Available No t Available indomethacin 25 mg capsule active Not Available Not Available Not Available metoprolol tartrate 50 mg tablet active Not Available Not Available No t Available indomethacin 50 mg capsule TAKE 1 CAPSULE BY MOUTH THREE TIMES DAILY WITH FOOD OR MILK active Not Available Not Available No t Available omeprazole 20 mg capsule,socorro yed release TAKE 1 CAPSULE BY MOUTH DAILY active Not Available Not Available Not Available montelukast 10 mg tablet active Not Available Not Available Not Available hydroxyzine HCl 25 mg tablet TAKE 1 TABLET BY MOUTH THREE TIMES DAILY active Not Available Not Available Not Available polyethylene glycol 3350 17 gram/dose oral powder active Not Available Not Available Not Available albuterol sulfate HFA 90 mcg/actuatio n aerosol inhaler INHALE 2 PUFFS BY MOUTH INTO THE LUNGS EVERY 4 HOURS NEEDED FOR WHEEZING/SH ORTNESS OF BREATH USE WITH A SPACER active Not Available Not Available No t Available celecoxib 100 mg capsule active Not Available Not Available Not Available indomethacin ER 75 mg capsule,exte nded release TAKE 1 CAPSULE BY MOUTH DAILY WITH FOOD OR MILK active Not Available Not Available No t Available fluticasone propionate 50 mcg/actuatio n nasal spray,suspen eligio active Not Available Not Available Not Available oxycodone 5 mg tablet TAKE 1 TO 2 TABLETS BY MOUTH EVERY 4 HOURS NEEDED FOR PAIN active Not Available Not Available No t Available rosuvastatin 5 mg tablet active Not Available Not Available Not Available clobetasol 0.05 % shampoo active Not Available Not Available Not Available nitrofuranto in monohydrate/ macrocrystal s 100 mg capsule TAKE 1 CAPSULE BY MOUTH EVERY 12 HOURS FOR 7 DAYS active Not Available Not Available N ot Available duloxetine 20 mg capsule,socorro yed release TAKE 1 CAPSULE BY MOUTH EVERY DAY active Not Available Not Available No t Available Advair HFA 115 mcg-21 mcg/actuatio n aerosol inhaler active Not Available Not Available Not Available cholecalcife rol (vitamin D3) 1,250 mcg (50,000 unit) capsule TAKE 1 CAPSULE BY MOUTH EVERY 7 DAYS active Not Available Not Available No t Available buprenorphin e 5 mcg/hour weekly transdermal patch APPLY 1 PATCH TOPICALLY WEEKLY active Not Available Not Available No t Available Sure Comfort Pen Needle 32 gauge x 5/32 active Not Available Not Available Not Available Vitron-C 65 mg iron-125 mg tablet,delay ed release TAKE 1 TABLET BY MOUTH EVERY DAY active Not Available Not Available No t Available Victoza 3-Tyler 0.6 mg/0.1 mL (18 mg/3 mL) subcutaneous pen injector active Not Available Not Available Not Available NovoFine Plus 32 gauge x 1/6 needle active Not Available Not Available Not Available Trulance 3 mg tablet TAKE 1 TABLET BY MOUTH EVERY DAY active Not Available Not Available No t Available Ozempic 0.25 mg or 0.5 mg (2 mg/1.5 mL) subcutaneous pen injector INJECT 0.25MG UNDER THE SKIN EVERY WEEK FOR 4 WEEKS THEN 0.5MG UNDER THE SKIN ONCE A WEEK active Not Available Not Available Not Available FreeStyle Alexandra 14 Day Sensor kit USE TO CHECK BLOOD SUGAR CHANGE SENSOR EVERY 14 DAYS active Not Available Not Available No t Available FreeStyle Alexandra 3 Sensor device USE TO TEST BLOOD SUGAR. CHANGE SENSOR EVERY 14 DAYS active Not Available Not Available No t Available Vitals None Recorded Social History None recorded. Functional Status None recorded. Mental Status None recorded. Family History Relationship Description Onset Age of this Age Resolved Age Notes LastModified by Organization Details LastModified Time Brother Family history of malignant neoplasm [email or web address] Not available 2022 11:35:24 Father Family history of malignant neoplasm [email or web address] Not available 2022 11:35:24 Father Hypertensive disorder [email or web address] Not available 2022 11:35:59 Mother Family history of malignant neoplasm [email or web address] Not available 2022 11:35:24 Mother Hypertensive disorder [email or web address] Not available 2022 11:35:59 Sister Family history of malignant neoplasm [email or web address] Not available 2022 11:35:24 Sister Hypertensive disorder [email or web address] Not available 2022 11:35:59 Medical History Condition Response Anemia Y Diabetes Y Asthma Y Reflux/GERD Y Hypertension Y Gynecological HistoryNo gynecological history recorded. Obstetrics History GPAL:G 0 P 0 0 0 0 Past Encounters Encounter ID Performer Location Encounter Start Date Encounter Closed Date Diagnosis/Indication Diagnosis SNOMED-CT Code Diagnosis ICD10 Code Diagnosis Note [id number] MD KOFFI Alegre [address] [place] [phone] 10/05/2022 10:50:09 10/05/2022 12:19:20 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 [id number] M13.811 Health Concerns Section Related Observation LastModified by Organization Detai ls LastModified Time None Recorded Concern Status LastModified by Organization Details LastModified Time None Recorded Advance Directives Directive None Recorded Payers Encounter Date Sequence Insurance Name Policy Number Policy Fournier Covered Member ID Fournier Member ID Guarantor Name 10/05/2022 2 FOR LIFE () Yessi Joya [id number] Yessi Joya 10/05/2022 1 MEDICARE [place]: [employer] Yessi Joya [id number] Yessi Joya Notes Date Note Type Note Provider Name and Address Organization Details Recorded Time 10/05/2022 text/html The patient presents with complaints of mild intermittent discomfort in her right shoulder. She denies any fevers or chills. She does not take any medicines for discomfort. She continues with her home stretching program. Alec Durant MD [address] [facility],[place] [address], [place], [address], [place] [facility] 10/05/2022 12:36:16 OBGyn Episode No OBEpisode recorded.
--- OUTSIDE RECORDS SUMMARY | 2024-09-16 09:02 | XMS_ITS | Encounter Summary ---
Author Organization [facility] Address [address] [place] [address] Care Team Providers Care Livestock Dealer Name Role Phone Alyce Pham Primary Care Provider [phone] Encounter Details Date Type Department Care Team (Late st Contact Info) Description 12/19/2022 Orders Only [facility] Mammography [address] [facility] [address] Pancho Sherman MD [address] [place] [id number] Social History Tobacco Use Types Packs/Day Years Used Date Smoking Tobacco: Never Smokeless Tobacco: Never Comments:: Comments Unknown Sex and Gender Information Value Date Recorded Sex Assigned at Female 03/13/2022 1:11 PM EDT Legal Sex Female 3:18 AM EDT Gender Identity Female 03/13/2022 1:11 PM EDT Sexual Orientation Straight 03/13/2022 1: 11 PM EDT documented as of this encounter Plan of Treatment Not on file documented as of this encounter Visit Diagnoses Not on filedocumented in this encounter Care Teams Livestock Dealer Relationship Specialty Start Date End Date Alyce Pham [address] [place] [id number] PCP - General 02/15/21 documented as of this encounter
--- OUTSIDE RECORDS SUMMARY | 2024-09-16 09:02 | XMS_ITS | Clinical Summary ---
Author Organization [facility] Address [address] [place] [address] Care Team Providers Care Patient Accounting Representative Name Role Phone Alyce Pham Primary Care Provider [phone] Allergies Active Allergy Reactions Criticality Noted Date Comments Sulfamethoxazole-Trimethoprim Unknown Doxycycline Hives,Vomiting 10/28/2017 Metronidazole Unknown Lisinopril Cough 10/18/2017 Pregabalin Restlessness 05/15/2022 Penicillins Unknown Quetiapine Other (see comments) 04/01/2019 Medications traZODone (DESYREL) 50 mg tablet Take 50 mg by mouth nightly as needed for sleep. 6 Active hydrOXYzine HCL (ATARAX) 10 mg tablet 1 Active metoprolol tartrate (LOPRESSOR) 50 mg tablet Take 25 mg by mouth 2 (two) times a day. 1 Active omeprazole OTC (PriLOSEC OTC) 20 mg EC tabletIndication s:Gastroesophage al reflux disease without esophagitis Take 1 tablet (20 mg total) by mouth once a day. 90 tablet 2 Active iron,carbonyl-vi tamin C (Vitron-C) 65 mg iron- 125 mg tablet,delayed release (DR/EC) Take 1 tablet by mouth once a day. 90 tablet 1 3 Active fluticasone propion-salmeter oL (Advair HFA) 115-21 mcg/actuation inhalerIndicatio ns:Moderate persistent asthma without complication Inhale 2 puffs by mouth 2 times a day. Rinse mouth with water after use to reduce aftertaste and incidence of candidiasis. Do not swallow. 36 g 3 4 09/27/19 25 Active montelukast (SINGULAIR) 10 mg tabletIndication s:Moderate persistent asthma without complication Take 1 tablet (10 mg total) by mouth nightly. 90 tablet 3 4 09/27/19 25 Active albuterol (ProAir HFA) 90 mcg inhalerIndicatio ns:Moderate persistent asthma without complication Inhale 2 puffs (180 mcg total) by mouth every 4 hours as needed for wheezing or shortness of breath. Use with spacer. 8.5 g 5 4 09/27/19 25 Active omeprazole (PriLOSEC) 40 mg capsuleIndicatio ns:Gastroesophag eal reflux disease without esophagitis TAKE 1 CAPSULE TWICE A DAY 60 capsule 4 Active Additional Information Patient not taking.Reported on 02/05/2024 Hospital, Clinic, or Other Facility Administered Medication Ordered Dose Route Frequency Start Date End Date Status methacholine nebulizer solution 1 kit 1 kit inhalation 5 times daily as needed 04/11/2021 Active ipratropium (ATROVENT HFA) inhaler 2 puff 2 puff inhalation Per respiratory protocol 04/11/2021 Active Active Problems Problem Noted Date Diagnosed Date Pulmonary nodule 06/21/2023 Iron deficiency anemia 12/24/2022 Moderate persistent asthma without complication 09/12/2021 Benign essential hypertension 04/19/2021 Atrophic vulvovaginitis 04/19/2021 Candidal vulvovaginitis 04/19/2021 Degenerative disc disease, thoracic 01/27/2021 Overview (04/19/2021): Last Assessment & Plan: Continue Tylenol Arthritis 650 mg Take one pill PO every 8 hours as needed. Chronic diarrhea 09/27/2020 Overview (04/19/2021): Follows with GI, stomach biopsies negative for H. pylori. Negative celiac's work-up, negative esophageal biopsies as well as colon biopsies. 3 precancerous polyps removed. Repeat colonoscopy in 3 years CKD (chronic kidney disease) stage 3, GFR 30-59 ml/min 04/08/2020 Major depressive disorder, recurrent episode, mo derate 10/10/2018 Restless leg syndrome 10/10/2018 Vitamin D deficiency 10/10/2018 S/P gastric bypass 09/17/2018 Diverticulosis of colon 07/23/2018 Chronic right shoulder pain 03/19/2018 Allergic rhinitis 10/28/2017 CAD (coronary artery disease) 10/28/2017 Overview (04/19/2021): 2016 Angioplasty Gastroesophageal reflux disease without esophagi tis 10/28/2017 H/O total knee replacement 10/28/2017 Overview (04/19/2021): Right 2013, Left 2010 Moderate asthma 10/18/2017 Morbid obesity with BMI of 45.0-49.9, adult 12/2017 Cobalamin deficiency 06/03/2014 Overview (04/19/2021): Vitamin B12 Deficiency Fibromyalgia 06/03/2014 Overview (04/19/2021): Fibromyalgia Last Assessment & Plan: Patient will discuss with PCP about increasing Cymbalta medication, which can help with Fibromyalgia symptoms, and also would help some with joint pain relief as well. Continue tizanidine 4 mg PO qhs for sleep aid. Continue good sleep routine. Hypertension 06/03/2014 Overview (04/19/2021): Hypertension Irritable bowel syndrome 06/03/2014 Overview (04/19/2021): Irritable Bowel Syndrome Follows with gastroenterology YAN (obstructive sleep apnea) 06/03/2014 Overview (04/19/2021): Sleep Apnea Unable to tolerate CPAP Type 2 diabetes mellitus 06/03/2014 Overview (04/19/2021): Diabetes Mellitus Abnormal PFTs Cough Immunizations Immunization Administration Dates Next Due Covid-19 Monovalent Vaccine, Moderna, mRNA, PF 10/24/2020,09/26/2020 INFLUENZA, SPLIT VIRUS, TRIVALENT, PF 03/25/2020 Pneumococcal Conjugate Vaccine, 13 Valent 2018,03/31/2018,07/15/2009 Pneumococcal Conjugate, Unsp ecified Formulation 09/12/2009 Family History Medical History Relation Name Comments Other Father Family History of lung cancer Breast cancer Mother Other Mother Family History of malignant neoplasm of breast Other Other Sibling Family History of diabetes mellitus No Known Problems Son Relation Name Status Comments Father Mother Other Son Social History Tobacco Use Types Packs/Day Years Used Date Smoking Tobacco: Never Smokeless Tobacco: Never Tobacco Cessation:Counseling Given: Not Answered Comments:: Alcohol Use Standard Drinks/Week Comments Not Currently 0 (1 standard drink = 0.6 oz pur e alcohol) Comments Unknown Sex and Gender Information Value Date Recorded Sex Assigned at Female 03/13/2022 1:11 PM EDT Legal Sex Female 3:18 AM EDT Gender Identity Female 03/13/2022 1:11 PM EDT Sexual Orientation Straight 03/13/2022 1: 11 PM EDT Last Filed Vital Signs Vital Sign Reading Time Taken Comments Blood Pressure 165/84 02/05/2024 1:10 PM EDT Pulse 84 02/05/2024 1:10 PM EDT Temperature 36.5 ??C (97.7 ??F) 11/21/2023 9:50 AM ED T Respiratory Rate 16 11/21/2023 9:50 AM EDT Oxygen Saturation 99% 02/05/2024 1:10 PM EDT Inhaled Oxygen Concentration - - Weight 122.5 kg (270 lb) 11/21/2023 7:53 AM EDT Height 167.6 cm (5' 6 ) 11/21/2023 7:53 AM EDT Body Mass Index 43.58 11/21/2023 7:53 AM EDT Plan of Treatment Health Maintenance Due Date Last Done Comments Cologuard 1950 Colonoscopy 1949 Hepatitis C Screening 1949 Sigmoidoscopy 1949 Ophthalmology Exam 1959 Urine Microalbumin 1959 Osteoporosis Screening 1999 Zoster Vaccines (1 of 2) 1999 Colon Cancer Screening 09/15/2014 FOBT / Fit Test 09/15/2014 09/15/2013, 09/02/2012 DTaP,Tdap,and Td Vaccines (1 - Tdap) 06/07/2021 06/06/2021 COVID-19 Vaccine ( season) 2024 06/25/2023, 04/13/2022, 10/22/2021, Additional history exists Influenza Vaccine (#1) 2024 , 04/24/2022, 04/13/2022, Additional history exists Hemoglobin A1C 07/07/2024 01/06/2024, 10/01/2022 Alcohol/Substance Use Screening 07/15/2024 Depression Evaluation 07/15/2024 Health Care Proxy Review 07/15/2024 Social Drivers of Health Annual Screening 07/15/2024 Basic Metabolic Panel 01/05/2025 01/06/2024 , 01/10/2023, 12/29/2022, Additional history exists RSV Vaccine (60+ years old and patients) Completed 03/15/2023 Pneumococcal Vaccine: 50+ Years Completed 06/25/2023, 07/10/2022, 04/24/2019, Additional history exists Hepatitis B Vaccines Aged Out No long er eligible based on patient's age to complete this topic Procedures * Due to [place] [employer] law, this organization might not be sharing negative HIV tests. Procedure Name Priority Date/Time Associated Diagnosis Comments COMPREHENSIVE METABOLIC PANEL Routine 01/10/2023 1:53 PM EDT Elevated erythrocyte sedimentation rate from Last 3 Months or Most Recently Relevant to Health Maintenance Results * Due to [place] [employer] law, this organization might not be sharing negative HIV tests. * (ABNORMAL) Comprehensive Metabolic Panel (01/10/2023 1:53 PM EDT) NA 141 136 - 145 mmol/L 01/10/2023 3:02 PM EDT [facility] K 4.0 3.5 - 5.3 mmol/L 01/10/2023 3:02 PM EDT [facility] Cl 110(H) 98 - 107 mmol/L 01/10/2023 3:02 PM EDT [facility] CO2 27 22 - 30 mmol/L 01/10/2023 3:02 PM EDT [facility] Anion Gap 4(L) 5 - 15 01/10/2023 3:02 PM EDT [facility] Glucose 126(H) 70 - 99 mg/dL 01/10/2023 3:02 PM EDT [facility] Creatinine 0.97 0.60 - 1.30 mg/dL 01/10/2023 3:02 PM EDT [facility] Calcium 8.9 8.5 - 10.1 mg/dL 01/10/2023 3:02 PM EDT [facility] Total Protein 7.6 6.4 - 8.2 g/dL 01/10/2023 3:02 PM EDT [facility] Albumin 3.6 3.4 - 5.0 g/dL 01/10/2023 3:02 PM EDT [facility] Bilirubin, Total 0.3 0.3 - 1.2 mg/dL 01/10/2023 3:02 PM EDT [facility] Alkaline Phosphatase 84 50 - 136 U/L 01/10/2023 3:02 PM EDT [facility] AST 14(L) 15 - 37 U/L 01/10/2023 3:02 PM EDT [facility] ALT 23 12 - 78 U/L 01/10/2023 3:02 PM EDT [facility] BUN 12 7 - 18 mg/dL 01/10/2023 3:02 PM EDT [facility] eGFR 62 >=60 mL/min/1 .73m2 01/10/2023 3:02 PM EDT [facility] Comment:The estimated glomer ular filtration rate (eGFR) is calculated using a new formula developed by the NKF-ASN task force to eliminate race-based correction factors. The new formula uses serum/plasma creatinine, age, and gender to determine eGFR. A value below 60mls/min might indicate kidney disease and will be flagged. For additional information, see Eldon et al, Am J Kidney Dis. 2021;79(2):268- 288, A Unifying Approach for GFR estimation: Recommendations of the NKF-ASN Task Force on Reassessing the Inclusion of Race in Diagnosing Kidney Disease . Blood Structure of peripheral vein / Unknown Venipuncture / Unknown 01/10/2023 1:53 PM EDT 01/10/2023 1:53 PM EDT us Pancho Aaron MD LAB BLOOD ORDERABLES Final Result [facility] [address] [place] [id number], from Last 3 Months or Most Recently Relevant to Health Maintenance Insurance MEDICARE FOR LIFE Advance Directives * Full Code (Latest Code Status on File) Date Activated Date Inactivated Comments 11/21/2023 9:59 AM 11/21/2023 1:41 PM * Full Code Date Activated Date Inactivated Comments 11/21/2023 7:28 AM 11/21/2023 9:59 AM Healthcare Agents on File Name Relationship Healthcare Agent Relationshi p Communication Stephon Joya Health Care Agent Care Teams Patient Accounting Representative Relationship Specialty Start Date End Date Alyce Pham [address] [place] [phone] PCP - General 02/15/21
--- OUTSIDE RECORDS SUMMARY | 2024-09-16 09:02 | XMS_ITS | Clinical Summary ---
Author Organization [facility] Address [address] [place] [address] Care Team Providers Care Chin Strap Cutter Name Role Phone Yudith Welch MD Primary Care Provider [phone] Allergies Active Allergy Reactions Criticality Noted Date Comments Doxycycline 10/28/2017 Metronidazole 02/25/2017 Lisinopril 10/18/2017 Penicillins 02/25/2017 Quetiapine Other (See Comments) Sulfa Antibiotics 02/25/2017 Medications Medication Sig Dispensed Refills Start Date End Date Status LORazepam (ATIVAN) 0.5 MG tablet TK 1 OR 2 TS PO PRIOR TO PROCEDURE PRN 0 01/22/2017 Active tiZANidine (ZANAFLEX) 2 MG tablet 0 01/17/2017 Active pramipexole (MIRAPEX) 0.25 MG tablet 0 01/22/2017 Active ciprofloxacin (CIPRO) 500 MG tablet TK 1 T PO BID THE DAY OF THE PROCEDURE 0 01/22/2017 Active spironolactone (ALDACTONE) tablet 25 mg Take 25 mg by mouth daily. 0 Active duloxetine (CYMBALTA) DR capsule 20 mg Take 20 mg by mouth daily. 0 Active aspirin EC 81 MG tablet Take 81 mg by mouth daily. 0 Active ranitidine (ZANTAC) 1000 MG/40ML SOLN Inject as directed. 0 Act devora zolpidem (AMBIEN) 10 MG tablet zolpidem 10 mg tablet 0 Active buPROPion (WELLBUTRIN XL) 150 MG 24 hr tablet TAKE 1 TABLET DAILY. 0 06/03/2014 Acti ve liraglutide (VICTOZA) injection 18 mg/3 mL Victoza 3-Tyler 0.6 mg/0.1 mL (18 mg/3 mL) subcutaneous pen injector 0 Active solifenacin (VESICARE) 5 MG tablet Vesicare 5 mg tablet 0 Acti ve fluticasone (VERAMYST) 27.5 MCG/SPRAY nasal spray Veramyst 27.5 mcg/actuation nasal spray,suspension 0 Active traZODone (DESYREL) 150 MG tablet trazodone 150 mg tablet TAKE 1 TABLET BY MOUTH AT BEDTIME 0 Active topiramate (TOPAMAX) 50 MG tablet topiramate 50 mg tablet TAKE 1 TABLET BY MOUTH ONCE A DAY AT BEDTIME 0 Active SUMAtriptan (IMITREX) 100 MG tablet sumatriptan 100 mg tablet 0 Active Milnacipran HCl (SAVELLA) 25 MG TABS Savella 25 mg tablet 0 Acti ve QUEtiapine (SEROquel) 100 MG tablet quetiapine 100 mg tablet 0 Active pantoprazole (PROTONIX) 40 MG tablet pantoprazole 40 mg tablet,delayed release 0 Active oxyCODONE-acetamin ophen (PERCOCET) 5-325 MG per tablet oxycodone-acetaminop hen 5 mg-325 mg tablet TK 1 T PO UP TO TID FOR SEVERE PAIN 0 Active oxybutynin (DITROPAN-XL) 10 MG 24 hr tablet oxybutynin chloride ER 10 mg tablet,extended release 24 hr TK 1 T PO ONCE D 0 Active nortriptyline (PAMELOR) 10 MG capsule nortriptyline 10 mg capsule 0 Active esomeprazole (NEXIUM) 40 MG capsule Nexium 40 mg capsule,delayed release 0 Active vitamin D3 (CHOLECALCIFEROL) 51013 units CAPS capsule TK 1 C PO WEEKLY 0 07/02/2018 Active fluconazole (DIFLUCAN) 200 MG tablet TK 1 T PO Q SAT 6 02/11/2019 Active gabapentin (NEURONTIN) 100 MG capsule TK ONE C PO QHS 0 11/27/2018 Active mometasone (ELOCON) 0.1 % ointment APPLY TO LIP Q SATURDAY AND SATURDAY 0 01/30/2019 Active traMADol (ULTRAM) 50 MG tablet TK 1 T PO Q 8 H PRN FOR PAIN 2 01/08/2019 Active triamcinolone (KENALOG) 0.1 % ointment MARGARET THIN LAYER EXT AA BID PRN 2 01/27/2019 Active valACYclovir (VALTREX) 1000 MG tablet TK 1 T PO TID FOR 7 DAYS 1 11/27/2018 Active LORazepam (Ativan) 1 MG tablet Take 1 tab two hours before your MRI; Take 2nd tab thirty minutes before your MRI 2 tablet 0 05/05/2021 Active albuterol 108 (90 Base) MCG/ACT inhaler Inhale 180 mcg into the lungs daily as needed. 0 04/11/2021 Active buprenorphine (BUTRANS) 5 MCG/HR PTWK APPLY 1 PATCH TOPICALLY. CHANGE WEEKLY 0 04/26/2021 Active Flovent HFA 110 MCG/ACT inhaler 0 05/05/2021 Active hydroCHLOROthiazid e (MICROZIDE) 12.5 MG capsule Take 12.5 mg by mouth. 0 05/16/2016 Active hydrOXYzine (ATARAX) 10 MG tablet 0 08/27/2020 Active ipratropium (ATROVENT HFA) 17 MCG/ACT inhaler Inhale 2 puffs into the lungs daily as needed. 0 04/11/2021 Active metoprolol tartrate (LOPRESSOR) 50 MG tablet Take 25 mg by mouth. 0 02/02/2021 Acti ve montelukast (SINGULAIR) 10 MG tablet Take 1 tablet by mouth every night at bedtime. 0 05/16/2016 Active pregabalin (LYRICA) capsule 50 mg Take 50 mg by mouth. 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 07/10/2019 Weakness of right upper extremity 12/12/2018 Postoperative follow-up 08/07/2018 Incomplete tear of right rotator cuff 04/01/2018 Chronic right shoulder pain 03/19/2018 Family History Medical History Relation Name Comments Cancer Father Heart disease Father Cancer Mother Hypertension Mother Diabetes Sister Hypertension Sister Relation Name Status Comments Father Mother Sister Social History Tobacco Use Types Packs/Day Years Used Date Smoking Tobacco: Never Assessed Alcohol Use Standard Drinks/Week Comments No 0 (1 standard drink = 0.6 oz pur e alcohol) Sex and Gender Information Value Date Recorded Sex Assigned at Not on file Gender Identity Not on file Sexual Orientation Not on file Job Start Date Occupation Industry Not on file Not on file Not on file Last Filed Vital Signs Vital Sign Reading Time Taken Comments Blood Pressure - - Pulse - - Temperature - - Respiratory Rate - - Oxygen Saturation - - Inhaled Oxygen Concentration - - Weight 127.9 kg (282 lb) 05/12/2021 9:35 AM EDT Height 167.6 cm (5' 6 ) 02/25/2017 3:31 PM EDT Body Mass Index 45.52 02/25/2017 3:31 PM EDT Plan of Treatment Health Maintenance Due Date Last Done Comments Hepatitis C Screening 1950 COVID-19 Vaccine (#1) 1949 Depression Screening 1961 BMI Counseling 1967 Preventative Health Evaluation 1967 DTap / Tdap / Td (1 - Tdap) 02/10/1968 Colon Cancer Screening (Colonoscopy) 1994 Shingrix-Zoster Vaccine (1 of 2) 1999 Fall Risk Assessment 2014 Osteoporosis Screening (DEXA Scan) 2014 RSV Adult > 60+ Yrs or (1 - 1-dose 75+ series) 02/10/2024 Influenza Vaccine (#1) 2024 , 03/29/2020, 04/15/2017, Additional history exists Pneumococcal Vaccine Completed 04/24/2019, 03/31/2018, 09/10/2014, Additional history exists Hepatitis B Vaccines Aged Out No long er eligible based on patient's age to complete this topic RSV Ped < 20 months Aged Out No longe r eligible based on patient's age to complete this topic Care Teams Chin Strap Cutter Relationship Specialty Start Date End Date Yudith Welch MD PCP - General Internal Medicine 05/12/21
--- OUTSIDE RECORDS SUMMARY | 2024-09-16 09:02 | XMS_ITS | Encounter Summary ---
Author Organization [facility] Address [address] [place] [address] Care Team Providers Care Desktop Publishing Specialist Name Role Phone Pham, Alyce Primary Care Provider [phone] Reason for Visit * Reason Onset Date Comments PAC Appt Request - Established 12/25/2022 PAC Patient Request Call Back 12/25/2022 Encounter Details Date Type Department Care Team (Late st Contact Info) Description 12/25/2022 Telephone [facility] [address] [place] [id number] Telephone Intake, Staff PAC Appt Request - Established; PAC Patient Request Call Back Social History Tobacco Use Types Packs/Day Years Used Date Smoking Tobacco: Never Smokeless Tobacco: Never Comments:: Comments Unknown Sex and Gender Information Value Date Recorded Sex Assigned at Female 03/13/2022 1:11 PM EDT Legal Sex Female 3:18 AM EDT Gender Identity Female 03/13/2022 1:11 PM EDT Sexual Orientation Straight 03/13/2022 1: 11 PM EDT documented as of this encounter Miscellaneous Notes * Telephone Encounter - Isabel Gordon - 12/25/2022 3:21 PM EDT Pt will keep appointment * Telephone Encounter - Jennifer Angulo - 12/25/2022 11:54 AM EDT Patient has an appt on 12/31 10:30 with Yonny Masters. She is questioning if there are other appt's available but did not want to cancel until she knew what was available. DT would not allow a scheduleto populate to see. She can be reached at [phone] documented in this encounter Plan of Treatment Not on file documented as of this encounter Visit Diagnoses Not on filedocumented in this encounter Care Teams Desktop Publishing Specialist Relationship Specialty Start Date End Date Ankit Alyce [address] [place] [address] PCP - General 02/15/21 documented as of this encounter
--- OUTSIDE RECORDS SUMMARY | 2024-09-16 09:02 | XMS_ITS ---
Author Organization [facility] Address [address] [facility] [place] [address] Care Team Providers Care Salon Manager Name Role Phone Alyce Pham Primary Care Provider Unavailabl e Black, Arabella Unavailable [phone] Allergies Allergen (clinical drug ingredient) Drug/Non Drug Allergy documented on EMR Reaction Allergy Type Onset Date Status amoxicillin Amoxicillin Unknown Drug Allergy Act devora sulfamethoxazole / trimethoprim Bactrim Unknown Drug Allergy Active REASON FOR VISIT At Risk Footcare., Swelling Medications Medication SIG (Take, Route, Frequency, Duration) Notes Start Date End Date Status Compression Stockings 20-30mm Hg 1 pair wear daily for 30 days Active Ozempic Not-Taking Extra-Depth Diabetic Shoes with 3 Pair Custom heat-molded multi-density innersoles . for 1 year . Dx: pedal deformities and calloused lesions for . 10/15/2014 Active Extra Depth Orthopedic Shoes (1 Pair) with Customized Heat Molded Multidensity Innersoles (3 Pair) as directed Dx: NIDDM/Polyneuropath y (E11.42), Hammertoe Foot Deformity (M20.41,M20.42), Preulcerative Skin Lesion(s) (L85.1 09/30/2023 Active Ammonium Lactate 12 % 1 application Externally Twice a day for 30 days 10/01/2022 Active Spironolactone 25 MG Orally Once a day Active Clotrimazole-Betamethason e 1-0.05 % 1 application Externally Twice a day for 14 days 03/26/2022 Active Extra Depth Orthopedic Shoes (1 Pair) with Customized Heat Molded Multidensity Innersoles (3 Pair) as directed Dx: NIDDM/Polyneuropath y (E11.42), Hammertoe Foot Deformity (M20.41,M20.42), Preulcerative Skin Lesion(s) (L85.1 Active vitamin b-12 shot Active Singulair Active Lopressor Active metFORMIN HCl 1000 MG 1 tablet with a meal Orally Once a day Active Lantus Active Wellbutrin Not-Takin g HumaLOG Not-Taking hydroCHLOROthiazide Not-Taking Cymbalta Not-Taking Trulicity 150mg once a week No t-Taking Atorvastatin Calcium Not-Taking Januvia Not-Taking Ciclopirox Olamine 0.77% external Apply to effected areas twice a day for 30 days 12/23/2014 Not-Taking Ciclopirox Olamine 0.77 % 1 application to affected area Externally Twice a day for 30 days 09/16/2017 Not-Taking Zoloft Not-Taking Extra Depth Orthopedic Shoes (1 Pair) with Customized Heat Molded Multidensity Innersoles (3 Pair) as directed Dx: NIDDM/Polyneuropath y (E11.42), Hammertoe Foot Deformity (M20.41,M20.42), Preulcerative Skin Lesion(s) (L85.1 09/22/2018 Not-Taking Doxycycline Hyclate 100 MG 1 capsule Orally Once a day for 10 day(s) 06/27/2020 Not-Taking Ciclopirox Olamine 0.77 % 1 application to affected area Externally Twice a day for 30 days 09/16/2017 Not-Taking Amitriptyline HCl No t-Taking Extra Depth Orthopedic Shoes (1 Pair) with Customized Heat Molded Multidensity Innersoles (3 Pair) as directed Dx: NIDDM/Polyneuropath y (E11.42), Hammertoe Foot Deformity (M20.41,M20.42), Preulcerative Skin Lesion(s) (L85.1 09/16/2017 Not-Taking Victoza Not-Taking Extra Depth Orthopedic Shoes (1 Pair) with Customized Heat Molded Multidensity Innersoles (3 Pair) as directed Dx: NIDDM/Polyneuropath y (E11.42), Hammertoe Foot Deformity (M20.41,M20.42), Preulcerative Skin Lesion(s) (L85.1 09/18/2021 Not-Taking Social History Tobacco Use: Social History Observation Description Date Details (start date - stop date) Never Smoker NA - NA Tobacco Use/Smoking Question Answer Notes Are you a: nonsmoker Additional Findings: Tobacco Non-User Current no n-smoker Tobacco use other than smoking: Question Answer Notes Are you an other tobacco user? No Vital Signs Height 5ft6in in 07/30/2024 Weight 260 lbs 07/30/2024 BMI 41.96 kg/m2 07/30/2024 Blood pressure systolic 130 mm Hg 07/30/19 25 Blood pressure diastolic 70 mm Hg 025 Procedures Procedure Date Ordered Date Performed Result Body Sit e 56274-[id number] SKIN LESIONS, OVER 4 07/30/2024 N/A [id number] NAIL(S) 07/30/2024 N/A Encounters Encounter Location Date Provider Diagnosis [facility] [address] [address] 07/30/2024 Arabella Charles Type 2 diabetes mellitus with diabetic polyneuropathy E11.42 and Edema, lower extremity R60.0 Assessments Encounter Date Diagnosis (ICD Code) Assessment Notes Treatment Notes Treatment Clinical Notes Section Notes 07/30/2024 Type 2 diabetes mellitus with diabetic polyneuropathy (ICD-10 - E11.42) 07/30/2024 Edema, lower extremity (ICD-10 - R60.0) Plan Of Treatment Pending Test Test Name Order Date [id number] SKIN LESIONS, OVER 4 07/30/19 25 [id number] NAIL(S) 07/30/2024 Next Appt Details Follow Up: prn, Reason: Provider Name:Arabella Charles , 02/04/2025 11:00:00 AM, [address] [place] [address], [phone], Procedure Notes * Category Sub-Category Detail Notes Keratoma Treatment Parring or Cutting o f Benign Hyperkeratotic Lesion(s) (-57) More than 4 Lesions - Due to the at risk nature of the patients medical condition as documented in the exam findings, performance of this keratoderma treatment is medically necessary as its management by an unskilled/untrained nonprofessional would put this patients foot and overall health at risk. Therefore, the benign hyperkeratotic lesions, ( 5 ) in total, locations as stated and described in the exam ( _ Medial plantar, IPJ, TA, plantar Heel(s) B/L T1 T9 Dorsal ), were pared, and/or cut utilizing a sterile 15 blade, tissue nippers, and/or power dremel instrumentation by the physician of record - 10792 Nail Reduction Nail Reduction (-19) Trimming o f all non-dystrophic nails - Due to the at risk nature of the patients medical condition as documented in the exam findings, performance of this nail treatment is medically necessary as its management by an unskilled/untrained nonprofessional would put this patients foot and overall health at risk. Therefore, the non-dystrophic nails, in locations as stated and described in the exam ( T2, T3, T4, T5, T6, T7, T8, ), were debrided by the physician of record to reduce/remove overall nail length and girth, by manual and electrical means with use of a nail nipper and/or dremel, to more viable healthy nail plate or bed tissue - 71344 Progress Notes * Anabela JOYAOB:1950 ( 74 yo F)Acc No.[id number]:07/30/2024 Progress Note Patient:?Mary JOYAne Provider:?Arabella Charles DPM :1950???Age:74 Y???Sex:Female D ate:07/30/2024 Address:[address] [place] [address] Pcp:Alyce Pham Subjective: * Chief Complaints: * ???At Risk Footcare.Swelling * HPI: ???At Risk footcare:?Pt States Last PCP Visit:?Date?05/01/2024 ???Swelling:?Location:?Both feet/leg.?Duration:?, several months.?Course:??improved.?Treatment:?compression stockings.? * ROS:?General/Constitutional:?Nausea?denies.?Vomiting?denies.?Hunger Thirst?denies.?Loss appetite?denies.?Chills?denies.?Fatigue?denies.?Fever?denies.?Night Sweats?denies.?Unexplained weight loss?denies.?Unexplained weight gain?denies.?HEENTM:?Dentures?denies.?Dizziness?denies.?Glasses/contacts?admits.?Retinopathy?den ies.?Blurred/double vision?denies.?TMJ?denies.?Discharge/drainage?denies.?Implants?denies.?Sore throat?denies.?Dental implants?denies.?Hard of hearing ?denies.?Difficulty chewing/swallowing/speaking?denies.?Nose bleeds?denies.?Sore mouth?denies.?Respiratory:?On O xygen?denies.?Pneumonia/pleurisy?denies.?Bronchitis?denies.?Emphysema?denies.?Co ughing?denies.?Cough blood?denies.?Shortness of breath?denies.?Wheezing?denies.?Cardiovascular:?Pacemaker?denies.?MVP?denies.?WPW?denies.?CHF?denies.?Heart attack?denies.?Septal defect?denies.?Rapid beat?denies.?Chest pain ?denies.?Atrial Fib.?denies.?Murmur/Palpitations?denies.?Gastrointestinal:?Hemorrhoids?denies.?Stomach/Abdominal pain?denies.?Dark blood stool?denies.?Irritable bowel ?denies.?Constipation?denies.?Diarrhea?denies.?Hematology:?Swelling?admits.?Clots?denies.?Varicose Veins?denies.?Bruising?denies.?Bleeding problem?denies.?Genitourinary:?Blood urine?denies.?Frequent/Painfu/urination/bladder control?denies.?Kidney stones?denies.?Infection (UTI)?denies.?Nephropathy?admits.?sex trans dis (STD)?denies.?Prostate?denies.?Musculoskeletal:?Hammertoes?denies.?Bunions?denies.?Back Pain?denies.?Muscle Cramps/ Resting?denies.?Muscle cramps / walking?denies.?Generalized aches and pains?denies.?Weakness?denies.?Integ.:?[place]?denies.?Scars?denies.?Corns/calluses?, admits.?Ingrown nails?denies.?Painful nails?denies.?Open Sores?denies.?Rashes?denies.?Neurologic:?Difficulty sleeping?denies.?Brain disorder?denies.?Numbness?denies.?Balance t rouble?denies.?Confusion?denies.?Fainting/blackouts?denies.?Tingling?denies.?Gm mors?denies.? * Medical History:? * Surgical History:?knee surge ry, left knee surgery, right hysterectomy bypass surgery angioplasty vaginal surgery 07/2017Right shoulder spur removed 07/2018Botox injection in bladder 09/16/23 * Hospitalization/Major Diagno stic Procedure:?[facility]; fall 09/2014 * Family History:?Mother: dece ased, diagnosed with Other malignant neoplasm of unspecified site, Diabetic - NIDDM, Unspecified essential hypertension, Unspecified cerebral artery occlusion with cerebral infarction, Family history of arthritis.?Father: , foot problems, diagnosed with Other malignant neoplasm of unspecified site, Unspecified essential hypertension, Unspecified heart disease.?Siblings: foot problems, diagnosed with Diabetic - NIDDM, Family history of arthritis.? * Social History:?Tobacco Use:?Tobacco Use/Smoking?Are you a:?nonsmoker ?Additional Findings: Tobacco Non-User?Current non-smoker ?Tobacco use other than smoking?Are you an other tobacco user??No * Medications:?TakingLantus me tFORMIN HCl 1000 MG Tablet 1 tablet with a meal Orally Once a day Lopressor Spironolactone 25 MG Tablet Orally Once a day Singulair vitamin , Notes to Pharmacist: b-12 shotExtra Depth Orthopedic Shoes (1 Pair) with Customized Heat Molded Multidensity Innersoles (3 Pair) as directed Dx: NIDDM/Polyneuropathy (E11.42), Hammertoe Foot Deformity (M20.41,M20.42), Preulcerative Skin Lesion(s) (L85.1 Clotrimazole-Betamethasone 1-0.05 % Cream 1 application Externally Twice a day Ammonium Lactate 12 % Lotion 1 application Externally Twice a day Extra Depth Orthopedic Shoes (1 Pair) with Customized Heat Molded Multidensity Innersoles (3 Pair) as directed Dx: NIDDM/Polyneuropathy (E11.42), Hammertoe Foot Deformity (M20.41,M20.42), Preulcerative Skin Lesion(s) (L85.1 Compression Stockings 20- 30mm Hg closed toe- knee high 1 pair wear daily Extra-Depth Diabetic Shoes with 3 Pair Custom heat-molded multi-density innersoles . . for 1 year . Dx: pedal deformities and calloused lesions Taking Lantus Taking metFORMIN HCl 1000 MG Tablet 1 tablet with a meal Orally Once a day Taking Lopressor Taking Spironolactone 25 MG Tablet Orally Once a day Taking Singulair Taking vitamin , Notes to Pharmacist: b-12 shotTaking Extra Depth Orthopedic Shoes (1 Pair) with Customized Heat Molded Multidensity Innersoles (3 Pair) as directed Dx: NIDDM/Polyneuropathy (E11.42), Hammertoe Foot Deformity (M20.41,M20.42), Preulcerative Skin Lesion(s) (L85.1 Taking Clotrimazole-Betamethasone 1-0.05 % Cream 1 application Externally Twice a day Taking Ammonium Lactate 12 % Lotion 1 application Externally Twice a day Taking Extra Depth Orthopedic Shoes (1 Pair) with Customized Heat Molded Multidensity Innersoles (3 Pair) as directed Dx: NIDDM/Polyneuropathy (E11.42), Hammertoe Foot Deformity (M20.41,M20.42), Preulcerative Skin Lesion(s) (L85.1 Taking Compression Stockings 20-30mm Hg closed toe- knee high 1 pair wear daily Taking Extra-Depth Diabetic Shoes with 3 Pair Custom heat-molded multi-density innersoles . . for 1 year . Dx: pedal deformities and calloused lesions Not-Taking/PRNHumaLOG Ozempic Amitriptyline HCl Ciclopirox Olamine 0.77 % Cream 1 application to affected area Externally Twice a day Extra Depth Orthopedic Shoes (1 Pair) with Customized Heat Molded Multidensity Innersoles (3 Pair) as directed Dx: NIDDM/Polyneuropathy (E11.42), Hammertoe Foot Deformity (M20.41,M20.42), Preulcerative Skin Lesion(s) (L85.1 Victoza Extra Depth Orthopedic Shoes (1 Pair) with Customized Heat Molded Multidensity Innersoles (3 Pair) as directed Dx: NIDDM/Polyneuropathy (E11.42), Hammertoe Foot Deformity (M20.41,M20.42), Preulcerative Skin Lesion(s) (L85.1 Extra Depth Orthopedic Shoes (1 Pair) with Customized Heat Molded Multidensity Innersoles (3 Pair) as directed Dx: NIDDM/Polyneuropathy (E11.42), Hammertoe Foot Deformity (M20.41,M20.42), Preulcerative Skin Lesion(s) (L85.1 Doxycycline Hyclate 100 MG Capsule 1 capsule Orally Once a day Ciclopirox Olamine 0.77 % Cream 1 application to affected area Externally Twice a day Ciclopirox Olamine 0.77% Cream external Apply to effected areas twice a day Zoloft Trulicity 150mg once a week Cymbalta hydroCHLOROthiazide Januvia Atorvastatin Calcium Wellbutrin Medication List reviewed and reconciled with the patientNot-Taking/PRN HumaLOG Not-Taking/PRN Ozempic Not-Taking/PRN Amitriptyline HCl Not-Taking/PRN Ciclopirox Olamine 0.77 % Cream 1 application to affected area Externally Twice a day Not-Taking/PRN Extra Depth Orthopedic Shoes (1 Pair) with Customized Heat Molded Multidensity Innersoles (3 Pair) as directed Dx: NIDDM/Polyneuropathy (E11.42), Hammertoe Foot Deformity (M20.41,M20.42), Preulcerative Skin Lesion(s) (L85.1 Not-Taking/PRN Victoza Not-Taking/PRN Extra Depth Orthopedic Shoes (1 Pair) with Customized Heat Molded Multidensity Innersoles (3 Pair) as directed Dx: NIDDM/Polyneuropathy (E11.42), Hammertoe Foot Deformity (M20.41,M20.42), Preulcerative Skin Lesion(s) (L85.1 Not-Taking/PRN Extra Depth Orthopedic Shoes (1 Pair) with Customized Heat Molded Multidensity Innersoles (3 Pair) as directed Dx: NIDDM/Polyneuropathy (E11.42), Hammertoe Foot Deformity (M20.41,M20.42), Preulcerative Skin Lesion(s) (L85.1 Not-Taking/PRN Doxycycline Hyclate 100 MG Capsule 1 capsule Orally Once a day Not-Taking/PRN Ciclopirox Olamine 0.77 % Cream 1 application to affected area Externally Twice a day Not- Taking/PRN Ciclopirox Olamine 0.77% Cream external Apply to effected areas twice a day Not-Taking/PRN Zoloft Not-Taking/PRN Trulicity 150mg once a week Not-Taking/PRN Cymbalta Not-Taking/PRN hydroCHLOROthiazide Not-Taking/PRN Januvia Not- Taking/PRN Atorvastatin Calcium Not-Taking/PRN Wellbutrin Medication List reviewed and reconciled with the patient * Allergies:?BactrimAmoxicilli ama[Allergies Verified] Objective: * Vitals:?Ht: 5ft6in, Wt:260, BMI:41.96, Shoe size: 10, BP:130/70mm Hg, BS: 124, Ht-cm: 167.64 cm, Wt-k.93 kg. * ???Past Orders: ???Lab:HEMOGLOBIN A1C (GLYCO HEMOGLOBIN) (Order Date - 04/14/2024) (Collection Date & Time - 04/14/2024 11:00 AM) ? Value Reference Range ?HEMOGLOBIN A1C % (HH) 6.8 * Examination: ???Ophthalmology Referral: ?DIABETES EYE EXAM?Procedure Performed:?Yes ?Date of Exam Performed?04/14/2024 ?Findings of Diabetic Eye Exam:?no retinopathy?General Examination: ?GENERAL APPEARANCE:?Reveals a pleasant, alert, well nourished, well- developed, well hydrated individual, who demonstrates proper attention to hygiene/body habitus, and is in no acute distress, Pt serves as own historian for office visit today.?ORIENTED:?person, place, and time.?FOOT EXAM:?Lower Extremity Neurological Exam performed:?Yes ?Visual exam of foot performed:?Yes ?Date?07/30/2024 ?Sensory testing performed:?sensations diminished ?Sensory and motor testing performed:?sensations diminished ?Pedal pulse taking performed:?1+ ?Footwear Evaluation?Footwear Evaluation performed:?Yes?Dermatologic: ?SKIN FINDINGS:?Skin exam reveals Keratotic lesion(s) located at, Medial plantar, IPJ, TA, plantar Heel(s) B/L T1T9, Dorsal,.?Neurological: ?SENSORY:?Neurological exam demonstrates, reduced sharp/dull pin prick discrimination , reduced light touch sensation, reduced vibration sensation, 5.07 monofilament test performed at plantar aspects of 5 varied sites per foot shows sensation, absent, at Forefoot, B/L, Pt relates, anesthesia?b/l??tingling left.?Nails: ?NAILS are:? Elongated, overgrown, nondystrophic,?T2, T3, T4, T5, T6, T7, T8,?.?Vascular: ?DP PULSES (B):?1/4, B/L.?PT PULSES (B):?1/4, B/L.?EDEMA (C):?3/4 , without aching pain , B/L.?BLANKA'S SIGN:?absent, B/L.?PALPABLE CORDS:?absent, B/L.?Orthopedic: ?FOOTWEAR:?, good condition, exhibit proper fit and accommodation for pedal deformities. , Non-Diabetic with no OT.? Assessment: * Assessment: 1.?Type 2 diabetes mellitus with diabetic polyneuropathy - E11.42 (Primary)???2.?Edema, lower extremity - R60.0???Specify :Acute problem, Uncomplicated (3), Rx Management (4)??? Plan: * Treatment: * Procedures:?Keratoma Treatment:?Parring or Cutting of Benign Hyperkeratotic Lesion(s)?(-57) More than 4 Lesions - Due to the at risk nature of the patients medical condition as documented in the exam findings, performance of this keratoderma treatment is medically necessary as its management by an unskilled/untrained nonprofessional would put this patients foot and overall health at risk. Therefore, the benign hyperkeratotic lesions, ( 5 ) in total, locations as stated and described in the exam ( _ Medial plantar, IPJ, TA, plantar Heel(s) B/L T1 T9 Dorsal ), were pared, and/or cut utilizing a sterile 15 blade, tissue nippers, and/or power dremel instrumentation by the physician of record - 06855.?Nail Reduction:?Nail Reduction?(-19) Trimming of all non-dystrophic nails - Due to the at risk nature of the patients medical condition as documented in the exam findings, performance of this nail treatment is medically necessary as its management by an unskilled/untrained nonprofessional would put this patients foot and overall health at risk. Therefore, the non-dystrophic nails, in locations as stated and described in the exam ( T2, T3, T4, T5, T6, T7, T8, ), were debrided by the physician of record to reduce/remove overall nail length and girth, by manual and electrical means with use of a nail nipper and/or dremel, to more viable healthy nail plate or bed tissue - 70740.? * Procedure Codes:?95320 TRIM NAIL(S), Modifiers: XS 36269 TRIM SKIN LESIONS, OVER 4, Modifiers: XS 3044F HG A1C LEVEL LT 7.0% * Preventive Medicine:? ??Counseling:?Discussion:?-12: Office or other outpatient visit for the evaluation and management of an established patient, which required a medically appropriate history and/or examination and STRAIGHTFORWARD level of MEDICAL DECISION MAKING, 1 SELF-LIMITED OR MINOR PROBLEM, MINIMAL- NO AMOUNT/COMPLEXITY OF DATA TO BE REVIEWED/ANALYZED, AND MINIMAL RISK OF COMPLICATION/MORBIDITY. The visit on the day of the encounter encompassed interpreting the data and educating the patient as to the nature of their condition, treatment options available according to their individual PMH, meds, allergies, and overall health/living conditions, as well as any potential risks or complications that may occur from a failure to adhere to, and participate in, the recommended course of therapy. The discussion included a complete verbal, and/or written explanation of the examination results, any x-rays taken, the proposed diagnosis, and outline of the treatment plan. A schedule for future care needs was also explained. The patient verbalized an understanding of the instructions at this time and agreed to be an active participant in their treatment. If the patient should think of any questions or concerns after the visit, I have encouraged the patient to call the office.?Edema:?Discussed other tx options for the patients condition, The patient wishes to continue with the present treatment plan for their condition given its success.? * Follow Up:?prn * Images: * Sign off status: Completed true * Provider:?Arabella Charles DPM Date:?2024 Generated for Elijah thompson/Bassam/Fortino on:?09/16/2024 09:02 AM EST History and Physical Notes * HPI (History of Present Illness) Category Sub-Category Detail Notes Category Not es At Risk footcare Pt States Last PCP Visit: Date: 4 Swelling Location: Both feet/leg Duration: , several months Course: improved Treatment: compression stocking s Examination Category Sub-Category Detail Notes Category Not es Neurological SENSORY: Neurological exa m demonstrates, reduced sharp/dull pin prick discrimination , reduced light touch sensation, reduced vibration sensation, 5.07 monofilament test performed at plantar aspects of 5 varied sites per foot shows sensation, absent, at Forefoot, B/L, Pt relates, anesthesia b/l tingling left TINEL'S COMPRESSION: DEEP TENDON REFLEXES: Dermatologic SKIN FINDINGS: Skin exam reveal s Keratotic lesion(s) located at, Medial plantar, IPJ, TA, plantar Heel(s) B/L T1T9, Dorsal, Orthopedic FOOTWEAR: , good condition , exhibit proper fit and accommodation for pedal deformities. , Non-Diabetic with no OT General Examination GENERAL APPEARANCE: Reveals a pleasant, alert, well nourished, well-developed, well hydrated individual, who demonstrates proper attention to hygiene/body habitus, and is in no acute distress, Pt serves as own historian for office visit today FOOT EXAM: Lower Extremity Neurological Exa m performed:: Yes Visual exam of foot performed:: Yes Date: 07/30/2024 Sensory testing performed:: sensations d iminished Sensory and motor testing performed:: se nsations diminished Pedal pulse taking performed:: 1+ ORIENTED: person, place, and t farnaz Footwear Evaluation Footwear Evaluation performe d:: Yes Ophthalmology Referral DIABETES EYE EXAM Procedure Perform ed:: Yes ?Date of Exam Performed: 04/14/2024 Findings of Diabetic Eye Exam:: no retin opathy Vascular DP PULSES (B): 1/4, B/L PT PULSES (B): 1/4, B/L EDEMA (C): 3/4 , without aching pain , B/L BLANKA'S SIGN: absent, B/L PALPABLE CORDS: absent, B/L Nails NAILS are: Elongated, overg rown, nondystrophic, T2, T3, T4, T5, T6, T7, T8,
--- OUTSIDE RECORDS SUMMARY | 2024-09-16 09:03 | XMS_ITS | Referral Summary ---
Author Organization [facility] Address [address] [place] [address] Care Team Providers Care Carburetor Repairer Name Role Phone Alyce Pham Primary Care Provider [phone] Allergies Active Allergy Reactions Criticality Noted Date [...] 2018,03/31/2018,07/15/2009 Pneumococcal Conjugate, Unsp ecified Formulation 09/12/2009 Social History Tobacco Use Types Packs/Day Years [...] 11/21/2023 7:53 AM EDT Plan of Treatment Not on file Procedures * Due to [place] state law, this organization might not be sharing negative HIV tests. Procedure Name Priority Date/Time Associated Diagnosis Comments COMPREHENSIVE METABOLIC PANEL Routine 01/10/2023 1:53 PM EDT Elevated erythrocyte sedimentation rate from Last 3 Months or Most Recently Relevant to Health Maintenance Results * Due to [place] state law, this organization might not be sharing negative HIV tests. * (ABNORMAL) Comprehensive Metabolic Panel (01/10/2023 1:53 PM EDT) NA 141 136 - 145 mmol/L 01/10/2023 3:02 PM EDT [facility] K 4.0 3.5 - 5.3 mmol/L 01/10/2023 3:02 PM EDT [facility] Cl 110(H) 98 - 107 mmol/L 01/10/2023 3:02 PM EDT [facility] CO2 27 22 - 30 mmol/L 01/10/2023 3:02 PM EDT [facility] Anion Gap 4(L) 5 - 15 01/10/2023 3:02 PM EDT [facility] Glucose 126(H) 70 - 99 mg/dL 01/10/2023 3:02 PM EDT [facility] Creatinine 0.97 0.60 - 1.30 mg/dL 01/10/2023 3:02 PM EDT [facility] Calcium 8.9 8.5 - 10.1 mg/dL 01/10/2023 3:02 PM EDT [facility] Total Protein 7.6 6.4 - 8.2 g/dL 01/10/2023 3:02 PM EDT [facility] Albumin 3.6 3.4 - 5.0 g/dL 01/10/2023 3:02 PM EDT [facility] Bilirubin, Total 0.3 0.3 - 1.2 mg/dL 01/10/2023 3:02 PM EDT [facility] Alkaline Phosphatase 84 50 - 136 U/L 01/10/2023 3:02 PM EDT [facility] AST 14(L) 15 - 37 U/L 01/10/2023 3:02 PM EDT [facility] ALT 23 12 - 78 U/L 01/10/2023 3:02 PM EDT [facility] BUN 12 7 - 18 mg/dL 01/10/2023 3:02 PM EDT [facility] eGFR 62 >=60 mL/min/1 .73m2 01/10/2023 3:02 PM EDT [facility] Comment:The estimated glomer ular filtration rate (eGFR) is calculated using a new formula developed by the NKF-ASN task force to eliminate race-based correction factors. The new formula uses serum/plasma creatinine, age, and gender to determine eGFR. A value below 60mls/min might indicate kidney disease and will be flagged. For additional information, see Colón et al, Am J Kidney Dis. 2021;79(2):268- 288, A Unifying Approach for GFR estimation: Recommendations of the NKF-ASN Task Force on Reassessing the Inclusion of Race in Diagnosing Kidney Disease . Blood Structure of peripheral vein / Unknown Venipuncture / Unknown 01/10/2023 1:53 PM EDT 01/10/2023 1:53 PM EDT us Pancho Aaron MD LAB BLOOD ORDERABLES Final Result [facility] [address] [place] [address], [place] from Last 3 Months or Most Recently Relevant to Health Maintenance Insurance MEDICARE [facility] Advance Directives * Full Code (Latest Code Status on File) Date Activated Date Inactivated Comments 11/21/2023 9:59 AM 11/21/2023 1:41 PM * Full Code Date Activated Date Inactivated Comments 11/21/2023 7:28 AM 11/21/2023 9:59 AM Healthcare Agents on File Name Relationship Healthcare Agent Relationshi p Communication Stephon Joya Health Care Agent Care Teams Carburetor Repairer Relationship Specialty Start Date End Date Alyce Pham [address] [place] [address] PCP - General 02/15/21
--- OUTSIDE RECORDS SUMMARY | 2024-09-16 09:03 | XMS_ITS | Patient Health Record ---
Author Organization [facility] Address [address] [place] [address] Care Team Providers Care Tire Mold Tester Name Role Phone Ankit Alyce Primary Care Provider Unavailabl e Black, Arabella Unavailable [phone] Allergies Allergen (clinical drug ingredient) Drug/Non Drug Allergy documented on EMR Reaction Allergy Type Onset Date Status amoxicillin Amoxicillin Unknown Drug Allergy Act devora sulfamethoxazole / trimethoprim Bactrim Unknown Drug Allergy Active Results Component Value Reference Range Notes HEMOGLOBIN A1C (GLYCOHEMOGLO BIN) Reviewed date:07/30/2024 11:01:10 AM Interpretation: Performing Lab: Notes/Report: HEMOGLOBIN A1C % (HH) 6.8 Reason For Referral No Information Medications Medication SIG (Take, Route, Frequency, Duration) [...] (M20.41,M20.42), Preulcerative Skin Lesion(s) (L85.1 09/18/2021 Not-Taking HumaLOG Not-Taking Doxycycline Hyclate 100 MG 1 capsule Orally Once a day for 10 day(s) 06/27/2020 Not-Taking Ciclopirox Olamine 0.77% external Apply to effected areas twice a day for 30 days 12/23/2014 Not-Taking Ciclopirox Olamine 0.77 % 1 application to affected area Externally Twice a day for 30 days 09/16/2017 Not-Taking Spironolactone 25 MG Orally Once a day Active hydroCHLOROthiazide Not-Taking Lopressor Active Cymbalta Not-Taking metFORMIN HCl 1000 MG 1 tablet with a meal Orally Once a day Active Trulicity 150mg once a week No t-Taking Lantus Active Zoloft Not-Taking Clotrimazole-Betamethason e 1-0.05 % 1 application Externally Twice a day for 14 days 03/26/2022 Active Extra Depth Orthopedic Shoes (1 Pair) with Customized Heat Molded Multidensity Innersoles (3 Pair) as directed Dx: NIDDM/Polyneuropath y (E11.42), Hammertoe Foot Deformity (M20.41,M20.42), Preulcerative Skin Lesion(s) (L85.1 Active Wellbutrin Not-Takin g vitamin b-12 shot Active Atorvastatin Calcium Not-Taking Singulair Active Januvia Not-Taking Extra Depth Orthopedic Shoes (1 Pair) with Customized Heat Molded Multidensity Innersoles (3 Pair) as directed Dx: NIDDM/Polyneuropath y (E11.42), Hammertoe Foot Deformity (M20.41,M20.42), Preulcerative Skin Lesion(s) (L85.1 09/30/2023 Active Ammonium Lactate 12 % 1 application Externally Twice a day for 30 days 10/01/2022 Active Compression Stockings 20-30mm Hg 1 pair wear daily for 30 days Active Ciclopirox Olamine 0.77 % 1 application to affected area Externally Twice a day for 30 days 09/16/2017 Not-Taking Amitriptyline HCl No t-Taking Ozempic Not-Taking Extra-Depth Diabetic Shoes with 3 Pair Custom heat-molded multi-density innersoles . for 1 year . Dx: pedal deformities and calloused lesions for . 10/15/2014 Active Immunizations Vaccine Route Administration Date Status Comme nts COVID-19 Moderna Vaccine Unknown 10/24/2020 Administere d 09/26/2020 Influenza Unknown 03/15/2017 Administered Influenza Unknown 05/15/2018 Administered Influenza Unknown 04/01/2019 Administered Influenza Unknown 03/15/2020 Administered Influenza Unknown 03/15/2023 Administered Social History Tobacco Use: Social History Observation [...] Are you an other tobacco user? No Problems Problem Type SNOMED Code ICD Code Onset Dates Problem Status W/U Status Risk Notes Problem Acquired hammer toe of right foot (1988088725342728 ) Other hammer toe(s) (acquired), right foot (M20.41) Active confirmed Problem Acquired hammer toe of left foot (1130087521136728 ) Other hammer toe(s) (acquired), left foot (M20.42) Active confirmed Problem Ulcer of toe (287009014) Non-pressure chronic ulcer of other part of right foot limited to breakdown of skin (L97.511) Active confirmed Problem Polyneuropathy due to type 2 diabetes mellitus (890604165) Type 2 diabetes mellitus with diabetic polyneuropathy (E11.42) Active confirmed Problem Localized, primary osteoarthritis of the ankle and/or foot (445795160) Arthritis of joint of lesser toe, left (M19.072) Active confirmed Problem Localized, primary osteoarthritis of the ankle and/or foot (223917785) Arthritis of joint of lesser toe, right (M19.071) Active confirmed Vital Signs Blood pressure diastolic 70 mm Hg 07/30/2024 Height 5ft6in in 07/30/2024 Blood pressure systolic 130 mm Hg 07/30/2024 Weight 260 lbs 07/30/2024 BMI 41.96 kg/m2 07/30/2024 Procedures Procedure Date Ordered Date Performed Result Body Sit e 42163-JRBF SKIN LESIONS, OVER 4 09/30/2023 N/A 41643-AEYA NAIL(S) 09/30/2023 N/A 93913-GHYZ SKIN LESIONS, OVER 4 01/27/2024 N/A 48687-GRYA NAIL(S) 01/27/2024 N/A 16482-FLOV SKIN LESIONS, OVER 4 07/30/2024 N/A 67717-NYFE NAIL(S) 07/30/2024 N/A Encounters Encounter Location Date Provider Diagnosis [facility] [address] 09/30/2023 Arabella Black Type 2 diabetes mellitus with diabetic polyneuropathy E11.42 ; Acquired hallux extensus of left foot M20.5X2 ; Acquired hallux extensus of right foot M20.5X1 ; Other hammer toe(s) (acquired), right foot M20.41 and Other hammer toe(s) (acquired), left foot M20.42 [facility] [address] 01/27/2024 Arabella Black Type 2 diabetes mellitus with diabetic polyneuropathy E11.42 and Edema, lower extremity R60.[address] [address] 07/30/2024 Arabella Black Type 2 diabetes mellitus with diabetic polyneuropathy E11.42 and Edema, lower extremity R60.[address] [address] 05/11/2024 Arabella Black Diabetic - NIDDM/Neuropathy 250.60 Assessments Encounter Date Diagnosis (ICD Code) Assessment Notes Treatment Notes Treatment Clinical Notes Section Notes 09/30/2023 Type 2 diabetes mellitus with diabetic polyneuropathy (ICD-10 - E11.42) 09/30/2023 Acquired hallux extensus of left foot (ICD-10 - M20.5X2) 01/27/2024 Type 2 diabetes mellitus with diabetic polyneuropathy (ICD-10 - E11.42) 01/27/2024 Edema, lower extremity (ICD-10 - R60.0) 05/11/2024 Diabetic - NIDDM/Neuropathy (ICD9-CM - 250.60) 07/30/2024 Type 2 diabetes mellitus with diabetic polyneuropathy (ICD-10 - E11.42) 07/30/2024 Edema, lower extremity (ICD-10 - R60.0) 09/30/2023 Acquired hallux extensus of right foot (ICD-10 - M20.5X1) 09/30/2023 Other hammer toe(s) (acquired), right foot (ICD-10 - M20.41) Patient Educated with: DIABETIC FOOT CARE INSTRUCTIONS. pdf (DIABETIC FOOT CARE INSTRUCTIONS. pdf) 09/30/2023 Other hammer toe(s) (acquired), left foot (ICD-10 - M20.42) 01/27/2024 Other Plan Of Treatment Pending Test Test Name Order Date 28155-Qtwiynqj Plate 09/22/2018 34286-Lkxgqccy Plate 03/28/2020 18959-GFV 06/27/2020 78371- Debride <25 sq cm 07/18/2020 48977-ITDP SKIN LESIONS, OVER 4 04/01/20 23 18416-TNUD SKIN LESIONS, OVER 4 09/30/19 24 24582-AVCI SKIN LESIONS, OVER 4 01/27/20 24 96539-WHWJ SKIN LESIONS, OVER 4 07/30/19 25 24495-XJEM SKIN LESIONS, 2 TO 4 02/14/20 21 12534-DGUP SKIN LESIONS, 2 TO 4 09/19/19 22 48997-VIJH SKIN LESIONS, 2 TO 4 03/26/20 22 23190-IKOI SKIN LESIONS, 2 TO 4 10/02/19 23 25324-DBDI SKIN LESIONS, 2 TO 4 03/28/20 20 08162-PCZE SKIN LESIONS, 2 TO 4 11/15/19 21 29299-ZYIB SKIN LESIONS, 2 TO 4 12/24/19 20 04233-GXAG SKIN LESIONS, 2 TO 4 12/23/19 19 27154-GGHC SKIN LESIONS, 2 TO 4 04/13/20 19 33195-KMGN SKIN LESIONS, 2 TO 4 07/20/19 20 48439-XHYI SKIN LESIONS, 2 TO 4 09/21/19 20 88928-MSFB SKIN LESIONS, 2 TO 4 10/16/19 15 60659-AGNZ SKIN LESIONS, 2 TO 4 12/24/19 15 93829-SGYB SKIN LESIONS, 2 TO 4 08/03/19 16 37890-HVDI SKIN LESIONS, 2 TO 4 09/17/19 18 96425-MGPS SKIN LESIONS, 2 TO 4 02/18/20 18 73625-BAWV SKIN LESIONS, 2 TO 4 06/23/20 18 69862-TJGD SKIN LESIONS, 2 TO 4 09/23/19 19 98662-OEMF SKIN LESION 12/23/2014 67399-RVTR SKIN LESION 07/28/2014 51568-IGRZ SKIN LESION 10/15/2014 34816-WUTZ NAIL(S) 10/15/2014 94385-CRXN NAIL(S) 12/23/2014 98517-MYNG NAIL(S) 08/03/2015 49523-LGFF NAIL(S) 09/22/2018 61335-ZKQM NAIL(S) 06/23/2018 35020-XIOH NAIL(S) 02/17/2018 98306-PXZQ NAIL(S) 09/16/2017 21202-FOUT NAIL(S) 09/21/2019 75378-YVIY NAIL(S) 07/20/2019 56769-PKZD NAIL(S) 04/13/2019 10492-PPJC NAIL(S) 12/22/2018 40490-UMTU NAIL(S) 12/24/2019 34851-XRRD NAIL(S) 03/28/2020 21443-QNLN NAIL(S) 11/14/2020 14945-LIYL NAIL(S) 10/01/2022 29830-QVNY NAIL(S) 03/26/2022 49907-UJKP NAIL(S) 09/18/2021 57265-MXYJ NAIL(S) 02/13/2021 57501-BQXX NAIL(S) 07/30/2024 43667-JLZM NAIL(S) 01/27/2024 56982-NIZF NAIL(S) 09/30/2023 73442-CGUH NAIL(S) 04/01/2023 Next Appt Details Provider Name:Arabella Charles , 02/04/2025 11:00:00 AM, [address], [place], [address], Insurance Providers Payer Name Payer Address Payer Phone Subscriber Number Group Number Insured Name Patient Relationship to Insured Coverage Start Date Coverage End Date Medicare [employer] [address] [place] [address] [phone] [id number] Yessi Joay Self - patient is the insured [employer] [facility] [address] [place] [address] [phone] [id number] Yessi Joya Self - patient is the insured Medical (General) History Medical History History ICD Code Anemia Anxiety Arthritis Back,Hip,and Knee pain Diabetic Chicken pox Headaches Migraines Hypertension keloids Neuropathy Poor circulation Psoriasis/eczema Reflux Sciatica Thyroid disorder Measles Mumps Joint implants/screws Transfusions Surgical History Surgery Date(Month/Year) knee surgery, left knee surgery, right hysterectomy bypass surgery angioplasty vaginal surgery 07/2017 Right shoulder spur removed 07/2018 Botox injection in bladder 09/16/23 Hospitalization History Reason Date(Month/Year) [facility]; 09/2014
--- OUTSIDE RECORDS SUMMARY | 2024-09-16 09:03 | XMS_ITS | Encounter Summary ---
Author Organization [facility] Address [address] [place] [address] Care Team Providers Care Transformer Assembly Supervisor Name Role Phone Alyce Pham Primary Care Provider [phone] Reason for Visit * Reason Comments Follow-up 3 month f/u Encounter Details Date Type Department Care Team (Late st Contact Info) Description 08/21/2024 10:40 AM EST Office Visit Gastroenterology - [address] [place] [phone] Wilfrido May PA [address] [place] [address] [place] [address] [id number] Functional diarrhea (Primary Dx); Left sided abdominal pain; Irritable bowel syndrome with both constipation and diarrhea Social History Tobacco Use Types Packs/Day Years [...] Orientation Straight 06/23/2024 10 :17 AM EST documented as of this encounter Last Filed Vital Signs Vital Sign Reading Time Taken Comments Blood Pressure - - Pulse - - Temperature - - Respiratory Rate - - Oxygen Saturation - - Inhaled Oxygen Concentration - - Weight 118 kg (260 lb) 08/21/2024 10:30 AM EST Height 167.6 cm (5' 6 ) 08/21/2024 10:30 AM EST Body Mass Index 41.97 08/21/2024 10:30 AM EST documented in this encounter Ordered Prescriptions Prescription Sig Dispense Quantity Refills Last Filled Start Date End Date chlordiazePOXIDE-c lidinium (LIBRAX) 5-2.5 mg per capsuleIndications :Functional diarrhea,Left sided abdominal pain Take 1 capsule by mouth 3 (three) times a day with meals. Take with meals and at bedtime 90 capsule 5 08/21/2024 documented in this encounter Progress Notes * KOST[facility] Villa - 08/21/2024 10:40 AM ESTAssociated Problem(s): IBS (irritable bowel syndrome) * [facility] - 08/21/2024 10:40 AM EST Subjective Last Colononscopy/EGD: Colon 01/05 (3yr) HPI: Yessi Joya is a 74 y.o. old female who presents to the gastroenterology department today for a follow up for her long-standing history of IBS. She is no better. The x-ray did not document any significant stool burden to suggest constipation and overflow diarrhea. I had ordered infectious stool workup although she did not complete that. She still has ongoing left lower quadrant pain. This usually starts in the upper abdomen and radiates down to the left lower abdomen after eating. This is a longstanding issue for her. She can have explosive bowel movements 2-3 times a day and skip days altogether. She is currently on an antibiotic for UTI. We discussed the colonoscopy she had last year and the CAT scans of the abdomen and pelvis overthe years that have not documented an etiology. We discussed functional bowel issues as the most likely cause for these chronic issues. She believes Librax helped in the past although that is no longer available. She did not not want any further medications at this time. Abdominal Pain This is a chronic problem. The current episode started more than 1 year ago. The onset quality is gradual. The problem occurs constantly. The problem has been gradually worsening. The pain is locatedin the LLQ, LUQ and epigastric region. The pain is at a severity of 8/10. The quality of the pain is aching and cramping. The abdominal pain radiates to the LLQ, LUQ, back, right flank and perineum. Associated symptoms include anorexia, arthralgias, diarrhea, dysuria, flatus, frequency, headaches and myalgias. The pain is aggravated by eating and movement. The pain is relieved by Bowel movements,movement, passing flatus and recumbency. Prior diagnostic workup includes GI consult and lower endoscopy. LABS/IMAGING: Abdominal radiographs, 06/26/2024. HISTORY: abdominal pain of unknown cause diarrhea with history of constipation, rule out overflow. COMPARISON: 09/01/2022. FINDINGS: Limited views of the lung bases are unremarkable. Cholecystectomy clips. Nonobstructive bowel gas pattern. Surgical clip in the right lower quadrant pain and the left pelvis. No significant colonic fecal loading. No extraluminal gas collection. No concerning calcification. Slight S-shaped curvatureof the lower thoracic and lumbar spine with degenerative changes of the spine, hips, and pubic symphysis. Transitional anatomy on the left at the lumbosacral junction with degenerative changes of an associated pseudoarticulation. IMPRESSION: No acute findings. Review of Systems Gastrointestinal: Positive for abdominal pain, anorexia, diarrhea and flatus. Genitourinary: Positive for dysuria and frequency. Musculoskeletal: Positive for arthralgias and myalgias. Neurological: Positive for headaches. PROBLEM LIST: Patient Active Problem List Diagnosis Vitamin D deficiency Type 2 diabetes mellitus (CMS/HCC) Trigger finger of right thumb Restless leg syndrome Primary osteoarthritis of left shoulder Pernicious anemia Paroxysmal supraventricular tachycardia (CMS/HCC) Pain in both hands Overactive bladder Osteoarthritis YAN (obstructive sleep apnea) 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f Multiple premature ventricular complexes Multinodular goiter Moderate asthma Major depressive disorder, recurrent episode, moderate (CMS/HCC) Lumbar facet arthropathy IBS (irritable bowel syndrome) Hypertension GERD (gastroesophageal reflux disease) Dyspnea Dry eyes DDD (degenerative disc disease), lumbar Coronary artery disease Conduction disorder of the heart CKD (chronic kidney disease) stage 3, GFR 30-59 ml/min ([facility]) Fibromyalgia Chronic diarrhea Allergic rhinitis Agoraphobia with panic disorder Morbid obesity with BMI of 45.0-49.9, adult ([facility]) PAST MEDICAL HISTORY: Past Medical History: Diagnosis Date Agoraphobia with panic disorder 10/10/2018 DX:Agoraphobia with panic disorder Allergic rhinitis 10/28/2017 DX:Allergic rhinitis CAD (coronary artery disease) 10/28/2017 DX:CAD (coronary artery disease); COMMENT: 2016 Angioplasty Colon polyp DDD (degenerative disc disease), lumbar 10/10/2018 DX:DDD (degenerative disc disease), lumbar Diabetes mellitus type 2, uncomplicated ([facility]) 10/28/2017 DX:Diabetes mellitus type 2, uncomplicated ([facility]) Fibromyalgia 10/28/2017 DX:Fibromyalgia First degree AV block 10/10/2018 DX:First degree AV block GERD (gastroesophageal reflux disease) 10/28/2017 DX:GERD (gastroesophageal reflux disease) H/O total knee replacement 10/28/2017 DX:H/O total knee replacement; COMMENT: Left 2011 History of cardiac arrhythmia 10/28/2017 DX:History of cardiac arrhythmia; COMMENT: S/p Ablation Hypertension 10/28/2017 DX:Hypertension IBS (irritable bowel syndrome) 10/28/2017 DX:IBS (irritable bowel syndrome) Major depressive disorder, recurrent episode, moderate ([facility]) 10/10/2018 DX:Major depressive disorder, recurrent episode, moderate ([facility]) Moderate asthma 10/18/2017 DX:Moderate asthma Morbid obesity with BMI of 45.0-49.9, adult ([facility]) 10/18/2017 DX:Morbid obesity with BMI of 45.0-49.9, adult ([facility]) Multinodular goiter 10/28/2017 DX:Multinodular goiter; COMMENT: Right jeannine thyroidectomy YAN (obstructive sleep apnea) 10/28/2017 DX:YAN (obstructive sleep apnea); COMMENT: Unable to tolerate CPAP Osteoarthritis 10/28/2017 DX:Osteoarthritis; COMMENT: spine, knees Overactive bladder 10/10/2018 DX:Overactive bladder; COMMENT: Mixed urinary incontinence. Pernicious anemia 10/10/2018 DX:Pernicious anemia Restless leg syndrome 10/10/2018 DX:Restless leg syndrome Vitamin D deficiency 10/10/2018 DX:Vitamin D deficiency PAST SURGICAL HISTORY: Past Surgical History: Procedure Laterality Date ANGIOPLASTY 07/28/2015 PROCEDURE: HISTORICAL ANGIOPLASTY APPENDECTOMY 1970 PROCEDURE: HISTORICAL APPENDECTOMY BREAST LUMPECTOMY Left 1980 PROCEDURE: HISTORICAL BREAST LUMPECTOMY CHOLECYSTECTOMY 2005 PROCEDURE: HISTORICAL CHOLECYSTECTOMY COLONOSCOPY 12/2023 TA x6 HP x1 left sided tics, rhoids COLONOSCOPY 08/2020 TA x3 HPx1 left sided tics, rhoids ESOPHAGOGASTRODUODENOSCOPY 08/2020 gastric bypass with medium pouch. Nl bx of stomach, sb and esophagus FOOT SURGERY Left 12/2015 PROCEDURE: HISTORICAL FOOT SURGERY GASTRIC BYPASS 2002 PROCEDURE: GASTRIC BYPASS FOR OBESIT HYSTERECTOMY 1995 PROCEDURE: HISTORICAL HYSTERECTOMY; COMMENT: partial OTHER SURGICAL HISTORY Right 05/2011 PROCEDURE: HISTORICAL SUBTOTAL THYROIDECTOMY; COMMENT: Right jeannine thyroidectomy OTHER SURGICAL HISTORY Left 2003 PROCEDURE: ARTHROSCOPY PROCEDURE NEC OTHER SURGICAL HISTORY 12/19/2011 PROCEDURE: PULMONOLOGY BRONCHOSCOPY; COMMENT: & 04/07/2012 OTHER SURGICAL HISTORY Left 12/2013 PROCEDURE: ARTHROSCOPY SHOULDER SURGI; COMMENT: bone spur SHOULDER SURGERY PROCEDURE: HISTORICAL SHOULDER SURGERY; COMMENT: 2019; spur removal TOTAL KNEE ARTHROPLASTY Right 2013 PROCEDURE: HISTORICAL TOTAL KNEE REPLACE; COMMENT: Left 2010 SOCIAL HISTORY: Social History Tobacco Use Smoking status: Never Smokeless tobacco: Never Substance Use Topics Alcohol use: No FAMILY HISTORY: Family History Problem Relation Name Age of Onset Breast cancer Mother TIA, Osteoarthritis, hypertension, CAD Lung cancer Father CAD, @ 67 Diabetes Sister IBS, Hypertension,Hypothyroidism, Osteoarthritis, GERD Diabetes Father's side Aunt, Uncle Diabetes Aunt maternal (myasthenia gravis, hypothyroidism), Cousins ACTIVE MEDICATIONS: Current Outpatient Medications Medication Sig Dispense Refill albuterol HFA (PROAIR HFA ; PROVENTIL HFA ; VENTOLIN HFA) 90 mcg/actuation inhaler albuterol sulfate HFA 90 mcg/actuation aerosol inhaler cholecalciferol (VITAMIN D-3) 1,250 mcg (50,000 unit) capsule Take 1 Capsule by mouth every 7 days. diazePAM (VALIUM) 5 mg tablet Take 1 tablet (5 mg total) by mouth 3 (three) times a day if needed for muscle spasms (severe pain) for up to 20 doses. Max Daily Amount: 15 mg 20 each 0 flash glucose sensor (FREESTYLE ELOISE 14 DAY SENSOR MIS) hydrOXYzine HCL (ATARAX) 10 mg tablet Take 1 Tab by mouth daily as needed for Anxiety. insulin glargine (Lantus Solostar U-100 Insulin) 100 unit/mL (3 mL) injection pen Inject 22 Units into the skin at bedtime. metFORMIN XR (GLUCOPHAGE-XR) 500 mg 24 hr tablet Take 3 Tablets by mouth daily (with breakfast). metoprolol tartrate (LOPRESSOR) 50 mg tablet Take 1 Tab by mouth 2 times daily. montelukast (SINGULAIR) 10 mg tablet Take 1 tablet by mouth at bedtime. multivit-min/iron/folic acid/K (ADULTS MULTIVITAMIN ORAL) Take by mouth daily. omeprazole (PriLOSEC) [address] capsule TAKE 1 CAPSULE BY MOUTH EVERY MORNING spironolactone (ALDACTONE) 25 mg tablet Take 1 tablet by mouth daily. tirzepatide (MOUNJARO) 2.5 mg/0.5 mL injection Inject 0.5 mL (2.5 mg total) under the skin. traZODone (DESYREL) 50 mg tablet Take 1 tablet by mouth at bedtime. fluconazole (DIFLUCAN) 200 mg tablet TAKE 1 TABLET BY MOUTH EVERY SATURDAY (Patient not taking: Reported on 08/21/2024) insulin lispro 100 unit/mL injection Inject as directed. rosuvastatin (CRESTOR) 5 mg tablet Take 1 Tablet by mouth daily. No current facility-administered medications for this visit. ALLERGIES: Allergies Allergen Reactions Cephalexin Rash Doxycycline Other Reaction(s): Hives/Urticaria Lisinopril Cough Quetiapine Sulfa (Sulfonamide Antibiotics) Other Reaction(s): Hives/Urticaria Sulfadiazine Sulfamethoxazole-Trimethoprim Other Reaction(s): OTHER rash Allergy entered as BACTRIM Penicillins Other Reaction(s): Hives/Urticaria, Rash/Dermatitis rash Physical Exam Constitutional: Appearance: Normal appearance. HENT: Head: Normocephalic. Abdominal: General: Bowel sounds are normal. There is no distension. Palpations: Abdomen is soft. There is no mass. Tenderness: There is abdominal tenderness (LLQ tender with palpation). There is no guarding or rebound. Skin: General: Skin is warm. Neurological: Mental Status: She is alert and oriented to person, place, and time. Psychiatric: Mood and Affect: Mood normal. Behavior: Behavior normal. IMPRESSION: 1. Functional diarrhea 2. Left sided abdominal pain Assessment/Plan Assessment & Plan Functional diarrhea Left sided abdominal pain Irritable bowel syndrome with both constipation and diarrhea Submit stool sample as planned at last appt Librax in past helped. RX not available Has dicyclomine at home to use. She declined new RX. 6 mth f/u K[facility] Villa 10:54 AM EST documented in this encounter Plan of Treatment Not on file documented as of this encounter Visit Diagnoses Diagnosis Functional diarrhea- Primary Left sided abdominal pain Abdominal pain, unspecified site Irritable bowel syndrome with both constipation and diarrhea documented in this encounter Discontinued Medications Medication Sig Discontinue Reason Start Date End Da te chlordiazePOXIDE-clidini um (LIBRAX) 5-2.5 mg per capsuleIndications:Funct ional diarrhea,Left sided abdominal pain Take 1 capsule by mouth 3 (three) times a day with meals. Take with meals and at bedtime 08/21/2024 08/21/2024 documented as of this encounter Care Teams Transformer Assembly Supervisor Relationship Specialty Start Date End Date Alyce Pham PA PCP - General 08/09/22 documented as of this encounter
--- OUTSIDE RECORDS SUMMARY | 2024-09-16 09:03 | XMS_ITS | Encounter Summary ---
Author Organization [facility] [place] [address] Care Team Providers Care Flame Cutter Name Role Phone Alyce Pham Primary Care Provider [phone] Reason for Referral * Imaging (Routine) - Closed Specialty Diagnoses / Procedures Referred By Contac t Referred To Contact Radiology Diagnoses Encounter for screening mammogram for malignant neoplasm of breast Procedures [facility] Mammo Digital Screening w Malgorzata Boles MD [address] [place] [address] Phone: tel: fax: [address] [phone] Phone: tel: Referral ID Status Reason Start Date Expiration Date Visits Re quested Visits Authorized [id number] Closed 06/22/2024 06/22/2025 1 1 Reason for Visit * Imaging (Routine) - Closed Specialty Diagnoses / Procedures Referred By Contyamila t Referred To Contact Radiology Diagnoses Encounter for screening mammogram for malignant neoplasm of breast Procedures MG Mammo Digital Screening w Malgorzata Boles MD [address] [place] [address] Phone: tel: fax: [address] [phone] Phone: tel: Referral ID Status Reason Start Date Expiration Date Visits Re quested Visits Authorized [id number] Closed 06/22/2024 06/22/2025 1 1 Encounter Details Date Type Department Care Team (Latest Contact Info) Description 09/07/2024 10:01 AM EST - 09/07/2024 11:59 PM EST Hospital Encounter [facility] at [address] [address] Encounter for screening mammogram for malignant neoplasm of breast Discharge Disposition: Home or Self Care Social History Tobacco Use Types Packs/Day Years [...] Mass Index 41.97 09/07/2024 10:16 AM EST documented in this encounter Medications at Time of Discharge albuterol HFA (PROAIR HFA ; PROVENTIL HFA ; VENTOLIN HFA) 90 mcg/actuation inhaler albuterol sulfate HFA 90 mcg/actuation aerosol inhaler cholecalciferol (VITAMIN D-3) 1,250 mcg (50,000 unit) capsule Take 1 Capsule by mouth every 7 days. 04/18/2022 diazePAM (VALIUM) 5 mg tablet Take 1 tablet (5 mg total) by mouth 3 (three) times a day if needed for muscle spasms (severe pain) for up to 20 doses. Max Daily Amount: 15 mg 20 each 05/31/2024 flash glucose sensor (FREESTYLE ELOISE 14 DAY SENSOR [facility]) 08/07/2020 fluconazole (DIFLUCAN) 200 mg tablet TAKE 1 TABLET BY MOUTH EVERY Saturday02/13/2021 hydrOXYzine HCL (ATARAX) 10 mg tablet Take 1 Tab by mouth daily as needed for Anxiety. 06/13/2020 insulin glargine (Lantus Solostar U-100 Insulin) 100 unit/mL (3 mL) injection pen Inject 22 Units into the skin at bedtime. insulin lispro 100 unit/mL injection Inject as directed. metFORMIN XR (GLUCOPHAGE-XR) 500 mg 24 hr tablet Take 3 Tablets by mouth daily (with breakfast). metoprolol tartrate (LOPRESSOR) 50 mg tablet Take 1 Tab by mouth 2 times daily. 06/14/2020 montelukast (SINGULAIR) 10 mg tablet Take 1 tablet by mouth at bedtime. 04/25/2021 multivit-min/iron/ folic acid/K (ADULTS MULTIVITAMIN ORAL) Take by mouth daily. omeprazole (PriLOSEC) [address] capsule TAKE 1 CAPSULE BY MOUTH EVERY MORNING 08/19/2020 rosuvastatin (CRESTOR) 5 mg tablet Take 1 Tablet by mouth daily. 09/12/2023 spironolactone (ALDACTONE) 25 mg tablet Take 1 tablet by mouth daily. 04/25/2021 tirzepatide (MOUNJARO) 2.5 mg/0.5 mL injection Inject 0.5 mL (2.5 mg total) under the skin. traZODone (DESYREL) 50 mg tablet Take 1 tablet by mouth at bedtime. 04/25/2021 documented as of this encounter Discharge Disposition Disposition Code Departure Means Destination Home or Self Care documented in this encounter Plan of Treatment Not on file documented as of this encounter Procedures Procedure Name Priority Date/Time Associated Diagnosis Comments MG MAMMO DIGITAL SCREENING W HARSHA BILAT Routine 09/07/2024 10:29 AM EST Encounter for screening mammogram for malignant neoplasm of breast documented in this encounter Results * MG Mammo Digital Screening w Harsha [...] Signed Date: 09/07/2024 13:59 ET Workstation ID: [id number] Transcribed By: Self Edit Transcribed Date: 09/07/2024 13:41 ET Narrative 09/07/2024 1:59 PM EST EXAM: ??SCREENING MAMMOGRAPHY, BILATERAL HISTORY: ??SCREENING. ??Previous report indicates left breast biopsy 1982 yielding benign results yielded mother diagnosed with [...] SCREENING. Previous report indicates left breast biopsy 1982yielding benign results yielded mother diagnosed with breast cancer age75 COMPARISON: 09/04/2023, 08/23/2020, 05/06/2019, 09/19/2017, 06/01/2016 TECHNIQUE: Synthesized CC and MLO projections of each breast.Tomosynthesis of each breast in the CC and MLO projections. ADDITIONAL IMAGING: None Computer-aided detection was employed with the [employer] 3-D. TISSUE DENSITY: There are scattered areas [...] Signed Date: 09/07/2024 13:59 ET Workstation ID: [id number] Transcribed By: Self Edit Transcribed Date: 09/07/2024 13:41 ET us Malgorzata Wilkerson MD IMG BI PROCEDURES Final Resu lt documented in this encounter Visit Diagnoses Diagnosis Encounter for screening mammogram for malignant neoplasm of breast documented in this encounter Care Teams Flame Cutter Relationship Specialty Start Date End Date Alyce Pham PA PCP - General 08/09/22 documented as of this encounter
--- OUTSIDE RECORDS SUMMARY | 2024-09-16 09:03 | XMS_ITS | Encounter Summary ---
Author Organization [facility] [place] [address] Care Team Providers Care Pipe Or Steam Fitter Furnace Installer Name Role Phone Alyce Pham Primary Care Provider [phone] Encounter Details Date Type Department Care Team (Late st Contact Info) Description 09/10/2024 Lab Requisition [facility] - Main Lab [address] [facility] [place] [address] Corrina Alvarez PA [address] [place], [place] [id number] Urinary tract infection, site not specified Social History Tobacco Use Types Packs/Day Years [...] AM EST documented as of this encounter Plan of Treatment Not on file documented as of this encounter Procedures Procedure Name Priority Date/Time Associated Diagnosis Comments CULTURE URINE Routine 09/10/2024 12:00 AM EST Urinary tract infection, site not specified documented in this encounter Results * (ABNORMAL) Culture urine (09/10/2024 12:00 AM EST) Culture, Urine >100,000 CFU/mL Klebsiella pneumoniae ssp pneumoniae(A) BRENT 09/12/2024 10:33 AM EST [facility] Comment: This is an edited result. [...] MICROBIOLOGY - GENERAL ORD ERABLES Final Result [facility] ([facility] [address] [place] [address], [place] [phone] documented in this encounter Visit Diagnoses Diagnosis Urinary tract infection, site not specified documented in this encounter Additional Health Concerns Infection Onset Date Last Indicated Resolved Time Gastrointestinal Rule-Out 09/15/2024 09/15/2024 5:39 PM EST documented as of this encounter Care Teams Pipe Or Steam Fitter Furnace Installer Relationship Specialty Start Date End Date Alyce Pham PA PCP - General 08/09/22 documented as of this encounter
--- OUTSIDE RECORDS SUMMARY | 2024-09-16 09:03 | XMS_ITS ---
Author Organization [facility] Address [address] [place] [address] Care Team Providers Care Newspaper Distributor Supervisor Name Role Phone Alyce Pham Primary Care Provider Unavailabl e Black, Arabella Unavailable [phone] Allergies Allergen (clinical drug ingredient) Drug/Non Drug Allergy documented on EMR Reaction Allergy Type Onset Date Status amoxicillin Amoxicillin Unknown Drug Allergy Act devora sulfamethoxazole / trimethoprim Bactrim Unknown Drug Allergy Active REASON FOR VISIT At Risk Footcare., Swelling Medications Medication SIG (Take, Route, Frequency, Duration) Notes Start Date End Date Status Spironolactone 25 MG Orally Once a day Active Singulair Active vitamin b-12 shot Active Extra-Depth Diabetic Shoes with 3 Pair Custom heat-molded multi-density innersoles . for 1 year . Dx: pedal deformities and calloused lesions for . 10/15/2014 Active Extra Depth Orthopedic Shoes (1 Pair) with Customized Heat Molded Multidensity Innersoles (3 Pair) as directed Dx: NIDDM/Polyneuropath y (E11.42), Hammertoe Foot Deformity (M20.41,M20.42), Preulcerative Skin Lesion(s) (L85.1 Active HumaLOG Active Lantus Active metFORMIN HCl 1000 MG 1 tablet with a meal Orally Once a day Active Lopressor Active Compression Stockings 20-30mm Hg 1 pair wear daily for 30 days Active hydroCHLOROthiazide Not-Taking Januvia Not-Taking Atorvastatin Calcium Not-Taking Wellbutrin Not-Takin g Cymbalta Not-Taking Doxycycline Hyclate 100 MG 1 capsule Orally Once a day for 10 day(s) 06/27/2020 Not-Taking Ciclopirox Olamine 0.77 % 1 application to affected area Externally Twice a day for 30 days 09/16/2017 Not-Taking Ciclopirox Olamine 0.77% external Apply to effected areas twice a day for 30 days 12/23/2014 Not-Taking Zoloft Not-Taking Trulicity 150mg once a week No t-Taking Ciclopirox Olamine 0.77 % 1 application to affected area Externally Twice a day for 30 days 09/16/2017 Not-Taking Extra Depth Orthopedic Shoes (1 Pair) with Customized Heat Molded Multidensity Innersoles (3 Pair) as directed Dx: NIDDM/Polyneuropath y (E11.42), Hammertoe Foot Deformity (M20.41,M20.42), Preulcerative Skin Lesion(s) (L85.1 09/18/2021 Not-Taking Victoza Not-Taking Extra Depth Orthopedic Shoes (1 Pair) with Customized Heat Molded Multidensity Innersoles (3 Pair) as directed Dx: NIDDM/Polyneuropath y (E11.42), Hammertoe Foot Deformity (M20.41,M20.42), Preulcerative Skin Lesion(s) (L85.1 09/16/2017 Not-Taking Extra Depth Orthopedic Shoes (1 Pair) with Customized Heat Molded Multidensity Innersoles (3 Pair) as directed Dx: NIDDM/Polyneuropath y (E11.42), Hammertoe Foot Deformity (M20.41,M20.42), Preulcerative Skin Lesion(s) (L85.1 09/22/2018 Not-Taking Clotrimazole-Betamethason e 1-0.05 % 1 application Externally Twice a day for 14 days 03/26/2022 Active Ammonium Lactate 12 % 1 application Externally Twice a day for 30 days 10/01/2022 Active Extra Depth Orthopedic Shoes (1 Pair) with Customized Heat Molded Multidensity Innersoles (3 Pair) as directed Dx: NIDDM/Polyneuropath y (E11.42), Hammertoe Foot Deformity (M20.41,M20.42), Preulcerative Skin Lesion(s) (L85.1 09/30/2023 Active Ozempic Not-Taking Amitriptyline HCl No t-Taking Social History Tobacco Use: Social History Observation Description Date Details (start date - stop date) Never Smoker NA - NA Tobacco Use/Smoking Question Answer Notes Are you a: nonsmoker Additional Findings: Tobacco Non-User Current no n-smoker Tobacco use other than smoking: Question Answer Notes Are you an other tobacco user? No Vital Signs Height 5ft6in in 01/27/2024 Weight 270 lbs 01/27/2024 BMI 43.57 kg/m2 01/27/2024 Blood pressure systolic 118 mm Hg 01/27/20 Blood pressure diastolic 30 mm Hg 024 Procedures Procedure Date Ordered Date Performed Result Body Sit e 09677-NEZN SKIN LESIONS, OVER 4 01/27/2024 N/A 79987-COXS NAIL(S) 01/27/2024 N/A Encounters Encounter Location Date Provider Diagnosis [facility] [address] [address] 01/27/2024 Arabella Charles Type 2 diabetes mellitus with diabetic polyneuropathy E11.42 and Edema, lower extremity R60.0 Assessments Encounter Date Diagnosis (ICD Code) Assessment Notes Treatment Notes Treatment Clinical Notes Section Notes 01/27/2024 Type 2 diabetes mellitus with diabetic polyneuropathy (ICD-10 - E11.42) 01/27/2024 Edema, lower extremity (ICD-10 - R60.0) 01/27/2024 Other Plan Of Treatment Medication Medication Name Sig Start Date Stop Date Notes Compression Stockings 20-30mm Hg 1 pair wear daily for 30 days Pending Test Test Name Order Date 63197-FHLL SKIN LESIONS, OVER 4 01/27/20 24 47513-YOLJ NAIL(S) 01/27/2024 Next Appt Details Follow Up: prn, Reason: Provider Name:Arabella Charles , 02/04/2025 11:00:00 AM, [address] [place] [address], [id number], Procedure Notes * Category Sub-Category Detail Notes Keratoma Treatment Parring or Cutting o f Benign Hyperkeratotic Lesion(s) 28985 ( >4 Lesions) - The Benign hyperkeratotic lesions, as described above were pared, and/or cut utilizing a sterile #15 blade, tissue nippers, and/or dremel Nail Reduction Nail Reduction Trimming of non- dystrophic nails performed to reduce/remove overall nail length and girth, by manual and electrical means with use of a nail nipper and/or dremel, to more viable healthy nail plate or bed tissue 6-10 (41917) Progress Notes * Anabela JOYAOB:1950 ( 73 yo F)Acc No.[id number]:01/27/2024 Progress Note Patient:?Yessi Joya Provider:?Arabella Charles DPM :1950???Age:73 Y???Sex:Female D ate:01/27/2024 Address:[address] [place], [place] [id number] Pcp:Alyce Pham Subjective: * Chief Complaints: * ???At Risk Footcare.Swelling * HPI: ???At Risk footcare:?Pt States Last PCP Visit:?Date?12/04/2023 ???Swelling:?Location:?Both feet/leg.?Duration:?several weeks.?Course:?worse.? * ROS:?General/Constitutional:?Nausea?denies.?Vomiting?denies.?Hunger Thirst?denies.?Loss appetite?denies.?Chills?denies.?Fatigue?denies.?Fever?denies.?Night Sweats?denies.?Unexplained weight loss?denies.?Unexplained weight gain?denies.?HEENTM:?Dentures?denies.?Dizziness?denies.?Glasses/contacts?admits.?Retinopathy?de nies.?Blurred/double vision?denies.?TMJ?denies.?Discharge/drainage?denies.?Implants?denies.?Sore throat?denies.?Dental implants?denies.?Hard of hearing ?denies.?Difficulty chewing/swallowing/speaking?denies.?Nose bleeds?denies.?Sore mouth?denies.?Respiratory:?On Oxygen?denies.?Pneumonia/pleurisy?denies.?Bronchitis?denies.?Emphysema?denies.?C oughing?denies.?Cough blood?denies.?Shortness of breath?denies.?Wheezing?denies.?Cardiovascular:?Pacemaker?denies.?MVP?denies.?WPW?denies.?CHF?denies.?Heart attack?denies.?Septal defect?denies.?Rapid beat?denies.?Chest pain ?denies.?Atrial Fib.?denies.?Murmur/Palpitations?denies.?Gastrointestinal:?Hemorrhoids?denies.?Stomach/Abdominal pain?denies.?Dark blood stool?denies.?Irritable bowel ?denies.?Constipation?denies.?Diarrhea?denies.?Hematology:?Swelling?admits.?Clots?denies.?Varicose Veins?denies.?Bruising?denies.?Bleeding problem?denies.?Genitourinary:?Blood urine?denies.?Frequent/Painfu/urination/bladder control?denies.?Kidney stones?denies.?Infection (UTI)?denies.?Nephropathy?admits.?sex trans dis (STD)?denies.?Prostate?denies.?Musculoskeletal:?Hammertoes?denies.?Bunions?denies.?Back Pain?denies.?Muscle Cramps/ Resting?denies.?Muscle cramps / walking?denies.?Generalized aches and pains?denies.?Weakness?denies.?Integ.:?[place]?denies.?Scars?denies.?Corns/calluses?denies.?Ingrown nails?denies.?Painful nails?denies.?Open Sores?denies.?Rashes?denies.?Neurologic:?Difficulty sleeping?denies.?Brain disorder?denies.?Numbness?denies.?Balance trouble?denies.?Confusion?denies.?Fainting/blackouts?denies.?Tingling?denies.?Tr emors?denies.? * Medical History:? * Surgical History:?knee surge ry, left knee surgery, right hysterectomy bypass surgery angioplasty vaginal surgery 07/2017Right shoulder spur removed 07/2018Botox injection in bladder 09/16/23 * Hospitalization/Major Diagno stic Procedure:?[facility]; fall 09/2014 * Family History:?Mother: dece ased, diagnosed with Family history of arthritis, Diabetic - NIDDM, Unspecified essential hypertension, Unspecified cerebral artery occlusion with cerebral infarction, Other malignant neoplasm of unspecified site.?Father: , foot problems, diagnosed with Unspecified essential hypertension, Unspecified heart disease, Other malignant neoplasm of unspecified site.?Siblings: foot problems, diagnosed with Family history of arthritis, Diabetic - NIDDM.? * Social History:?Tobacco Use:?Tobacco Use/Smoking?Are you a:?nonsmoker ?Additional Findings: Tobacco Non-User?Current non-smoker ?Tobacco use other than smoking?Are you an other tobacco user??No * Medications:?TakingHumaLOG L antus metFORMIN HCl 1000 MG Tablet 1 tablet with a meal Orally Once a dayLopressor Spironolactone 25 MG Tablet Orally Once a daySingulair vitamin , Notes: b-12 shotExtra-Depth Diabetic Shoes with 3 Pair Custom heat- molded multi-density innersoles . . for 1 year . Dx: pedal deformities and calloused lesionsExtra Depth Orthopedic Shoes (1 Pair) with Customized Heat Molded Multidensity Innersoles (3 Pair) as directed Dx: NIDDM/Polyneuropathy (E11.42), Hammertoe Foot Deformity (M20.41,M20.42), Preulcerative Skin Lesion(s) (L85.1Clotrimazole-Betamethasone 1-0.05 % Cream 1 application Externally Twice a dayAmmonium Lactate 12 % Lotion 1 application Externally Twice a dayExtra Depth Orthopedic Shoes (1 Pair) with Customized Heat Molded Multidensity Innersoles (3 Pair) as directed Dx: NIDDM/Polyneuropathy (E11.42), Hammertoe Foot Deformity (M20.41,M20.42), Preulcerative Skin Lesion(s) (L85.1Taking HumaLOG Taking Lantus Taking metFORMIN HCl 1000 MG Tablet 1 tablet with a meal Orally Once a dayTaking Lopressor Taking Spironolactone 25 MG Tablet Orally Once a dayTaking Singulair Taking vitamin , Notes: b-12 shotTaking Extra-Depth Diabetic Shoes with 3 Pair Custom heat-molded multi-density innersoles . . for 1 year . Dx: pedal deformities and calloused lesionsTaking Extra Depth Orthopedic Shoes (1 Pair) with Customized Heat Molded Multidensity Innersoles (3 Pair) as directed Dx: NIDDM/Polyneuropathy (E11.42), Hammertoe Foot Deformity (M20.41,M20.42), Preulcerative Skin Lesion(s) (L85.1Taking Clotrimazole-Betamethasone 1-0.05 % Cream 1 application Externally Twice a dayTaking Ammonium Lactate 12 % Lotion 1 application Externally Twice a dayTaking Extra Depth Orthopedic Shoes (1 Pair) with Customized Heat Molded Multidensity Innersoles (3 Pair) as directed Dx: NIDDM/Polyneuropathy (E11.42), Hammertoe Foot Deformity (M20.41,M20.42), Preulcerative Skin Lesion(s) (L85.1Not- Taking/PRNOzempic Amitriptyline HCl Ciclopirox Olamine 0.77 % Cream 1 application to affected area Externally Twice a dayExtra Depth Orthopedic Shoes (1 Pair) with Customized Heat Molded Multidensity Innersoles (3 Pair) as directed Dx: NIDDM/Polyneuropathy (E11.42), Hammertoe Foot Deformity (M20.41,M20.42), Preulcerative Skin Lesion(s) (L85.1Victoza Extra Depth Orthopedic Shoes (1 Pair) with Customized Heat Molded Multidensity Innersoles (3 Pair) as directed Dx: NIDDM/Polyneuropathy (E11.42), Hammertoe Foot Deformity (M20.41,M20.42), Preulcerative Skin Lesion(s) (L85.1Extra Depth Orthopedic Shoes (1 Pair) with Customized Heat Molded Multidensity Innersoles (3 Pair) as directed Dx: NIDDM/Polyneuropathy (E11.42), Hammertoe Foot Deformity (M20.41,M20.42), Preulcerative Skin Lesion(s) (L85.1Doxycycline Hyclate 100 MG Capsule 1 capsule Orally Once a dayCiclopirox Olamine 0.77 % Cream 1 application to affected area Externally Twice a dayCiclopirox Olamine 0.77% Cream external Apply to effected areas twice a dayZoloft Trulicity 150mg once a weekCymbalta hydroCHLOROthiazide Januvia Atorvastatin Calcium Wellbutrin Medication List reviewed and reconciled with the patientNot-Taking/PRN Ozempic Not-Taking/PRN Amitriptyline HCl Not-Taking/PRN Ciclopirox Olamine 0.77 % Cream 1 application to affected area Externally Twice a dayNot-Taking/PRN Extra Depth Orthopedic Shoes (1 Pair) with Customized Heat Molded Multidensity Innersoles (3 Pair) as directed Dx: NIDDM/Polyneuropathy (E11.42), Hammertoe Foot Deformity (M20.41,M20.42), Preulcerative Skin Lesion(s) (L85.1Not-Taking/PRN Victoza Not-Taking/PRN Extra Depth Orthopedic Shoes (1 Pair) with Customized Heat Molded Multidensity Innersoles (3 Pair) as directed Dx: NIDDM/Polyneuropathy (E11.42), Hammertoe Foot Deformity (M20.41,M20.42), Preulcerative Skin Lesion(s) (L85.1Not-Taking/PRN Extra Depth Orthopedic Shoes (1 Pair) with Customized Heat Molded Multidensity Innersoles (3 Pair) as directed Dx: NIDDM/Polyneuropathy (E11.42), Hammertoe Foot Deformity (M20.41,M20.42), Preulcerative Skin Lesion(s) (L85.1Not-Taking/PRN Doxycycline Hyclate 100 MG Capsule 1 capsule Orally Once a dayNot-Taking/PRN Ciclopirox Olamine 0.77 % Cream 1 application to affected area Externally Twice a dayNot-Taking/PRN Ciclopirox Olamine 0.77% Cream external Apply to effected areas twice a dayNot-Taking/PRN Zoloft Not-Taking/PRN Trulicity 150mg once a weekNot- Taking/PRN Cymbalta Not-Taking/PRN hydroCHLOROthiazide Not-Taking/PRN Januvia Not- Taking/PRN Atorvastatin Calcium Not-Taking/PRN Wellbutrin Medication List reviewed and reconciled with the patient * Allergies:?BactrimAmoxicilli ama[Allergies Verified] Objective: * Vitals:?Ht: 5ft6in, Wt:270, BMI:43.57, Shoe size: 10, BP:118/30 mm Hg, BS: 111, Ht-cm: 167.64 cm, Wt-k.47 kg. * ???Past Orders: ???Lab:HEMOGLOBIN A1C (GLYCO HEMOGLOBIN) (Order Date - 09/16/2023) (Collection Date - 09/16/2023) ? Value Reference Range ?HEMOGLOBIN A1C % (HH) 9.0 * Examination: ???Ophthalmology Referral: ?DIABETES EYE EXAM?Diabetic Retinopathy Screening:?Yes ?Findings of Diabetic Eye Exam:?no retinopathy?Dermatologic: ?SKIN FINDINGS:?Skin exam reveals Keratotic lesion(s) located at, Medial plantar, IPJ, TA, Heel(s) B/L T1 Dorsal, Heel(s), B/L , Skin shows sign(s) of, dryness, scaling, in a stocking fashion, no fissure(s) present, B/L.?Neurological: ?SENSORY:?Neurological exam demonstrates, reduced sharp/dull pin prick discrimination , reduced light touch sensation, reduced vibration sensation, 5.07 monofilament test performed at plantar aspects of 5 varied sites per foot shows sensation, absent, at Forefoot, B/L, Pt relates, anesthesia?b/l??tingling left.?Nails: ?NAILS are:? Elongated, overgrown, nondystrophic2-5 b/l , There is evidence of pain on palpation, and an area of subungual hemorrhagic fluid with a pre- operative size measuring approximately ( 1-2 ) mm square TA T5.?General Examination: ?FOOT EXAM:?Lower Extremity Neurological Exam performed:?Yes ?Footwear Evaluation?Footwear Evaluation performed:?Yes?Vascular: ?DP PULSES:?1/4, B/L.?PT PULSES:?/4, B/L.?EDEMA:?3/4 , without aching pain , B/L.?BLANKA'S SIGN:?absent, B/L.?PALPABLE CORDS:?absent, B/L.? Assessment: * Assessment: 1.?Type 2 diabetes mellitus with diabetic polyneuropathy - E11.42?2.?Edema, lower extremity - R60.0, Acute problem, Uncomplicated (3), Rx Management (4)? Plan: * Treatment: 2.?Edema, lower extremity? Start Compression Stockings closed toe- knee high, 20-30mm Hg, 1 pair, wear, daily, 30 days, 2, Refills 2.?? * Procedures:?Keratoma Treatment:?Parring or Cutting of Benign Hyperkeratotic Lesion(s)?87392 ( >4 Lesions) - The Benign hyperkeratotic lesions, as described above were pared, and/or cut utilizing a sterile #15 blade, tissue nippers, and/or dremel.?Nail Reduction:?Nail Reduction?Trimming of non-dystrophic nails performed to reduce/remove overall nail length and girth, by manual and electrical means with use of a nail nipper and/or dremel, to more viable healthy nail plate or bed tissue 6-10 (95420).? * Procedure Codes:?98711 TRIM NAIL(S), Modifiers: XS 56587 TRIM SKIN LESIONS, OVER 4, Modifiers: XS * Preventive Medicine:? ??Counseling:?Discussion:?-13: Office or other outpatient visit for the evaluation and management of an established patient, which required a medically appropriate history and/or examination and LOW level of DECISION MAKING for: 1 STABLE ACUTE UNCOMPLICATED PROBLEM, 2 OR MORE MINOR PROBLEMS, OR 1 STABLE CHRONIC PROBLEM, THAT POSE(S) A LOW RISK FOR MORBIDITY/MORTALITY. The visit on the day of the [...] have encouraged the patient to call the office.?Edema:?I explained to the patient the possible etiologies for Edema, including genetic, surgery, infection, medications, heart disease, kidney disease, excess dietary salt, and various cancer treatments. We discussed the risks/benefits of the treatment options available including rest, elevation, OTC compression stockings, Rx compression stockings, Unna Boot application, diet modification to limit salt intake, and Rx segmental compression boots provided the absence of CHD in the patients medical history. The advantages and disadvantages of each option were discussed and the patients questions re: risk of infection(cellulitis), medications, diet, and the daily use of compression stockings(not to be worn at night), and consistency in these home treatment regimens for optimal success were answered to their verbally confirmed satisfaction. Given the risk for vessel clotting disease, the patient was instructed to go immediately to the ER of hospital should they experience any calf pain, SOB, or discomfort. Any changes to the patients medication regimen will be performed by the PCP or patients kidney/heart/cancer specialist. The patient has elected to receive compression stockings. Such were Rxed today with instructions for use.? * Follow Up:?prn * Images: * Sign off status: Completed true * Provider:?Arabella Charles DPM Date:?2023 Generated for Printi ng/Fatimbog/eTransmitting on:?09/16/2024 09:02 AM EST History and Physical Notes * HPI (History of Present Illness) Category Sub-Category Detail Notes Category Not es At Risk footcare Pt States Last PCP Visit: Date: 4 Swelling Location: Both feet/leg Duration: several weeks Course: worse Examination Category Sub-Category Detail Notes Category Not [...] lesion(s) located at, Medial plantar, IPJ, TA, Heel(s) B/L T1 Dorsal, Heel(s), B/L , Skin shows sign(s) of, dryness, scaling, in a stocking fashion, no fissure(s) present, B/L General Examination FOOT EXAM: Lower Extrem ity Neurological Exam performed:: Yes Footwear Evaluation Footwear Evaluation performe d:: Yes Ophthalmology Referral DIABETES EYE EXAM Diabetic Retinopa thy Screening:: Yes Findings of Diabetic Eye Exam:: no retin opathy Vascular DP PULSES (B): 1/4, B/L PT PULSES (B): 1/4, B/L EDEMA (C): 3/4 , without aching pain , B/L BLANKA'S SIGN: absent, B/L PALPABLE CORDS: absent, B/L Nails NAILS are: Elongated, overg rown, nondystrophic2-5 b/l , There is evidence of pain on palpation, and an area of subungual hemorrhagic fluid with a pre-operative size measuring approximately ( 1-2 ) mm square TA T5
== END 2024-09-16 09:00 | disposition home or self-care (01) ==
PROVIDERS: Visit Provider Orthopaedic Surgery
DX: M54.42 Lumbago with sciatica, left side (principal); M54.41 Lumbago with sciatica, right side; G89.29 Other chronic pain
CPT/HCPCS: 99213; G2211

== ENCOUNTER → 2024-09-16 08:28 | Outpatient (BNVA) | payer MEDICARE, OTHER, SELFPAY | PROVIDERS: Visit Provider Orthopaedic Surgery | DX: M54.42 Lumbago with sciatica, left side (principal); M54.41 Lumbago with sciatica, right side; G89.29 Other chronic pain | CPT/HCPCS: 99212 ==

== ENCOUNTER 2024-11-06 09:43 | Outpatient (REF) | payer MEDICARE, OTHER, SELFPAY ==
--- NOTE | ~2024-11-06 | XR_ITS ---
EXAMINATION: XR CHEST 2 VIEWS HISTORY: R05.9 - Cough, unspecified COMPARISON: There are no prior studies for comparison. FINDINGS: PA and lateral views of the chest are submitted. There is a calcified granuloma in the right upper lobe. The lungs are otherwise clear. There is no pleural effusion, pneumothorax, or pulmonary vascular congestion. The heart is normal in size. There is degenerative disc disease of the spine. XR/XR chest 2V IMPRESSION: Calcified right upper lobe granuloma. The lungs are otherwise clear. Electronically signed by: Shivam Pearson MD 11/06/2024 11:11 AM EDT
--- OUTSIDE RECORDS SUMMARY | 2024-11-06 11:20 | XMS_ITS | Clinical Summary ---
Author Organization [facility] Address [address] [place] [address] Care Team Providers Care Recovery Collector Name Role Phone Yudith Welch MD Primary Care Provider [phone] Allergies Active Allergy Reactions Criticality Noted Date [...] capsule,delayed release 0 Active vitamin D3 (CHOLECALCIFEROL) 60588 units CAPS capsule TK 1 C PO [...] age to complete this topic Care Teams Recovery Collector Relationship Specialty Start Date End Date Yudith Welch MD PCP - General Internal Medicine 05/12/21
--- OUTSIDE RECORDS SUMMARY | 2024-11-06 11:20 | XMS_ITS | Encounter Summary ---
Author Organization [facility] [place] [address] Care Team Providers Care Balcony Worker Name Role Phone Alyce Pham Primary Care Provider [phone] Encounter Details Date Type Department Care Team (Late st Contact Info) Description 09/10/2024 Lab Requisition [facility] - Main Lab [address] [facility] [place] [address] Corrina Alvarez PA [address] [place], [place] [id number] Urinary tract infection, site not specified Social [...] BRENT 09/12/2024 10:33 AM EST [facility] Comment: This is an edited result. [...] - GENERAL ORD ERABLES Final Result [facility] ([facility] [address] [place] [address], [place] [phone] documented in this encounter Visit Diagnoses Diagnosis Urinary tract infection, site not specified documented in this encounter Additional Health Concerns Infection Onset Date Last Indicated Resolved Time Gastrointestinal Rule-Out 09/15/2024 09/15/2024 5:39 PM EST documented as of this encounter Care Teams Balcony Worker Relationship Specialty Start Date End Date Aylce Pham PA PCP - General 08/09/22 documented as of this encounter
--- OUTSIDE RECORDS SUMMARY | 2024-11-06 11:20 | XMS_ITS | Encounter Summary ---
Author Organization [facility] Address [address] [place] [address] Care Team Providers Care Office Systems Technology Instructor Name Role Phone Pham, Alyce Primary Care Provider [phone] Reason for Visit * Reason Onset Date Comments PAC Appt Request - Established 12/25/2022 PAC Patient Request Call Back 12/25/2022 Encounter Details Date Type Department Care Team (Late st Contact Info) Description 12/25/2022 Telephone [facility] [address] [place] [address] Telephone Intake, Staff PAC Appt Request - [...] to see. She can be reached at [phone] documented in this encounter Plan of Treatment Not on file documented as of this encounter Visit Diagnoses Not on filedocumented in this encounter Care Teams Office Systems Technology Instructor Relationship Specialty Start Date End Date Ankit Alyce [address] [place] [address] PCP - General 02/15/21 documented as of this encounter
--- OUTSIDE RECORDS SUMMARY | 2024-11-06 11:20 | XMS_ITS | Clinical Summary ---
Author Organization [facility] Address [address] [place] [address] Care Team Providers Care Guitar Teacher Name Role Phone Alyce Pham Primary Care Provider [phone] Allergies Active Allergy Reactions Criticality Noted Date [...] Refill [facility] [address] [place] [address] Grocery Store Courtesy Clerk: Edil Jackson, DO Moderate persistent asthma without [...] complete this topic Procedures * Due to [place] [employer] law, this organization might not be sharing negative HIV tests. Procedure Name Priority Date/Time Associated Diagnosis Comments COMPREHENSIVE METABOLIC PANEL Routine 01/10/2023 1:53 PM EDT Elevated erythrocyte sedimentation rate from Last 3 Months or Most Recently Relevant to Health Maintenance Results * Due to [place] [employer] law, this organization might not be sharing negative HIV tests. * (ABNORMAL) Comprehensive Metabolic Panel (01/10/2023 1:53 PM EDT) NA 141 136 - 145 mmol/L 01/10/2023 3:02 PM EDT [facility] K 4.0 3.5 - 5.3 mmol/L 01/10/2023 3:02 PM EDT [facility] Cl 110(H) 98 - 107 mmol/L 01/10/2023 3:02 PM EDT [facility] CO2 27 22 - 30 mmol/L 01/10/2023 3:02 PM EDT [facility] Anion Gap 4(L) 5 - 15 01/10/2023 3:02 PM EDT [facility] Glucose 126(H) 70 - 99 mg/dL 01/10/2023 3:02 PM EDT [facility] Creatinine 0.97 0.60 - 1.30 mg/dL 01/10/2023 3:02 PM EDT [facility] Calcium 8.9 8.5 - 10.1 mg/dL 01/10/2023 3:02 PM EDT [facility] Total Protein 7.6 6.4 - 8.2 g/dL 01/10/2023 3:02 PM EDT [facility] Albumin 3.6 3.4 - 5.0 g/dL 01/10/2023 3:02 PM EDT [facility] Bilirubin, Total 0.3 0.3 - 1.2 mg/dL 01/10/2023 3:02 PM EDT [facility] Alkaline Phosphatase 84 50 - 136 U/L 01/10/2023 3:02 PM EDT [facility] AST 14(L) 15 - 37 U/L 01/10/2023 3:02 PM EDT [facility] ALT 23 12 - 78 U/L 01/10/2023 3:02 PM EDT [facility] BUN 12 7 - 18 mg/dL 01/10/2023 3:02 PM EDT [facility] eGFR 62 >=60 mL/min/1 .73m2 01/10/2023 3:02 PM EDT [facility] Comment:The estimated glomer ular filtration rate [...] Aaron MD LAB BLOOD ORDERABLES Final Result [facility] [address] [place] [address], from Last 3 Months or Most Recently [...] Stephon Joya Health Care Agent Care Teams Guitar Teacher Relationship Specialty Start Date End Date Alyce Pham [address] [place] [address] PCP - General 02/15/21
--- OUTSIDE RECORDS SUMMARY | 2024-11-06 11:20 | XMS_ITS | Encounter Summary ---
Author Organization [facility] Address [address] [place] [address] Care Team Providers Care New Car Make Ready Mechanic Name Role Phone Alyce Pham Primary Care Provider Encounter Details Date Type Department Care Team (Late st Contact Info) Description 12/19/2022 Orders Only [facility] Mammography [address] [facility] [address] Pancho Sherman MD [address] [place] [id number] Social History Tobacco Use Types Packs/Day Years [...] on filedocumented in this encounter Care Teams New Car Make Ready Mechanic Relationship Specialty Start Date End Date Alyce Pham [address] [place] [address] PCP - General 02/15/21 documented as of this encounter
--- OUTSIDE RECORDS SUMMARY | 2024-11-06 11:20 | XMS_ITS | Clinical Summary ---
Author Organization [facility] [address] Address [address] [place] [address] Phone Care Team Providers [employer] Consultant Name Role Phone Alyce Pham Primary Care Provider [phone] Allergies Active Allergy Reactions Criticality Noted Date [...] glucose sensor (FREESTYLE ELOISE 14 DAY [facility]) 1 Active fluconazole (DIFLUCAN) 200 mg tablet [...] rehab receiving facet injections Paroxysmal supraventricular tachycardia ([facility] V24) 10/04/2020 Overview (05/04/2024): Paroxysmal supraventricular tachycardia [...] kidney disease) stage 3, GFR 30-59 ml/min ([facility] V24, [facility] V28) 04/08/2020 Trigger finger of right thumb 03/24/2020 Primary osteoarthritis of left shoulder 09/03/19 20 Pain in both hands 09/03/2019 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 Major depressive disorder, r ecurrent episode, moderate (CMS/HCC V24, CMS/HCC V28) 10/10/2018 DDD (degenerative disc disease), lumbar 10/11/19 19 Agoraphobia with panic disorder 10/10/2018 Osteoarthritis 10/28/2017 Overview (05/04/2024): Spine, knees Follows with [facility] (obstructive sleep apnea) [...] Department Care Team Description 09/10/2024 Lab Requisition [facility] - Main Lab [address] [facility] [employer] [place] [address] Corrina Alvarez PA Urinary tract infection, site not specified 09/07/2024 10:01 AM EST - 09/07/2024 11:59 PM EST Hospital Encounter [facility] [address] [place] [id number] Encounter for screening mammogram for malignant neoplasm of breast Discharge Disposition: Home or Self Care 08/21/2024 10:40 AM EST Office Visit Gastroenterology - [address] [facility] [address] [place] [id number] Wilfrido May PA Functional diarrhea (Primary Dx); [...] obesity with BMI of 4 5.0-49.9, adult ([facility] V24, [facility] V28) 10/18/2017 DX:Morbid obesity wit h BMI of 45.0-49.9, adult ([facility]) Moderate asthma 10/18/2017 DX:Moderate asth ma Osteoarthritis [...] S/p Ablation Diabetes mellitus type 2, uncomplicated ([facility] V24, [facility] V28) 10/28/2017 DX:Diabetes mellitus type 2, uncomplicated ([facility]) H/O total knee replacement 10/28/2017 DX:H/ O total knee replacement; COMMENT: Left 2011 CAD (coronary artery disease) 10/28/2017 DX :CAD (coronary artery disease); COMMENT: 2016 Angioplasty Major depressive disorder, r ecurrent episode, moderate ([facility] V24, [facility] V28) 10/10/2018 DX:Major depressive disorder , recurrent episode, moderate ([facility]) Agoraphobia with panic disorder 10/10/2018 DX:Agoraphobia with [...] specified diabetes mellitus with diabetic autonomic (poly)neuropathy ([facility]/HCC V24, CMS/[facility] V28) CULTURE URINE Routine 09/10/2024 12:00 AM [...] Detected LAB MICROBIOLOGY METHOD 5 5:39 PM [facility] Plesiomonas shigelloides Detection by PCR Not Detected Not Detected LAB MICROBIOLOGY METHOD 5 5:39 PM [facility] Salmonella Detection by PCR Not Detected Not Detected LAB MICROBIOLOGY METHOD 5 5:39 PM EST [facility] Vibrio Detection by PCR Not Detected Not Detected LAB MICROBIOLOGY METHOD 5 5:39 PM EST [facility] Vibrio cholerae Detection by PCR Not Detected Not Detected LAB MICROBIOLOGY METHOD 5 5:39 PM EST [facility] Yersinia enterocolitica Detection by PCR Not Detected Not Detected LAB MICROBIOLOGY METHOD 5 5:39 PM [facility] Enteroaggregative E coli EAEC Detection by PCR Not Detected Not Detected LAB MICROBIOLOGY METHOD 5 5:39 PM [facility] Enteropathogenic E coli EPEC Detection Not Detected Not Detected LAB MICROBIOLOGY METHOD 5 5:39 PM [facility] Enterotoxigenic E coli ETEC LTST Detection Not Detected Not Detected LAB MICROBIOLOGY METHOD 5 5:39 PM [facility] Shiga-like toxin producing E coli STEC STX1 STX2 Det Not Detected Not Detected LAB MICROBIOLOGY METHOD 5 5:39 PM [facility] Shigella Enteroinvasive E coli EIEC Detection Not Detected Not Detected LAB MICROBIOLOGY METHOD 5 5:39 PM [facility] Cryptosporidium Detection by PCR Not Detected Not Detected LAB MICROBIOLOGY METHOD 5 5:39 PM [facility] Cyclospora cayetanensis Detection by PCR Not Detected Not Detected LAB MICROBIOLOGY METHOD 5 5:39 PM [facility] Entamoeba histolytica Detection by PCR Not Detected Not Detected LAB MICROBIOLOGY METHOD 5 5:39 PM [facility] Giardia lamblia Detection by PCR Not Detected Not Detected LAB MICROBIOLOGY METHOD 5 5:39 PM [facility] Adenovirus F 40 41 Detection by PCR Not Detected Not Detected LAB MICROBIOLOGY METHOD 5 5:39 PM [facility] Astrovirus Detection by PCR Not Detected Not Detected LAB MICROBIOLOGY METHOD 5 5:39 PM [facility] Norovirus GI GII Detection by PCR Not Detected Not Detected LAB MICROBIOLOGY METHOD 5 5:39 PM [facility] Sapovirus Detection by PCR Not Detected Not Detected LAB MICROBIOLOGY METHOD 5 5:39 PM [facility] Rotavirus A Detection by PCR Not Detected Not Detected LAB MICROBIOLOGY METHOD 5:39 PM EST [facility] Stool Rectum structure / Unknown Non-blood Collection / Unknown 09/15/2024 1:56 PM EST 09/15/2024 4:08 PM EST Narrative [facility] - 09/15/2024 5:39 PM EST [...] MICROBIOLOGY - GENERAL O RDERABLES Final Result [facility] [address] [place] [address], * (ABNORMAL) Culture urine (09/10/2024 12:00 AM EST) Culture, Urine >100,000 CFU/mL Klebsiella pneumoniae ssp pneumoniae(A) BRENT 09/12/2024 10:33 AM EST [facility] Comment: This is an edited [...] Susceptible Klebsiella pneumoniae ssp pneumoniae Trimethoprim/Sulfamethoxazo le RBENT <=20 ug/ml: Susceptible us Corrina KENYON LAB MICROBIOLOGY - GENERAL ORD ERABLES Final Result [facility]) [facility] [address] [place] [address], * MG Mammo Digital Screening w Harsha [...] Signed Date: 09/07/2024 13:59 ET Workstation ID: [id number] Transcribed By: Self Edit Transcribed Date: 09/07/2024 [...] Signed Date: 09/07/2024 13:59 ET Workstation ID: [id number] Transcribed By: Self Edit Transcribed Date: 09/07/2024 13:41 ET Result [facility] Malgorzata Wilkerson MD IMG BI PROCEDURES Final Resu lt * Lipid panel (09/25/2023) Pathologist [facility] LDL/HDL Ratio 3 0 - 4 Triglycerides 82 0 - 150 mg/dL Cholesterol 149 0 - 200 mg/dL HDL 54 >=40 mg/dL LDL Cholesterol 79 0 - 100 mg/dL Blood Venous blood specimen / Unknown Result [facility] Historical Provider LAB BLOOD ORDERABLES Leona l Result * Annual BMP Blood Test (01/10/2023) Pathologist [facility] Annual BMP Blood Test Abstracted Result [facility] Historical Provider HEALTH MAINTENANCE Final Result * Hemoglobin A1c (10/01/2022) Pathologist [facility] Hemoglobin A1C 0.0 % Comment:No interpretation Blood Venous blood specimen / Unknown Result [facility] Provider LAB BLOOD ORDERABLES Leona l Result * Urine Albumin Creatinine Ratio (04/17/2022) [facility] Urine Albumin Creatinine Ratio Abstracted Historical Provider HEALTH MAINTENANCE Final Result * Colonoscopy (09/09/2020) [facility] Colonoscopy Abstracted, No interpretation Anatomical Region Laterality Modality Other Result [facility] Provider HEALTH MAINTENANCE Final Result * Hepatitis C Screening (09/17/2018) [facility] Hepatitis C Screening Abstracted Result [facility] Provider HEALTH MAINTENANCE Final Result from Last 3 Months or Most Recently Relevant to Health Maintenance Insurance MEDICARE [facility] Advance Directives Documents on File Type Date Recorded Patient Embroidery Assistant Expl anation Health Care Decision (hx) 08/14/2010 [...] DIRECTIVE Health Care Decision (hx) 08/14/2010 AD IRLEY DIRECTIVE Health Care Decision (hx) 08/14/2010 AD RILEY DIRECTIVE Health Care Decision (hx) 08/14/2010 AD RILEY DIRECTIVE Care Teams [employer] Consultant Relationship Specialty Start Date End Date Alyce Pham PA PCP - General 08/09/22
--- OUTSIDE RECORDS SUMMARY | 2024-11-06 11:20 | XMS_ITS | Data Portability ---
Author Organization [place] - [facility], Allergy Address [address] [address] Assessment Encounter Date Assessment Date Assessment LastModified by Organization Details LastModified Time 10/01/2024 10/01/2024 74yo female with migraine and GERD presents for evaluation of the sinuses and throat. Physical examination and nasal endoscopy are unremarkable for purulence or mucosal edema. Otologic exam is normal. Oropharynx exam shows pink moist mucosa without erythema or inflammation. Fiberoptic laryngoscopy demonstrates cobblestoning without masses or obstruction. We discussed her throat irritation is consistent with her underlying reflux. Patient takes omeprazole 60 mg daily. Will defer to her income tax advisor for long-term GERD and hernia management. The patient's occipital pain is consistent with migraine or neuralgia. Will defer to her neurologist for long-term management. Will prescribe ipratropium bromide for chronic rhinitis. Patient will follow-up in our office as needed. [email or web address] Not available 10/01/2024 17:13:01 Plan of Treatment Reminders Order Date Submit Date Provider Last Modified By Organization Details Last Modified Time Details Appointments None recorded. Lab None recorded. Referral None recorded. Procedures None recorded. Surgeries None recorded. Imaging None recorded. Medication Orders ipratropium bromide 21 mcg (0.03 %) nasal spray 2024 025 [facility] #[id number], [id number] [facility] , [place], [address], 15:43:24 Patient TargetsNo targets recorded. Patient InstructionsNo instructions recorded. Reason for Referral None Reported. Results Created Date Observation Date Name Description Value Unit Range Abnormal Flag Note LastModifiedBy Organization Detail LastModifiedTime 10/03/19 25 02/22/2023 US, head + neck, soft tissu e No observ ation record ed. [email or web address] Not Available 09/13 09:26:13 Result Notes None recorded. Problems Name Problem SNOMED Code Status Onset Date Resolution Date Notes Provider Name and Address Organization Details Recorded Time Obstructi ve sleep apnea syndrome 62370969 Active 2019 Obstructi ve sleep apnea (adult) (pediatri c); Note: Date Diagnosed : 0 9:42 AM (G47.33) Not Available [facility] 4 02:18:04 Dizziness and giddiness 880929444 Active 2018 Dizziness and giddiness ; Note: Date Diagnosed : 9 9:51 AM (R42) Not Available [facility] 4 02:17:35 Severe obesity [id number] 104 Active 2019 Morbid (severe) obesity due to excess calories; Note: Date Diagnosed : 0 9:42 AM (E66.01) Not Available [facility] 4 02:17:33 Gastroeso phageal reflux disease without esophagit is 668965674 Active 2014 Gastro-es ophageal reflux disease without esophagit is; Note: Date Diagnosed : 5 11:05 AM (K21.9) [mapped from ICD9 code: 530.81] Not Available [facility] 4 02:17:14 Acute sinusitis 62976220 Active 2021 Acute sinusitis , unspecifi ed; Note: Date Diagnosed : 07/31/2021 11:31 AM (J01.90) Not Available [facility] 4 02:18:05 Closed fracture of facial bone 362089763 Active 2023 Unspecifi ed fracture of facial bones, initial encounter for closed fracture; Note: Date Diagnosed : 07/19/2023 4:17 PM (S02.92XA ) Not Available [facility] 4 02:18:08 Cough 09640125 Active 2014 Cough; Note: Date Diagnosed : 11/02/2014 12:53 PM (786.2) ; Start Date : 5 Cough, unspecifi ed; Note: Changed from R05 to R05.9 (05/11/20 12:48 PM) , Date Diagnosed : 5 11:05 AM (R05) [mapped from ICD9 code: 786.2] Not Available [facility] 4 02:18:12 Chronic rhinitis 17699844 Active 2014 Chronic rhinitis; Note: Date Diagnosed : 11/02/2014 12:53 PM (472.0) ; Start Date : 5 Chronic rhinitis; Note: Date Diagnosed : 5 11:05 AM (J31.0) [mapped from ICD9 code: 472.0] Not Available [facility] 4 02:17:19 Posterior rhinorrhe a 68756515 Active 2016 Postnasal drip; Note: Date Diagnosed : 12/19/2016 1:35 PM (R09.82) Not Available [facility] 4 02:18:05 Gastroeso phageal reflux disease 166280070 Active 2014 GERD; Note: Date Diagnosed : 11/02/2014 12:55 PM (530.81) Not Available [facility] 4 02:17:33 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 Procedures Surgical History Date Name Laterality Status Provider Name and Address Organization Details Recorded Time 10/01/2024 FOL_Reflux _JMS completed JORDY GENAO PA-C [address] [place] [address],[address], [phone], [place] - [facility] 10/01/2024 17:07:58 Imaging Results Imaging Date Name Status LastModified by Organiz ation Details LastModified Time 02/22/2023 US, head + neck, soft tissue completed [email or web address] Information not available 10/02/2024 09:26:13 Procedure Notes None recorded. Medical Equipment None Reported. Allergies Allergen ID Allergen Name Allergen Category Reaction Reaction Severity Criticality Documentation Date Start Date Code Code System Note Provider Name and Address Organization Details Recorded Time 66539 penicilli n V potassium medicatio n other Not available Not available 11/26/2023 5 RxNorm React ion: unkno wn, unspe cifie d;; Not Available [facility] 00:52:59 Medications Name Sig Start Date Stop Date Status Note LastModified by Organization Details LastModified Time vitamin b-12 500mcg tablets TAKE 1 TABLET BY MOUTH ONCE DAILY active Not Available Not Available No t Available celecoxib 200 mg capsule 09/27 completed Medicati on ID: [id number] B rand Name: celecoxi b Send Method: E-Prescr ibed Sub s Allowed: subs OK Medic ationGen ericName : celecoxi b Not Available Not Available Not Available clotrimaz ole 10 mg jorge a Hold 1 jorge a in mouth five times a day 2022 active Medicati on ID: [id number] D uration Value: 14 Brand Name: clotrima zole Yovanny odom Method: E-Prescr ibed Sub s Allowed: subs OK Medic ationGen ericName : clotrima zole Not Available Not Available Not Available trazodone 50 mg tablet TAKE 1 TO 2 TABLETS (50 TO 100 MG TOTAL) BY MOUTH DAILY AT BEDTIME. active Not Available Not Available No t Available azithromy mely 250 mg tablet active Not Available Not Available No t Available tizanidin e 4 mg tablet TAKE 1 TABLET BY MOUTH DAILY AT BEDTIME active Not Available Not Available No t Available valacyclo vir 1 gram tablet 2020 active Medicati on ID: [id number] B rand Name: valacycl ovir Sen d Method: E-Prescr ibed Sub s Allowed: subs OK Speci al Instruct ion: TK 1 T PO TID FOR 7 DAYS Med icationG enericNa me: valacycl ovir Not Available Not Available Not Available fluconazo le 200 mg tablet TAKE 1 TABLET BY MOUTH EVERY DAY X3-5 DAYS THEN NEEDED active Not Available Not Available No t Available diphenoxy late-atro pine 2.5 mg-0.025 mg tablet 2020 active Medicati on ID: [id number] B rand Name: diphenox ylate-at ropine S end Method: E-Prescr ibed Sub s Allowed: subs OK Medic ationGen ericName : diphenox ylate-at ropine Not Available Not Available Not Available ciproflox acin 250 mg tablet TAKE 1 TABLET BY MOUTH EVERY 12 HOURS FOR 5 DAYS active Not Available Not Available No t Available valacyclo vir 500 mg tablet active Not Available Not Available No t Available ciproflox acin 500 mg tablet TAKE ONE TAB TWICE A DAY X 5 DAYS active Not Available Not Available No t Available omeprazol e 40 mg capsule,d elayed release active Not Available Not Available Not Available tramadol 50 mg tablet TAKE 1 TABLET BY MOUTH EVERY DAY WITH TYLENLOL active Not Available Not Available No t Available spironola ctone 25 mg tablet active Not Available Not Available No t Available nortripty line 25 mg capsule 1 capsule by mouth 09/27 completed Medicati on ID: [id number] Du ration Value: 30 Prescri bed By Name: Ge Horta nd Name: nortript yline Se nd Method: E-Prescr ibed Sub s Allowed: subs OK Medic ationGen ericName : nortript yline Not Available Not Available Not Available oxycodone -acetamin ophen 5 mg-325 mg tablet 09/27 completed Medicati on ID: [id number] B rand Name: oxycodon e-acetam inophen Send Method: E-Prescr ibed Sub s Allowed: subs OK Medic ationGen ericName : oxycodon e-acetam inophen Not Available Not Available Not Available methenami ne hippurate 1 gram tablet TAKE 1 TABLET BY MOUTH TWICE DAILY active Not Available Not Available No t Available cyanocoba teresita (vit B-12) 500 mcg tablet TAKE 1 TABLET BY MOUTH ONCE DAILY active Not Available Not Available No t Available ascorbic acid (vitamin C) 500 mg tablet TAKE 1 TABLET BY MOUTH TWICE DAILY active Not Available Not Available No t Available dicyclomi ne 20 mg tablet 2020 active Medicati on ID: [id number] B rand Name: dicyclom ine Send Method: E-Prescr ibed Sub s Allowed: subs OK Medic ationGen ericName : dicyclom ine Not Available Not Available Not Available amitripty line 10 mg tablet 03/14 completed Medicati on ID: [id number] B rand Name: amitript yline Se nd Method: E-Prescr ibed Sub s Allowed: subs OK Medic ationGen ericName : amitript yline Not Available Not Available Not Available cephalexi n 500 mg capsule TAKE 1 CAPSULE EVERY 6 HOURS BY ORAL ROUTE FOR 5 DAYS, FOR URINARY TRACT INFECTIO N. active Not Available Not Available No t Available erythromy mely 5 mg/gram (0.5 %) eye ointment active Not Available Not Available Not Available nortripty line 10 mg capsule Take 1 capsule once a day 09/27 completed Medicati on ID: [id number] D uration Value: 90 Brand Name: nortript yline Se nd Method: E-Prescr ibed Sub s Allowed: subs OK Speci al Instruct ion: at bed time Med icationG enericNa me: nortript yline Not Available Not Available Not Available triamcino lone acetonide 0.1 % topical ointment APPLY TOPICALL Y TWICE A DAY NEEDED active Not Available Not Available No t Available nystatin 100,000 unit/gram topical cream APPLY PEA SIZED AMOUNT TOPICALL Y TO THE AFFECTED AREA THREE TIMES DAILY AFTER MEALS active Not Available Not Available No t Available buspirone 10 mg tablet TAKE 1 TABLET BY MOUTH TWICE DAILY active Not Available Not Available No t Available lidocaine 5 % topical patch APPLY 1 PATCH TOPICALL Y TO THE SKIN DAILY. MAY WEAR UP TO 12 HOURS ON AND 12 HOURS OFF active Not Available Not Available No t Available metoprolo l tartrate 50 mg tablet active Not Available Not Available Not Available hydrochlo rothiazid e 12.5 mg capsule 03/14 completed Medicati on ID: [id number] Du ration Value: 30 Brand Name: hydrochl orothiaz elysia Send Method: E-Prescr ibed Sub s Allowed: subs OK Speci al Instruct ion: TAKE 1 CAPSULE EVERY DAY Medi [facility] nericNam e: hydrochl orothiaz elysia Not Available Not Available Not Available fluoxetin e 10 mg capsule 03/14 completed Medicati on ID: [id number] B rand Name: fluoxeti ne Send Method: E-Prescr ibed Sub s Allowed: subs OK Medic ationGen ericName : fluoxeti ne Not Available Not Available Not Available omeprazol e 20 mg capsule,d elayed release 03/14 completed Medicati on ID: [id number] B rand Name: omeprazo le Send Method: E-Prescr ibed Sub s Allowed: subs OK Medic ationGen ericName : omeprazo le Not Available Not Available Not Available monteluka st 10 mg tablet active Not Available Not Available Not Available hydroxyzi ne HCl 25 mg tablet TAKE 1 TABLET BY MOUTH UP TO 2 TIMES A DAY NEEDED FOR ANXIETY OR ITCHING. active Not Available Not Available No t Available clobetaso l 0.05 % topical ointment active Not Available Not Available Not Available nystatin 100,000 unit/gram topical powder APPLY TOPICALL Y TWICE A DAY NEEDED active Not Available Not Available No t Available lorazepam 1 mg tablet TAKE 1 TABLET BY MOUTH ONCE A DAY NEEDED EXTREME ANXIETY active Not Available Not Available No t Available azelastin e 137 mcg (0.1 %) nasal spray 2 spray 2020 active Medicati on ID: [id number] D uration Value: 30 Brand Name: azelasti ne Send Method: E-Prescr ibed Sub s Allowed: subs OK Medic ationGen ericName : azelasti ne Not Available Not Available Not Available ibuprofen 600 mg tablet TAKE 1 TABLET ONE HOUR PRIOR TO DENTAL APPOINTM ENT AND 1 TABLET EVERY 6 HOURS FOR PAIN active Not Available Not Available No t Available fluticaso ne propionat e 50 mcg/actua tion nasal spray,mae pension SPRAY ONCE TO SKIN WHERE PATCH WILL BE APPLIED ALLOW TO DRY APPLY PATCH active Not Available Not Available No t Available metformin ER 500 mg tablet,ex tended release 24 hr active Not Available Not Available Not Available doxycycli ne hyclate 100 mg tablet 1 tablet by mouth 09/27 completed Medicati on ID: [id number] D uration Value: 10 Prescri bed By Name: Fernandez Pugh PA-C Bra nd Name: doxycycl ine hyclate Send Method: E-Prescr ibed Sub s Allowed: subs OK Medic ationGen ericName : doxycycl ine hyclate Not Available Not Available Not Available ipratropi um bromide 21 mcg (0.03 %) nasal spray INHALE 2 SPRAYS INTO EACH NOSTRIL TWICE A DAY DIRECTED active Not Available Not Available No t Available diazepam 5 mg tablet TAKE 1 TABLET BY MOUTH 3 TIMES A DAY IF NEEDED FOR MUSCLE SPASMS (SEVERE PAIN) FOR UP TO 20 DOSES. active Not Available Not Available No t Available cyclobenz aprine 5 mg tablet TAKE 1 TABLET BY MOUTH DAILY AT BEDTIME active Not Available Not Available No t Available metoprolo l tartrate 25 mg tablet 03/14 completed Medicati on ID: [id number] Du ration Value: 30 Brand Name: metoprol ol tartrate Send Method: E-Prescr ibed Sub s Allowed: subs OK Speci al Instruct ion: TAKE 2 TABLETS BY MOUTH EVERY MORNING AND 1 AT BEDTIME Medicati onGeneri cName: metoprol ol tartrate Not Available Not Available Not Available nitrofura ntoin monohydra te/macroc rystals 100 mg capsule TAKE 1 CAPSULE BY MOUTH EVERY 12 HOURS FOR 7 DAYS active Not Available Not Available No t Available duloxetin e 20 mg capsule,d elayed release TAKE 1 CAPSULE BY MOUTH EVERY DAY FOR 90 DAYS active Not Available Not Available No t Available duloxetin e 30 mg capsule,d elayed release 03/14 completed Medicati on ID: [id number] Du ration Value: 30 Brand Name: duloxeti ne Send Method: E-Prescr ibed Sub s Allowed: subs OK Medic ationGen ericName : duloxeti ne Not Available Not Available Not Available duloxetin e 60 mg capsule,d elayed release TAKE 1 CAPSULE BY MOUTH EVERY DAY active Not Available Not Available No t Available chlorhexi dine gluconate 0.12 % mouthwash active Not Available Not Available No t Available lubiprost one 24 mcg capsule TAKE 1 CAPSULE BY MOUTH TWICE DAILY active Not Available Not Available No t Available Lantus Solostar U-100 Insulin 100 unit/mL (3 mL) subcutane ous pen active Not Available Not Available Not Available Humalog KwikPen (U-100) Insulin 100 unit/mL subcutane ous active Not Available Not Available Not Available Xifaxan 550 mg tablet 09/27 completed Medicati on ID: [id number] B rand Name: Xifaxan Send Method: E-Prescr ibed Sub s Allowed: subs OK Medic ationGen ericName : Xifaxan Not Available Not Available Not Available buprenorp shruti 5 mcg/hour weekly transderm al patch APPLY 1 PATCH TOPICALL Y AND CHANGE WEEKLY active Not Available Not Available No t Available Comfort EZ Pen Onaway 32 gauge x active Not Available Not Available Not Available NovoFine Plus 32 gauge x / needle 2020 active Medicati on ID: [id number] B rand Name: NovoFine Plus Sen d Method: E-Prescr ibed Sub s Allowed: subs OK Medic ationGen ericName : NovoFine Plus Not Available Not Available Not Available Mounjaro 5 mg/0.5 mL subcutane ous pen injector active Not Available Not Available Not Available Mounjaro 2.5 mg/0.5 mL subcutane ous pen injector INJECT 0.5 ML (2.5 MG) SUBCUTAN EOUSLY ONE TIME PER WEEK active Not Available Not Available No t Available Vitals Date Recorded Body height Body mass index (BMI) Body weight Provider Name and Address Organization Details Last Updated DateTime 10/01/2024 167.64 cm 42 kg/m2 729872.02 g Lidia Howard [place] - [facility] 10/01/2024 15:16:09 Social History None recorded. Functional Status None recorded. Mental Status None recorded. Family History Nothing Reported. Medical History Condition Response Allergies/Hayfever Y Heart Problems Y Anxiety Y Tonsil Infections N Emphysema N Migraines Y Thyroid Problems Y Glaucoma N Depression Y COPD N Developmental Delay N Nasal or Sinus Problems Y Anemia Y Immune System Disorder N Anesthesia Complications N Heart Attack (ME) N Other Skin Condition Y Diabetes Y Rhinitis N Bleeding Disorder N Food Allergy N Arthritis Y Hearing Loss N Hyperlipidemia N Cancer N Stroke N Dementia N Nasal polyps N Asthma Y Sleep Disorder Y GERD/Reflux Y High Cholesterol N Liver Disease N Headaches Y Fibromyalgia Y Hypertension N Speech Delay N Kidney Disease N Gynecological HistoryNo gynecological history recorded. Obstetrics History GPAL:G 0 P 0 0 0 0 Past Encounters Encounter ID Performer Location Encounter Start Date Encounter Closed Date Diagnosis/Indication Diagnosis SNOMED-CT Code Diagnosis ICD10 Code Diagnosis Note [id number] CHRIS CHARLES MD [facility] [address] [phone] 10/01/2024 15:07:09 10/01/2024 15:45:04 Chronic rhinitis 26982005 J31.0 Gastroesop hageal reflux disease without esophagitis 962453511 K21.9 Atypical facial pain 713 39150 G50.1 Migraine 54802011 G43.90 9 Health Concerns Section Related Observation LastModified by Organization Detai ls LastModified Time None Recorded Concern Status LastModified by Organization Details LastModified Time None Recorded Advance Directives Directive None Recorded Payers Encounter Date Sequence Insurance Name Policy Number Policy Fournier Covered Member ID Fournier Member ID Guarantor Name 10/01/2024 1 MEDICARE B-[place]: [employer] Yessi Joya [id number] Yessi Lara Mahnaz 10/01/2024 2 [employer] - FOR LIFE (MEDICARE SUPPLEMENT) Yessi Bermudez Mahnaz [id number] Yessi Bermudez Mahnaz Notes Date Note Type Note Provider Name and Address Organization Details Recorded Time 10/01/2024 text/html 74yo female with migraine and gastroesophageal history presents for evaluation of the sinuses and throat. Today she reports left-sided nasal and maxillary sinus soreness, headache in the back of the head, and left ear pain. She has constant clear nasal drainage. Denies nasal obstruction. No improvement in nasal symptoms with fluticasone. She had improvement with azelastine but cannot tolerate the nasal dryness side effect. She also would like to discuss throat irritation with swallowing. Denies choking or requiring Heimlich. Swallow study 1.5 years ago was within normal limits. She reports recent voice hoarseness. She takes omeprazole 60 mg daily for acid reflux. She is closely followed by gastroenterology for GERD and hernia, pulmonology for asthma and chronic cough, endocrinology for diabetes and thyroid nodules, and neurology for significant migraine and neuralgia. She trialed nortriptyline without improvement in facial pain. CHRIS PEREZ MD [address] [place] [address], [phone], [facility] - [facility] 10/02/2024 12:53:18 OBGyn Episode No OBEpisode recorded.
--- OUTSIDE RECORDS SUMMARY | 2024-11-06 11:20 | XMS_ITS | Referral Summary ---
Author Organization [facility] Address [address] [place] [address] Care Team Providers Care Family Nurse Practitioner Name Role Phone Alyce Pham Primary Care Provider [phone] Encounters Date Type Department Care Team Description 09/21/2024 Refill [facility] [address] [place] [id number] Pharmacy Innovation Assistant: Edil Jackson DO Moderate persistent asthma without [...] Not on file Procedures * Due to [place] state law, this organization might not be sharing negative HIV tests. Procedure Name Priority Date/Time Associated Diagnosis Comments COMPREHENSIVE METABOLIC PANEL Routine 01/10/2023 1:53 PM EDT Elevated erythrocyte sedimentation rate from Last 3 Months or Most Recently Relevant to Health Maintenance Results * Due to [place] state law, this organization might not be sharing negative HIV tests. * (ABNORMAL) Comprehensive Metabolic Panel (01/10/2023 1:53 PM EDT) NA 141 136 - 145 mmol/L 01/10/2023 3:02 PM EDT [facility] K 4.0 3.5 - 5.3 mmol/L 01/10/2023 3:02 PM EDT [facility] Cl 110(H) 98 - 107 mmol/L 01/10/2023 3:02 PM EDT [facility] CO2 27 22 - 30 mmol/L 01/10/2023 3:02 PM EDT [facility] Anion Gap 4(L) 5 - 15 01/10/2023 3:02 PM EDT [facility] Glucose 126(H) 70 - 99 mg/dL 01/10/2023 3:02 PM EDT [facility] Creatinine 0.97 0.60 - 1.30 mg/dL 01/10/2023 3:02 PM EDT [facility] Calcium 8.9 8.5 - 10.1 mg/dL 01/10/2023 3:02 PM EDT [facility] Total Protein 7.6 6.4 - 8.2 g/dL 01/10/2023 3:02 PM EDT [facility] Albumin 3.6 3.4 - 5.0 g/dL 01/10/2023 3:02 PM EDT [facility] Bilirubin, Total 0.3 0.3 - 1.2 mg/dL 01/10/2023 3:02 PM EDT [facility] Alkaline Phosphatase 84 50 - 136 U/L 01/10/2023 3:02 PM EDT [facility] AST 14(L) 15 - 37 U/L 01/10/2023 3:02 PM EDT [facility] ALT 23 12 - 78 U/L 01/10/2023 3:02 PM EDT [facility] BUN 12 7 - 18 mg/dL 01/10/2023 3:02 PM EDT [facility] eGFR 62 >=60 mL/min/1 .73m2 01/10/2023 3:02 PM EDT [facility] Comment:The estimated glomer [...] Aaron MD LAB BLOOD ORDERABLES Final Result [facility] [address] [place] [address], [place] from Last 3 Months or Most [...] Stephon Joya Health Care Agent Care Teams Family Nurse Practitioner Relationship Specialty Start Date End Date Alyce Pham [address] [place] [id number] PCP - General 02/15/21
[2024-11-06 13:52] LABS: Influenza A PCR NEGATIVE (Negative); Influenza B PCR NEGATIVE (Negative); Resp Syncy Virus RNA Qual PCR NEGATIVE (Negative); SARS COV2 PCR INHOUSE NEGATIVE (Negative)
== END 2024-11-06 09:44 | disposition home or self-care (01) ==
LOC: HO.LAB 09:43
PROVIDERS: Visit Provider Physician Assistant
DX: J06.9 Acute upper respiratory infection, unspecified (principal); R05.9 Cough, unspecified; R09.89 Other specified symptoms and signs involving the circulatory and respiratory systems
CPT/HCPCS: 0241U; 71046; 99202

== ENCOUNTER 2024-11-06 09:43 | Outpatient (AMB) | payer MEDICARE, OTHER, SELFPAY ==
[2024-11-06 09:58] VITALS: BP 120/78; PULSE 94; TEMP 37.1; O2SAT 97
--- NOTE | 2024-11-06 09:58 | AM.OFFVISNUR ---
Vital Signs 11/06/24 09:58 Pulse 94 Pulse Source Pulse Oximeter Pulse Oximetry (%) 97 Oxygen Delivery Method Room Air Intake Visit Reasons: EP-cough,chest congestion,body ache,chills,sob Allergies penicillin V Allergy (Mild, Verified 09/16/24 08:30) Rash Coding
--- OUTSIDE RECORDS SUMMARY | 2024-11-06 09:58 | XMS_ITS | Data Portability ---
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 Procedures Surgical History Date Name Laterality Status Provider Name and Address Organization Details Recorded Time Appendectomy completed Fabiola Rizo [facility] [place] 10/05/2022 11:36:25 [facility] 11:36:42 Gastric bypass for obesity completed [facility], P 10/05/2022 11:36:53 Shoulder Surgery completed [facility], P 10/05/2022 11:37:02 Knee Surgery completed [facility] - A [facility], 10/05/2022 11:37:12 cholecystectomy completed [facility], P 10/05/2022 11:37:24 Imaging Results None recorded. Procedure Notes None recorded. Medical Equipment None Reported. Allergies Allergen ID Allergen Name Allergen Category Reaction Reaction Severity Criticality Documentation Date Start Date Code Code System Note Provider Name and Address Organization Details Recorded Time 863 Product containin g penicilli n (product) medicatio n Not available Not available Not available 10/05/2022 [id number] 11:34:06 864 Substance with sulfonami de structure and antibacte rial mechanism of action (substanc e) medicatio n Not available Not available Not available 10/05/2022 [id number] [facility], P 3 11:34:13 Medications Name Sig Start [...] available 2022 11:35:59 Medical History Condition Response Diabetes Y Anemia Y Reflux/GERD Y Hypertension Y Asthma Y Gynecological HistoryNo gynecological history recorded. 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 [id number] 036311 M13.811 Health Concerns Section Related Observation LastModified by Organization Detai ls LastModified Time None Recorded Concern Status LastModified by Organization Details LastModified Time None Recorded Advance Directives Directive None Recorded Payers Encounter Date Sequence Insurance Name Policy Number Policy Fournier Covered Member ID Fournier Member ID Guarantor Name 10/05/2022 1 [place] [employer] Yessi Joya [id number] Yessi Joya 10/05/2022 2 FOR LIFE () Yessi Joya [id number] Yessi Joya Notes Date Note Type Note Provider Name and Address Organization Details Recorded Time 10/05/2022 text/html The patient presents with complaints of mild intermittent discomfort in her right shoulder. She denies any fevers or chills. She does not take any medicines for discomfort. She continues with her home stretching program. Alec Durant MD [address] [facility],[place] [address], [place], [address], [place] [facility], P 10/05/2022 12:36:16 OBGyn Episode No OBEpisode recorded.
--- OUTSIDE RECORDS SUMMARY | 2024-11-06 09:58 | XMS_ITS ---
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 for 1 year . Dx: pedal deformities and calloused lesions for . 10/15/2014 Active Encounters Encounter Location Date Provider Diagnosis [address] [address] 05/11/2024 Arabella Melvin Diabetic - NIDDM/Neuropathy 250.60 [...] Name:Arabella Charles , 02/04/2025 11:00:00 AM, [address] [place], [address], Progress Notes * Anabela JOYAOB:1950 ( 74 yo F)Acc No.[id number]:05/11/2024 Patient:?Yessi Joya :1950???Age:74 Y???Sex:Female Address:[address] [place], [place] [id number] * Refills? Refill Extra-Depth Diabetic Shoes with 3 Pair Custom heat-molded multi-density innersoles ., ., ., for 1 year, Dx: pedal deformities and calloused lesions, ., Refills=0 * true * Date:? Generated for Elijah thompson/Bassam/eTransmitting on:?11/06/2024 09:58 AM EDT
--- OUTSIDE RECORDS SUMMARY | 2024-11-06 09:59 | XMS_ITS | Encounter Summary ---
Author Organization [facility] Address [address] [place] [address] Care Team Providers Care Tobacco Shaker Name Role Phone Pham, Alyce Primary Care Provider [phone] Reason for Visit * Reason Onset Date Comments PAC Appt Request - Established 12/25/2022 PAC Patient Request Call Back 12/25/2022 Encounter Details Date Type Department Care Team (Late st Contact Info) Description 12/25/2022 Telephone [facility] Patient Access [facility] [address] [place] [address] Telephone Intake, Staff PAC Appt Request - [...] to see. She can be reached at [phone] documented in this encounter Plan of Treatment Not on file documented as of this encounter Visit Diagnoses Not on filedocumented in this encounter Care Teams Tobacco Shaker Relationship Specialty Start Date End Date Ankit Alyce [address] [place] [address] PCP - General 02/15/21 documented as of this encounter
--- OUTSIDE RECORDS SUMMARY | 2024-11-06 09:59 | XMS_ITS | Referral Summary ---
Author Organization [facility] Address [address] [place] [address] Care Team Providers Care Peanut Shaker Name Role Phone Alyce Pham Primary Care Provider [phone] Encounters Date Type Department Care Team Description 09/21/2024 Refill [facility] [address] [place] [address] Wage And Hour Investigator: Edil Jackson DO Moderate persistent asthma without complication from Last 3 Months Allergies Active Allergy Reactions Criticality Noted Date [...] a day. 90 tablet 1 3 Active albuterol (ProAir HFA) 90 mcg inhalerIndicatio ns:Moderate persistent asthma without complication (HCC) Inhale 2 puffs (180 mcg total) by mouth every 4 hours as needed for wheezing or shortness of breath. Use with spacer. 8.5 g 5 4 Active omeprazole (PriLOSEC) 40 mg capsuleIndicatio ns:Gastroesophag eal reflux disease without esophagitis TAKE 1 CAPSULE TWICE A DAY 60 capsule 11 4 Active Additional Information Patient not taking.Reported on 02/05/2024 montelukast (SINGULAIR) 10 mg tabletIndication s:Moderate persistent asthma without complication (HCC) TAKE 1 TABLET NIGHTLY 90 tablet 3 5 Active Hospital, Clinic, or Other Facility Administered Medication [...] Not on file Procedures * Due to [place] state law, this organization might not be sharing negative HIV tests. Procedure Name Priority Date/Time Associated Diagnosis Comments COMPREHENSIVE METABOLIC PANEL Routine 01/10/2023 1:53 PM EDT Elevated erythrocyte sedimentation rate from Last 3 Months or Most Recently Relevant to Health Maintenance Results * Due to [place] state law, this organization might not be sharing negative HIV tests. * (ABNORMAL) Comprehensive Metabolic Panel (01/10/2023 1:53 PM EDT) NA 141 136 - 145 mmol/L 01/10/2023 3:02 PM EDT [facility] K 4.0 3.5 - 5.3 mmol/L 01/10/2023 3:02 PM EDT [facility] Cl 110(H) 98 - 107 mmol/L 01/10/2023 3:02 PM EDT [facility] CO2 27 22 - 30 mmol/L 01/10/2023 3:02 PM EDT [facility] Anion Gap 4(L) 5 - 15 01/10/2023 3:02 PM EDT [facility] Glucose 126(H) 70 - 99 mg/dL 01/10/2023 3:02 PM EDT [facility] Creatinine 0.97 0.60 - 1.30 mg/dL 01/10/2023 3:02 PM EDT [facility] Calcium 8.9 8.5 - 10.1 mg/dL 01/10/2023 3:02 PM EDT [facility] Total Protein 7.6 6.4 - 8.2 g/dL 01/10/2023 3:02 PM EDT [facility] Albumin 3.6 3.4 - 5.0 g/dL 01/10/2023 3:02 PM EDT [facility] Bilirubin, Total 0.3 0.3 - 1.2 mg/dL 01/10/2023 3:02 PM EDT [facility] Alkaline Phosphatase 84 50 - 136 U/L 01/10/2023 3:02 PM EDT [facility] AST 14(L) 15 - 37 U/L 01/10/2023 3:02 PM EDT [facility] ALT 23 12 - 78 U/L 01/10/2023 3:02 PM EDT [facility] BUN 12 7 - 18 mg/dL 01/10/2023 3:02 PM EDT [facility] eGFR 62 >=60 mL/min/1 .73m2 01/10/2023 3:02 PM EDT [facility] Comment:The estimated glomer [...] Aaron MD LAB BLOOD ORDERABLES Final Result [facility] [address] [place] [address], [place] from Last 3 Months or Most [...] Stephon Joya Health Care Agent Care Teams Peanut Shaker Relationship Specialty Start Date End Date Alyce Pham [address] [place] [phone] PCP - General 02/15/21
--- OUTSIDE RECORDS SUMMARY | 2024-11-06 09:59 | XMS_ITS | Encounter Summary ---
Author Organization [facility] Address [address] [place] [address] Care Team Providers Care Applications Support Engineer Name Role Phone Alyce Pham Primary Care Provider [phone] Encounter Details Date Type Department Care Team (Late st Contact Info) Description 12/19/2022 Orders Only [facility] Mammography [address] [facility] [address] Pancho Sherman MD [address] [place] [phone] Social History Tobacco Use Types Packs/Day Years [...] on filedocumented in this encounter Care Teams Applications Support Engineer Relationship Specialty Start Date End Date Alyce Pham [address] [place] [phone] PCP - General 02/15/21 documented as of this encounter
--- OUTSIDE RECORDS SUMMARY | 2024-11-06 09:59 | XMS_ITS | Clinical Summary ---
Author Organization [facility] [address] [facility] Address [address] [place] [address] Phone Care Team Providers Care Certified Orthotist/Pedorthist Name Role Phone Alyce Pham Primary Care Provider [phone] Allergies Active Allergy Reactions Criticality Noted Date [...] 1 Capsule by mouth every 7 days. 2 Active flash glucose sensor (FREESTYLE ELOISE 14 DAY SENSOR [facility]) 1 Active fluconazole (DIFLUCAN) 200 mg tablet TAKE 1 TABLET BY MOUTH EVERY Saturday 1 Active hydrOXYzine HCL (ATARAX) 10 mg tablet Take 1 Tab by mouth daily as needed for Anxiety. 0 Active insulin glargine (Lantus Solostar U-100 Insulin) 100 unit/mL (3 mL) injection pen Inject 22 Units into the skin at bedtime. Active insulin lispro 100 unit/mL injection Inject as directed. Active metFORMIN XR (GLUCOPHAGE-XR) 500 mg 24 hr tablet Take 3 Tablets by mouth daily (with breakfast). Active montelukast (SINGULAIR) 10 mg tablet Take 1 tablet by mouth at bedtime. 1 Active metoprolol tartrate (LOPRESSOR) 50 mg tablet Take 1 Tab by mouth 2 times daily. 0 Active multivit-min/iron /folic acid/K (ADULTS MULTIVITAMIN ORAL) Take by mouth daily. Active omeprazole (PriLOSEC) [address] capsule TAKE 1 CAPSULE BY MOUTH EVERY MORNING 1 Active rosuvastatin (CRESTOR) 5 mg tablet Take 1 Tablet by mouth daily. 4 Active spironolactone (ALDACTONE) 25 mg tablet Take 1 tablet by mouth daily. 1 Active traZODone (DESYREL) 50 mg tablet Take 1 tablet by mouth at bedtime. 1 Active tirzepatide (MOUNJARO) 2.5 mg/0.5 mL injection Inject 0.5 mL (2.5 mg total) under the skin. Active diazePAM (VALIUM) 5 mg tablet Take 1 tablet (5 mg total) by mouth 3 (three) times a day if needed for muscle spasms (severe pain) for up to 20 doses. Max Daily Amount: 15 mg 20 each 4 Active Active Problems Problem Noted Date Diagnosed Date Morbid obesity with BMI of 4 5.0-49.9, adult (CMS/HCC V24, CMS/HCC V28) 05/04/2024 Multiple premature ventricular complexes 024 Overview (05/04/2024): [...] rehab receiving facet injections Paroxysmal supraventricular tachycardia ([facility] V24) 10/04/2020 Overview (05/04/2024): Paroxysmal supraventricular tachycardia status post [...] kidney disease) stage 3, GFR 30-59 ml/min ([facility] V24, [facility] V28) 04/08/2020 Trigger finger of right thumb 03/24/2020 Primary osteoarthritis of left shoulder 09/03/19 20 Pain in both hands 09/03/2019 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 f 09/03/2019 Dry eyes 09/03/2019 Type 2 diabetes mellitus ([facility] V24, [facility] V 28) 08/26/2019 Vitamin D deficiency 10/10/2018 Restless leg syndrome 10/10/2018 Pernicious anemia 10/10/2018 Overactive bladder 10/10/2018 Overview (05/04/2024): Mixed urinary incontinence. Major depressive disorder, r ecurrent episode, moderate (CMS/HCC V24, CMS/HCC V28) 10/10/2018 DDD (degenerative disc disease), lumbar 10/11/19 19 Agoraphobia with panic disorder 10/10/2018 Osteoarthritis 10/28/2017 Overview (05/04/2024): Spine, knees Follows with [employer] [employer] spine and sport YAN (obstructive sleep apnea) 10/28/2017 Overview (05/04/2024): Unable to tolerate CPAP Multinodular goiter 10/28/2017 Overview (05/04/2024): 2011 Right jeannine thyroidectomy IBS (irritable bowel syndrome) [...] Department Care Team Description 09/10/2024 Lab Requisition [facility] - Main Lab [address] [facility] [place] [address] Corrina Alvarez PA Urinary tract infection, site not specified 09/07/2024 10:01 AM EST - 09/07/2024 11:59 PM EST Hospital Encounter [facility] [address] [place] [phone] Encounter for screening mammogram for malignant neoplasm of breast Discharge Disposition: Home or Self Care 08/21/2024 10:40 AM EST Office Visit Gastroenterology - [address] [facility] [address] [place] [phone] Wilfrido May PA Functional diarrhea (Primary Dx); Left sided abdominal pain; Irritable bowel syndrome with both constipation and diarrhea from Last 3 Months Immunizations Name Administration Dates Next Due Influenza, Unspecified 03/25/2020 Moderna SARS-CoV-2 COVID-19, mRNA, LNP-S, preservative free 10/24/2020,09/26/2020 Surgical History Surgery Date Site/Laterality Comments APPENDECTOMY 1970 PROCEDURE: HISTORICAL APPENDECTOMY HYSTERECTOMY 1995 PROCEDURE: HISTORICAL HYSTERECTOMY; COMMENT: partial BREAST LUMPECTOMY 1980 Left PROCEDURE: HISTORICAL BREAST LUMPECTOMY CHOLECYSTECTOMY 2005 PROCEDURE: HISTORICAL CHOLECYSTECTOMY GASTRIC BYPASS 2002 PROCEDURE: [...] HISTORICAL SHOULDER SURGERY; COMMENT: 2019; spur removal COLONOSCOPY 12/14/2023 - 01/12/2024 TA [...] obesity with BMI of 4 5.0-49.9, adult ([facility] V24, [facility] V28) 10/18/2017 DX:Morbid obesity wit h BMI of 45.0-49.9, adult ([facility]) Moderate asthma 10/18/2017 DX:Moderate asth [...] S/p Ablation Diabetes mellitus type 2, uncomplicated ([facility] V24, [facility] V28) 10/28/2017 DX:Diabetes mellitus type 2, uncomplicated ([facility]) H/O total knee replacement 10/28/2017 DX:H/ O total knee replacement; COMMENT: Left 2011 CAD (coronary artery disease) 10/28/2017 DX :CAD (coronary artery disease); COMMENT: 2016 Angioplasty Major depressive disorder, r ecurrent episode, moderate ([facility] V24, [facility] V28) 10/10/2018 DX:Major depressive disorder , recurrent episode, moderate ([facility]) Agoraphobia with panic disorder 10/10/2018 DX:Agoraphobia with [...] 10/01/2022 Medicare Annual Wellness Visit 08/20/2023 08/20/2022 COVID-19 Vaccine (11 - Moderna risk season) 2024 03/24/2024, 06/25/2023, 04/13/2022, Additional history exists Diabetes: Annual Urine Albumin-Creatinine Ratio (uACR) 06/16/2025 06/16/2024, 04/17/2022 Diabetes: Annual GFR (Glomerular Filtration Rate) 06/16/2025 06/16/2024, 01/10/2023, 01/10/2023, Additional history exists Hypertension/CHF/CAD Annual BMP Blood Test 06/16/2025 06/16/2024, 01/10/2023, 01/10/2023, Additional history exists Cholesterol Screening (Lipid Panel) 09/24/2028 09/25/2023 Colorectal Cancer Screening: Colonoscopy 09/09/2030 09/09/2020 DTaP,Tdap,and Td Vaccines (2 - Td or Tdap) 06/06/2031 06/06/2021 Hepatitis C Screening Completed 09/17/2018 RSV Immunization Adult Patients Completed 03/15/2023 Pneumococcal Vaccine: 50+ Years Completed 06/25/2023, 07/10/2022, 04/24/2019, Additional history exists Influenza Vaccine Completed 03/24/2024, [...] age to complete this topic Meningococcal B Vaccine Aged Out No l onger eligible based on patient's age to complete [...] specified diabetes mellitus with diabetic autonomic (poly)neuropathy ([facility]/HCC V24, CMS/[facility] V28) CULTURE URINE Routine 09/10/2024 12:00 AM EST Urinary tract infection, site not specified MG MAMMO DIGITAL SCREENING W HARSHA BILAT Routine 09/07/2024 10:29 AM EST Encounter for screening mammogram for malignant neoplasm of breast LIPID PANEL Routine 09/25/2023 ANNUAL BMP BLOOD TEST Routine 01/10/2023 HEMOGLOBIN A1C Routine 10/01/2022 URINE ALBUMIN CREATININE RATIO Routine 04/17/2022 COLONOSCOPY Routine 09/09/2020 HEPATITIS C SCREENING Routine 09/17/2018 from Last 3 Months or Most Recently Relevant to Health Maintenance Results * Gastrointestinal pathogens molecular study (09/15/2024 1:56 PM EST) Campylobacter Detection by PCR Not Detected Not Detected LAB MICROBIOLOGY METHOD 5 5:39 PM [facility] Plesiomonas shigelloides Detection by PCR Not Detected Not Detected LAB MICROBIOLOGY METHOD 5 5:39 PM [facility] Salmonella Detection by PCR Not Detected Not Detected LAB MICROBIOLOGY METHOD 5 5:39 PM EST [facility] Vibrio Detection by PCR Not Detected Not Detected LAB MICROBIOLOGY METHOD 5 5:39 PM EST [facility] Vibrio cholerae Detection by PCR Not Detected Not Detected LAB MICROBIOLOGY METHOD 5 5:39 PM EST [facility] Yersinia enterocolitica Detection by PCR Not Detected Not Detected LAB MICROBIOLOGY METHOD 5 5:39 PM [facility] Enteroaggregative E coli EAEC Detection by PCR Not Detected Not Detected LAB MICROBIOLOGY METHOD 5 5:39 PM [facility] Enteropathogenic E coli EPEC Detection Not Detected Not Detected LAB MICROBIOLOGY METHOD 5 5:39 PM [facility] Enterotoxigenic E coli ETEC LTST Detection Not Detected Not Detected LAB MICROBIOLOGY METHOD 5 5:39 PM [facility] Shiga-like toxin producing E coli STEC STX1 STX2 Det Not Detected Not Detected LAB MICROBIOLOGY METHOD 5 5:39 PM [facility] Shigella Enteroinvasive E coli EIEC Detection Not Detected Not Detected LAB MICROBIOLOGY METHOD 5 5:39 PM [facility] Cryptosporidium Detection by PCR Not Detected Not Detected LAB MICROBIOLOGY METHOD 5 5:39 PM [facility] Cyclospora cayetanensis Detection by PCR Not Detected Not Detected LAB MICROBIOLOGY METHOD 5 5:39 PM [facility] Entamoeba histolytica Detection by PCR Not Detected Not Detected LAB MICROBIOLOGY METHOD 5 5:39 PM [facility] Giardia lamblia Detection by PCR Not Detected Not Detected LAB MICROBIOLOGY METHOD 5 5:39 PM [facility] Adenovirus F 40 41 Detection by PCR Not Detected Not Detected LAB MICROBIOLOGY METHOD 5 5:39 PM [facility] Astrovirus Detection by PCR Not Detected Not Detected LAB MICROBIOLOGY METHOD 5 5:39 PM [facility] Norovirus GI GII Detection by PCR Not Detected Not Detected LAB MICROBIOLOGY METHOD 5 5:39 PM [facility] Sapovirus Detection by PCR Not Detected Not Detected LAB MICROBIOLOGY METHOD 5 5:39 PM [facility] Rotavirus A Detection by PCR Not Detected Not Detected LAB MICROBIOLOGY METHOD 5:39 PM EST [facility] Stool Rectum structure / Unknown Non-blood Collection / Unknown 09/15/2024 1:56 PM EST 09/15/2024 4:08 PM EST Narrative [facility] - 09/15/2024 5:39 PM [...] MICROBIOLOGY - GENERAL O RDERABLES Final Result [facility] [address] [place] [address], * (ABNORMAL) Culture urine (09/10/2024 12:00 AM EST) Culture, Urine >100,000 CFU/mL Klebsiella pneumoniae ssp pneumoniae(A) BRENT 09/12/2024 10:33 AM EST [facility] Comment: This is an edited [...] MICROBIOLOGY - GENERAL ORD ERABLES Final Result [facility] [address] [place] [address], * MG Mammo Digital Screening w Harsha [...] Signed Date: 09/07/2024 13:59 ET Workstation ID: [id number] Transcribed By: Self Edit Transcribed Date: 09/07/2024 [...] Signed Date: 09/07/2024 13:59 ET Workstation ID: [id number] Transcribed By: Self Edit Transcribed Date: 09/07/2024 13:41 ET Result [facility] Malgorzata Wilkerson MD IMG BI PROCEDURES Final Resu lt * Lipid panel (09/25/2023) Pathologist [facility] LDL/HDL Ratio 3 0 - 4 Triglycerides 82 0 - 150 mg/dL Cholesterol 149 0 - 200 mg/dL HDL 54 >=40 mg/dL LDL Cholesterol 79 0 - 100 mg/dL Blood Venous blood specimen / Unknown Result [facility] Historical Provider LAB BLOOD ORDERABLES Leona l Result * Annual BMP Blood Test (01/10/2023) Pathologist [facility] Annual BMP Blood Test Abstracted Result [facility] Historical Provider HEALTH MAINTENANCE Final Result * Hemoglobin A1c (10/01/2022) Pathologist [facility] Hemoglobin A1C 0.0 % Comment:No interpretation Blood Venous blood specimen / Unknown Result [facility] Provider LAB BLOOD ORDERABLES Leona l Result * Urine Albumin Creatinine Ratio (04/17/2022) [facility] Urine Albumin Creatinine Ratio Abstracted Historical Provider HEALTH MAINTENANCE Final Result * Colonoscopy (09/09/2020) [facility] Colonoscopy Abstracted, No interpretation Anatomical Region Laterality Modality Other Result [facility] Provider HEALTH MAINTENANCE Final Result * Hepatitis C Screening (09/17/2018) [facility] Hepatitis C Screening Abstracted Result [facility] Provider HEALTH MAINTENANCE Final Result from Last 3 Months or Most Recently Relevant to Health Maintenance Insurance MEDICARE [facility] Advance Directives Documents on File Type Date Recorded Patient Anaesthesiologist Expl anation Health Care Decision (hx) 08/14/2010 [...] DIRECTIVE Health Care Decision (hx) 08/14/2010 AD RIELY DIRECTIVE Health Care Decision (hx) 08/14/2010 AD RILEY DIRECTIVE Care Teams Certified Orthotist/Pedorthist Relationship Specialty Start Date End Date Alyce Pham PA PCP - General 08/09/22
--- OUTSIDE RECORDS SUMMARY | 2024-11-06 09:59 | XMS_ITS | Patient Health Record ---
[facility] Address [address] [facility] [place] [address] Care Team Providers Care Putty Remover Name Role Phone Ankit Alyce Primary Care Provider Unavailabl e Black, Arabella Unavailable [phone] Allergies Allergen (clinical drug ingredient) Drug/Non Drug [...] Problem Acquired hammer toe of right foot (4767293230984316 ) Other hammer toe(s) (acquired), right foot (M20.41) Active confirmed Problem Acquired hammer toe of left foot (6553613423230445 ) Other hammer toe(s) (acquired), left foot (M20.42) Active confirmed Problem Ulcer of toe (060265211) Non-pressure chronic ulcer of other part of right foot limited to breakdown of skin (L97.511) Active confirmed Problem Polyneuropathy due to type 2 diabetes mellitus (535721532) Type 2 diabetes mellitus with diabetic polyneuropathy (E11.42) Active confirmed Problem Localized, primary osteoarthritis of the ankle and/or foot (866905981) Arthritis of joint of lesser toe, left (M19.072) Active confirmed Problem Localized, primary osteoarthritis of the ankle and/or foot (729047019) Arthritis of joint of lesser toe, right (M19.071) Active confirmed Vital Signs Blood pressure diastolic 70 mm Hg 07/30/2024 Height 5ft6in in 07/30/2024 Blood pressure systolic 130 mm Hg 07/30/2024 Weight 260 lbs 07/30/2024 BMI 41.96 kg/m2 07/30/2024 Procedures Procedure Date Ordered Date Performed Result Body Sit e 71348-HMVP SKIN LESIONS, OVER 4 01/27/2024 N/A 51787-GISD NAIL(S) 01/27/2024 N/A 02574-GIEZ SKIN LESIONS, OVER 4 07/30/2024 N/A 35433-UKYL NAIL(S) 07/30/2024 N/A Encounters Encounter [facility] Date [facility] [address] 01/27/2024 Arabella Black Type 2 diabetes mellitus with diabetic polyneuropathy E11.42 and Edema, lower extremity R60.[address] [address] 07/30/2024 Arabella Black Type 2 diabetes mellitus with diabetic polyneuropathy E11.42 and Edema, lower extremity R60.[address] [address] 05/11/2024 Arabella Black Diabetic - NIDDM/Neuropathy 250.60 [...] 07/30/2024 Edema, lower extremity (ICD-10 - R60.0) 01/27/2024 Other Plan Of Treatment Pending Test Test Name Order Date 10350-Rbxtozmo Plate 09/22/2018 46145-Ncwqecuz Plate 03/28/2020 52495-RLY 06/27/2020 45277- Debride <25 sq cm 07/18/2020 43747-MOAR SKIN LESIONS, OVER 4 04/01/20 23 51589-NUVJ SKIN LESIONS, OVER 4 09/30/19 24 31943-NZVW SKIN LESIONS, OVER 4 01/27/20 24 43432-OZDB SKIN LESIONS, OVER 4 07/30/19 25 70965-LBIX SKIN LESIONS, 2 TO 4 06/23/20 18 67117-UPTM SKIN LESIONS, 2 TO 4 02/18/20 18 40350-CDBZ SKIN LESIONS, 2 TO 4 12/24/19 15 94874-YEGR SKIN LESIONS, 2 TO 4 10/02/19 23 08422-HREZ SKIN LESIONS, 2 TO 4 03/28/20 20 64472-ZQDN SKIN LESIONS, 2 TO 4 11/15/19 21 19514-HYNT SKIN LESIONS, 2 TO 4 09/21/19 38988-TQXI SKIN LESIONS, 2 TO 4 12/24/19 20 65237-QVXZ SKIN LESIONS, 2 TO 4 02/14/20 21 59678-NGGT SKIN LESIONS, 2 TO 4 09/19/19 22 87635-ZHRU SKIN LESIONS, 2 TO 4 03/26/20 22 25576-NWNJ SKIN LESIONS, 2 TO 4 12/23/19 19 60327-CBCT SKIN LESIONS, 2 TO 4 09/23/19 19 06593-YUIF SKIN LESIONS, 2 TO 4 04/13/20 19 44883-TXCO SKIN LESIONS, 2 TO 4 07/20/19 20 58601-HVCU SKIN LESIONS, 2 TO 4 10/16/19 15 74291-VQAF SKIN LESIONS, 2 TO 4 08/03/19 16 18858-CQEZ SKIN LESIONS, 2 TO 4 09/17/19 18 07673-NFMI SKIN LESION 07/28/2014 57135-VFXQ SKIN LESION 10/15/2014 82930-LRPR SKIN LESION 12/23/2014 64786-OXSS NAIL(S) 12/23/2014 00333-UISY NAIL(S) 02/17/2018 27435-FYUW NAIL(S) 06/23/2018 21963-NRHU NAIL(S) 07/30/2024 20098-QMDS NAIL(S) 10/01/2022 16243-DRKE NAIL(S) 04/01/2023 07851-LHIE NAIL(S) 01/27/2024 52318-HDLT NAIL(S) 09/30/2023 79846-KYIP NAIL(S) 10/15/2014 36905-BKNT NAIL(S) 09/16/2017 90462-PKTV NAIL(S) 08/03/2015 58915-DOQH NAIL(S) 07/20/2019 31376-ZIDB NAIL(S) 04/13/2019 38837-GYAN NAIL(S) 09/22/2018 78558-ISGF NAIL(S) 12/22/2018 49085-NYFM NAIL(S) 03/26/2022 47918-PBGJ NAIL(S) 09/18/2021 07723-MRWX NAIL(S) 02/13/2021 72299-ZEUN NAIL(S) 03/28/2020 63112-VAJC NAIL(S) 12/24/2019 74861-LCCU NAIL(S) 09/21/2019 71057-CIIX NAIL(S) 11/14/2020 Next Appt Details Provider Name:Arabella Charles , 02/04/2025 11:00:00 AM, [address] [facility], [place], [address], Insurance Providers Payer Name Payer Address Payer Phone Subscriber Number Group Number Insured Name Patient Relationship to Insured Coverage Start Date Coverage End Date Medicare National [employer] [address] [place] [address] [id number] Yessi Joya Self - patient is the insured for Life [address] [place] [id number] Yessi Joya Self - patient is the [...] in bladder 09/16/23 Hospitalization History Reason Date(Month/Year) [facility]; fall 09/2014
--- OUTSIDE RECORDS SUMMARY | 2024-11-06 09:59 | XMS_ITS ---
Author Organization [facility] Address [address] [facility] [place] [address] Care Team Providers Care Manufacturing Project Manager Name Role Phone Alyce Pham Primary Care Provider Unavailabl e Black, Arabella Unavailable [phone] Allergies Allergen (clinical drug ingredient) Drug/Non Drug [...] Ordered Date Performed Result Body Sit e 32424-JUMR SKIN LESIONS, OVER 4 01/27/2024 N/A 71131-QECG NAIL(S) 01/27/2024 N/A Encounters Encounter Location Date Provider Diagnosis [facility] [address] [address] 01/27/2024 Arabella Charles Type 2 diabetes mellitus [...] days Pending Test Test Name Order Date 29133-DUBX SKIN LESIONS, OVER 4 01/27/20 24 84020-FCAW NAIL(S) 01/27/2024 Next Appt Details Follow Up: prn, Reason: Provider Name:Arabella Charles , 02/04/2025 11:00:00 AM, [address] [place] [address], [phone], Procedure Notes * Category Sub-Category Detail Notes Keratoma Treatment Parring or Cutting o f Benign Hyperkeratotic Lesion(s) 46163 ( >4 Lesions) - The Benign hyperkeratotic [...] healthy nail plate or bed tissue 6-10 (78468) Progress Notes * Anabela JOYAOB:1950 ( 73 yo F)Acc No.[id number]:01/27/2024 Progress Note Patient:?Yessi Joya Provider:?Arabella Charles DPM :1950???Age:73 Y???Sex:Female D ate:01/27/2024 Address:[address] [place], [place] [id number] Pcp:Alyce Pham Subjective: * Chief Complaints: * [...] Procedures:?Keratoma Treatment:?Parring or Cutting of Benign Hyperkeratotic Lesion(s)?53347 ( >4 Lesions) - The Benign hyperkeratotic lesions, as described above were pared, and/or cut utilizing a sterile #15 blade, tissue nippers, and/or dremel.?Nail Reduction:?Nail Reduction?Trimming of non-dystrophic nails performed to reduce/remove overall nail length and girth, by manual and electrical means with use of a nail nipper and/or dremel, to more viable healthy nail plate or bed tissue 6-10 (82396).? * Procedure Codes:?63849 TRIM NAIL(S), Modifiers: XS 23998 TRIM SKIN LESIONS, OVER 4, Modifiers: XS [...] Charles DPM Date:?2023 Generated for Printi ng/Fatimbog/eTransmitting on:?11/06/2024 09:59 AM EDT History and Physical Notes * HPI (History [...]
--- OUTSIDE RECORDS SUMMARY | 2024-11-06 09:59 | XMS_ITS ---
Author Organization [facility] Address [address] [facility] [facility] [place] [place] [address] Care Team Providers Care Cider Press Operator Name Role Phone Alyce Pham Primary Care Provider Unavailabl e Black, Arabella Unavailable [phone] Allergies Allergen (clinical drug ingredient) Drug/Non Drug [...] Ordered Date Performed Result Body Sit e 48463-XKHR SKIN LESIONS, OVER 4 07/30/2024 N/A 00275-VAMD NAIL(S) 07/30/2024 N/A Encounters Encounter Location Date Provider Diagnosis [facility] [address] [address] 07/30/2024 Arabella Charles Type 2 diabetes mellitus with diabetic polyneuropathy E11.42 and Edema, lower extremity R60.0 Assessments Encounter Date Diagnosis (ICD Code) Assessment Notes Treatment Notes Treatment Clinical Notes Section Notes 07/30/2024 Type 2 diabetes mellitus with diabetic polyneuropathy (ICD-10 - E11.42) 07/30/2024 Edema, lower extremity (ICD-10 - R60.0) Plan Of Treatment Pending Test Test Name Order Date 44312-RNJH SKIN LESIONS, OVER 4 07/30/19 25 66163-WGLU NAIL(S) 07/30/2024 Next Appt Details Follow Up: prn, Reason: Provider Name:Arabella Charles , 02/04/2025 11:00:00 AM, [address] [place] [address], [phone], Procedure Notes * Category Sub-Category Detail Notes [...] instrumentation by the physician of record - 51684 Nail Reduction Nail Reduction (-19) Trimming o [...] healthy nail plate or bed tissue - 83468 Progress Notes * Anabela JOYAOB:1950 ( 74 yo F)Acc No.[id number]:07/30/2024 Progress Note Patient:?Mary JOYAne Provider:?Arabella Charles DPM :1950???Age:74 Y???Sex:Female D ate:07/30/2024 Address:[address] [place] [address] Pcp:Alyce Pham Subjective: * Chief Complaints: * [...] instrumentation by the physician of record - 11904.?Nail Reduction:?Nail Reduction?(-19) Trimming of all non-dystrophic nails [...] healthy nail plate or bed tissue - 85756.? * Procedure Codes:?51256 TRIM NAIL(S), Modifiers: XS 31926 TRIM SKIN LESIONS, OVER 4, Modifiers: XS [...] Charles DPM Date:?2024 Generated for Elijah thompson/Bassam/Fortino on:?11/06/2024 09:59 AM EDT History and Physical [...] TA, plantar Heel(s) B/L T1T9, Dorsal, Orthopedic FOOTWEAR EVALUATION: , good cond ition, exhibit proper fit and accommodation for pedal [...]
--- OUTSIDE RECORDS SUMMARY | 2024-11-06 09:59 | XMS_ITS | Clinical Summary ---
Author Organization [facility] Address [address] [place] [address] Care Team Providers Care Instrument Panel Assembler Name Role Phone Yudith Welch MD Primary Care Provider [phone] Allergies Active Allergy Reactions Criticality Noted Date [...] capsule,delayed release 0 Active vitamin D3 (CHOLECALCIFEROL) 38769 units CAPS capsule TK 1 C PO [...] age to complete this topic Care Teams Instrument Panel Assembler Relationship Specialty Start Date End Date Yudith Welch MD PCP - General Internal Medicine 05/12/21
--- OUTSIDE RECORDS SUMMARY | 2024-11-06 09:59 | XMS_ITS | Encounter Summary ---
Author Organization [facility] [place] [address] Care Team Providers Care Financial Sales Consultant Name Role Phone Alyce Pham Primary Care Provider [phone] Encounter Details Date Type Department Care Team (Late st Contact Info) Description 09/10/2024 Lab Requisition [facility] - Main Lab [address] [facility] [place] [address] Corrina Alvarez PA [address] [place], [place] [id number] Urinary tract infection, site not specified Social [...] ssp pneumoniae(A) BRENT 09/12/2024 10:33 AM EST [facility] Comment: This is an edited result. [...] - GENERAL ORD ERABLES Final Result [facility] [address] [place] [address], [place] [phone] documented in this encounter Visit Diagnoses Diagnosis Urinary tract infection, site not specified documented in this encounter Additional Health Concerns Infection Onset Date Last Indicated Resolved Time Gastrointestinal Rule-Out 09/15/2024 09/15/2024 5:39 PM EST documented as of this encounter Care Teams Financial Sales Consultant Relationship Specialty Start Date End Date Aylce Pham PA PCP - General 08/09/22 documented as of this encounter
--- OUTSIDE RECORDS SUMMARY | 2024-11-06 09:59 | XMS_ITS | Clinical Summary ---
Author Organization [facility] Address [address] [place] [address] Care Team Providers Care Conservation Enforcement Officer Name Role Phone Alyce Pham Primary Care Provider [phone] Allergies Active Allergy Reactions Criticality Noted Date [...] Overview (04/19/2021): Diabetes Mellitus Abnormal PFTs Cough Encounters Date Type Department Care Team Description 09/21/2024 Refill [facility] [address] [place] [address] Service Car Driver: Edil Jackson, DO Moderate persistent asthma without complication from Last 3 Months Immunizations Immunization Administration Dates Next Due Covid-19 [...] Health Maintenance Due Date Last Done Comments Nu 1950 Colonoscopy 1950 Hepatitis C Screening 1950 Sigmoidoscopy 1950 Medicare AWV 1951 Ophthalmology Exam 1959 Urine Microalbumin 1959 Osteoporosis Screening 1999 Zoster Vaccines (1 of 2) 1999 Colon Cancer Screening 09/15/2014 FOBT / Fit Test 09/15/2014 09/15/2013, 09/02/2012 DTaP,Tdap,and Td Vaccines (1 - Tdap) 06/07/2021 06/06/2021 COVID-19 Vaccine (10 - 2023- season) 2024 06/25/2023, 04/13/2022, 10/22/2021, Additional history exists Hemoglobin A1C 07/07/2024 01/06/2024, 10/01/2022 Alcohol/Substance Use Screening 07/15/2024 Depression Screening and Follow-Up 07/15/2024 Health Care Proxy Review 07/15/2024 Social Drivers of Health Annual Screening 07/15/2024 Basic Metabolic Panel 01/05/2025 01/06/2024 , 01/10/2023, 12/29/2022, Additional history exists Influenza Vaccine (Season Ended) 2025 03/15/2023, 04/24/2022, 04/13/2022, Additional history exists RSV Vaccine (60+ years old and patients) Completed 03/15/2023 Pneumococcal Vaccine: 50+ Years Completed 06/25/2023, 07/10/2022, 04/24/2019, Additional history exists Hepatitis B Vaccines Aged Out No long er eligible based on patient's age to complete this topic Procedures * Due to [place] [employer] law, this organization might not be sharing negative HIV tests. Procedure Name Priority Date/Time Associated Diagnosis Comments COMPREHENSIVE METABOLIC PANEL Routine 01/10/2023 1:53 PM EDT Elevated erythrocyte sedimentation rate from Last 3 Months or Most Recently Relevant to Health Maintenance Results * Due to [place] [employer] law, this organization might not be sharing negative HIV tests. * (ABNORMAL) Comprehensive Metabolic Panel (01/10/2023 1:53 PM EDT) NA 141 136 - 145 mmol/L 01/10/2023 3:02 PM EDT [facility] K 4.0 3.5 - 5.3 mmol/L 01/10/2023 3:02 PM EDT [facility] Cl 110(H) 98 - 107 mmol/L 01/10/2023 3:02 PM EDT [facility] CO2 27 22 - 30 mmol/L 01/10/2023 3:02 PM EDT [facility] Anion Gap 4(L) 5 - 15 01/10/2023 3:02 PM EDT [facility] Glucose 126(H) 70 - 99 mg/dL 01/10/2023 3:02 PM EDT [facility] Creatinine 0.97 0.60 - 1.30 mg/dL 01/10/2023 3:02 PM EDT [facility] Calcium 8.9 8.5 - 10.1 mg/dL 01/10/2023 3:02 PM EDT [facility] Total Protein 7.6 6.4 - 8.2 g/dL 01/10/2023 3:02 PM EDT [facility] Albumin 3.6 3.4 - 5.0 g/dL 01/10/2023 3:02 PM EDT [facility] Bilirubin, Total 0.3 0.3 - 1.2 mg/dL 01/10/2023 3:02 PM EDT [facility] Alkaline Phosphatase 84 50 - 136 U/L 01/10/2023 3:02 PM EDT [facility] AST 14(L) 15 - 37 U/L 01/10/2023 3:02 PM EDT [facility] ALT 23 12 - 78 U/L 01/10/2023 3:02 PM EDT [facility] BUN 12 7 - 18 mg/dL 01/10/2023 3:02 PM EDT [facility] eGFR 62 >=60 mL/min/1 .73m2 01/10/2023 3:02 PM EDT [facility] Comment:The estimated glomer ular filtration rate [...] Aaron MD LAB BLOOD ORDERABLES Final Result [facility] [address] [place] [address], from Last 3 Months or Most Recently [...] Stephon Joya Health Care Agent Care Teams Conservation Enforcement Officer Relationship Specialty Start Date End Date Alyce Pham [address] [place] [id number] PCP - General 02/15/21
--- OUTSIDE RECORDS SUMMARY | 2024-11-06 09:59 | XMS_ITS ---
Author Name [facility] Organization Unknown Encounters Encounter Type Encounter Reason Primary Diagnosis Location Date Ambulatory [facility] 03/19/2023 Ambulatory [facility] Care Team Organization Name Specialty Phone Email Start Date End Da te [facility] Fatmata Gomez [facility] 03/02/2024
--- OUTSIDE RECORDS SUMMARY | 2024-11-06 09:59 | XMS_ITS | Data Portability ---
Author Organization [place] - [facility],, MALGORZATA WILKERSON MD Address [address] [address] Care Team Providers Care Certified Paralegal Name Role Phone ANTONI ANDREW Primary Care Provider [phone] Assessment No assessment recorded. Plan of Treatment Reminders Order Date Submit Date Provider Last Modified By Organization Details Last Modified Time Details Appointments None recorded. Lab cytology report, thin prep, smear or scraping, cervical or vaginal 2023 024 PASCALE [facility] (Centralized Electronic Ordering - All Locations), Patient Can Go To The Location Of Their Choice, [id number] 4 12:16:28 pap test, thinprep, cervical 2021 022 [email or web address] [facility] (Centralized Electronic Ordering - All Locations), Patient Can Go To The Location Of Their Choice, [address] 2 07:33:41 urinalysi s, dipstick, auto 2019 020 [place] In-Office Order, Internal Use Only DO Not Attach Compendium DO Not Attach Compendium, Do Not Delete/merge, [id number] 0 14:25:11 culture, urine 2019 020 [facility], [address] [place], [address], 0 08:30:15 pap test, thinprep, cervical 2019 020 [facility], Cytopathology Service, [address] [place], [address], 0 07:35:03 Referral None recorded. Procedures None recorded. Surgeries None recorded. Imaging MAMMO, screening , digital, bilateral - Breast Aspiratio n and/or Biopsy if needed 2023 024 [facility], [address], [place], [address], 5 14:15:54 [facility]23 [facility] [address], [place], [address], 4 10:53:46 MAMMO, screening , digital, bilateral 2021 022 [facility] (Mammography), [address], [place], [address], 4 07:14:02 bone density 2021 022 [facility], [address], [place], [address], 4 07:35:21 MAMMO, screening , digital, bilateral 2019 020 [facility] Radiology, [address], [address], [place], [address], 1 11:51:11 bone density 2019 020 [facility], [address] [facility], [address], [place], [address], 2 07:28:43 Medication Orders nystatin 100,000 unit/gram topical powder 2023 024 [facility]/Pharmacy #[id number], [address] [place], [address], 4 09:47:31 triamcino lone acetonide 0.1 % topical ointment 2023 024 [facility]Pharmacy #[id number], [address] [place], [address], 4 09:44:01 triamcino lone acetonide 0.1 % topical ointment 2023 024 P[place], [address] [place] [address], [address], 4 10:35:23 estradiol 0.01% (0.1 mg/gram) vaginal cream 2023 024 smacmillan 1 [facility], [address] [place] [address], [address], 4 11:55:44 triamcino lone acetonide 0.1 % topical ointment 2021 022 GAINES [id number], [address] [facility] [place], [id number], 2 11:31:00 fluconazo le 200 mg tablet 2021 022 [facility], [address] [place] [address], [address], 4 09:23:46 Estring 2 mg (7.5 mcg/24 hour) vaginal ring 2021 022 [facility], [address] [place] [address], [address], 4 10:24:53 Patient TargetsNo targets recorded. Patient Instructions Encounter Date Encounter Id Patient Instructions Last Modified By Organization Details Last Modified Time 04/15/2020 [id number] urinary tract infection in women information Not [...] questions answered. Not available 04/15/2020 14:21:53 09/05/2021 [id number] vaginal yeast infection: care instructions Not available 09/05/2021 10:31:18 type 2 diabetes: care instructions Not available 09/05/2021 12:03:37 This visit is a phone telehealth visit. The patient consented to the visit by phone. The patient was at home at the time of the call and the provider and patient were the only people on the line. I was at [address] [place] [address], [address], [place], at the time of the call. 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 It has worked well but the dermatology department was let go by [place] and she has no access to a pumping station engineer right now, and she is out of [...] them. She has a past history of [place], however the estradiol levels in serum are [...] minutes olivia Not available 09/05/2021 12:04:47 06/13/2022 [id number] type 2 diabetes: care instructions Not available [...] breast. [email or web address] Not available 06/13/2022 11:31:09 09/17/2023 [id number] This visit is a phone telehealth visit. The patient consented to the visit by phone. The patient was at home at the time of the call and the provider and patient were the only people on the line. I was at [address] [facility], [address], [place], [place], at the time of the call. [...] 14 minutes Not available 09/17/2023 12:01:48 06/22/2024 [id number] atrophic vaginit is: care instructions Not available [...] nystop powder nad advised to see her pumping station engineer if it does not improve. She appears [...] r [facility] [address] [place] [address] Medic al Dire trice davidson MD NURSE D/O @1015 [facility] E: URINE ,ADAM N CATCH ; Not Available [facility] [address] [place] [address], [address], 04/02/2020 09:51:35 03/31/20 20 04/02/2020 cultu re, urine urine culture [facility] her[facility], a [facility] [address] [place] [address] Medic al Dire trice davidson MD NURSE D/O @1015 COLLE CTION TIME: 2019 10:00 :00 AM -04:0 0 URINE CULTU RE ENTER OBACT ER AEROG DANIELLE ( ENTAE R ) F URINE CULTU RE COLON Y COUNT F URINE CULTU RE >100, 000 F Not Available [facility] [address] [place] [address], [address], 04/02/2020 09:51:35 03/31/20 20 03/31/2020 antib iotic sensi tivit y, isola te comments PAREN T ORGAN ISM: ENTER OBACT ER AEROG DANIELLE ( ENTAE R ) [facility], a [facility] [address] [place] [address] Medic al Dire trice davidson MD [facility] E: URINE ,ADAM N CATCH ; Not Available [facility] [address] [place] [address], [address], 04/02/2020 09:51:41 03/31/20 20 04/02/2020 antib iotic sensi tivit y, isola te gram negative susceptibili ty [facility], a [facility] [address] [place] [address] Medic al Dire trice davidson MD COLLE [...] S F Not Available [facility] [address] [facility], [place], [address], 04/02/2020 09:51:41 03/31/2003/31/2020 urina lysis , dipst ick, auto glucose negati ve Not Available In-Office Order Internal Use Only DO Not Attach Compendium DO Not Attach Compendium, Do Not Delete/merge, [id number] 03/31/2020 09:49:47 03/31/20 20 03/31/2020 urina lysis , dipst ick, auto MEENAKSHI negati ve Not Available In-Office Order Internal Use Only DO Not Attach Compendium DO Not Attach Compendium, Do Not Delete/merge, [id number] 03/31/2020 09:49:47 03/31/2003/31/2020 urina lysis , dipst ick, auto ket negati ve Not Available In-Office Order Internal Use Only DO Not Attach Compendium DO Not Attach Compendium, Do Not Delete/merge, [id number] 03/31/2020 09:49:47 03/31/20 20 03/31/2020 urina lysis , dipst ick, auto SG 1.030 Not Available In-Office Order Internal Use Only DO Not Attach Compendium DO Not Attach Compendium, Do Not Delete/merge, [id number] 03/31/2020 09:49:47 03/31/2003/31/2020 urina lysis , dipst [...] Labor atori es, a membe r of [facility] Of [facility] [address] [facility] [place] [address] Medic al Dire trice davidson MD [facility] E: URINE ,ADAM N CATCH ; Not Available [facility] [address] [facility], [place], [address], 04/16/2020 08:30:15 04/15/20 20 04/16/2020 cultu re, urine urine culture [facility], a membe r of [facility] Of [facility] nd [address] [facility] [place] [address] Medic al Direc MD CHEYENNE Nichols CTION TIME: 2019 11:00 :00 AM -04:0 0 URINE CULTU RE 10,00 0 - 49,00 0 CFU/m L F URINE CULTU RE TIAGO L SKIN/ UROGE NITAL ZEINAB PRESE NT. F Not Available [facility] [address] [place], [address], 04/16/2020 08:30:15 04/15/2004/15/2020 pap test, thinp rep, cervi love [id number] ThinP rep Pap, Image d: NEGAT JIM [...] . LPS NEG [Z12. 4] Not Available [facility], Cytopathology Service [address] [place], [address], 04/19/2020 12:41:05 04/15/2004/15/2020 urina lysis , dipst ick, auto glucose negati ve Not Available In-Office Order Internal Use Only DO Not Attach Compendium DO Not Attach Compendium, Do Not Delete/merge, [id number] 04/15/2020 11:00:55 04/15/2004/15/2020 urina lysis , dipst ick, auto MEENAKSHI small Not Available In-Office Order Internal Use Only DO Not Attach Compendium DO Not Attach Compendium, Do Not Delete/merge, [id number] 04/15/2020 11:00:55 04/15/2004/15/2020 urina lysis , dipst [...] Not Delete/merge, 04/15/2020 11:00:55 06/13/20 22 06/13/2022 [facility] CYTOL OGY results Live nt Name: YESSI ARAMBULA nt : 1949 (Age: 72) Lab Acces eligio #: [id number] Colle ction Date: 06/13 Acces eligio Date: 2021 Sign Out Date: 2021 Tissu e Sourc e: 1: THINP REP DRYWALL MECHANIC PAP TEST, VAGIN AL: Final Diagn osis: [...] forbes or keiko gaming Perfo rmed at [facility] ate Refer ence Labor atory depar tment of Cytol ogy, [address] [place] Clini love Histo ry (othe r): Z12.4 , LPS 04/15 negat jim, routpiotr jacobs scree n, low risk, cervi love, every 2 years Phone #: [phone], On-Ca ll Patho logis t: [id number] Not Available [facility] (Centralized Electronic Ordering - All Locations) Patient Can Go To The Location Of Their Choice, [id number] 06/18/2022 14:46:07 06/22/2006/27/2024 IGP, RFX APTIM A HPV ASCU diagnosis: Commen t NEGAT JIM FOR INTRA EPITH ELIAL LESIO N OR MALIG KATI . Not Available [facility] ([facility]) [address] [facility], [place], [address], 06/27/2024 12:16:27 06/22/20 24 06/27/2024 IGP, RFX APTIM A HPV ASCU specimen adequacy: Commen t Satis facto ry for evalu ation . No endoc ervic al compo nent is ident ified . Not Available [facility] ([facility]) [address] [facility], [place], [address], 06/27/2024 12:16:27 06/22/20 24 06/27/2024 IGP, RFX APTIM A HPV ASCU clinician provided ICD10: Ashley larsen Z12.4 Not Available [facility] ([facility]) [address] [facility], [place], [address], 06/27/2024 12:16:27 06/22/20 24 06/27/2024 IGP, RFX APTIM A HPV ASCU performed by: Ashley enrique, Kristal larsen (ASCP ) Not Available [facility] ([facility]) [address] [facility], [place], [address], 06/27/2024 12:16:27 06/22/20 24 06/27/2024 IGP, RFX APTIM A HPV ASCU . . Not Available [facility] ([facility]) [address] [facility], [place], [address], 06/27/2024 12:16:27 06/22/20 24 06/27/2024 IGP, RFX [...] ts do occur . Not Available [facility] ([facility]) [address] [facility], [place], [address], 06/27/2024 12:16:27 06/22/20 24 06/27/2024 IGP, RFX APTIM A HPV ASCU test methodology: Commen t This liqui d based ThinP rep(R ) pap test was aki cardenas with the use of an image guide ilene lieberman Not Available [facility] ([facility]) [address] [facility], [place], [address], 06/27/2024 12:16:27 06/22/20 24 06/27/2024 IGP, RFX APTIM A HPV ASCU . Commen t The HPV DNA refle x crite brianna were not met with this speci men resul t there fore, no HPV testi ng was perfo rmed. Not Available [facility] ([facility]) [address] [facility], [place], [address], 06/27/2024 12:16:27 08/23/19 21 08/23/2020 MAMMO , scree dalia, digit al, bilat eral No observ ation record ed. [address] Diagnosit Imaging Dept [address] [place], [address], 08/23/2020 12:05:17 09/04/19 24 09/04/2023 MAMMO , scree dalia, digit al, bilat eral No observ ation record ed. [address] Diagnosit Imaging Dept [address] [place], [address], 09/05/2023 08:16:44 09/07/19 25 09/07/2024 MAMMO , scree dalia, digit al, bilat eral No observ ation record ed. [address] Department [address] [place], [address], 09/07/2024 14:35:46 Result Notes None recorded. Problems Name Problem SNOMED Code Status Onset Date Resolution Date Notes Provider Name and Address Organization Details Recorded Time Dysuria 35720344 Active Malgorzata Wilkerson MD [address] [place] [address], [address], [place], [address], [place] - [facility], 6 11:10:51 Type 2 diabetes mellitus without complicati on 881513263 Active Malgorzata Wilkerson MD [address], [place], [address], [place] - [facility], 6 11:10:51 Candidal vulvovagin itis 71939681 Active Malgorzata Wilkerson MD [address], [place], [address], [place] - [facility], 6 11:32:46 Obesity 270116783 Active Malgorzata Wilkerson MD [address], [place], [address], [place] - [facility], 6 11:10:51 Female stress incontinen ce 04681412 Active Malgorzata Wilkerson MD [address], [place], [address], [place] - [facility], 6 11:10:51 Acute lower urinary tract infection 220613021 Active Malgorzata Wilkerson MD [address], [place], 5, [place] - [facility], 6 11:10:51 Benign essential hypertensi on 2956680 Active Malgorzata Wilkerson MD [address], [place], [address], [place] - [facility], 6 11:10:51 Silent myocardial infarction 398754453 Active stress test 06/2015, angioplast y 07/2015. Malgorzata Wilkerson MD [address], [place], [address], [place] - [facility], 6 11:10:51 Atrophic vulvovagin itis 55646528 Active Malgorzata Wilkerson MD [address], [place], [address], [place] - [facility], 6 11:32:46 Complex cyst of uterine adnexa 647159337 Active 2016 right side She had a laparoscop y by a surgeon in [place] in 04/2017. His operative note reads: The pelvis was free of pathology. MD Fanta Cummings,[address], [place], [address], [place] - [facility], 8 09:46:16 Hydrosalpi nx 95899664 Active 2018 MD Fanta Cummings,[address], [place], [address], [place] - [facility], 9 11:21:41 Diverticul osis of colon 373588142 Active 2018 Malgorzata Wilkerson MD [address], [place], [address], [place] - [facility], 9 11:21:55 Pain in pelvis 55134324 Active 2018 Malgorzata Wilkerson MD [address], [place], [address], [place] - [facility], 9 11:22:06 Neoplasm of skin 891643852 Active 11/2018: On exam she has a [...] MD Fanta Cummings,[address], [place], [address], [place] - [facility], 9 09:57:36 Menopausal syndrome 227622563 Active MD Fanta Cummings,[address], [place], [address], [place] - [facility], 6 11:10:51 Problem Notes None recorded. Procedures Surgical History Date Name Laterality Status Provider Name and Address Organization Details Recorded Time 09/04/19 24 Most Recent Mammogram completed Lina Mota [place] - [facility], 09/17/2023 10:29:40 07/24/19 19 Unlisted procedure shoulder completed Lina Mecsalimawor [place] - [facility], 11/21/2018 09:23:21 05/06/20 17 Laparoscopy completed Charo Sykes [place] - [facility], 05/28/2017 13:07:38 01/09/20 16 Other completed Lina Meczywor [place] - [facility], 02/15/2016 08:13:26 10/10/19 14 Most Recent Bone Density completed Charo Sykes [place] - [facility], 03/20/2016 13:44:35 07/15/19 14 Other completed Lina Meczywor [place] - [facility], 11/22/2014 10:38:40 07/15/19 14 Other completed Lina Meczywor [place] - [facility], 11/22/2014 10:38:40 07/15/19 11 Thyroid Surgery completed Malgorzata Wilkerson MD [email or web address], [place], [address], [place] - [facility], 08/01/2012 11:02:31 07/15/19 07 Other completed Lina Mecsarahor [place] - [facility], 08/01/2012 10:45:35 07/15/19 05 Cholecystectomy completed Lina Meczidaliawor [place] - [facility], 08/01/2012 10:45:35 07/15/19 03 Other completed Lina Funmilayoor [place] - [facility], 08/01/2012 10:45:35 07/15/18 96 Hysterectomy completed Malgorzata Wilkerson MD [email or web address], [place], [address], [place] - [facility], 03/21/2017 14:29:46 01/01/19 82 Other completed Malgorzata Wilkerson MD [address] [facility],[address], [facility], [address], [place] Price in [facility], 08/01/2012 11:00:31 07/15/18 70 Appendectomy completed Lina Price in [facility], 08/01/2012 10:45:35 Imaging Results Imaging Date Name Status LastModified by Organiz ation Details LastModified Time 08/23/2020 MAMMO, screening, digital, bilateral completed [address] Diagnosit Imaging Dept [address] [place] [address], [address], 08/23/2020 12:05:17 09/04/2023 MAMMO, screening, digital, bilateral completed [address] Diagnosit Imaging Dept [address] [place] [address], [address], 09/05/2023 08:16:44 09/07/2024 MAMMO, screening, digital, bilateral completed [address] Department [address] [place] [address], [address], 09/07/2024 14:35:46 Procedure Notes None recorded. Medical Equipment None Reported. Allergies Allergen ID Allergen Name Allergen Category Reaction Reaction Severity Criticality Documentation Date Start Date Code Code System Note Provider Name and Address Organization Details Recorded Time 87249 Seroquel medicatio n other Not available Not available 09/15/2013 63353 RxNorm make her ...ou t of it... . SULAIMAN Butcher in [facility], 4 10:51:58 6224 Product containin g penicilli n (product) medicatio n rash Not available Not available 08/01/2012 14652 8001 SNOMED [place]UL[place]AN Butcher in [facility], 3 10:45:36 Medications Name Sig Start [...] Cholestyram ine Light 4 gram powder for suspension in a packet 05/28 completed Not Available [...] Not Available Not Available Not Available vitamin Y90-tsdlk acid and b1 07/04 completed Not Available [...] Not Available Not Available Comfort EZ Pen Queen 32 gauge x 5/32 USE DIRECTED DAILY [...] Updated DateTime 0 168.91 cm 46.1 kg/m2 572938. 51 g 89 /min 97 [degF] 139 mm[Hg] 69 mm[Hg] Lina Price in [facility], 0 11:00:14 Date Recorded Body height Body mass index (BMI) Body weight Body temperature Heart rate Systolic blood pressure Diastolic blood pressure Provider Name and Address Organization Details Last Updated DateTime 2 167.64 cm 42.8 kg/m2 038292. 7 g 97.4 [degF] 101 /min 139 mm[Hg] 60 mm[Hg] Lina Price in [facility], 2 10:04:46 Date Recorded Body weight Body mass index (BMI) Body height Body temperature Heart rate Systolic blood pressure Diastolic blood pressure Provider Name and Address Organization Details Last Updated DateTime 4 707336. 42 g 41.8 kg/m2 167.64 cm 97.2 [degF] 73 /min 138 mm[Hg] 76 mm[Hg] Lina Price in [facility], 4 09:21:14 Social History Question Answer Notes LastModified by Organizat ion Details LastModified Time Tobacco Smoking Status Never Smoker Not Available [facility] 05/17/2020 03:19:42 What Is Your Level Of Alcohol Consumption? None [id number] Information not available 05/17/2020 What Is Your Level Of Caffeine Consumption? Moderate [id number] Information not available 05/17/2020 In The 14 [...] Type Of Diet Are You Following? REGULAR [id number] Information not available 05/17/2020 Which Illicit Or Recreational Drugs Have You Used? No [id number] Information not available 05/17/2020 Do You Reside In Or Have You Traveled To An Area Where Ebola Virus Transmission Is Active? No [id number] Information not available 05/17/2020 Do You Or Have You Ever Used E-cigarettes Or Vape? Never Used Electronic Cigarettes [id number] Information not available 05/17/2020 Education 2 Year College Informatio n not available 08/01/2012 What Is The Highest Grade Or Level Of School You Have Completed Or The Highest Degree You Have Received? [id number] Information not available 09/05/2021 What Is Your Occupation? Retired [id number] Information not available 05/17/2020 How Many Days [...] available 06/13/2022 Are You Sexually Active? No [id number] Information not available 05/17/2020 Do You Or Have You Ever Used Smokeless Tobacco? Never Used Smokeless Tobacco [id number] Information not available 05/17/2020 How Much Tobacco Do You Smoke? No [id number] Information not available 05/17/2020 General Stress Level High Information not available 09/15/2013 Do You Feel Stressed (tense, Restless, Nervous, Or Anxious, Or Unable To Sleep At Night)? [id number] Information not available 06/13/2022 Do You Use [...] Time What is your exercise level? Occasional [id number] Information not available 05/17/2020 Mental Status None [...] for MyRisk panel N Autoimmune Condition N Kidney or Bladder Problems Y Thyroid Problems Y Depression N Lung Disease Y GI Problems Y Defects or Inherited Disease N Anemia Y [...] Lina Meczywor oneyda [place] - [facility], 05/15/2016 14:00:19 Influenza, split virus, quadrivalent, preservative 7 completed Lina Meczywor null [place] - [facility], 04/24/2017 08:03:48 influenza, unspecified formulation 8 completed Charo call [place] - [facility], 05/26/2018 13:01:46 Pneumococcal conjugate PCV 13 8 completed Lina Saldivarzywor oneyda [place] - [facility], 09/17/2023 10:21:57 Influenza, adjuvanted, quadrivalent, PF 2 completed Lina Meczywor null [place] - [facility], 09/17/2023 10:21:57 Influenza, adjuvanted, quadrivalent, PF 1 completed Lina Meczywor null [place] - [facility], 09/17/2023 10:21:57 COVID-19, mRNA, LNP-S, PF, 100 mcg/0.5mL dose or 50 mcg/0.25mL dose 1 completed Lina Meczywor null [place] - [facility], 09/17/2023 10:21:57 COVID-19, mRNA, LNP-S, PF, [...] Lina Meczywor null, [place] - [facility], 06/22/2024 09:20:59 COVID-19, mRNA, LNP-S, PF, 100 mcg/0.5mL dose or 50 mcg/0.25mL dose 1 completed Lina Meczywor null, [place] - [facility], 06/22/2024 09:20:59 COVID-19, mRNA, LNP-S, PF, 100 mcg/0.5mL dose or 50 mcg/0.25mL dose 1 completed Lina Meczywor null, [place] - [facility], 06/22/2024 09:20:59 Pneumococcal conjugate PCV20, polysaccharide [id number] conjugate, adjuvant, PF 3 completed Lina Meczywor null, [place] - [facility], 06/22/2024 09:20:59 Pneumococcal conjugate PCV20, polysaccharide [id number] conjugate, adjuvant, PF 2 completed Lina Meczywor null, [place] - [facility], 06/22/2024 09:20:59 RSV, recombinant, protein subunit RSVpreF, adjuvant reconstituted, 0.5 mL, PF 3 completed Lina Meczywor null, [place] - [facility], 06/22/2024 09:20:59 COVID-19, mRNA, LNP-S, PF, 50 mcg/0.5 mL 3 completed Lina Meczywor null, [place] - [facility], 06/22/2024 09:20:59 Past Encounters Encounter ID Performer Location Encounter Start Date Encounter Closed Date Diagnosis/Indication Diagnosis SNOMED-CT Code Diagnosis ICD10 Code Diagnosis Note [id number] MD MALGORZATA Cummings MD [address] [place] [id number] 08/01/2012 10:15:46 08/04/2012 08:23:04 [id number] Lina WILKERSON MD [address] [place] [id number] 09/02/2012 07:46:58 09/02/2012 16:10:06 [id number] Lina WILKERSON MD [address] [place], [place] [address] [id number] 03/31/2013 13:38:31 03/31/2013 15:42:54 [id number] Lina WILKERSON MD [address] [place], [place] [address] [id number] 5 04/20/2013 13:04:31 04/20/2013 16:32:43 [id number] Lina WILKERSON MD [address] [place], [place] [address] [id number] 5 09/15/2013 10:24:59 09/15/2013 16:13:58 Specialized medical examination [id number] Screening for malignant neoplasm of rectum 960026755 Screening mammography 99018010 Menopausal syndrome 973178033 Acute lowe r urinary tract infection 059369075 Atrophic vulvovaginitis 86879880 [id number] MALGORZATA WILKERSON MD [address] [place] [address],[place] [id number] 5 11/22/2014 10:23:00 11/22/2014 11:06:28 Dysuria [id number] MD MALGORZATA Cummings MD [address] [place] [address],[place] [address] 05/10/2015 10:17:59 05/10/2015 13:06:55 Candidal vulvovaginitis 37091232 B37.3 [id number] MD MALGORZATA Cummings MD [address] [place] [address],[place] [id number] 5 11/03/2015 10:41:30 11/03/2015 12:12:49 Screening for malignant neoplasm of rectum 932805560 Z12.12 Screening for malignant neoplasm of cervix 859530515 Z12.4 Atrophic vulvovaginitis 74024846 N95.2 Candidal vulvovaginitis 65352210 B37.3 [id number] MD MALGORZATA Cummings MD [address] [place] [address], [place] [address] 02/15/2016 07:54:54 02/15/2016 10:48:29 Dysuria 78443334 R30.0 Candidal vulvovaginitis 76502126 B37.3 [id number] MD MALGORZATA Cummings MD [address] [place] [address],[facility] [place] [address] 03/20/2016 13:42:34 03/20/2016 15:08:31 Dysuria 12418729 R30.0 Pain in pelvis 73149599 R10.2 Screening mammography 24 661698 Z12.31 [id number] MD MALGORZATA Cummings MD [address] [place] [address],[facility] [place] [address] 05/15/2016 13:43:03 05/15/2016 14:48:17 Candidal vulvovaginitis 46362680 B37.3 Superficia l folliculitis 359899029 L73.9 Type 2 amy betes mellitus without complication 516270316 E11.[address] Female [address] ess incontinence 41920290 N39.3 [id number] MD MALGORZATA Cummings MD [address] [place] [address],[facility] [place] [address] 10/02/2016 09:35:29 10/02/2016 12:53:45 Candidal vulvovaginitis 39334192 B37.3 Vulvitis 33157407 N76.2 Dysuria 46211656 R30.0 Cares for self 923317223 Z76.89 [id number] MD MALGORZATA Cummings MD [address] [place] [address],[facility] [place] [place] [address] 12/07/2016 09:10:47 12/07/2016 13:08:53 Candidal vulvovaginitis 92991760 B37.3 [id number] MD MALGORZATA Cummings MD [address] [place] [address],[facility] [place] [place] [address] 5 12/20/2016 14:39:28 12/21/2016 10:11:22 Cyst of ovary 28289972 N83.01 Type 2 amy betes mellitus without complication 599036864 E11.9 [id number] MD MALGORZATA Cummings MD [address] [place] [address],[place] [id number] 5 03/21/2017 09:59:52 03/21/2017 14:41:01 Complex cyst of uterine adnexa 571706677 N85.8 [id number] MD MALGORZATA Cummings MD [address] [place] [address],[place] [id number] 5 04/24/2017 07:58:24 04/24/2017 11:29:00 Candidal vulvovaginitis 11086712 B37.3 Lichen scl erosus et atrophicus 56397586 L90.0 [id number] MD MALGORZATA Cummings MD [address] [place] [address], [place] [id number] 5 05/28/2017 10:11:50 05/28/2017 13:12:39 Dysuria 18749916 R30.0 Abdominal pain 32361502 R10.31 Right lowe r quadrant pain 768745010 R10.31 [id number] MD MALGORZATA Cummings MD [address] [place] [address],[place] [id number] 5 09/13/2017 10:44:59 09/13/2017 16:01:10 Dysuria 10909515 R30.0 Candidal vulvovaginitis 76526514 B37.3 Atrophic vulvovaginitis 29789583 N95.2 Screening mammography 24 394870 Z12.31 [id number] MD MALGORZATA Cummings MD [address] [place] [address],[place] [id number] 5 10/15/2017 09:01:36 10/15/2017 13:09:18 Candidal vulvovaginitis 99589656 B37.3 Type 2 amy betes mellitus without complication 322410365 E11.[address] of uterine adnexa 142117673 N85.8 [id number] MD MALGORZATA Cummings MD [address] [place] [address],[place] [id number] 5 11/21/2017 13:10:20 11/21/2017 15:51:25 Atrophic vulvovaginitis 86358819 N95.2 Screening for malignant neoplasm of cervix 565205911 Z12.4 Screening mammography 24 292953 Z12.31 Dysuria 37485631 R30.0 Candidal vulvovaginitis 84594205 B37.3 [id number] MD MALGORZATA Cummings MD [address] [place] [address],[address] [place] [address] 05/26/2018 12:53:21 05/26/2018 13:42:49 Candidal vulvovaginitis 65154711 B37.3 [id number] MD MALGORZATA Cummings MD [address] [place] [address], [place] [address] 06/19/2018 10:38:10 06/19/2018 14:45:45 Pain in pelvis 57622024 R10.[address] of uterine adnexa 548968891 N85.8 Female str ess incontinence 94072191 N39.3 [id number] MD MALGORZATA Cummings MD [address] [place] [address],[address] [place] [address] 07/04/2018 14:39:45 07/04/2018 15:27:56 Pelvic mass 35496561 R19.00 [id number] MD MALGORZATA Cummings MD [address] [place] [address], [place] [address] 5 07/23/2018 08:52:55 07/23/2018 11:46:45 Hydrosalpinx 45674163 N70.11 Pain in pelvis 19379219 R10.2 Diverticul ar disease of colon 639305505 K57.30 [id number] MD MALGORZATA Cummings MD [address] [place] [address],[place] [address] 5 11/21/2018 08:53:56 11/21/2018 12:51:02 Candidal vulvovaginitis 28400911 B37.3 Screening for malignant neoplasm of cervix 672951114 Z12.4 Screening mammography 24 288466 Z12.31 [id number] MD MALGORZATA CummingsAN MD [address] [place] [address], [place] [address] 5 07/31/2019 09:53:19 07/31/2019 12:06:56 Mass of vulva 959916725 N90.89 Cyst of breast 660803325 N60.09 Unilateral mastalgia 315 942895 N64.4 [id number] MD MALGORZATA Cummings MD [address] [place], [place] [address] [address] 03/31/2020 09:37:06 03/31/2020 10:52:14 Dysuria 74994655 R30.0 [id number] MD MALGORZATA Cummings MD [address] [place], [place] [address] [address] 04/15/2020 10:56:24 04/15/2020 14:33:15 Screening for malignant neoplasm of cervix 721329487 Z12.4 Screening mammography 24 166862 Z12.31 Screening for osteoporosis 061102902 Z13.820 Dysuria 36134023 R30.0 [id number] MD MALGORZATA Cummings MD [address] [place] [address] [place] [address] 5 09/05/2021 09:56:29 09/05/2021 12:08:32 Candidal vulvovaginitis 73456674 B37.3 Atrophic vulvovaginitis 71728163 N95.2 Type 2 amy betes mellitus without complication 520680094 E11.9 [id number] MD MALGORZATA Cummings MD [address] [place] [address] [place] [address] 5 06/13/2022 09:57:11 06/13/2022 11:50:21 Screening for malignant neoplasm of cervix 812188760 Z12.4 Screening mammography 24 531240 Z12.31 Screening for osteoporosis 092927311 N95.8 Type 2 amy betes mellitus without complication 010988448 E11.9 Genital li jimenez sclerosus 169505775 L90.0 [id number] MD MALGORZATA Cummings MD [address] [place] [address] [place] [id number] 5 09/17/2023 10:18:36 09/17/2023 13:34:44 Genital lichen sclerosus 725303087 L90.0 Atrophic vulvovaginitis 65088861 N95.2 [id number] MD MALGORZATA Cummings MD [address] [facility] [address] [place] [address] 06/22/2024 09:10:11 06/22/2024 10:53:46 Genital lichen sclerosus 256309164 L90.0 Screening for malignant neoplasm of cervix 055737678 Z12.4 Screening mammography 24 307194 Z12.31 Screening for osteoporosis 700498880 N95.8 Candidiasis of skin 4988 3006 B37.2 [...] - FOR LIFE (MEDICARE SUPPLEMENT) Stephon Arambula [id number] Yessi Arambula 04/15/2020 1 MEDICARE B-PR: [employer] Yessi Arambula [id number] Yessi Arambula 09/05/2021 2 WPS - FOR LIFE (MEDICARE SUPPLEMENT) Stephon Arambula [id number] Yessi Arambula 09/05/2021 1 MEDICARE B-PR: [employer] Yessi Arambula [id number] Yessi Arambula 06/13/2022 2 WPS - FOR LIFE (MEDICARE SUPPLEMENT) Stephon Arambula [id number] Yessi Arambula 06/13/2022 1 MEDICARE B-PR: [employer] Yessi Arambula [id number] Yessi Arambula 09/17/2023 2 WPS - FOR LIFE (MEDICARE SUPPLEMENT) Stephon Arambula [id number] Yessi Arambula 09/17/2023 1 MEDICARE B-PR: [employer] Yessi Arambula [id number] Yessi Arambula 06/22/2024 2 WPS - FOR LIFE (MEDICARE SUPPLEMENT) Stephon Arambula [id number] Yessi Arambula 06/22/2024 1 MEDICARE B-[place]: [facility] GOVERNMENT SERVICES Yessi Arambula [id number] Yessi Arambula Notes Date Note Type Note [...] A1C was last 6.8. Malgorzata Wilkerson MD [address] [facility],[address], [place], [address], [place] - [facility], 04/15/2020 14:22:22 09/05/2021 text/html This visit is a phone telehealth visit. The patient consented to the visit by phone.The patient was at home at the time of the call and the provider and patient were the only people on the line.I was at [address] [facility], [address], [place], [place], at the time of the call. 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 It has worked well but the dermatology department was let go by [employer] and she has no access to a pumping station engineer right now, and she is out of [...] was 6.2 recently. Malgorzata Wilkerson MD [address] [facility],[address], [place], [address], [employer] in [facility], 09/05/2021 12:05:10 06/13/2022 text/html She is [...] her annual exam. Malgorzata Wilkerson MD [address] [facility],[address], [place], [address], [employer] in [facility], 06/13/2022 11:31:29 09/17/2023 text/html This visit is a phone telehealth visit. The patient consented to the visit by phone.The patient was at home at the time of the call and the provider and patient were the only people on the line.I was at [address] [facility], [address], [place], [place], at the time of the call. [...] estradiol vaginal cream. Malgorzata Wilkerson MD [address], [place], [address], [place] - [facility], 09/17/2023 12:02:08 06/22/2024 text/html She is here [...] her lichen sclerosis. Malgorzata Wilkerson MD [address], [place], [address], [place] - [facility], 06/22/2024 09:48:56 OBGyn Episode No OBEpisode recorded.
--- NOTE | 2024-11-06 10:14 | AM.OFFWIN_ITS ---
Intake Vital Signs 11/06/24 09:58 Weight 260 lb BP 120/78 Blood Pressure Location Rt brachial Position Sitting Pulse 94 Pulse Source Pulse Oximeter Temp 98.7 F Temp Source Oral Pulse Oximetry (%) 97 Oxygen Delivery Method Room Air Intake Visit Reasons: EP-cough,chest congestion,body ache,chills,sob Intake Note: Patient here for loss of voice, chest tightness, SOB, fatigue, body aches, diarrhea and cough that started saturday. Patient Tobacco Use Status: Never used Tobacco Allergies penicillin V Allergy (Mild, Verified 11/06/24 10:16) Rash Do you need a note to return to daycare/school/sports/work: No HPI HPI Comments History of Present Illness Details History - The patient is a 74-year-old female pr esenting with upper and lower respiratory symptoms, including cough and wheezing. - She has a background of severe allergi es, asthma managed with Advair and Flovent, and reports failure of her routine inhalers to mitigate her current respiratory symptoms. - Initial symptoms commenced earlier in the week with exacerbation over the week, including severe nasal bleeding every morning and notable vocal loss 6 days ago. - Findings include dark, occasionally bl oody sputum, with associated shortness of breath and wheezing. - The patient reported using Humidifiers and saline nasal sprays to alleviate nasal dryness. - Prior symptom-associated pain includes left ear pain and sinus discomfort, with no significant headaches but generalized body aches. Physical Exam General: Cooperative, healthy appearing, comfortable and no acute distress Orientation/consciousness: Patient oriented x3 Limitations: No limitations Head: Normal to inspection Ears: Hearing grossly normal bilaterally, external ears normal, left ear pain reported Nose: Normal external nose present, Normal nares present, clear nasal discharge present Face and sinus: Normal facial exam, Sinuses tender Mouth: Normal oral and palatal mucosa present and moist mucous membranes Throat: Yes tonsils normal, Yes uvula midline. Posterior oropharynx erythema Eyes: Appearance normal, both eyes and all related structures Neck: Normal visual inspection Respiratory: Clear to auscultation bilaterally. Normal respiratory effort, able to speak in complete sentences, no respiratory distress, not tachypneic, no tripod positioning and no use of accessory muscles Cardiovascular: Regular rate and rhythm. Normal S1 and S2 Skin: No rashes or lesions noted Neuro: Patient oriented x3 Extremities: Normal to inspection and Yes no clubbing, cyanosis or edema [facility] Surgical History (Updated 03/20/23 @ 11:07 by Adriane Castillo Wilfred) Hx of shoulder surgery History of bilateral knee replacement Social History Patient Tobacco Use Status: Never used Tobacco Current occupational status: unemployed Review of Systems Const All systems reviewed & are unremarkable except as noted in HPI and below Physical Exam Vital Signs: Last Vital Signs Temp 98.7 F 11/06/24 09:58 Pulse 94 11/06/24 09:58 BP 120/78 11/06/24 09:58 Pulse Ox 97 11/06/24 09:58 Oxygen Delivery Method Room Air 11/06/24 09:58 Assessment & Plan Assessment & Plan (1) URI, acute: Code(s): J06.9 - Acute upper respiratory infection, unspecified Plan: VSS, pt well appearing and PE unremarkable. Flu, covid and rsv testing has been sent. The suspected respiratory tract infection is to be managed with immediate commencement of Solumedrol, tapered over six days to accommodate the patient's diabetic status. Adjustment of Lantus insulin by 10% for today and tomorrow is advised for glycemic control. A chest X-ray is ordered to confirm or rule out pneumonia, which will influence whether antibiotic therapy becomes necessary. The patient will be monitored for any required interventions should the X-ray indicate pneumonia. She is advised to continue her current inhaler regimen and Flonase, and increase humidifier and saline nasal spray use to address nasal dryness causing epistaxis. Follow-up will involve clarifications on the imaging results and the necessity for further treatment. Patient was informed and verbally consented to the use of an ambient scribe for clinic note documentation during this visit Orders: Orders XR chest 2V Today R05.9 - Cough, unspecified SARS-CoV2/FLU/RSV Today R09.89 - Other specified symptoms and signs involving the circulatory and respiratory systems Medications: New methylprednisolone PO PER PKG DIR for 6 days 21 ea 0RF Coding Level of Care Code New Pt Level 4 (67589) Diagnoses URI, acute J06.9
== END 2024-11-06 10:53 | disposition home or self-care (01) ==
PROVIDERS: Visit Provider Physician Assistant
DX: J06.9 Acute upper respiratory infection, unspecified (principal)

== ENCOUNTER → 2024-11-06 10:55 | Outpatient (BNV) | payer MEDICARE, OTHER, SELFPAY | PROVIDERS: Visit Provider Radiology Diagnostic Radiology | DX: J84.10 Pulmonary fibrosis, unspecified (principal) | CPT/HCPCS: 71046 ==

== ENCOUNTER 2024-12-17 09:18 | Outpatient (AMB) | payer MEDICARE, OTHER, SELFPAY ==
[2024-12-17 09:50] VITALS: BMI 42.4
--- NOTE | 2024-12-17 09:50 | MHC.OFFVIS ---
Vital Signs 12/17/24 09:50 Height 5 ft 6 in Weight 263 lb BMI 42.4 Intake Visit Reasons: OV-B/L knee TKA follow up, low back pain Intake Note: Yessi is a 74 year old female who presents with complaints of progressively worsening low back pain which radiates into both of her legs. The patient also reports intermittent weakness in her legs. She has done physical therapy which aggravated her pain. The patient states that she has difficulty getting in and out of a chair. She also has increased pain and weakness when going up and down stairs. The patient has tried Tylenol and anti-inflammatory medicines which gave her minimal relief. She has been seen by Dr. Dunn here at [facility]. She wishes to get a 2nd opinion from Dr. Irvin Martinez at [facility]. the patient has undergone bilateral total knee replacement surgeries in the past. She reports minimal discomfort in both of her knees. She denies any locking or giving way. Allergies penicillin V Allergy (Mild, Verified 12/17/24 09:51) Rash Medication List - Last Reconciled 12/17/24 by Alec Durant MD albuterol sulfate 90 mcg/actuation 2 puffs inhalation Q4H PRN cyanocobalamin (vitamin B-12) 500 mcg PO DAILY cyclosporine 0.05% drps ophthalmic (eye) fluticasone propionate 110 mcg/actuation (Flovent HFA) 2 puffs inhalation BID lorazepam 1 mg PO DAILY PRN methylprednisolone PO PER PKG DIR for 6 days metoprolol tartrate 50 mg PO BID montelukast (Singulair) 10 mg PO DAILY spironolactone 25 mg PO DAILY tirzepatide (Mounjaro) mg subcut tramadol 50 mg PO Q8H PRN trazodone 100 mg PO BEDTIME triamcinolone acetonide 0.1% topical BID PRN PFSH Surgical History (Updated 03/20/23 @ 11:07 by SLAVA Gusman) Hx of shoulder surgery History of bilateral knee replacement Social History Patient Tobacco Use Status: Never used Tobacco Current occupational status: unemployed Physical Exam Vital Signs: BMI result Body Mass Index 42.4 Const Other: Well-nourished well-developed very friendly female awake alert and oriented x3 in no acute distress Back/Spine/Pelvis Other: low back examination shows bilateral paraspinal muscle tenderness, pain with range of motion, positive straight leg raise test bilaterally at 70 degrees Extrem Other: bilateral knee examination shows that the surgical incisions are well healed, no erythema, full active extension and flexion to 120 degrees, her patellae track well Results Reviewed Results Reviewed: x-rays of the patient's bilateral knees taken today show total knee arthroplasties in good position with no signs of loosening, no acute bony abnormalities MRI of the patient's lumbar spine from [facility] show severe facet hypertrophy at level L4-L5 Assessment & Plan Assessment & Plan (1) Lumbar stenosis: Code(s): M48.061 - Spinal stenosis, lumbar region without neurogenic claudication Category: Medical Plan Ms. Joya is doing well after undergoing bilateral total knee replacement surgeries. She does have progressively worsening low back pain due to lumbar stenosis. Thus, I will try to arrange for her to have an evaluation by Dr. Irvin Martinez at [facility] per her request. She will follow-up as instructed. Feel free to call me at any time should questions regarding her orthopedic management arise. I spent 21 minutes in reviewing the patient's records and imaging studies, seeing the patient and documenting in the medical record. Orders: Orders XR Knee Anibal 3V Today M25.561 - Pain in right knee, M25.562 - Pain in left knee Referrals Neurosurgery Referral M48.061 - Spinal stenosis, lumbar region without neurogenic claudication Coding Level of Care Code Est Pt Level 3 (10816) Complex EM visit Add On G2211 Diagnoses Lumbar stenosis M48.061
--- OUTSIDE RECORDS SUMMARY | 2024-12-17 10:05 | XMS_ITS | Data Portability ---
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 Procedures Surgical History Date Name Laterality Status Provider Name and Address Organization Details Recorded Time Appendectomy completed Fabiola Rizo [facility] 10/05/2022 11:36:25 hysteroscopy [facility], 10/05/2022 11:36:42 Gastric bypass for obesity completed [facility], [facility] 10/05/2022 11:36:53 Shoulder Surgery completed [facility], P 10/05/2022 11:37:02 Knee Surgery completed [facility] - A [facility], 10/05/2022 11:37:12 cholecystectomy completed [facility], P 10/05/2022 11:37:24 Imaging Results None recorded. Procedure Notes None recorded. Medical Equipment None Reported. Allergies Allergen ID Allergen Name Allergen Category Reaction Reaction Severity Criticality Documentation Date Start Date Code Code System Note Provider Name and Address Organization Details Recorded Time 863 Product containin g penicilli n (product) medicatio n Not available Not available Not available 10/05/2022 07[facility] 11:34:06 864 Substance with sulfonami de structure and antibacte rial mechanism of action (substanc e) medicatio n Not available Not available Not available 10/05/2022 89089 8003 [facility], P 3 11:34:13 Medications Name Sig Start [...] Code Diagnosis Note 1877 MD KOFFI Alegre [address] [place] [id number] 10/05/2022 10:50:09 10/05/2022 12:19:20 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 [id number] M13.811 Health Concerns Section Related Observation LastModified by Organization Detai ls LastModified Time None Recorded Concern Status LastModified by Organization Details LastModified Time None Recorded Advance Directives Directive None Recorded Payers Encounter Date Sequence Insurance Name Policy Number Policy Fournier Covered Member ID Fournier Member ID Guarantor Name 10/05/2022 2 FOR LIFE () Yessiarlene Joya [id number] Yessi Joya 10/05/2022 1 MEDICARE [place]: [employer] Yessi Lara Mahnaz [id number] Yessi Joya Notes Date Note Type Note Provider Name and Address Organization Details Recorded Time 10/05/2022 text/html The patient presents with complaints of mild intermittent discomfort in her right shoulder. She denies any fevers or chills. She does not take any medicines for discomfort. She continues with her home stretching program. Alec Durant MD [address] [facility],[place] [address], [place], [address], [place] [facility] 10/05/2022 12:36:16 OBGyn Episode No OBEpisode recorded.
== END 2024-12-17 10:09 | disposition home or self-care (01) ==
PROVIDERS: Visit Provider Orthopaedic Surgery
DX: M48.061 Spinal stenosis, lumbar region without neurogenic claudication (principal)
CPT/HCPCS: 99213; G2211

== ENCOUNTER → 2024-12-17 09:34 | Outpatient (BNV) | payer MEDICARE, OTHER, SELFPAY | PROVIDERS: Visit Provider Radiology Diagnostic Radiology | DX: M25.561 Pain in right knee (principal); M25.562 Pain in left knee; Z96.653 Presence of artificial knee joint, bilateral | CPT/HCPCS: 73562 ==

== ENCOUNTER 2024-12-17 11:13 | Outpatient (REF) | payer MEDICARE, OTHER, SELFPAY ==
--- NOTE | ~2024-12-17 | XR_ITS ---
XR KNEE ANIBAL 3V HISTORY: Bilateral knee pain. COMPARISON: 03/20/2023. TECHNIQUE: AP, lateral and patellofemoral views bilateral knees. FINDINGS: RIGHT KNEE: Total knee arthroplasty. Tibial and femoral components appear well seated in anatomic alignment. No evidence of loosening or complication. There is been patellar resurfacing. Normal patellar alignment. No fractures or focal bone lesions. No evidence of joint effusion. Soft tissues appear normal. LEFT KNEE: Total knee arthroplasty. Tibial and femoral components appear well seated in anatomic alignment. No evidence of loosening or complication. There is been patellar resurfacing. Normal patellar alignment. No fractures or focal bone lesions. No evidence of joint effusion. Soft tissues appear normal. XR/XR Knee Anibal 3V IMPRESSION: 1. Bilateral total knee arthroplasties without complication evident. Electronically signed by: Zaid Dawkins MD 12/17/2024 11:09 AM EDT
== END 2024-12-17 11:14 | disposition home or self-care (01) ==
LOC: HO.HOSX 11:13
PROVIDERS: Visit Provider Orthopaedic Surgery
DX: M25.562 Pain in left knee (principal); M25.561 Pain in right knee; M48.061 Spinal stenosis, lumbar region without neurogenic claudication
CPT/HCPCS: 73562; 99212

== ENCOUNTER 2025-03-18 12:52 | Outpatient (REF) | payer MEDICARE, OTHER, SELFPAY ==
--- OUTSIDE RECORDS SUMMARY | 2025-03-18 14:27 | XMS_ITS | Clinical Summary ---
Author Organization [facility] Address [address] [place] [address] Care Team Providers Care Clearance Coordinator Name Role Phone Tila Loyola DO Primary Care Provider [phone] Allergies No known active allergies Medications No known medications Social History Tobacco Use Types Packs/Day Years Used Date Smoking Tobacco: Never Smokeless Tobacco: Never Tobacco Cessation:Counseling Given: Not Answered Alcohol Use Standard Drinks/Week Comments Never 0 (1 standard drink = 0.6 oz pur e alcohol) Comments Unknown Sex and Gender Information Value Date Recorded Sex Assigned at Not on file Legal Sex Female 1:39 AM EST Gender Identity Not on file Sexual Orientation Not on file Last Filed Vital Signs Vital Sign Reading Time Taken Comments Blood Pressure 142/87 09/18/2023 9:26 AM EST Pulse 74 09/18/2023 9:26 AM EST Temperature 36.3 C (97.4 F) 09/18/2023 9:26 AM EST Respiratory Rate 16 09/18/2023 9:26 AM EST Oxygen Saturation 94% 09/18/2023 9:26 AM EST Inhaled Oxygen Concentration - - Weight 121.3 kg (267 lb 6.4 oz) 09/18/2023 9:26 AM EST Height 167.6 cm (5' 6 ) 09/18/2023 9:26 AM EST Body Mass Index 43.16 09/18/2023 9:26 AM EST Plan of Treatment Health Maintenance Due Date Last Done Comments Bone Density Scan 1949 Lipid Panel 1950 Diabetes: Retinopathy Screening 1949 Diabetes: Urine Protein Screening 1949 Diabetes: Foot Exam 1959 Hepatitis C Screening 1967 Medicare Annual Wellness (AWV) 09/12/2013 DTaP/Tdap/Td Vaccines (1 - Tdap) 06/07/2021 06/06/2021 Diabetes: Hemoglobin A1C 10/02/2023 10/01/2022 Depression Screening 07/15/2024 Zoster Vaccines (3 of 3) 12/11/2024 10/16/2024, 07/2010 COVID-19 Vaccine ( season) 2025 03/24/2024, 06/25/2023, 04/13/2022, Additional history exists Influenza Vaccine (#1) 2025 , 03/15/2023, 04/13/2022, Additional history exists Colorectal Cancer Screening Discontinued FOBT Discontinued 09/15/2013, 09/02/2012 Pneumococcal Vaccine: 50+ Years Completed 06/25/2023, 07/10/2022, 04/24/2019, Additional history exists Pneumococcal Vaccine: Pediatrics (0 to 5 Years) and At-Risk Patients (6 to 49 Years) Discontinued 06/25/2023, 07/10/2022, 04/24/2019, Additional history exists CT Colonography Discontinued Colonoscopy Discontinued FIT-DNA Discontinued FIT Discontinued HIB Vaccines Aged Out No longer eligi [...] patient's age to complete this topic Meningococcal Vaccine Aged Out No grover arleth eligible based on patient's age to complete this topic Rotavirus Vaccines Aged Out No longer eligible based on patient's age to complete this topic Sigmoidoscopy Discontinued Insurance MEDICARE PART A AND B FOR LIFE Care Teams Clearance Coordinator Relationship Specialty Start Date End Date Tila Loyola DO [address] [place] [id number] PCP - General 08/18/21
[2025-03-18 17:23] LABS: Resp Syncy Virus RNA Qual PCR NEGATIVE (Negative); SARS COV2 PCR INHOUSE NEGATIVE (Negative)
== END 2025-03-18 12:53 | disposition home or self-care (01) ==
LOC: HO.LAB 12:52
PROVIDERS: Visit Provider Nurse Practitioner Family
DX: J06.9 Acute upper respiratory infection, unspecified (principal); R05.9 Cough, unspecified
CPT/HCPCS: 87637; 99212

== ENCOUNTER 2025-03-18 12:52 | Outpatient (AMB) | payer MEDICARE, OTHER, SELFPAY ==
--- OUTSIDE RECORDS SUMMARY | 2022-12-20 05:17 | XMS_ITS | Continuity of Care Document ---
Author Organization [facility] Address [address] [place] [address] [address] [place] [phone] Phone Care Team Providers Care Glass Ribbon Machine Operator Name Role Phone Eriberto BRITOT Renny JOSE Unavailable Unavailable Allergies, Adverse Reactions, Alerts Substance Reaction Status Criticality Sulfa (Sulfonamide Antibiotics) Active No Information PENICILLIN Active No Information Procedures Procedure Date Office/Outpt E&M Established 15 Mins Dec Duplex Scan-extrem Veins; Comp Office/Oupt E&M New Pt 30 Mins Advance Directives Directive Yes / No Effective Date File Name No Information Encounters Encounter Description Practice Location Reason(s) For Visit Diagnoses Date Provider Providers Copied on [facility]counter [facility], [address] [place] [address] Dr [address], [id number], [place] tel:[phone] [facility] No Information 3 Eriberto Souza. [address] [address], [place], [address], [place]. tel:[phone] Office/Outpt E&M Established 15 Mins [facility], [address] [place] [address] Dr [address], [id number], tel:[phone] [facility] Ven[facility] (chronic) (peripheral) 3 Eriberto BRITOT REBECA Souza. [address] [place] [address], Suite [facility], [place], [address], [place]. tel:[phone] Referring Provider: Renny Wei MD, FACS [facility], [address] [place] [address], [place], [address]. tel:[phone] [facility], [address] [place] [address] [address], [place], [id number], tel:[phone] [facility] [place] [facility] Venous insufficiency (chronic) (peripheral)Pa in in right legPain in left leg 3 Eriberto MOYA FACS [facility] Renny Harley. [address] [place] [address], [place], [address], [place]. tel:[phone] Referring Provider: Renny Wei MD, FACS [facility], [address] [place] [address], [facility] [place], [address]. tel:[phone] Office/Oupt E&M New Pt 30 Mins [facility], [address] [place] [address] [facility] [address], [place], [id number], [place] tel:[phone] [facility] [place] [facility] Venous insufficiency (chronic) (peripheral)Lo calized edemaType 2 diabetes mellitus without complications 3 Eriberto MOYA FACS [facility] Renny Souza. [address] [place] [address], [address] [address], [place], [address], [place]. tel:[phone] Referring Provider: Renny eWi MD, FACS [facility], [address] [place] [address], [place], [address]. tel:[phone] Family History Family Member Type Diagnosis Age At Onset No Information Payers Payer name Insurance type Covered libertarian ID Authoriza tion(s) Medicare SULAIMAN OLMEDO [id number] [facility] [id number] Social History Type Description Quantity Date Captured Comments Sex Female Smoking Status No Information Chief Complaint And Reason For Visit No Information Reason For Referral Reason For Referral No Information Plan Of Treatment Date Type Action Status Goal Diet education completed Goal Diet education completed Referral Ordered: Sally Wei MD, FACS, RVT, RPVI timeframe: 3 Months (related to Essential (primary) hypertension) ordered Referral Ordered: Weight management: Referral to physician timeframe: 3 Months (related to Body mass index (BMI) 40.0-44.9, adult) ordered History Of Present Illness Encounter Date Complaint History Of Prese nt Illness No Information Functional Status Date Functional Assessmen t No Information Instructions Date Instruction Additional Infor mation Diet education Related to Essen tial (primary) hypertension Exercise education Related to Es sential (primary) hypertension Lifestyle education Related to E ssential (primary) hypertension Diet education Related to Body mass index (BMI) 40.0-44.9, adult Giving Encouragement to exercise Related to Body mass index (BMI) 40.0-44.9, adult Lifestyle education Related to B vlad mass index (BMI) 40.0-44.9, adult Patient education booklet given Related to Venous insufficiency (chronic) (peripheral) Assessments Type Assessment Date No Information Patient Care Teams Name Effective Dates (start - stop) Status Members No Information
--- OUTSIDE RECORDS SUMMARY | 2025-02-04 07:00 | XMS_ITS ---
Author Organization [facility] Address [address] [place] [address] Care Team Providers Care Industrial Sales Representative Name Role Phone Alyce Pham Primary Care Provider Unavailabl César Posadamie Unavailable [phone] Allergies Allergen (clinical drug ingredient) Drug/Non Drug Allergy documented on EMR Reaction Allergy Type Onset Date Status amoxicillin Amoxicillin Unknown Drug Allergy Act devora sulfamethoxazole / trimethoprim Bactrim Unknown Drug Allergy Active Medications Medication SIG (Take, Route, Frequency, Duration) Notes Start Date End Date Status Ciclopirox Olamine 0.77 % 1 application to affected area Externally Twice a day; Duration: 30 days 09/16/2017 Not-Taking Extra Depth Orthopedic Shoes (1 Pair) with Customized Heat Molded Multidensity Innersoles (3 Pair) as directed Dx: NIDDM/Polyneuropath y (E11.42), Hammertoe Foot Deformity (M20.41,M20.42), Preulcerative Skin Lesion(s) (L85.1 09/18/2021 Not-Taking Ozempic Not-Taking Amitriptyline HCl No t-Taking HumaLOG Not-Taking Clotrimazole-Betamethason e 1-0.05 % 1 application Externally Twice a day; Duration: 14 days 03/26/2022 Active Extra-Depth Diabetic Shoes with 3 Pair Custom heat-molded multi-density innersoles . for 1 year . Dx: pedal deformities and calloused lesions; Duration: . 10/15/2014 Active Extra Depth Orthopedic Shoes (1 Pair) with Customized Heat Molded Multidensity Innersoles (3 Pair) as directed Dx: NIDDM/Polyneuropath y (E11.42), Hammertoe Foot Deformity (M20.41,M20.42), Preulcerative Skin Lesion(s) (L85.1 09/30/2023 Active Compression Stockings 20-30mm Hg 1 pair wear daily; Duration: 30 days Active Ammonium Lactate 12 % 1 application Externally Twice a day; Duration: 30 days 10/01/2022 Active Extra Depth Orthopedic Shoes (1 Pair) with Customized Heat Molded Multidensity Innersoles (3 Pair) as directed Dx: NIDDM/Polyneuropath y (E11.42), Hammertoe Foot Deformity (M20.41,M20.42), Preulcerative Skin Lesion(s) (L85.1 Active Singulair Active vitamin b-12 shot Active Lopressor Active Spironolactone 25 MG Orally Once a day Active Januvia Not-Taking Lantus Active metFORMIN HCl 1000 MG 1 tablet with a meal Orally Once a day Active Wellbutrin Not-Takin g Atorvastatin Calcium Not-Taking hydroCHLOROthiazide Not-Taking Trulicity 150mg once a week No t-Taking Cymbalta Not-Taking Ciclopirox Olamine 0.77% external Apply to effected areas twice a day; Duration: 30 days 12/23/2014 Not-Taking Zoloft Not-Taking Victoza Not-Taking Doxycycline Hyclate 100 MG 1 capsule Orally Once a day; Duration: 10 day(s) 06/27/2020 Not-Taking Ciclopirox Olamine 0.77 % 1 application to affected area Externally Twice a day; Duration: 30 days 09/16/2017 Not-Taking Extra Depth Orthopedic [...] (M20.41,M20.42), Preulcerative Skin Lesion(s) (L85.1 09/22/2018 Not-Taking Encounters Encounter Location Date Provider Diagnosis [facility] [address] [address] 02/04/2025 Arabella Charles Plan Of Treatment Next Appt Details Provider Name:Arabella Charles , 04/15/2025 02:15:00 PM, [address] [place] [address], [phone], Progress Notes * Anabela JOYAOB:1950 ( 75 yo F)Acc No.[id number]:02/04/2025 Progress Note Patient: Yessi MASON Provider: Drea Charles DPM :1950 A ge:74 Y S ex:Female Date:02/04/2025 Address:[address] [place], [place] [phone] Pcp:Alyce Pham Subjective: * Chief Complaints: * * Medical History: A nemia, Anxiety, Arthritis, Back,Hip,and Knee pain, Diabetic, Chicken pox, Headaches, Migraines, Hypertension, Keloids, Neuropathy, Poor circulation, Psoriasis/eczema, Reflux, Sciatica, Thyroid disorder, Measles, Mumps, Joint implants/screws, Transfusions. * Medications: T aking Lantus , Taking metFORMIN HCl 1000 MG Tablet 1 tablet with a meal Orally Once a day , Taking Lopressor , Taking Spironolactone 25 MG Tablet Orally Once a day , Taking Singulair , Taking vitamin , Notes to Pharmacist: b-12 shot, Taking Extra Depth Orthopedic Shoes (1 Pair) with Customized Heat Molded Multidensity Innersoles (3 Pair) as directed Dx: NIDDM/Polyneuropathy (E11.42), Hammertoe Foot Deformity (M20.41,M20.42), Preulcerative Skin Lesion(s) (L85.1 , Taking Clotrimazole-Betamethasone 1-0.05 % Cream 1 application Externally Twice a day , Taking Ammonium Lactate 12 % Lotion 1 application Externally Twice a day , Taking Extra Depth Orthopedic Shoes (1 Pair) with Customized Heat Molded Multidensity Innersoles (3 Pair) as directed Dx: NIDDM/Polyneuropathy (E11.42), Hammertoe Foot Deformity (M20.41,M20.42), Preulcerative Skin Lesion(s) (L85.1 , Taking Compression Stockings 20-30mm Hg closed toe- knee high 1 pair wear daily , Taking Extra- Depth Diabetic Shoes with 3 Pair Custom heat-molded multi-density innersoles . . for 1 year . Dx: pedal deformities and calloused lesions , Not-Taking/PRN HumaLOG , Not-Taking/PRN Ozempic , Not-Taking/PRN Amitriptyline HCl , Not-Taking/PRN Ciclopirox Olamine 0.77 % Cream 1 application to affected area Externally Twice a day , Not-Taking/PRN Extra Depth Orthopedic Shoes (1 Pair) with Customized Heat Molded Multidensity Innersoles (3 Pair) as directed Dx: NIDDM/Polyneuropathy (E11.42), Hammertoe Foot Deformity (M20.41,M20.42), Preulcerative Skin Lesion(s) (L85.1 , Not-Taking/PRN Victoza , Not-Taking/PRN Extra Depth Orthopedic Shoes (1 Pair) with Customized Heat Molded Multidensity Innersoles (3 Pair) as directed Dx: NIDDM/Polyneuropathy (E11.42), Hammertoe Foot Deformity (M20.41,M20.42), Preulcerative Skin Lesion(s) (L85.1 , Not-Taking/PRN Extra Depth Orthopedic Shoes (1 Pair) with Customized Heat Molded Multidensity Innersoles (3 Pair) as directed Dx: NIDDM/Polyneuropathy (E11.42), Hammertoe Foot Deformity (M20.41,M20.42), Preulcerative Skin Lesion(s) (L85.1 , Not-Taking/PRN Doxycycline Hyclate 100 MG Capsule 1 capsule Orally Once a day , Not-Taking/PRN Ciclopirox Olamine 0.77 % Cream 1 application to affected area Externally Twice a day , Not-Taking/PRN Ciclopirox Olamine 0.77% Cream external Apply to effected areas twice a day , Not- Taking/PRN Zoloft , Not-Taking/PRN Trulicity 150mg once a week , Not-Taking/PRN Cymbalta , Not-Taking/PRN hydroCHLOROthiazide , Not-Taking/PRN Januvia , Not-Taking/PRN Atorvastatin Calcium , Not-Taking/PRN Wellbutrin * Allergies: B actrim, Amoxicillin. Objective: * Vitals: Assessment: Plan: * Treatment: * Images: * The named appointment provid er may or may not be the originator of this progress note, and it is not deemed complete until electronically signed by the appointment provider. Sign off status: Pending * Provider: Drea Charles DPM Date: 02/04/2025 Generated for Elijah thompson/Bassam/Fortino on: 03/18/2025 02:08 PM EDT
[2025-03-18 12:57] VITALS: BP 110/68; PULSE 62; RESP 16; TEMP 36.7; BMI 41.3
--- NOTE | 2025-03-18 12:57 | AM.OFFWIN_ITS ---
Intake Vital Signs 03/18/25 12:57 Height 5 ft 6 in Weight 256 lb BMI 41.3 BP 110/68 Blood Pressure Location Rt brachial Position Sitting Respiration 16 Pulse 62 Pulse Source Palpation Temp 98.0 F Temp Source Oral Intake Visit Reasons: EP-cough, swallowing issues, chest tightness Patient Tobacco Use Status: Never used Tobacco Allergies penicillin V Allergy (Mild, Verified 03/18/25 13:01) Rash lisinopril Allergy (Verified 03/18/25 13:01) Cough Sulfa (Sulfonamide Antibiotics) Allergy (Verified 03/18/25 13:01) Rash sulfamethoxazole (From Bactrim) Allergy (Verified 03/18/25 13:01) Rash trimethoprim (From Bactrim) Allergy (Verified 03/18/25 13:01) Rash HPI HPI Comments History of Present Illness Details 75 y/o Female patient who presents to [facility] with c/o Cough, chest congestion, Sore-throat and runny nose. Pt denies any fevers, chills, nausea or vomiting. She was seen here back in October for similar symptoms - Chest xray and SARs were negative. [facility] Medical History (Updated 03/18/25 @ 13:11 by Joyce Carpenter NP) Acute respiratory disease Cough Surgical History (Updated 03/20/23 @ 11:07 by SLAVA Gusman) Hx of shoulder surgery History of bilateral knee replacement Social History Patient Tobacco Use Status: Never used Tobacco Current occupational status: unemployed Review of Systems Const All systems reviewed & are unremarkable except as noted in HPI and below Physical Exam Vital Signs: Last Vital Signs Temp 98.0 F 03/18/25 12:57 Pulse 62 03/18/25 12:57 Resp 16 03/18/25 12:57 BP 110/68 03/18/25 12:57 BMI result Body Mass Index 41.3 Const General: no acute distress; No comfortable Nutritional Appearance: obese Orientation/consciousness: patient oriented x3 HEENT Head: Yes normocephalic Ears: external ears normal and TM's normal bilaterally General nose exam: Nasal discharge present Face and sinus: Yes sinuses nontender Mouth: moist mucous membranes Throat: Yes uvula midline Resp Effort & Inspection: normal respiratory effort, able to speak in complete sentences and Actively coughing Auscultation: clear to auscultation bilaterally, no crackles, no rales, no rhonchi and no wheezes Cardio Heart sounds: S1 normal heart sound present and S2 normal heart sound present Neuro General: patient oriented x3 Assessment & Plan Assessment & Plan (1) Cough: Code(s): R05.9 - Cough, unspecified Plan: Ordered Z-pack OTC cough remedies (2) Acute respiratory disease: Code(s): J06.9 - Acute upper respiratory infection, unspecified Plan: Ordered SARs. Rest and hydrate well Acetaminophen for pain relief. Orders: Orders SARS-CoV2/FLU/RSV Today J06.9 - Acute upper respiratory infection, unspecified Medications: New prednisone 50 mg PO DAILY 5 tabs 0RF 5 days R05.9 - Cough, unspecified azithromycin 500 mg PO DAILY 3 tabs 0RF 3 days R05.9 - Cough, unspecified Coding Level of Care Code Est Pt Level 4 (35735) Diagnoses Cough R05.9 Acute respiratory disease J06.9 Time Spent (min) 20
--- OUTSIDE RECORDS SUMMARY | 2025-03-18 14:07 | XMS_ITS | Encounter Summary ---
Author Organization [facility] [place] [address] Care Team Providers Care Internal Investigator Name Role Phone Alyce Pham Primary Care Provider [phone] Encounter Details Date Type Department Care Team (Late st Contact Info) Description 01/21/2025 Lab Requisition [facility] - Main Lab [address] [facility] [place] [address] Garry العراقي PA [address] [place], [place] [phone] Urinary tract infection, site not specified Social [...] Date/Time Associated Diagnosis Comments CULTURE URINE Routine 01/21/2025 12:00 AM EDT Urinary tract infection, site not specified documented in this encounter Results * (ABNORMAL) Culture urine (01/21/2025 12:00 AM EDT) Culture, Urine >100,000 CFU/mL Enterococcus faecalis(A) BRENT 01/24/2025 8:17 AM EDT [facility] Comment: Edited result: Previously reported as Enterococcus species on 01/23/2025 at 1123 EDT. Urine Urine specimen obtained by clean catch procedure / Unknown 01/21/2025 01/21/2025 1:31 PM EDT Narrative [facility] - 01/24/2025 8:17 AM EDT Additional colony types present in insignificant amounts. Organism Antibiotic Method Susceptibility Enterococcus faecalis Benzylpenicillin BRENT 2 ug/ml: Susceptible Enterococcus faecalis Ampicillin BRENT <=2 ug/ml: Susceptible Enterococcus faecalis Ciprofloxacin BRENT 1 ug/ml: Susceptible Enterococcus faecalis Levofloxacin BRENT 1 ug/ml: Susceptible Enterococcus faecalis Linezolid RBENT 1 ug/ml: Susceptible Enterococcus faecalis Vancomycin BRENT 1 ug/ml: Susceptible Enterococcus faecalis Tetracycline BRENT >=16 ug/ml: Resistant Enterococcus faecalis Nitrofurantoin BRENT <=16 ug/ml: Susceptible [facility] Dulce Maria [facility] MICROBIOLOGY - GENERAL ORDE SRIDHAR Final Result [facility] [address] [place] [address], documented in this encounter Visit Diagnoses Diagnosis Urinary tract infection, site not specified documented in this encounter Care Teams Internal Investigator Relationship Specialty Start Date End Date Alyce Pham PA PCP - General 08/09/22 documented as of this encounter
--- OUTSIDE RECORDS SUMMARY | 2025-03-18 14:07 | XMS_ITS | Clinical Summary ---
Author Organization [facility] Address [address] [place] [address] Care Team Providers Care Senior Medical Transcriptionist Name Role Phone Yudith Welch MD Primary Care Provider [phone] Allergies Active Allergy Reactions Criticality Noted Date [...] capsule,delayed release 0 Active vitamin D3 (CHOLECALCIFEROL) 99568 units CAPS capsule TK 1 C PO [...] Tdap / Td (1 - Tdap) 02/10/1968 Shingrix-Zoster Vaccine (1 of 2) 1999 Fall Risk Assessment 2014 Osteoporosis Screening (DEXA Scan) 2014 RSV Adult > 60+ Yrs or (1 - 1-dose 75+ series) 02/10/2024 Influenza Vaccine (#1) 2025 , 03/29/2020, 04/15/2017, Additional history exists Pneumococcal Vaccine Completed 04/24/2019, 03/31/2018, 09/10/2014, Additional history exists Hepatitis B Vaccines Aged Out No long er eligible based on patient's age to complete this topic RSV Ped < 20 months Aged Out No longe r eligible based on patient's age to complete this topic Care Teams Senior Medical Transcriptionist Relationship Specialty Start Date End Date Yudith Welch MD PCP - General Internal Medicine 05/12/21
--- OUTSIDE RECORDS SUMMARY | 2025-03-18 14:07 | XMS_ITS | Clinical Summary ---
Author Organization [facility] [address] [facility] Address [address] [place] [address] Phone Care Team Providers Care Director Of Rotc Name Role Phone Alyce Pham Primary Care Provider [phone] Allergies Active Allergy Reactions Criticality Noted Date [...] glucose sensor (FREESTYLE ELOISE 14 [facility]) 1 Active fluconazole (DIFLUCAN) 200 mg tablet [...] rehab receiving facet injections Paroxysmal supraventricular tachycardia ([facility] V24) 10/04/2020 Overview (05/04/2024): Paroxysmal supraventricular tachycardia [...] kidney disease) stage 3, GFR 30-59 ml/min ([facility] V24, [facility] V28) 04/08/2020 Trigger finger of right thumb 03/24/2020 Primary osteoarthritis of left shoulder 09/03/19 20 Pain in both hands 09/03/2019 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 Major depressive disorder, r ecurrent episode, moderate (CMS/HCC V24, CMS/HCC V28) 10/10/2018 DDD (degenerative disc disease), lumbar 10/11/19 19 Agoraphobia with panic disorder 10/10/2018 Osteoarthritis 10/28/2017 Overview (05/04/2024): Spine, knees Follows [facility] (obstructive sleep apnea) [...] Encounters Date Type Department Care Team Description 01/21/2025 Lab Requisition [facility] - Main Lab [address] [facility] [place] [address] [place], [place] Urinary tract infection, site not specified from Last 3 Months Immunizations Name Administration [...] obesity with BMI of 4 5.0-49.9, adult ([facility] V24, [facility] V28) 10/18/2017 DX:Morbid obesity wit h BMI of 45.0-49.9, adult ([facility]) Moderate asthma 10/18/2017 DX:Moderate asth ma Osteoarthritis [...] S/p Ablation Diabetes mellitus type 2, uncomplicated ([facility] V24, [facility] V28) 10/28/2017 DX:Diabetes mellitus type 2, uncomplicated ([facility]) H/O total knee replacement 10/28/2017 DX:H/ O total knee replacement; COMMENT: Left 2011 CAD (coronary artery disease) 10/28/2017 DX :CAD (coronary artery disease); COMMENT: 2016 Angioplasty Major depressive disorder, r ecurrent episode, moderate ([facility] V24, [facility] V28) 10/10/2018 DX:Major depressive disorder , recurrent episode, moderate ([facility]) Agoraphobia with panic disorder 10/10/2018 DX:Agoraphobia with [...] 81 05/31/2024 7:51 AM EST Temperature 36.5 C (97.7 F) 05/31/2024 7:51 AM EST Respiratory Rate 18 05/31/2024 7:51 AM EST [...] Annual Retina Eye Exam 1960 Zoster Vaccines (1 of 2) 09/09/2010 07/15/2010 Falls Risk Assessment 06/22/2022 Osteoporosis Screening (Bone Density Screening) 06/22/2022 Social Influencers of Health Screening 06/22/2022 Diabetes: Blood Sugar Control Test (HGBA1C) 04/03/2023 10/01/2022 Medicare Annual Wellness Visit 08/20/2023 08/20/2022 Depression Screening 07/15/2024 COVID-19 Vaccine (11 - Moderna risk season) 2025 03/24/2024, 06/25/2023, 04/13/2022, Additional history exists Influenza Vaccine (#1) 2025 , 03/15/2023, 04/13/2022, Additional history exists Diabetes: Annual Urine Albumin-Creatinine Ratio (uACR) 06/16/2025 06/16/2024, 04/17/2022 Diabetes: Annual GFR (Glomerular Filtration Rate) 06/16/2025 06/16/2024, 01/10/2023, 01/10/2023, Additional history exists Hypertension/CHF/CAD Annual BMP Blood Test 06/16/2025 06/16/2024, 01/10/2023, 01/10/2023, Additional history exists Cholesterol Screening (Lipid Panel) 09/24/2028 09/25/2023 DTaP,Tdap,and Td Vaccines (2 - Td or Tdap) 06/06/2031 06/06/2021 Hepatitis C Screening Completed 09/17/2018 RSV Immunization Adult Patients Completed 03/15/2023 Pneumococcal Vaccine: 50+ Years Completed 06/25/2023, 07/10/2022, 04/24/2019, Additional history exists Breast Cancer Screening Discontinued 09/07/19, 09/04/2023, 08/23/2020, Additional history exists Colorectal Cancer Screening: Colonoscopy Discontinued 11/12/2024, 09/09/2020 HIB Vaccines Aged Out No longer eligi [...] EDT Urinary tract infection, site not specified EXTERNAL COLONOSCOPY REPORT Routine 11/12/2024 9:15 AM EDT MG MAMMO DIGITAL SCREENING W HARSHA BILAT Routine 09/07/2024 10:29 AM EST Encounter for screening mammogram for malignant neoplasm of breast LIPID PANEL Routine 09/25/2023 HM ANNUAL BMP BLOOD TEST Routine 01/10/2023 HEMOGLOBIN A1C Routine 10/01/2022 URINE ALBUMIN CREATININE RATIO Routine 04/17/2022 HEPATITIS C SCREENING Routine 09/17/2018 from Last 3 Months or Most Recently Relevant to Health Maintenance Results * (ABNORMAL) Culture urine (01/21/2025 12:00 AM EDT) Culture, Urine >100,000 CFU/mL Enterococcus faecalis(A) BRENT 01/24/2025 8:17 AM EDT [facility] Comment: Edited result: Previously reported as Enterococcus species on 01/23/2025 at 1123 EDT. Urine Urine specimen obtained by clean catch procedure / Unknown 01/21/2025 01/21/2025 1:31 PM EDT Narrative [facility] - 01/24/2025 8:17 AM EDT Additional colony types present in insignificant amounts. Organism Antibiotic Method Susceptibility Enterococcus faecalis Benzylpenicillin BRENT 2 ug/ml: Susceptible Enterococcus faecalis Ampicillin BRENT <=2 ug/ml: Susceptible Enterococcus faecalis Ciprofloxacin BRENT 1 ug/ml: Susceptible Enterococcus faecalis Levofloxacin BRENT 1 ug/ml: Susceptible Enterococcus faecalis Linezolid BRENT 1 ug/ml: Susceptible Enterococcus faecalis Vancomycin BRENT 1 ug/ml: Susceptible Enterococcus faecalis Tetracycline BRENT >=16 ug/ml: Resistant Enterococcus faecalis Nitrofurantoin BRENT <=16 ug/ml: Susceptible [facility] MICRO[facility]OLOGY - GENERAL ORDE SRIDHAR Final Result [facility] [address] [place] [address], * External Colonoscopy Report (11/12/2024 9:15 AM EDT) Anatomical Region Laterality Modality Endoscopy [facility] Provider GI~PROCEDURE ORDERABLES F inal Result * MG Mammo Digital Screening w Harsha bilat (09/07/2024 10:29 AM EST) Anatomical Region Laterality Modality Breast Bilateral Mammography 09/07/2024 1:33 PM EST Impressions 09/07/2024 1:59 PM EST No mammographic evidence of malignancy. No suspicious interval change. A negative mammogram in the presence of a clinically suspicious palpable abnormality does not preclude the possibility of malignancy or alter the indications for biopsy. ASSESSMENT: BI-RADS 2: BENIGN RECOMMENDATION(S): 1: Routine screening mammogram BILATERAL in 1 year. -------- FINAL REPORT -------- Dictated By: Kyler Vizcarra Dictated Date: 09/07/2024 13:33 ET Assigned Physician: Kyler Vizcarra Reviewed and Electronically Signed By: Kyler Vizcarra Signed Date: 09/07/2024 13:59 ET Workstation ID: [id number] Transcribed By: Self Edit Transcribed Date: 09/07/2024 13:41 ET Narrative 09/07/2024 1:59 PM EST EXAM: SCREENING MAMMOGRAPHY, BILATERAL HISTORY: SCREENING. Previous report indicates left breast biopsy 1982 yielding benign results yielded mother diagnosed with breast cancer age 75 COMPARISON: 09/04/2023, 08/23/2020, 05/06/2019, 09/19/2017, 06/01/2016 TECHNIQUE: Synthesized CC and MLO projections of each breast. Tomosynthesis of each breast in the CC and MLO projections. ADDITIONAL IMAGING: None Computer-aided detection was employed with the iCAD [employer] AI 3-D. TISSUE DENSITY: There are scattered areas of fibroglandular density. (BI-RADS category B) FINDINGS: RIGHT BREAST: No new suspicious mass. No new suspicious calcification. No distortion. There is a stable low-density focal asymmetry in the 3 o'clock position 6.6 cm from the nipple (40/69; 63/94). There are multiple groups of calcifications. The calcifications are not tightly associated with each other and have coarse heterogeneous configuration. Some may be associated with a small mass. These may represent degenerating fibroadenomas. No suspicious interval changes LEFT BREAST: No suspicious mass. No suspicious calcification. No new areas of distortion. No additional suspicious left breast findings. Evidence [...] Computer-aided detection was employed with the [employer] AI 3-D. TISSUE DENSITY: There are scattered [...] Signed Date: 09/07/2024 13:59 ET Workstation ID: [id number] Transcribed By: Self Edit Transcribed Date: 09/07/2024 13:41 ET us Malgorzata Wilkerson MD IMG BI PROCEDURES Final Resu lt * Lipid panel (09/25/2023) LDL/HDL Ratio 3 0 - 4 Triglycerides 82 0 - 150 mg/dL Cholesterol 149 0 - 200 mg/dL HDL 54 >=40 mg/dL LDL Cholesterol 79 0 - 100 mg/dL Blood Venous blood specimen / Unknown Result [facility] Provider LAB BLOOD ORDERABLES Leona l Result * Annual BMP Blood Test (01/10/2023) Annual BMP Blood Test Abstracted Result [facility] Provider HEALTH MAINTENANCE Final Result * Hemoglobin A1c (10/01/2022) Pathologist [facility] Hemoglobin A1C 0.0 % Comment:No interpretation Blood Venous blood specimen / Unknown Result [facility] Provider LAB BLOOD ORDERABLES Leona l Result * Urine Albumin Creatinine Ratio (04/17/2022) Pathologist [facility] Urine Albumin Creatinine Ratio Abstracted Result [facility] Provider HEALTH MAINTENANCE Final Result * Hepatitis C Screening (09/17/2018) Pathologist [facility] Hepatitis C Screening Abstracted Result [facility] Provider HEALTH MAINTENANCE Final Result from Last 3 Months or Most Recently Relevant to Health Maintenance Insurance MEDICARE [facility] Advance Directives Documents on File Type Date Recorded Patient Clinical Appeals Specialist Expl anation Health Care Decision (hx) 08/14/2010 [...] (hx) 08/14/2010 AD RILEY DIRECTIVE Care Teams Director Of Rotc Relationship Specialty Start Date End Date Alyce Pham PA PCP - General 08/09/22
--- OUTSIDE RECORDS SUMMARY | 2025-03-18 14:07 | XMS_ITS | Encounter Summary ---
Author Organization [facility] Address [address] [place] [address] Phone Care Team Providers Care Medart Operator Name Role Phone Yudith Wilder MD Primary Care Provider [phone] Yudith Wilder MD Unavailable Alyce Pham Primary Care Provider [phone] Encounter Details Date Type Department Care Team (Late st Contact Info) Description 12/20/2020 Procedure Pass [facility], [address] [place] [address] Social History Tobacco Use Types Packs/Day Years Used Date Smoking Tobacco: Never Smokeless Tobacco: Never Alcohol Use Standard Drinks/Week Comments Never 0 (1 standard drink = 0.6 oz pur e alcohol) Comments Unknown Sex and Gender Information Value Date Recorded Sex Assigned at Female 09/12/2023 12:23 PM EST Legal Sex Female 6:55 PM EST Gender Identity Female 09/12/2023 12:23 PM EST Sexual Orientation Not on file documented as of this encounter Last Filed Vital Signs Vital Sign Reading Time Taken Comments Blood Pressure - - Pulse - - Temperature - - Respiratory Rate - - Oxygen Saturation - - Inhaled Oxygen Concentration - - Weight 127 kg (280 lb) 12/23/2020 3:11 PM EDT Height 167.6 cm (5' 6 ) 12/23/2020 3:11 PM EDT Body Mass Index 45.19 12/23/2020 3:11 PM EDT documented in this encounter Plan of Treatment Upcoming Encounters Date Type Department Care Team (Late st Contact Info) Description 07/23/2025 11:00 AM EST Office Visit [facility] [address] [place] [address] Natividad Sanders PA-C [address] [place] [address] 08/12/2025 10:40 AM EST Office Visit [facility] [address] [place] [address] Janet Contreras MD [address] [place] [phone] [email or web address] documented as of this encounter Visit Diagnoses Not on filedocumented in this encounter Care Teams Medart Operator Relationship Specialty Start Date End Date Yudith Wilder MD [address] [place] [phone] PCP - General Internal Medicine 07/30/19 09/27/22 Alyce Pham PA [address] [place] [id number] PCP - General Physician Recreation Attendant 09/28/22 Yudith Wilder MD [address] [place] [phone] Internal Medicine 07/30/19 documented as of this encounter Additional Source Comments The information contained in this document represents components of the legal health record. It is not the complete legal health record.[facility]
--- OUTSIDE RECORDS SUMMARY | 2025-03-18 14:07 | XMS_ITS | Encounter Summary ---
Author Organization [facility] Address [address] [place] [address] Care Team Providers Care Process Technician Name Role Phone Pham, Alyce Primary Care Provider [phone] Reason for Visit * Reason Onset Date Comments PAC Appt Request - Established 12/25/2022 PAC Patient Request Call Back 12/25/2022 Encounter Details Date Type Department Care Team (Late st Contact Info) Description 12/25/2022 Telephone [facility] [address] [place] [id number] Telephone Intake, Staff PAC Appt Request - [...] to see. She can be reached at [phone] documented in this encounter Plan of Treatment Upcoming Encounters Date Type Department Care Team (Late st Contact Info) Description 05/18/2025 2:30 PM EST Follow-Up [facility] [address] [place] [phone] School Childcare Attendant: Nikolay Lancaster NP [address] [place] [address] 07/30/2025 10:40 AM EST Follow-Up [facility] [address] [place] [phone] School Childcare Attendant: Edil Jackson DO [address] [place] [phone] documented as of this encounter Visit Diagnoses Not on filedocumented in this encounter Care Teams Process Technician Relationship Specialty Start Date End Date Alyce Pham [address] [place] [phone] PCP - General 02/15/21 documented as of this encounter
--- OUTSIDE RECORDS SUMMARY | 2025-03-18 14:07 | XMS_ITS | Clinical Summary ---
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 Name Role Phone Yudith Wilder MD Unavailable Alyce Pham Primary Care Provider [phone] Allergies Active Allergy Reactions Criticality Noted Date Comments Cephalexin Rash Low 05/31/2024 Doxycycline Hives 10/28/2017 Lisinopril Cough 10/18/2017 Metronidazole Unknown 04/12/2023 Penicillins Other (See Comments) 11/12/2001 rash Penicillins Hives,Other (See Comments),Rash Low 06/03/2014 Pregabalin Restlessness Low 05/15/2022 Quetiapine 04/01/2019 Sulfa (Sulfonamide Antibiotics) Hives 10/18/2017 Sulfamethoxazole-Trimet hoprim Other (See Comments) 11/12/2001 rash Allergy entered as BACTRIM Dulaglutide Explosive diarrhea Medications cholecalciferol (VITAMIN D3) 50,000 unit capsule TK 1 C PO WEEKLY 07/02/20 18 Active metoprolol tartrate (LOPRESSOR) 50 MG tablet Take 50 mg by mouth 2 (two) times a day. 06/03/20 14 Active montelukast (SINGULAIR) 10 mg tablet TAKE 1 TABLET AT BEDTIME 02/25/20 19 Active traZODone (DESYREL) 50 MG tablet Take 50 mg by mouth. 03/30/20 19 Active fluticasone propion-salmeter oL (ADVAIR HFA) 115-21 mcg/actuation inhaler 2 puffs 2 (two) times a day. 03/16/20 22 Active estradioL (ESTRACE) 0.01 % (0.1 mg/gram) vaginal cream Place 2 g vaginally 2 (two) times a week. 08/22/19 22 Active albuterol 90 mcg/actuation inhaler 90 mcg. Active spironolactone (ALDACTONE) 25 MG tablet Take 25 mg by mouth daily. 04/09/20 23 Active hydrOXYzine (ATARAX) 25 MG tablet Take 25 mg by mouth as needed. 08/27/19 24 Active cyanocobalamin, vitamin B-12, 500 MCG tablet Take 1 tablet by mouth every morning. 09/20/19 24 Active LORazepam (ATIVAN) 1 MG tablet Take 1 mg by mouth as needed. 08/27/19 24 Active BD ULTRA-FINE NAHUN PEN NEEDLE 32 gauge x NdleIndications: Type 2 diabetes mellitus with peripheral neuropathy 1 each by Miscellaneous route 4 (four) times a day before meals and nightly. 400 each 2 10/04/19 24 Active valACYclovir (VALTREX) 500 MG tablet Take 500 mg by mouth daily as needed. 11/03/19 24 Active omeprazole (PRILOSEC) 40 MG capsule Take 40 mg by mouth 2 (two) times a day. 11/25/19 24 Active tiZANidine (ZANAFLEX) 4 MG tablet Take 4 mg by mouth nightly at bedtime. 05/23/20 24 Active buprenorphine (BUTRANS) 5 mcg/hour PTWK APPLY 1 PATCH TOPICALLY AND CHANGE WEEKLY 08/27/19 25 Active busPIRone (BUSPAR) 10 MG tablet 2 (two) times a day. 08/13/19 25 Active DULoxetine (CYMBALTA) 20 MG capsule Take 1 capsule by mouth every morning. 09/23/19 25 Active metFORMIN (GLUCOPHAGE-XR) 500 MG 24 hr tabletIndication s:Type 2 diabetes mellitus with peripheral neuropathy TAKE 2 TABLETS ONCE DAILY OR DIRECTED 270 tablet 3 10/22/19 25 Active tirzepatide (MOUNJARO) 7.5 mg/0.5 mL PnIj subcutaneous penIndications:T ype 2 diabetes mellitus with peripheral neuropathy Inject 0.5 mL (7.5 mg total) under the skin once a week. 6 mL 1 02/13/20 25 Active LANTUS SOLOSTAR U-100 INSULIN 100 unit/mL (3 mL) InPn injection penIndications:T ype 2 diabetes mellitus with peripheral neuropathy Inject 16-26 Units under the skin daily. 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 Will order below labs to rule out as possible cause of the fatigue. Discussed that having untreated (awaiting a CPAP) sleep apnea can cause the fatigue. Discussed that the grief/depression from her son's sudden passing and having to take care of her grandson can also cause the fatigue. Other constipation 09/28/2022 Assessment & Plan (09/28/2022 4:56 PM EDT): She has been dealing with severe constipation recently. Her PCP started her on miralax and not finding it very helpful. She has only been taking a half cap full a day of the miralax. Discussed increasing the miralax to a full cap full to see if this helps. Discussed that the victoza and ozempic can cause constipation. To make sure she is drinking plenty of water, being as active as she can be, and to get in fiber during the day. She is going to try and bring back oatmeal to her diet and getting some walking in again Degenerative disc disease, thoracic 01/27/2021 Assessment & Plan (01/31/2021 1:05 PM EDT): Continue Tylenol Arthritis 650 mg Take one pill PO every 8 hours as needed. Trigger finger of right thumb 03/24/2020 Assessment & Plan (01/31/2021 1:06 PM EDT): Stable. Continue Tylenol Arthritis 650 mg Take one pill PO every 8 hours as needed. Assessment & Plan (10/31/2020 9:06 AM EDT): Continue Tylenol arthritis 650 mg Take one pill PO every 8 hours as needed. Continue Tizanidine 4 mg PO qhs. Primary osteoarthritis of left shoulder 09/03/19 Assessment & Plan (01/31/2021 1:05 PM EDT): Continue Tylenol Arthritis 650 mg Take one pill PO every 8 hours as needed. Continue Tizanidine 4 mg PO qhs. Continue stretching, strengthening exercise. Assessment & Plan (10/31/2020 9:04 AM EDT): Patient will continue Tylenol Arthritis 650 mg Take one pill PO every 8 hours as needed for left shoulder OA/rotator cuff pain relief. Continue Tizanidine 4 mg PO qhs for additional rotator cuff pain relief.. Patient encouraged to follow with Orthopedic surgeon to see what additional therapy can be tried for left shoulder pain relief. She has had surgery for Rotator cuff, OA repair. 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 f 09/03/2019 Dry eyes 09/03/2019 Assessment & Plan (01/31/2021 1:07 PM EDT): Continue Restasis eyedrops as needed. Assessment & Plan (10/31/2020 9:05 AM EDT): Continue Restasis as needed for dry eye relief. Pain in both hands 09/03/2019 Assessment & Plan (01/31/2021 1:07 PM EDT): Stable. Continue Tylenol Arthritis 650 mg Take one pill PO every 8 hours as needed. Assessment & Plan (10/31/2020 9:05 AM EDT): Conitnue Tylenol Arthritis 650 mg Take one pill PO every 8 hours as needed. Fibromyalgia Assessment & Plan (01/31/2021 1:10 PM EDT): Patient will discuss with PCP about increasing Cymbalta medication, which can help with Fibromyalgia symptoms, and also would help some with joint pain relief as well. Continue tizanidine 4 mg PO qhs for sleep aid. Continue good sleep routine. Assessment & Plan (10/31/2020 8:59 AM EDT): Increase Trazodone 50 mg to 2 pills PO qhs for sleep aid for Fibromyalgia. Continue Melatonin 3 mg PO qhs for additional sleep aid. Follow good sleep routine. Type 2 diabetes mellitus with peripheral neuropa thy Assessment & Plan (02/18/2025 2:33 PM EDT): Control is good based upon the patient's Freestyle merlyn 3+ sensor download. No frequent or severe hypoglycemia. Will try increasing her mounjaro dosing to be able to help her lower her lantus dosing. Will lower her lantus dosing to 16 units to help prevent possible lows with the increase in mounjaro. Continue to work on eating healthy and being active. To call or message with any issues managing her glucose levels. [facility]. Had labs done will request results from [facility] Assessment & Plan (10/21/2024 2:58 PM EDT): Control excellent. Losing weight on low dose mounjaro. No frequent or severe lows, but will try cutting back on lantus given weight loss from 30 to 26 units. Continue to work on eating healthy & keeping active. To call or send in BG with problems with glycemic control. [facility] Foot & nail care good. Umalb/creat up to date, normal. Sees podiatry. BP under reasonable control. Assessment & Plan (06/16/2024 9:55 AM EST): Control is doing very well based upon the patient's Freestyle merlyn 3 sensor download. No frequent or severe hypoglycemia. She will have an occasional low over night, she is not sure what is causing it but will correct with orange juice and then is fine. Will lower her lantus to 30 units from 34 units to help prevent the lows. Will maintain her mounjaro dosing. Continue to work on eating healthy and being active. To call or message with any issues managing her glucose levels. Up to date with [facility]. Doing labs today previously ordered by Dr Contreras Assessment & Plan (04/02/2024 4:43 PM EDT): Control suboptimal, has deteriorated off of GLP1. Is not happy with insulin/weight. Now does not think itching w/ ozempic/trulicity really caused itching & would like to try mounjaro. Will call for labs via PCP. Continue to work on eating healthy & keeping active. To call or send in BG with problems with glycemic control. [facility]. BP under reasonable control. Assessment & Plan (01/03/2024 12:33 PM EDT): Control is improving based upon the patient's Freestyle merlyn 3 sensor download. No frequent or severe hypoglycemia. Her glucose levels over night are stabilizing. Her post prandial levels are running high. Will increase her humalog at meals by 2 units to help prevent the post prandial lows. Discussed considering the use of insulin pump to help improve her control. Will order labs to determine if she qualifies by medicare standards. Continue to work on eating healthy and being active. To call or message with any issues managing her glucose levels. [facility] Labs ordered Assessment & Plan (11/08/2023 11:59 AM EDT): Control is improving based upon the patient's Freestyle merlyn 3 sensor download. No frequent or severe hypoglycemia. She had one recent low due to taking too much insulin for what she ate. She corrected with orange juice and then was fine. Will increase her lantus to 32 units to help with the higher fasting levels. Continue to work on eating healthy and being active. To call or message with any issues managing her glucose levels. Up to date with [facility] Sees podiatry Assessment & Plan (10/04/2023 10:48 AM EDT): Control is poor based upon the patient's Freestyle merlyn 3 sensor download. No frequent or severe hypoglycemia. Her glucose levels are running consistently high. Will increase her lantus to help lower her level throughout the day. Discussed how to titrate the lantus dose up to 60 units as needed. Will start prandial insulin to help with the post prandial spikes. Continue to work on eating healthy and being active. To call or message with any issues managing her glucose levels. Up to date with [facility] Assessment & Plan (07/31/2023 11:53 AM EST): Control suboptimal, has deteriorated w/ shift from ozempic to rybelsus due to itching. Had been well controlled on victoza in the past w/o issues tolerating. Will maximize rybelsus dose & if control remains suboptimal or does not tolerate, will see if we can get PA through for victoza. Will call for labs via PCP. Continue to work on eating healthy & keeping active. To call or send in BG with problems with glycemic control. Up to date with [facility]. Foot & nail care good. BP under reasonable control. Assessment & Plan (04/15/2023 2:56 PM EDT): Control is very good based upon the patient's freestyle merlyn 3 sensor download. She is not using any medications to cause hypoglycemia. She experienced an episode of hypoglycemia, she thinks she might have been too active and went too long without eating. She had something to eat and then after a period of time felt better. She has been experiencing diffuse itching for a while now. She thinks it started after she increased her ozempic dose from 0.5 mg weekly to 1 mg weekly. Will have her try skipping the 1 mg dose this coming Saturday 04/14 to see how she feels during the week, to see if the itching resolves. Discussed it might take an additional week due to the half life of the ozempic. If the itching resolves will have her try taking the 0.5 mg dose again, if the itching resumes will stop the ozempic and try to get her the victoza back, as she did not tolerate trulicity in the past. If stopping the 1 mg of the ozempic doesn't result in the itching stopping she will resume the 1 mg dose and continue to work with her PCP to figure out the cause of the itching. Continue to work on eating healthy and being active. To call or message with any issues managing her glucose levels. Up to date with [facility]. Labs ordered Assessment & Plan (01/09/2023 2:14 PM EDT): Control reasonable, feels still not doing as well on ozempic as had on victoza, does not recall dose of victoza she was on. Has also had an inordinate amount of stress lately. Will trial increasing ozempic to 1 mg weekly. Continue to work on eating healthy & keeping active. To call or send in BG with problems with glycemic control. Up to date with [facility]. Follows w/ podiatry. Following w/ renal. BP under reasonable control. Assessment & Plan (09/28/2022 4:54 PM EDT): Control is good based upon the patient's freestyle merlyn 3 sensor review from her phone- unable to download during today's visit. She is not using any medications to cause hypoglycemia. Since starting the ozempic she has found her glucose levels are higher now. Will have her increase her ozempic from 0.25 mg weekly to 0.5 mg weekly to see if this will help improve her control. Discussed if she doesn't see an improvement to let me know and we can talk about what to do next. Continue to work on eating healthy and being active. Up to date with [facility]. Labs ordered today Cough Allergic rhinitis Benign essential hypertension CAD (coronary artery disease) Overview (01/09/2023): 2016 Angioplasty Chronic diarrhea Overview (01/09/2023): Follows with GI, stomach biopsies negative for H. pylori. Negative celiac's work-up, negative esophageal biopsies as well as colon biopsies. 3 precancerous polyps removed. Repeat colonoscopy in 3 years CKD (chronic kidney disease) stage 3, GFR 30-59 ml/min Depression Gastroesophageal reflux disease Irritable bowel syndrome Overview (01/09/2023): Follows with gastroenterology Moderate asthma Multinodular goiter Overview (01/09/2023): 2010 Right jeannine thyroidectomy Assessment & Plan (10/21/2024 2:55 PM EDT): Ultrasound 03/2023 @ [facility] w/o suspicious change. Some discomfort left neck. Exam unchanged. Will repeat thyroid u/s. Assessment & Plan (04/02/2024 4:44 PM EDT): Ultrasound 03/2023 @ [facility] w/o suspicious change. Will continue to monitor. Assessment & Plan (07/31/2023 11:50 AM EST): Ultrasound 03/2023 @ [facility] w/o suspicious change. Will continue to monitor. Assessment & Plan (01/09/2023 2:15 PM EDT): Euthyroid on labs in September. Await previous records. YAN (obstructive sleep apnea) Overview (01/09/2023): Unable to tolerate CPAP Has CPAP, but unable to use recently secondary to cough Osteoarthritis Overview (01/09/2023): Spine, knees Follows with [facility] Pernicious anemia Restless leg syndrome S/P gastric bypass Silent myocardial infarction Paroxysmal supraventricular tachycardia Vitamin D deficiency Assessment & Plan (10/21/2024 2:55 PM EDT): Last levels wnl. Secondary hyperparathyroidism Assessment & Plan (10/21/2024 2:55 PM EDT): Likely related to decrease in absorption following gastric bypass as calcium has been low normal. Advised to be sure she is getting 500 mg elemental calcium bid & will continue to monitor. Assessment & Plan (04/02/2024 4:45 PM EDT): Likely related to decrease in absorption following gastric bypass as calcium has been low normal. Will obtain labs from PCP. Somewhat limited dairy. Advised to take calcium 500 mg bid & monitor. USP current use of insulin Encounters Date Type Department Care Team Description 03/08/2025 Telephone [facility] [address] [place] [address] [place] [address] Leidy Genao [facility] 02/12/2025 9:00 AM EDT Office Visit [facility] [address] [place] [address] Natividad Sanders PA-C Type 2 diabetes mellitus with peripheral neuropathy (Primary Dx) 02/08/2025 Telephone [facility] [address] [address] Marion Shaw MD 01/19/2025 Telephone [facility] [address] [place] [address] Jina Torres, negative developer Management 01/12/2025 Transcribe Orders Virtual Department [address] [place] [address] Jase Neely MD Asymptomatic menopausal state (Primary Dx) 01/06/2025 Telephone [facility] [address] [address] Marion Shaw MD from Last 3 Months Family History Medical History Relation Comments Cancer Father Cancer Maternal Grandmother Cancer Mother Relation Status Comments Father Maternal Grandfather Maternal Grandmother Mother Paternal Grandfather Paternal Grandmother Social History Tobacco Use Types Packs/Day Years Used Date Smoking Tobacco: Never Smokeless Tobacco: Never Tobacco Cessation:Counseling Given: Not Answered Alcohol Use Standard Drinks/Week Comments Never 0 (1 standard drink = 0.6 oz pur e alcohol) Education Answer Date Recorded Are you interested in more education? Not on monica e 11/22/2022 Are you concerned about learning? Not on file 11/22/2022 No 11/22/2022 No 11/22/2022 Digital Access Answer Date Recorded No 12/09/2022 No 12/09/2022 Reliable internet access at home? Not on file 12/09/2022 Device with a working camera? Not on file Intimate Partner Violence Answer Date R ecorded Are you denied basic needs s uch as food, clothing, or medical care? No 10/23/2022 In the past 12 months have y ou been in a relationship with a person who hurts, threatens, or tries to control you? No 10/23/2022 Are you denied basic needs s uch as food, clothing, or medical care? No 10/23/2022 In the past 12 months have y ou been in a relationship with a person who hurts, threatens, or tries to control you? No 10/23/2022 Comments Unknown Sex and Gender Information Value Date Recorded Sex Assigned at Female 09/12/2023 12:23 PM EST Legal Sex Female 6:55 PM EST Gender Identity Female 09/12/2023 12:23 PM EST Sexual Orientation Not on file Last Filed Vital Signs Vital Sign Reading Time Taken Comments Blood Pressure 126/70 02/12/2025 9:16 AM EDT Pulse 80 02/12/2025 9:16 AM EDT Temperature 36.4 C (97.6 F) 11/08/2023 10:59 AM EDT Respiratory Rate 18 10/23/2022 3:40 PM EDT Oxygen Saturation 99% 02/12/2025 9:16 AM EDT Inhaled Oxygen Concentration - - Weight 117.9 kg (260 lb) 02/12/2025 9:16 AM EDT Height 167.6 cm (5' 5.98 ) 02/12/2025 9:16 AM ED T Body Mass Index 41.99 02/12/2025 9:16 AM EDT Plan of Treatment Upcoming Encounters Date Type Department Care Team (Late st Contact Info) Description 07/23/2025 11:00 AM EST Office Visit [facility] [address] [address] Natividad Sanders PA-C [address] [place] [address] 08/12/2025 10:40 AM EST Office Visit [facility] [address] [place] [address] Janet Contreras MD [address] [place] [email or web address] Health Maintenance Due Date Last Done Comments Adult Td,Tdap Booster 1949 DEPRESSION SCREENING 1961 HEPATITIS C SCREENING 1967 ZOSTER VACCINES (2 of 3) 09/09/2010 07/15/2010 OSTEOPOROSIS SCREENING INITIAL (ONE-TIME) 2014 DIABETIC EYE EXAM 09/28/2022 RSV VACCINE (1 - 1-dose 75+ series) 02/10/2024 LIPID PANEL 09/24/2024 09/25/2023, 09/17/2018 HEMOGLOBIN A1C 12/15/2024 06/16/2024, 12/14, 01/06/2024, Additional history exists INFLUENZA VACCINE (#1) 2025 , 05/31/2021, 03/29/2020, Additional history exists COVID-19 VACCINE (2024- season) 2025 05/31/2021, 09/12/2020, 08/15/2020 CREATININE LEVEL 06/16/2025 06/16/2024, , 01/06/2024, Additional history exists POTASSIUM LEVEL 06/16/2025 06/16/2024, 01/13, 01/06/2024, Additional history exists BLOOD PRESSURE 08/15/2025 02/12/2025 PNEUMOCOCCAL VACCINES (50+ years) Completed 04/24/2019, 03/31/2018, 09/10/2014, Additional history exists SMOKING STATUS SCREENING (Once After 26 Yrs) Completed 10/21/2024 HEPATITIS A VACCINES Aged Out No long er eligible based on patient's age to complete this topic HIB VACCINES Aged Out No longer eligi ble based on patient's age to complete this topic MENINGOCOCCAL VACCINES (ACWY) Aged Out No longer eligible based on patient's age to complete this topic MENINGOCOCCAL VACCINES (B) Aged Out N o longer eligible based on patient's age to complete this topic Medical Devices Not on file Procedures Procedure Name Priority Date/Time Associated Diagnosis Comments HEMOGLOBIN A1C Routine 06/16/2024 10:00 AM EST Type 2 diabetes mellitus with peripheral neuropathy COMPREHENSIVE METABOLIC PANEL Routine 06/16/2024 10:00 AM EST Secondary hyperparathyroidism from Last 3 Months or Most Recently Relevant to Health Maintenance Results * (ABNORMAL) Comprehensive metabolic panel (06/16/2024 10:00 AM EST) SODIUM 142 133 - 146 mmol/L [facility] POTASSIUM 3.4 3.3 - 5.1 mmol/L [facility] CHLORIDE 106 96 - 108 mmol/L [facility] CO2 25 21 - 35 mmol/L [facility] BUN 11 6 - 19 mg/dL [facility] CREATININE 0.80 0.5 - 1.5 mg/dL [facility] GLUCOSE 105(H) 70 - 99 mg/dL [facility] ALBUMIN 4.2 3.9 - 4.8 g/dL [facility] TOTAL PROTEIN 7.1 6.5 - 8.0 g/dL [facility] CALCIUM 9.4 8.4 - 10.3 mg/dL [facility] ALKALINE PHOSPHATASE 69 39 - 117 U/L [facility] TOTAL BILIRUBIN 0.4 0.0 - 1.2 mg/dL [facility] AST 23 0 - 37 U/L [facility] ALT 18 0 - 40 U/L [facility] GLOBULIN 2.9 1 - 4.8 g/dL [facility] EGFR 77 >59 mL/min/1.7 3m2 [facility] Comment:Estimated glomerular filtration rate calculated using the CKD-EPI refit equation. ANION GAP 14 10 - 20 mmol/L [facility] Blood 06/16/2024 10:0 0 AM EST 06/16/2024 10:14 AM EST us Janet Contreras MD LAB BLOOD ORDERABLES F inal Result [facility] [address] [place] [address] * (ABNORMAL) Hemoglobin A1c (06/16/2024 10:00 AM EST) HEMOGLOBIN A1C 6.5(H) 4.3 - 5.8 % [facility] Blood 06/16/2024 10:0 0 AM EST 06/16/2024 10:15 AM EST Janet Contreras MD LAB BLOOD ORDERABLES F inal Result Performing Organization Address City/State/[facility] Co de Phone Number [facility] [address] [place] [address] from Last 3 Months or Most Recently Relevant to Health [place] [address] MEDICARE PART A & B [facility] MEDICARE SUPPLEMENT MEDICARE PART A & B [facility] MEDICARE SUPPLEMENT MEDICARE PART A & B [facility] MEDICARE SUPPLEMENT MEDICARE PART A & B Member Subscriber Plan / Payer (Ef fective 2012-Present) Name:Yessi Joya Member ID:[id number] Relation to Subscriber:Self Name:Yessi Joya Subscriber ID:[id number] Payer ID:[id number] Group ID:Not on file Type:Medicare Address: [facility] [id number] FOR LIFE MEDICARE SUPPLEMENT Member Subscriber Plan / Payer (Ef fective 2012-Present) Name:Yesis Joya Relation to Subscriber:Self Name:Yessi Joya Payer ID:[id number] (NAIC) Group ID:Not on file Type:[facility] Address: [place] [phone] MEDICARE PART A & B [facility] MEDICARE SUPPLEMENT MEDICARE PART A & [place] [address] [place] [address] [address] [place] [address] MEDICARE PART A & B [facility] MEDICARE SUPPLEMENT MEDICARE PART A & B [employer] MEDICARE SUPPLEMENT ([place]) [address] [place] [address] MEDICARE PART A & B [employer] MEDICARE SUPPLEMENT MEDICARE PART A & B [employer] MEDICARE SUPPLEMENT MEDICARE PART A & B [employer] MEDICARE SUPPLEMENT Member Subscriber Plan / Payer ( fective 2012-Present) Name:Yessi Joya Relation to Subscriber:Self Name:Yessi Joya Payer ID:[id number] (NAIC) Group ID:Not on file Type:HMO Address: [place] [phone] MEDICARE PART A & B [employer] MEDICARE SUPPLEMENT MEDICARE PART A & B [employer] MEDICARE SUPPLEMENT MEDICARE PART A & B [employer] MEDICARE SUPPLEMENT MEDICARE PART A & B Member Subscriber Plan / Payer ( fective 2012-Present) Name:JoyaMaryne Member ID:[id number] Relation to Subscriber:Self Name:JoyaMaryne Subscriber ID:[id number] Payer ID:[id number] Group ID:Not on file Type:Medicare Address: [place] [address] [place] [phone] [employer] MEDICARE SUPPLEMENT Member Subscriber Plan / Payer ( fective 2012-Present) Name:Yessi Joya Relation to Subscriber:Self Name:Yessi Joya Payer ID:[id number] (NAIC) Group ID:Not on file Type:[facility] Address: [place] [phone] MEDICARE PART A & B [employer] MEDICARE SUPPLEMENT Member Subscriber Plan / Payer (Ef fective 2012-) Name:Yessi Joya Relation to Subscriber:Self Name:Yessi Joya Payer ID:[id number] (NAIC) Group ID:Not on file Type:[facility] Address: [place] [phone] MEDICARE PART A & B [employer] MEDICARE SUPPLEMENT MEDICARE PART A & B [employer] MEDICARE SUPPLEMENT Care Teams 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 It is not the complete legal health record.[facility]
--- OUTSIDE RECORDS SUMMARY | 2025-03-18 14:07 | XMS_ITS | Encounter Summary ---
Author Organization [facility] Address [address] [place] [address] Care Team Providers Care Hospitality Workers Name Role Phone Alyce Pham Primary Care Provider [phone] Encounter Details Date Type Department Care Team (Late st Contact Info) Description 12/19/2022 Orders Only [facility] [address] [place] [address], [place] [address] [address] Pancho Sherman MD [address] [place] [address] Social History Tobacco Use Types Packs/Day Years Used Date Smoking Tobacco: Never Smokeless Tobacco: Never Comments:: Comments Unknown Sex and Gender Information Value Date Recorded Sex Assigned at Female 03/13/2022 1:11 PM EDT Legal Sex Female 3:18 AM EDT Gender Identity Female 03/13/2022 1:11 PM EDT Sexual Orientation Straight 03/13/2022 1: 11 PM EDT documented as of this encounter Plan of Treatment Upcoming Encounters Date Type Department Care Team (Late st Contact Info) Description 05/18/2025 2:30 PM EST Follow-Up [facility] [address] [place] [address] Patient Placement Coordinator: Nikolay Lancaster NP [address] [place] [address] 07/30/2025 10:40 AM EST Follow-Up [facility] [address] [place] [address] Patient Placement Coordinator: Edil Jackson DO [address] [place] [address] [phone] documented as of this encounter Visit Diagnoses Not on filedocumented in this encounter Care Teams Hospitality Workers Relationship Specialty Start Date End Date Alyce Pham [address] [place] [address] PCP - General 02/15/21 documented as of this encounter
--- OUTSIDE RECORDS SUMMARY | 2025-03-18 14:08 | XMS_ITS | Encounter Summary ---
Author Organization [facility] Address [address] [place] [address] Care Team Providers Care Nuclear Medicine Tech Name Role Phone Alyce Pham Primary Care Provider [phone] Encounter Details Date Type Department Care Team (Late st Contact Info) Description 03/18/2025 myChart Message [facility] [address] [place] [address] [phone] Carburizing Furnace Operator: Edil Jackson DO [address] [place] [address] Appointment Social History Tobacco Use Types Packs/Day Years Used Date Smoking Tobacco: Never Smokeless Tobacco: Never Comments:: Alcohol Use Standard Drinks/Week Comments Not [...] Info) Description 05/18/2025 2:30 PM EST Follow-Up [facility] [address] [place], [place] [phone] Carburizing Furnace Operator: Nikolay Lancaster NP [address] [place] [address] 07/30/2025 10:40 AM EST Follow-Up [facility] [address] [place] [address] Carburizing Furnace Operator: Edil Jackson DO [address] [place] [address] documented as of this encounter Visit Diagnoses Not on filedocumented in this encounter Care Teams Nuclear Medicine Tech Relationship Specialty Start Date End Date Ankit Alyce [address] [place] [address] PCP - General 02/15/21 documented as of this encounter
--- OUTSIDE RECORDS SUMMARY | 2025-03-18 14:08 | XMS_ITS ---
Author Name [facility] Organization Unknown Encounters Encounter Type Encounter Reason Primary Diagnosis Location Date Ambulatory [facility] 03/19/2023 Ambulatory [facility] 2 Care Team Organization Name Specialty Phone Email Start Date End Da te [facility] Fatmata Gomez [facility] 03/02/2024
--- OUTSIDE RECORDS SUMMARY | 2025-03-18 14:08 | XMS_ITS | Encounter Summary ---
Author Organization [facility] Address [address] [place] [address] Phone Care Team Providers Care Digital Experience Manager Name Role Phone Pcp, Unknown Primary Care Provider Unavailabl e Yudith Wilder MD Primary Care Provider [phone] Yudith Wilder MD Primary Care Provider [phone] Yudith Wilder MD Unavailable Alyce Pham Primary Care Provider [phone] Encounter Details Date Type Department Care Team (Late st Contact Info) Description 11/27/2018 Procedure Pass [address] [place] [address] Social History Tobacco Use Types Packs/Day Years Used Date Smoking Tobacco: Never Assessed Comments Unknown Sex and Gender Information Value [...] - Inhaled Oxygen Concentration - - Weight 126.6 kg (279 lb) 11/28/2018 2:36 PM EDT Height 167.6 cm (5' 6 ) 11/28/2018 2:36 PM EDT Body Mass Index 45.03 11/28/2018 2:36 PM EDT documented in this encounter Plan of Treatment Upcoming Encounters Date Type Department Care Team (Late st Contact Info) Description 07/23/2025 11:00 AM EST Office Visit [facility] [address] [place] [address] Natividad Sanders PA-C [address] [place] [address] 08/12/2025 10:40 AM EST Office Visit [facility] [address] [place] [address] Janet Contreras MD [address] [place] [address] documented as of this encounter Visit Diagnoses Not on filedocumented in this encounter Care Teams Digital Experience Manager Relationship Specialty Start Date End Date Pcp, Unknown PCP - General 11/27/18 11/30/18 Yudith Wilder MD [address] [place] [address] PCP - General Internal Medicine 12/01/18 07/29/19 Yudith Wilder MD [address] [place] [address] PCP - General Internal Medicine 07/30/19 09/27/22 Alyce Pham PA [address] [place] [address] PCP - General Physician Director Of Group Sales 09/28/22 Yudith Wilder MD [address] [place] [address] Internal Medicine 07/30/19 documented as of this encounter Additional Source Comments The information contained in this document represents components of the legal health record. It is not the complete legal health record.[facility]
--- OUTSIDE RECORDS SUMMARY | 2025-03-18 14:08 | XMS_ITS | Encounter Summary ---
Author Organization [facility] Address [address] [place] [address] Phone Care Team Providers Care Mural Painter Name Role Phone Yudith Wilder MD Primary Care Provider [phone] Yudith Wilder MD Primary Care Provider [phone] Yudith Wilder MD Unavailable Alyce Pham Primary Care Provider [phone] Encounter Details Date Type Department Care Team (Late st Contact Info) Description 04/01/2019 Procedure Pass [facility] [address] [place] [address] Social History Tobacco Use Types Packs/Day Years Used Date Smoking Tobacco: Never Assessed Comments Unknown Sex and Gender Information Value Date Recorded Sex Assigned at Female 09/12/2023 12:23 PM EST Legal Sex Female 6:55 PM EST Gender Identity Female 09/12/2023 12:23 PM EST Sexual Orientation Not on file documented as of this encounter Plan of Treatment Upcoming Encounters Date Type Department Care Team (Late st Contact Info) Description 07/23/2025 11:00 AM EST Office Visit [facility] [address] [place] [address] Natividad Sanders PA-C [address] [place] [address] 08/12/2025 10:40 AM EST Office Visit [facility] [address] [place] [address] Janet Contreras MD [address] [address] [email or web address] documented as of this encounter Visit Diagnoses Not on filedocumented in this encounter Care Teams Mural Painter Relationship Specialty Start Date End Date Yudith Wilder MD [address] [place] [address] PCP - General Internal Medicine 12/01/18 07/29/19 Yudith Wilder MD [address] [place] [address] PCP - General Internal Medicine 07/30/19 09/27/22 Alyce Pham PA [address] [place] [address] PCP - General Physician Food Service Technician 09/28/22 Yudith Wilder MD [address] [place] [address] Internal Medicine 07/30/19 documented as of this encounter Additional Source Comments The information contained in this document represents components of the legal health record. It is not the complete legal health record.[facility]
--- OUTSIDE RECORDS SUMMARY | 2025-03-18 14:08 | XMS_ITS | Encounter Summary ---
Author Organization [facility] [place] [address] Care Team Providers Care Medical Scientific Liaison Name Role Phone Alyce Pham Primary Care Provider [phone] Encounter Details Date Type Department Care Team (Late st Contact Info) Description 09/10/2024 Lab Requisition [facility] - Main Lab [address] [facility] [place] [address] Corrina Alvarez PA [address] [place], [place] [phone] Urinary tract infection, site not specified Social [...] ssp pneumoniae(A) BRENT 09/12/2024 10:33 AM EST [facility] Comment: This is an edited result. [...] ug/ml: Susceptible Klebsiella pneumoniae ssp pneumoniae Cefepime BERNT <=0.12 ug/ml: Susceptible Klebsiella pneumoniae ssp pneumoniae [...] - GENERAL ORD ERABLES Final Result [facility] ([facility]) [facility] [address] [place] [address], [place] [phone] documented in this encounter Visit Diagnoses Diagnosis Urinary tract infection, site not specified documented in this encounter Additional Health Concerns Infection Onset Date Last Indicated Resolved Time Gastrointestinal Rule-Out 09/15/2024 09/15/2024 5:39 PM EST documented as of this encounter Care Teams Medical Scientific Liaison Relationship Specialty Start Date End Date Alyce Pham PA PCP - General 08/09/22 documented as of this encounter
--- OUTSIDE RECORDS SUMMARY | 2025-03-18 14:08 | XMS_ITS | Encounter Summary ---
Author Organization [facility] Address [address] [facility] [address] [place] [address] Phone Care Team Providers Care Measuring Machine Tender Name Role Phone Pcp, Unknown Primary Care Provider Unavailabl e Yudith Wilder MD Primary Care Provider [phone] Yudith Wilder MD Primary Care Provider [phone] Yudith Wilder MD Unavailable Alyce Pham Primary Care Provider [phone] Reason for Referral * MRI/CAT Scan - Closed Specialty Diagnoses / Procedures Referred By Yas larsen Referred To Contact Radiology Diagnoses Cervical radiculopathy Procedures MRI Cervical Spine MRI Lumbar Spine Nidia Nagel NP Phone: tel: fax: [email or web address] Referral ID Status Reason Start Date Expiration Date Visits Re quested Visits Authorized [id number] Closed 11/27/2018 11/27/2019 1 1 Encounter Details Date Type Department Care Team (Latest Contact Info) Description 11/27/2018 Ancillary Orders Virtual Department [address] [place] [address] Nidia Nagel NP [address] [place] [phone] [email or web address] Cervical radiculopathy Social History Tobacco Use Types Packs/Day Years [...] 11:00 AM EST Office Visit [facility] [address] [place] [address] Natividad Sanders PA-C [address] [place] [address] [email or web address] 08/12/2025 10:40 AM EST Office Visit [facility] [address] [place] [address] [place] [address] Janet Contreras MD [address] [place] [address] documented as of this encounter Results * MRI CERVICAL SPINE (NEURO) FOCUS WITHOUT CONTRAST (12/01/2018 2:57 PM EDT) Anatomical Region Laterality Modality C-spine Magnetic Resonan ce 12/01/2018 3:27 PM EDT Impressions 12/01/2018 3:32 PM EDT No explanation for the patient's signs and symptoms. POS [id number] Narrative 12/01/2018 3:32 PM EDT HISTORY:. Cervical pain radiating down right shoulder, numbness and paresthesias in right arm and hand. COMPARISON: None. TECHNIQUE: Exam performed on a 1.5 Litzy high-field MRI scanner. Sagittal T1, T2 and STIR, axial T2* gradient echo and 3-D bright fluid sequences were obtained. FINDINGS: Cervicomedullary junction: No abnormalities demonstrated. Spinal cord: No evidence of significant abnormalities. C2-C3: No significant abnormalities. C3-C4: No significant abnormalities. C4-C5: No significant abnormalities. C5-C6: Minimal broad-based bulging the disc. No significant abnormalities. C6-C7: No significant abnormalities. C7-T1: No significant abnormalities. Vertebrae: No significant abnormalities. Soft tissue: No evidence of paravertebral masses. Procedure Note Ronnie Roldan MD - 12/01/2018 HISTORY:. Cervical pain radiating down right shoulder, numbness andparesthesias in right arm and hand. COMPARISON: None. TECHNIQUE: Exam performed on a 1.5 Litzy high-field MRI scanner.Sagittal T1, T2 and STIR, axial T2* gradient echo and 3-D bright fluidsequences were obtained. FINDINGS: Cervicomedullary junction: No abnormalities demonstrated. Spinal cord: No evidence of significant abnormalities. C2-C3: No significant abnormalities. C3-C4: No significant abnormalities. C4-C5: No significant abnormalities. C5-C6: Minimal broad-based bulging the disc. No significantabnormalities. C6-C7: No significant abnormalities. C7-T1: No significant abnormalities. Vertebrae: No significant abnormalities. Soft tissue: No evidence of paravertebral masses. IMPRESSION: No explanation for the patient's signs and symptoms. POS [id number] Nidia Nagel NP IMG MR XSPECIALTY Final Result documented in this encounter Visit Diagnoses Diagnosis Cervical radiculopathy Brachial neuritis or radiculitis nos Cervical radiculopathy Brachial neuritis or radiculitis nos documented in this encounter Care Teams Measuring Machine Tender Relationship Specialty Start Date End Date Pcp, Unknown PCP - General 11/27/18 11/30/18 Yudith Wiledr MD [address] [place] [address] PCP - General Internal Medicine 12/01/18 07/29/19 Yudith Wilder MD [address] [place] [address] PCP - General Internal Medicine 07/30/19 09/27/22 Alyce Pham PA [address] [place] [address] PCP - General Physician L Tacker 09/28/22 Yudith Wilder MD [address] [place] [address] Internal Medicine 07/30/19 documented as of this encounter Additional Source Comments The information contained in this document represents components of the legal health record. It is not the complete legal health record.[facility]
--- OUTSIDE RECORDS SUMMARY | 2025-03-18 14:08 | XMS_ITS | Encounter Summary ---
Author Organization [facility] Address [address] [place] [address] Phone Care Team Providers Care Professional Driver Name Role Phone Yudith Wilder MD Primary Care Provider [phone] Yudith Wilder MD Primary Care Provider [phone] Yudith Wilder MD Unavailable Alyce Pham Primary Care Provider [phone] Encounter Details Date Type Department Care Team (Late st Contact Info) Description 05/13/2019 Procedure Pass [address] [address] Social History Tobacco Use Types Packs/Day Years Used Date Smoking Tobacco: Never Smokeless Tobacco: Never Comments Unknown Sex and Gender Information Value Date Recorded Sex Assigned at Female 09/12/2023 12:23 PM EST Legal Sex Female 6:55 PM EST Gender Identity Female 09/12/2023 12:23 PM EST Sexual Orientation Not on file documented as of this encounter Plan of Treatment Upcoming Encounters Date Type Department Care Team (Late st Contact Info) Description 07/23/2025 11:00 AM EST Office Visit [facility] [place] [address] Natividad [place] [address] 08/12/2025 10:40 AM EST Office Visit [facility] [address] [place] [address] Janet Contreras MD [address] [address] documented as of this encounter Visit Diagnoses Not on filedocumented in this encounter Care Teams Professional Driver Relationship Specialty Start Date End Date Yudith Wilder MD [address] [place] [address] PCP - General Internal Medicine 12/01/18 07/29/19 Yudith Wilder MD [address] [place] [address] PCP - General Internal Medicine 07/30/19 09/27/22 Alyce Pham PA [address] [place] [address] PCP - General Physician Senior Dynamics Crm Developer 09/28/22 Yudith Wilder MD [address] [place] [address] Internal Medicine 07/30/19 documented as of this encounter Additional Source Comments The information contained in this document represents components of the legal health record. It is not the complete legal health record.[facility]
--- OUTSIDE RECORDS SUMMARY | 2025-03-18 14:08 | XMS_ITS | Encounter Summary ---
Author Organization [facility] Address [address] [place] [address] Phone Care Team Providers Care Plate Fitter Name Role Phone Yudith Wilder MD Unavailable Alyce Pham Primary Care Provider [phone] Encounter Details Date Type Department Care Team (Late st Contact Info) Description 10/23/2022 Procedure Pass [facility] Scan - [address] [address] Social History Tobacco Use Types Packs/Day Years Used Date Smoking Tobacco: Never Smokeless Tobacco: Never Alcohol Use Standard Drinks/Week Comments Never 0 (1 standard drink = 0.6 oz pur e alcohol) Intimate Partner Violence Answer Date R ecorded [...] on file documented as of this encounter Functional Status * Calculated C-SSRS Risk Score (Lifetime/Recent) Answer Date of Assessment Author No Risk Indicated 10/23/2022 11:38 AM EDT Annia Hendrickson RN * [place] Suicide Severity Rating Scale (Screener/Recent Self-Report) Question Answer Date of Assessment Author 1. Wish to be (Past 1 Month) No 023 11:38 AM EDT Annia Hendrickson RN 2. Non-Specific Active Suici mansi Thoughts (Past 1 Month) No 10/23/2022 11:38 AM EDT Neyda Hendrickson RN 6. Suicidal Behavior (Lifetime) No 11:38 AM EDT Annia Hendrickson RN documented as of this encounter Plan of Treatment Upcoming Encounters Date Type Department Care Team (Late st Contact Info) Description 07/23/2025 11:00 AM EST Office Visit [facility] [address] [place] [address] Natividad Sanders PA-C [address] [place] [address] 08/12/2025 10:40 AM EST Office Visit [facility] [address] [place] [address] Janet Contreras MD [address] [place] [address] documented as of this encounter Visit Diagnoses Not on filedocumented in this encounter Care Teams Plate Fitter Relationship Specialty Start Date End Date Alyce Pham PA [address] [place] [address] PCP - General Physician Cobol Application Developer 09/28/22 Yudith Wilder MD [address] [place] [address] Internal Medicine 07/30/19 documented as of this encounter Additional Source Comments The information contained in this document represents components of the legal health record. It is not the complete legal health record.[facility]
--- OUTSIDE RECORDS SUMMARY | 2025-03-18 14:08 | XMS_ITS | Encounter Summary ---
Author Organization [facility] Address [address] [place] [address] Phone Care Team Providers Care Advertising Associate Name Role Phone Yudith Wilder MD Primary Care Provider [phone] Yudith Wilder MD Unavailable Alyce Pham Primary Care Provider [phone] Reason for Referral * MRI/CAT Scan - Closed Specialty Diagnoses / Procedures Referred By Yas larsen Referred To Contact Radiology Diagnoses Radiculopathy of thoracic region Procedures MRI Thoracic Spine Nidia Nagel NP [address] [place] [address] Phone: tel: fax: [email or web address] Referral ID Status Reason Start Date Expiration Date Visits Re quested Visits Authorized [id number] Closed 12/20/2020 12/20/2021 1 1 Encounter Details Date Type Department Care Team (Latest Contact Info) Description 12/20/2020 Ancillary Orders Virtual Department [address] [place] [address] Nidia Nagel NP [address] [place] [phone] [email or web address] Radiculopathy of thoracic region Social History Tobacco Use Types Packs/Day Years [...] 11:00 AM EST Office Visit [facility] [address] [place] [address] [place] [address] Natividad Sanders PA-C [address] [place] [address] 08/12/2025 10:40 AM EST Office Visit [facility] [address] [place] [address] Janet Contreras MD [address] [place] [address] documented as of this encounter Results * MRI THORACIC SPINE (BONE) WITHOUT CONTRAST (12/29/2020 8:23 AM EDT) Anatomical Region Laterality Modality T-spine Magnetic Resonan ce 12/29/2020 8:22 AM EDT Impressions 12/29/2020 8:47 AM EDT Mild T6-7 and T9 disc disease. No significant disc herniation, canal or neural foraminal stenosis. Narrative 12/29/2020 8:47 AM EDT COMPARISON: None. TECHNIQUE: Exam performed on a 1.5 Litzy high-field MRI scanner. Multiplanar multisequence imaging obtained of the thoracic spine without gadolinium. MRI THORACIC SPINE FINDINGS: Musculoskeletal: Mild thoracic kyphosis and diffuse endplate spurring. Mild T6-7 and T8-9 disc space narrowing. No compression fractures. No malalignment. Incidental perineural cysts at C7-T1. Small disc osteophyte complex at T7-8. No canal or neural foraminal stenosis. No large disc herniation. Minimal anterior superior endplate bone marrow edema at T8 which is likely degenerative. No destructive or suspicious bone lesions. Conus terminates at T12. Spinal cord is within normal limits. Paraspinal soft tissues are normal. Additional findings: No incidental findings of concern. Procedure Note Marshall Crouch MD - 12/29/2020 COMPARISON: None. TECHNIQUE: Exam performed on a 1.5 Litzy high-field MRI scanner.Multiplanar multisequence imaging obtained of the thoracic spine withoutgadolinium. MRI THORACIC SPINE FINDINGS: Musculoskeletal: Mild thoracic kyphosis and diffuse endplate spurring.Mild T6-7 and T8-9 disc space narrowing. No compression fractures. Nomalalignment. Incidental perineural cysts at C7-T1. Small disc osteophytecomplex at T7-8. No canal or neural foraminal stenosis. No large discherniation. Minimal anterior superior endplate bone marrow edema at C5plfmw is likely degenerative. No destructive or suspicious bone lesions.Conus terminates at T12. Spinal cord is within normal limits. Paraspinalsoft tissues are normal. Additional findings: No incidental findings of concern. IMPRESSION: Mild T6-7 and T9 disc disease. No significant disc herniation, canal orneural foraminal stenosis. Nidia Nagel SHIP/REC/DOC CONTROL IMG MR XSPECIALTY Final Result documented in this encounter Visit Diagnoses Diagnosis Radiculopathy of thoracic region Radiculopathy of thoracic region documented in this encounter Care Teams Advertising Associate Relationship Specialty Start Date End Date Yudith Wilder MD [address] [place] [address] PCP - General Internal Medicine 07/30/19 09/27/22 Alyce Pham PA [address] [place] [address] PCP - General Physician Monument Setter Helper 09/28/22 Yudith Wilder MD [address] [place] [address] Internal Medicine 07/30/19 documented as of this encounter Additional Source Comments The information contained in this document represents components of the legal health record. It is not the complete legal health record.[facility]
--- OUTSIDE RECORDS SUMMARY | 2025-03-18 14:08 | XMS_ITS | Clinical Summary ---
Author Organization [facility] Address [address] [place] [address] Care Team Providers Care Unit Coordinator Name Role Phone Alyce Pham Primary Care Provider [phone] Allergies Active Allergy Reactions Criticality Noted Date Comments Sulfamethoxazole-Trimethoprim Unknown Doxycycline Hives,Vomiting 10/28/2017 Metronidazole Unknown Lisinopril Cough 10/18/2017 Pregabalin Restlessness 05/15/2022 Penicillins Unknown Quetiapine Other (see comments) 04/01/2019 Medications traZODone (DESYREL) 50 mg tablet Take 50 mg by mouth nightly as needed for sleep. 05/16/20 16 Active hydrOXYzine HCL (ATARAX) 10 mg tablet 08/27/19 21 Active metoprolol tartrate (LOPRESSOR) 50 mg tablet Take 25 mg by mouth 2 (two) times a day. 02/03/20 21 Active omeprazole OTC (PriLOSEC OTC) 20 mg EC tabletIndications: Gastroesophageal reflux disease without esophagitis Take 1 tablet (20 mg total) by mouth once a day. 90 tablet 09/13/19 22 Active Additional Information Patient not taking.Reported on 02/18/2025 iron,carbonyl-rocio min C (Vitron-C) 65 mg iron- 125 mg tablet,delayed release (DR/EC) Take 1 tablet by mouth once a day. 90 tablet 1 09/21/19 23 Active Additional Information Patient not taking.Reported on 02/18/2025 albuterol (ProAir HFA) 90 mcg inhalerIndications :Moderate persistent asthma without complication (HCC) Inhale 2 puffs (180 mcg total) by mouth every 4 hours as needed for wheezing or shortness of breath. Use with spacer. 8.5 g 5 09/27/19 24 Active omeprazole (PriLOSEC) 40 mg capsuleIndications :Gastroesophageal reflux disease without esophagitis TAKE 1 CAPSULE TWICE A DAY 60 capsule 11 01/29/20 24 Active Additional Information Patient not taking.Reported on 02/18/2025 montelukast (SINGULAIR) 10 mg tabletIndications: Moderate persistent asthma without complication (HCC) TAKE 1 TABLET NIGHTLY 90 tablet 3 09/22/19 25 Active tirzepatide (MOUNJARO) 7.5 mg/0.5 mL pen injector Inject 7.5 mg under the skin every 7 days. 02/13/20 25 Active gabapentin (NEURONTIN) 100 mg capsuleIndications :Fibromyalgia,Prim khoi osteoarthritis involving multiple joints Take 1 capsule (100 mg total) by mouth nightly. 30 capsule 3 02/19/20 25 025 Active Hospital, Clinic, or Other Facility Administered [...] Encounters Date Type Department Care Team Description 03/18/2025 myChart Message [facility] [address] [place] [address] Divinity Professor: Edil Jackson, Appointment 02/18/2025 3:00 PM EDT Office Visit [facility] [address] [place] [address] Divinity Professor: Nikolay Lancaster NP Fibromyalgia (Primary Dx); Primary osteoarthritis involving multiple joints from Last 3 Months Immunizations Immunization Administration [...] Sign Reading Time Taken Comments Blood Pressure 125/82 02/18/2025 3:08 PM EDT Pulse 82 02/18/2025 3:08 PM EDT Temperature 36.6 C (97.8 F) 02/18/2025 3:08 PM EDT Respiratory Rate 16 11/21/2023 9:50 AM EDT Oxygen Saturation 99% 02/05/2024 1:10 PM EDT Inhaled Oxygen Concentration - - Weight 122.5 kg (270 lb) 02/18/2025 3:08 PM EDT Height 167.6 cm (5' 6 ) 02/18/2025 3:08 PM EDT Body Mass Index 43.58 02/18/2025 3:08 PM EDT Plan of Treatment Upcoming Encounters Date Type Department Care Team (Late st Contact Info) Description 05/18/2025 2:30 PM EST Follow-Up [facility] [address] [place] [address] Divinity Professor: Nikolay Lancaster NP [address] [place] [address] 07/30/2025 10:40 AM EST Follow-Up [facility] [address] [place] [address] Divinity Professor: Edil Jackson DO [address] [place] [address] Health Maintenance Due Date Last Done Comments Hepatitis C Screening 1949 Medicare AWV 1950 Ophthalmology Exam 1959 Urine Microalbumin 1959 Osteoporosis Screening 1999 DTaP,Tdap,and Td Vaccines (1 - Tdap) 06/07/2021 06/06/2021 Alcohol/Substance Use Screening 07/15/2024 Depression Screening and Follow-Up 07/15/2024 Health Care Proxy Review 07/15/2024 Social Drivers of Health Annual Screening 07/15/2024 Zoster Vaccines (3 of 3) 12/11/2024 10/16/2024, 07/2010 Hemoglobin A1C 12/15/2024 06/16/2024, 0610/2023, 10/01/2022 COVID-19 Vaccine (2023- season) 2025 03/24/2024, 06/25/2023, 04/13/2022, Additional history exists Influenza Vaccine (#1) 2025 , 03/15/2023, 04/24/2022, Additional history exists Basic Metabolic Panel 06/16/2025 06/16/2024 , 01/06/2024, 01/10/2023, Additional history exists Colon Cancer Screening Discontinued FOBT / Fit Test Discontinued 10/01/2022, 10/2013, 09/02/2012 RSV Vaccine (60+ years old and patients) Completed 03/15/2023 Pneumococcal Vaccine: 50+ Years Completed 06/25/2023, 07/10/2022, 04/24/2019, Additional history exists Mammogram Discontinued 09/07/2024 Cologuard Discontinued Colonoscopy Discontinued Hepatitis B Vaccines Aged Out No long er eligible based on patient's age to complete this topic Sigmoidoscopy Discontinued Procedures * Due to [place] [employer] law, this organization might not be sharing negative HIV tests. Procedure Name Priority Date/Time Associated Diagnosis Comments COMPREHENSIVE METABOLIC PANEL Routine 01/10/2023 1:53 PM EDT Elevated erythrocyte sedimentation rate from Last 3 Months or Most Recently Relevant to Health Maintenance Results * Due to [place] [employer] law, this organization might not be sharing [...] - 99 mg/dL 01/10/2023 3:02 PM EDT [facility] Creatinine 0.97 0.60 - 1.30 mg/dL 01/10/2023 3:02 PM EDT [facility] Calcium 8.9 8.5 - 10.1 mg/dL 01/10/2023 3:02 PM EDT [facility] Total Protein 7.6 6.4 - 8.2 g/dL 01/10/2023 3:02 PM EDT [facility] Albumin 3.6 3.4 - 5.0 g/dL 01/10/2023 3:02 PM EDT [facility] Bilirubin, Total 0.3 0.3 - 1.2 mg/dL 01/10/2023 3:02 PM EDT [facility] Alkaline Phosphatase 84 50 - 136 U/L 01/10/2023 3:02 PM EDT [facility] AST 14(L) 15 - 37 U/L 01/10/2023 3:02 PM EDT [facility] ALT 23 12 - 78 U/L 01/10/2023 3:02 PM EDT [facility] BUN 12 7 - 18 mg/dL 01/10/2023 3:02 PM EDT [facility] eGFR 62 >=60 mL/min/1 .73m2 01/10/2023 3:02 PM EDT [facility] Comment:The estimated glomer [...] Aaron MD LAB BLOOD ORDERABLES Final Result Performing Organization Address City/State/[facility] Co de Phone Number [facility] [address], from Last 3 Months or Most Recently Relevant to Health [place] [address] MEDICARE [facility] [employer] Advance Directives * Full Code (Latest Code Status on File) Date Activated Date Inactivated Comments 11/21/2023 9:59 AM 11/21/2023 1:41 PM * Full Code Date Activated Date Inactivated Comments 11/21/2023 7:28 AM 11/21/2023 9:59 AM Healthcare Agents on File Name Relationship Healthcare Agent Relationshi p Communication [facility] Health Care Agent Care Teams Unit Coordinator Relationship Specialty Start Date End Date Alyce Pham [address] [place] [address] PCP - General 02/15/21
--- OUTSIDE RECORDS SUMMARY | 2025-03-18 14:09 | XMS_ITS | Encounter Summary ---
Author Organization [facility] Address [address] [facility] [address] [place] [address] Phone Care Team Providers Care Passenger Vessel Chef Name Role Phone Yudith Wilder MD Unavailable Alyce Pham Primary Care Provider [phone] Encounter Details Date Type Department Care Team ([facility] st Contact Info) Description 02/08/2025 Telephone [facility] Pain Management [address] [facility] [address] [place] [address] Marion Shaw MD [address] [facility] Department of Anesthesiology, [facility] [address] [place] [address] [email or web address] Social History Tobacco Use Types Packs/Day Years [...] on file documented as of this encounter Progress Notes * David Platt - 03/01/2025 9:33 AM EDT Good morning, Pt is requesting to be reached out to again to r/s her PDN Study appt that was scheduled for 03/02 @1pm with Dr. Gomez due to being sick (the appt was cancelled). Can someone please reach out to her [phone]? Thanks, David documented in this encounter Plan of Treatment Upcoming Encounters Date Type Department Care Team (Late st Contact Info) Description 07/23/2025 11:00 AM EST Office Visit [facility] [address] [place] [address] Natividad Sanders PA-C [address] [place] [address] [email or web address] 08/12/2025 10:40 AM EST Office Visit [facility] [address] [place] [address] Janet Contreras MD [address] [place] [address] documented as of this encounter Visit Diagnoses Not on filedocumented in this encounter Care Teams Passenger Vessel Chef Relationship Specialty Start Date End Date Alyce Pham PA [address] [place] [address] PCP - General Physician Metal Engraver 09/28/22 Yudith Wilder MD [address] [place] [address] Internal Medicine 07/30/19 documented as of this encounter Additional Source Comments The information contained in this document represents components of the legal health record. It is not the complete legal health record.[facility]
--- OUTSIDE RECORDS SUMMARY | 2025-03-18 14:09 | XMS_ITS | Encounter Summary ---
Author Organization [facility] Address [address] [facility] [address] [place] [address] Phone Care Team Providers Care Barratte Operator Name Role Phone Yudith Wilder MD Primary Care Provider [phone] Yudith Wilder MD Primary Care Provider [phone] Yudith Wilder MD Unavailable Alyce Pham Primary Care Provider [phone] Encounter Details Date Type Department Care Team (Late st Contact Info) Description 04/01/2019 Procedure Pass [facility] [address] [place] [address] Social History Tobacco Use Types Packs/Day Years [...] AM EST Office Visit [facility] [address] [place] [address] Natividad Sanders PA-C [address] [place] [address] 08/12/2025 10:40 AM EST Office Visit [facility] [address] [place] [address] Janet Contreras MD [address] [address] [email or web address] documented as of this encounter Visit Diagnoses Not on filedocumented in this encounter Care Teams Barratte Operator Relationship Specialty Start Date End Date Yudith Wilder MD [address] [place] [address] PCP - General Internal Medicine 12/01/18 07/29/19 Yudith Wilder MD [address] [place] [address] PCP - General Internal Medicine 07/30/19 09/27/22 Alyce Pham PA [address] [place] [address] PCP - General Physician Snack Bar Attendant 09/28/22 Yudith Wilder MD [address] [place] [address] Internal Medicine 07/30/19 documented as of this encounter Additional Source Comments The information contained in this document represents components of the legal health record. It is not the complete legal health record.[facility]
--- OUTSIDE RECORDS SUMMARY | 2025-03-18 14:09 | XMS_ITS | Encounter Summary ---
Author Organization [facility] Address [address] [place] [address] Phone Care Team Providers Care Engineering Technology Instructor Name Role Phone Yudith Wilder MD Unavailable Alyce Pham Primary Care Provider [phone] Encounter Details Date Type Department Care Team (Late st Contact Info) Description 01/12/2025 Transcribe Orders Virtual Department [address] [place] [address] Jase Neely MD [address] [place], [place] [phone] [email or web address] Asymptomatic menopausal state (Primary Dx) Social History Tobacco Use Types Packs/Day Years [...] 11:00 AM EST Office Visit [facility] [address] [place] [address] Natividad Sanders PA-C [address] [place] [address] 08/12/2025 10:40 AM EST Office Visit [facility] [address] [place] [address] [place] [address] Janet Contreras MD [address] [place] [address] [email or web address] Scheduled Orders Name Type Priority Associated Diagnoses Orde r Schedule DXA Screening Imaging Routine Asymptomatic menopausal state Expected: 02/11/2025, Expires: 01/12/2026 documented as of this encounter Visit Diagnoses Diagnosis Asymptomatic menopausal state- Primary documented in this encounter Care Teams Engineering Technology Instructor Relationship Specialty Start Date End Date Alyce Pham PA [address] [place] [address] PCP - General Physician Entry Writer 09/28/22 Yudith Wilder MD [address] [place] [address] Internal Medicine 07/30/19 documented as of this encounter Additional Source Comments The information contained in this document represents components of the legal health record. It is not the complete legal health record.[facility]
--- OUTSIDE RECORDS SUMMARY | 2025-03-18 14:09 | XMS_ITS | Encounter Summary ---
Author Organization [facility] Address [address] [facility] [employer] [address] [place] [address] Phone Care Team Providers Care Senior Product Designer Name Role Phone Yudith Wilder MD Unavailable Alyce Pham Primary Care Provider [phone] Encounter Details Date Type Department Care Team ([facility] st Contact Info) Description 01/06/2025 Telephone [facility] Pain Management [address] [facility] [address] [place] [address] Marion Shaw MD 75 [facility] Department of Anesthesiology, [facility] [address] [place] [address] [email or web address] Social History Tobacco Use Types Packs/Day Years [...] 11:00 AM EST Office Visit [facility] [address] [place] [address] Natividad Sanders PA-C [address] [place] [address] 08/12/2025 10:40 AM EST Office Visit [facility] [address] [place] [address] Janet Contreras MD [address] [place] [address] documented as of this encounter Visit Diagnoses Not on filedocumented in this encounter Care Teams Senior Product Designer Relationship Specialty Start Date End Date Alyce Pham PA [address] [place] [address] PCP - General Physician Cork Insulation Setter 09/28/22 Yudith Wilder MD [address] [place] [address] Internal Medicine 07/30/19 documented as of this encounter Additional Source Comments The information contained in this document represents components of the legal health record. It is not the complete legal health record.[facility]
--- OUTSIDE RECORDS SUMMARY | 2025-03-18 14:09 | XMS_ITS | Patient Health Record ---
Author Organization [facility] Address [address] [place] [address] Care Team Providers Care Blueprint Processor Name Role Phone Pham, Alyce Primary Care Provider Unavailabl e Black, Arabella Unavailable [phone] Allergies Allergen (clinical drug ingredient) Drug/Non Drug [...] Duration) Notes Start Date End Date Status Victoza Not-Taking Ciclopirox Olamine 0.77 % 1 application to affected area Externally Twice a day; Duration: 30 days 09/16/2017 Not-Taking Extra Depth Orthopedic Shoes (1 Pair) with Customized Heat Molded Multidensity Innersoles (3 Pair) as directed Dx: NIDDM/Polyneuropath y (E11.42), Hammertoe Foot Deformity (M20.41,M20.42), Preulcerative Skin Lesion(s) (L85.1 09/18/2021 Not-Taking Ozempic Not-Taking Amitriptyline HCl No t-Taking Extra-Depth Diabetic Shoes with 3 Pair Custom heat-molded multi-density innersoles . for 1 year . Dx: pedal deformities and calloused lesions; Duration: . 10/15/2014 Active HumaLOG Not-Taking Extra Depth Orthopedic Shoes (1 Pair) with Customized Heat Molded Multidensity Innersoles (3 Pair) as directed Dx: NIDDM/Polyneuropath y (E11.42), Hammertoe Foot Deformity (M20.41,M20.42), Preulcerative Skin Lesion(s) (L85.1 09/30/2023 Active Compression Stockings 20-30mm Hg 1 pair wear daily; Duration: 30 days Active Wellbutrin Not-Takin g Ammonium Lactate 12 % 1 application Externally Twice a day; Duration: 30 days 10/01/2022 Active Atorvastatin Calcium Not-Taking Extra Depth Orthopedic Shoes (1 Pair) with Customized Heat Molded Multidensity Innersoles (3 Pair) as directed Dx: NIDDM/Polyneuropath y (E11.42), Hammertoe Foot Deformity (M20.41,M20.42), Preulcerative Skin Lesion(s) (L85.1 Active Clotrimazole-Betamethason e 1-0.05 % 1 application Externally Twice a day; Duration: 14 days 03/26/2022 Active Singulair Active hydroCHLOROthiazide Not-Taking vitamin b-12 shot Active Januvia Not-Taking Lopressor Active Trulicity 150mg once a week No t-Taking Spironolactone 25 MG Orally Once a day Active Cymbalta Not-Taking Lantus Active Ciclopirox Olamine 0.77% external Apply to effected areas twice a day; Duration: 30 days 12/23/2014 Not-Taking metFORMIN HCl 1000 MG 1 tablet with a meal Orally Once a day Active Zoloft Not-Taking Doxycycline Hyclate 100 MG 1 capsule [...] (M20.41,M20.42), Preulcerative Skin Lesion(s) (L85.1 09/22/2018 Not-Taking Immunizations Vaccine Route Administration Date Status Comme nts Influenza Unknown 03/15/2017 Administered Influenza Unknown 05/15/2018 Administered Influenza Unknown 04/01/2019 Administered Influenza Unknown 03/15/2020 Administered Influenza Unknown 03/15/2023 Administered COVID-19 Moderna Vaccine Unknown 10/24/2020 Administere d 09/26/2020 Social History Tobacco Use: Social History Observation [...] Problem Acquired hammer toe of right foot (8894730746923828 ) Other hammer toe(s) (acquired), right foot (M20.41) Active confirmed Problem Acquired hammer toe of left foot (6405100923584415 ) Other hammer toe(s) (acquired), left foot (M20.42) Active confirmed Problem Non-pressure chronic ulcer of other part of right foot limited to breakdown of skin (L97.511) Active confirmed Problem Polyneuropathy due to type 2 diabetes mellitus (366895613) Type 2 diabetes mellitus with diabetic polyneuropathy (E11.42) Active confirmed Problem Localized, primary osteoarthritis of the ankle and/or foot (173802246) Arthritis of joint of lesser toe, left (M19.072) Active confirmed Problem Localized, primary osteoarthritis of the ankle and/or foot (557813245) Arthritis of joint of lesser toe, right (M19.071) Active confirmed Vital Signs Blood pressure diastolic 70 mm Hg 07/30/2024 Height 5ft6in in 07/30/2024 Blood pressure systolic 130 mm Hg 07/30/2024 Weight 260 lbs 07/30/2024 BMI 41.96 kg/m2 07/30/2024 Procedures Procedure Date Ordered Date Performed Result Body Sit e 46697-GBJS SKIN LESIONS, OVER 4 07/30/2024 N/A 00686-OPEX NAIL(S) 07/30/2024 N/A Encounters Encounter Location Date Provider Diagnosis [address] [address] 07/30/2024 Arabella Charles Type 2 diabetes mellitus with diabetic polyneuropathy E11.42 and Edema, lower extremity R60.[address] [address] 05/11/2024 Arabella Charles Diabetic - [facility]DM[facility] [facility] [address] 02/02/2025 Arabella Charles Assessments Encounter Date Diagnosis (ICD Code) Assessment Notes Treatment Notes Treatment Clinical Notes Section Notes 05/11/2024 Diabetic - NIDDM/Neuropathy (ICD9-CM - 250.60) 07/30/2024 Type 2 diabetes mellitus with diabetic polyneuropathy (ICD-10 - E11.42) 07/30/2024 Edema, lower extremity (ICD-10 - R60.0) Plan Of Treatment Pending Test Test Name Order Date 47527-Hpwfgyhw Plate 09/22/2018 74817-Ymeirazx Plate 03/28/2020 57246-RYZ 06/27/2020 35784- Debride <25 sq cm 07/18/2020 28887-QIDA SKIN LESIONS, OVER 4 04/01/20 23 60211-AAAH SKIN LESIONS, OVER 4 09/30/19 24 05732-BPUT SKIN LESIONS, OVER 4 01/27/20 24 22825-JQDV SKIN LESIONS, OVER 4 07/30/19 25 73159-NTKD SKIN LESIONS, 2 TO 4 02/14/20 21 62425-RSSY SKIN LESIONS, 2 TO 4 09/19/19 22 24385-KWNB SKIN LESIONS, 2 TO 4 03/26/20 22 61707-GFKN SKIN LESIONS, 2 TO 4 10/02/19 23 96136-PRLR SKIN LESIONS, 2 TO 4 03/28/20 20 98239-OTCU SKIN LESIONS, 2 TO 4 11/15/19 21 96985-WPFJ SKIN LESIONS, 2 TO 4 12/24/19 20 74575-JLAT SKIN LESIONS, 2 TO 4 12/23/19 19 43338-SRWB SKIN LESIONS, 2 TO 4 04/13/20 19 19562-PUYA SKIN LESIONS, 2 TO 4 07/20/19 20 06332-WIVR SKIN LESIONS, 2 TO 4 09/21/19 20 57377-EGMA SKIN LESIONS, 2 TO 4 10/16/19 15 45406-VKYU SKIN LESIONS, 2 TO 4 12/24/19 15 09154-KPLH SKIN LESIONS, 2 TO 4 08/03/19 16 64880-FIJP SKIN LESIONS, 2 TO 4 09/17/19 18 19165-WCXF SKIN LESIONS, 2 TO 4 02/18/20 18 06732-MWGC SKIN LESIONS, 2 TO 4 06/23/20 18 79467-FFVB SKIN LESIONS, 2 TO 4 09/23/19 19 56009-LELL SKIN LESION 12/23/2014 13196-JEGI SKIN LESION 07/28/2014 62961-YFBS SKIN LESION 10/15/2014 76725-VNJE NAIL(S) 10/15/2014 50462-HZJQ NAIL(S) 12/23/2014 16071-MALR NAIL(S) 08/03/2015 74347-YSUP NAIL(S) 09/22/2018 62417-NUZB NAIL(S) 06/23/2018 36780-QTSX NAIL(S) 02/17/2018 56151-FMQL NAIL(S) 09/16/2017 18654-QWCU NAIL(S) 09/21/2019 04597-RURN NAIL(S) 07/20/2019 16551-OWEH NAIL(S) 04/13/2019 48087-EMPX NAIL(S) 12/22/2018 37086-RNCD NAIL(S) 12/24/2019 11839-NSWB NAIL(S) 03/28/2020 61445-WQIE NAIL(S) 11/14/2020 86540-UXLY NAIL(S) 10/01/2022 09932-RJRJ NAIL(S) 03/26/2022 11269-ZRQR NAIL(S) 09/18/2021 00062-KDET NAIL(S) 02/13/2021 35851-WVNW NAIL(S) 07/30/2024 33946-TIMO NAIL(S) 01/27/2024 91676-OQBG NAIL(S) 09/30/2023 82237-OILG NAIL(S) 04/01/2023 Next Appt Details Provider Name:Arabella Charles , 04/15/2025 02:15:00 PM, [address], [place], [address], Insurance Providers Payer Name Payer Address Payer Phone Subscriber Number Group Number Insured Name Patient Relationship to Insured Coverage Start Date Coverage End Date Medicare National [employer] [address] [facility] [place] [address] [id number] Yessi Joya Self - patient is the insured for Life [address] [place] [phone] [id number] Yessi Joya Self - patient is the [...] in bladder 09/16/23 Hospitalization History Reason Date(Month/Year) [facility]; fall 09/2014
== END 2025-03-18 13:14 | disposition home or self-care (01) ==
PROVIDERS: Visit Provider Nurse Practitioner Family
DX: R05.9 Cough, unspecified (principal); J06.9 Acute upper respiratory infection, unspecified

== ENCOUNTER 2025-04-06 12:09 | Outpatient (AMB) | payer MEDICARE, OTHER, SELFPAY ==
--- OUTSIDE RECORDS SUMMARY | 2025-02-04 07:00 | XMS_ITS ---
Author Organization [facility] Address [address] [place] [facility] [place] [address] Care Team Providers Care Brim Stretcher Name Role Phone Alyce Pham Primary Care Provider Unavailabl César Posadamie Unavailable [phone] Allergies Allergen (clinical drug ingredient) Drug/Non Drug [...] Not-Taking Encounters Encounter Location Date Provider Diagnosis [facility] [address] [address] 02/04/2025 Arabella Charles Plan Of Treatment Next Appt Details Provider Name:Arabella Charles , 04/15/2025 02:15:00 PM, [address] [place] [address], [phone], Progress Notes * Anabela JOYAOB:1950 ( 75 yo F)Acc No.[id number]:02/04/2025 Progress Note Patient: Yessi MASON Provider: Drea Charles DPM :1950 A ge:74 Y S ex:Female Date:02/04/2025 Address:[address] [place], [place] [phone] Pcp:Alyce Pham Subjective: * Chief Complaints: * [...] Date: 02/04/2025 Generated for Elijah thompson/Bassam/Fortino on: 04/06/2025 03:02 PM EDT
[2025-04-06 12:37] VITALS: BP 102/76; PULSE 90; TEMP 36.7; O2SAT 98; BMI 41.3
--- NOTE | 2025-04-06 12:37 | MHC.OFFWIV ---
Intake Vital Signs 04/06/25 12:37 Height 5 ft 6 in Weight 256 lb BMI 41.3 BP 102/76 Blood Pressure Location Lt brachial Position Sitting Pulse 90 Pulse Source Pulse Oximeter Temp 98.0 F Temp Source Oral Pulse Oximetry (%) 98 Oxygen Delivery Method Room Air Intake Visit Reasons: EP-sob, cough, body ache, headaches, sore throat Patient Tobacco Use Status: Never used Tobacco Allergies penicillin V Allergy (Mild, Verified 04/06/25 12:45) Rash lisinopril Allergy (Verified 04/06/25 12:45) Cough Sulfa (Sulfonamide Antibiotics) Allergy (Verified 04/06/25 12:45) Rash sulfamethoxazole (From Bactrim) Allergy (Verified 04/06/25 12:45) Rash trimethoprim (From Bactrim) Allergy (Verified 04/06/25 12:45) Rash Do you need a note to return to daycare/school/sports/work: No HPI HPI Comments History of Present Illness Details History - The patient is a 75-year-old female presenting with symptoms of an upper respiratory infection. - She states it has been going on since January, sometimes better, most recent worsening in early March. - She has a history of asthma, which has not been alleviated by her inhaler use. - Symptoms include cough, congestion, sore throat, and runny nose with no fever. - Previous treatment with prednisone and a Z-Tyler provided some relief in early Mar, particularly from prednisone. - Reports exhaustion and a sensation of something in her neck and ears feeling blocked. - History of gastroesophageal reflux disease, managed with Gaviscon. Physical Exam General: Cooperative, healthy appearing, comfortable and no acute distress Orientation/consciousness: Patient oriented x3 Limitations: No limitations Head: Normal to inspection Ears: Hearing grossly normal bilaterally, external ears normal and TM's normal bilaterally Nose: Normal external nose present, Normal nares present and No nasal discharge present Face and sinus: Normal facial exam and Yes sinuses nontender Mouth: Normal oral and palatal mucosa present and moist mucous membranes Throat: Yes tonsils normal, Yes uvula midline. Posterior oropharynx erythema, no exudates Eyes: Appearance normal, both eyes and all related structures Neck: Normal visual inspection, full ROM Respiratory: Clear to auscultation bilaterally. Normal respiratory effort, able to speak in complete sentences, Actively coughing, no respiratory distress, not tachypneic, no tripod positioning and no use of accessory muscles Cardiovascular: Regular rate and rhythm. Normal S1 and S2 Skin: No rashes or lesions noted Neuro: Patient oriented x3 Extremities: Normal to inspection and Yes no clubbing, cyanosis or edema Review of Systems - Respiratory: Reports cough, congestion, sore throat, and runny nose. Denies fever. - Gastrointestinal: Reports sensation of something in neck and ears feeling blocked. Denies current ear pain or sinus pain. All systems reviewed and are unremarkable except as noted in HPI [facility] Medical History (Updated 03/18/25 @ 13:11 by Joyce Carpenter NP) Acute respiratory disease Cough Surgical History (Updated 03/20/23 @ 11:07 by SLAVA Gusman) Hx of shoulder surgery History of bilateral knee replacement Social History Patient Tobacco Use Status: Never used Tobacco Current occupational status: unemployed Physical Exam Vital Signs: Last Vital Signs Temp 98.0 F 04/06/25 12:37 Pulse 90 04/06/25 12:37 BP 102/76 04/06/25 12:37 Pulse Ox 98 04/06/25 12:37 Oxygen Delivery Method Room Air 04/06/25 12:37 BMI result Body Mass Index 41.3 Results AMB Rapid Strep AMB Rapid Strep Negative Last Edit by Laurie Mccarthy MA on 04/06/25 12:55 Results Reviewed Results Reviewed: Laboratory Last Values Strep Scn Rapid Clinic Negative 04/06/25 12:53 Assessment & Plan Assessment & Plan (1) URI, acute: Code(s): J06.9 - Acute upper respiratory infection, unspecified Plan: Patient was informed and verbally consented to the use of an ambient scribe for clinic note documentation during this visit. - VSS, pt well appearing and PE unremarkable. - Rapid strep is negative. - Continue current asthma management plan, monitor response to inhalers. - Performed respiratory viral panel and chest x-ray to rule out other causes as cough for many weeks. - Prescribe a steroid pack with a six-day taper to manage inflammation. Advised will increase blood sugars, adjust diet and medications as able. - Continue current management with Gaviscon, reassess if symptoms persist post-illness, follow up with PCP. Orders: Orders Resp Pathogen Panel - [facility] Today J06.9 - Acute upper respiratory infection, unspecified AMB Rapid Strep Screen Today Z13.9 - Encounter for screening, unspecified XR chest 2V Today R05.9 - Cough, unspecified Medications: New methylprednisolone PO PER PKG DIR for 6 days 21 ea 0RF Coding Level of Care Code New Pt Level 4 (12675) Diagnoses URI, acute J06.9
--- OUTSIDE RECORDS SUMMARY | 2025-04-06 15:02 | XMS_ITS | Encounter Summary ---
Author Organization [facility] Address [address] [place] [address] Care Team Providers Care Sugarcane Planter Name Role Phone Pham, Alyce Primary Care Provider [phone] Reason for Visit * Reason Onset Date Comments PAC Appt Request - Established 12/25/2022 PAC Patient Request Call Back 12/25/2022 Encounter Details Date Type Department Care Team (Late st Contact Info) Description 12/25/2022 Telephone [facility] [address] [place] [phone] Telephone Intake, Staff PAC Appt Request - [...] to see. She can be reached at [phone] documented in this encounter Plan of Treatment Upcoming Encounters Date Type Department Care Team (Late st Contact Info) Description 04/21/2025 12:00 PM EDT Follow-Up [facility] [address] [place] [id number] Maori Physiotherapist: Edil Jackson DO [address] [place] [phone] 05/18/2025 2:30 PM EST Follow-Up [facility] [address] [place] [phone] Maori Physiotherapist: Nikolay Lancaster NP [address] [place] [phone] 07/30/2025 10:40 AM EST Follow-Up [facility] [address] [place] [phone] Maori Physiotherapist: Edil Jackson DO [address] [place] [phone] documented as of this encounter Visit Diagnoses Not on filedocumented in this encounter Care Teams Sugarcane Planter Relationship Specialty Start Date End Date Alyce Pham [address] [place] [address] PCP - General 02/15/21 documented as of this encounter
--- OUTSIDE RECORDS SUMMARY | 2025-04-06 15:02 | XMS_ITS | Clinical Summary ---
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 [facility]. Had labs done will request [...] with glycemic control. [facility] Foot & nail care good. Umalb/creat up [...] with glycemic control. [facility]. BP under reasonable control. Assessment [...] her glucose levels. [facility]. Labs ordered Assessment & Plan [...] with glycemic control. Up to date with [facility]. Foot & nail care good. BP under [...] her glucose levels. Up to date with [facility]. Labs ordered Assessment & Plan (01/09/2023 2:14 [...] with glycemic control. Up to date with [facility]. Follows w/ podiatry. Following w/ renal. BP [...] and being active. Up to date with [facility]. Labs ordered today Cough Allergic rhinitis Benign [...] take calcium 500 mg bid & monitor. long term acute care registered nurse current use of insulin Encounters Date Type Department Care Team Description 03/08/2025 Telephone [facility] Endocrinology [address] [place] [address] [place] [address] Leidy Genao [place] Labs 02/12/2025 9:00 AM EDT Office Visit [facility] [address] [place] [address] Natividad Sanders PA-C Type 2 diabetes mellitus with peripheral neuropathy (Primary Dx) 02/08/2025 Telephone [facility] Pain Management [address] [address] Marion Shaw MD 01/19/2025 Telephone [facility] Endocrinology [address] [place] [address] Jina Torres, tire manager Management 01/12/2025 Transcribe Orders Virtual Department [address] [place] [address] Jase Neely MD Asymptomatic menopausal state (Primary Dx) 01/06/2025 Telephone [facility] Pain Management [address] [address] Marion Shaw MD from Last 3 Months [...] AM EST Office Visit [facility] [address] [place] [address] Natividad Sanders PA-C [address] [place] [address] 08/12/2025 10:40 AM EST Office Visit [facility] [address] [place] [address] Janet Contreras MD [address] [place] [address] [email or web address] Health Maintenance Due Date Last Done Comments Adult Td,Tdap Booster 1950 DEPRESSION SCREENING 1961 HEPATITIS C SCREENING 1967 ZOSTER VACCINES (2 of 3) 09/09/2010 07/15/2010 OSTEOPOROSIS SCREENING INITIAL (ONE-TIME) 2014 DIABETIC EYE EXAM 09/28/2022 RSV VACCINE (1 - 1-dose 75+ series) 02/10/2024 LIPID PANEL 09/24/2024 09/25/2023, 09/17/2018 HEMOGLOBIN A1C 12/15/2024 06/16/2024, 12/14, 10/01/2022, Additional history exists INFLUENZA VACCINE (#1) 2025 [...] EST) SODIUM 142 133 - 146 mmol/L [facility] POTASSIUM 3.4 3.3 - 5.1 mmol/L [facility] CHLORIDE 106 96 - 108 mmol/L [facility] CO2 25 21 - 35 mmol/L [facility] BUN 11 6 - 19 mg/dL [facility] CREATININE 0.80 0.5 - 1.5 mg/dL [facility] GLUCOSE 105(H) 70 - 99 mg/dL [facility] ALBUMIN 4.2 3.9 - 4.8 g/dL [facility] TOTAL PROTEIN 7.1 6.5 - 8.0 g/dL [facility] CALCIUM 9.4 8.4 - 10.3 mg/dL [facility] ALKALINE PHOSPHATASE 69 39 - 117 U/L [facility] TOTAL BILIRUBIN 0.4 0.0 - 1.2 mg/dL [facility] AST 23 0 - 37 U/L [facility] ALT 18 0 - 40 U/L [facility] GLOBULIN 2.9 1 - 4.8 g/dL [facility] EGFR 77 >59 mL/min/1.7 3m2 [facility] Comment:Estimated glomerular filtration rate calculated using the CKD-EPI refit equation. ANION GAP 14 10 - 20 mmol/L [facility] Blood 06/16/2024 10:0 0 AM EST 06/16/2024 10:14 AM EST us Janet Contreras MD LAB BLOOD ORDERABLES F inal Result [facility] [address] [place] [address] * (ABNORMAL) Hemoglobin A1c (06/16/2024 10:00 AM EST) HEMOGLOBIN A1C 6.5(H) 4.3 - 5.8 % [facility] Blood 06/16/2024 10:0 0 AM EST 06/16/2024 10:15 AM EST Janet Contreras MD LAB BLOOD ORDERABLES F inal Result Performing Organization Address City/State/[facility] Co de Phone Number [facility] [address] [place] [address] from Last 3 Months or Most Recently Relevant to Health [place] [address] MEDICARE PART A & B [facility] MEDICARE [facility] Address: [facility] [address] [place] [address] MEDICARE PART A & B [facility] MEDICARE SUPP[facility]MENT [facility] Address: [address] [address] MEDICARE PART A & B [facility] MEDICARE SUPPLEMENT MEDICARE PART A & B Member Subscriber Plan / Payer (Ef fective 2012-Present) Name:Yessi Joya Member ID:[id number] Relation to Subscriber:Self Name:Yessi Joya Subscriber ID:[id number] Payer ID:[id number] Group ID:Not on file Type:Medicare Address: [employer] [facility] [address] FOR LIFE MEDICARE SUPP[facility]MENT [facility] Address: [place] [phone] MEDICARE PART A & B [facility] MEDICARE SU[facility] Address: [address] [address] MEDICARE PART A & [place] [address] [place] [address] FOR LIFE MEDICARE SUPP[facility]MENT [facility] Address: [address] [address] [place] [address] MEDICARE PART A & B [facility] MEDICARE SUPP[facility] Address: [address] [address] MEDICARE PART A & B [employer] MEDICARE SUPP[facility]MENT [facility] Address: [address] [address] (Riva) [address] [place] [address] MEDICARE PART A & B [employer] MEDICARE SUPPLEMENT MEDICARE PART A & B [employer] MEDICARE SUPP[facility]MENT [facility] Address: [address] [address] MEDICARE PART A & B [employer] MEDICARE SUPPLEMENT Member Subscriber Plan / Payer ( fective 2012-Present) Name:Yessi Joya Relation to Subscriber:Self Name:Yessi Joya Payer ID:[id number] (NAIC) Group ID:Not on file Type:HMO Address: [place] [phone] MEDICARE PART A & B [employer] MEDICARE SUPP[facility]MENT [facility] Address: [address] [address] MEDICARE PART A & B [employer] MEDICARE SU[facility] Address: [address] [address] MEDICARE PART A & B [employer] MEDICARE SU[facility] Address: [address] [address] MEDICARE PART A & B Member Subscriber Plan / Payer ( fective 2012-Present) Name:JoyaMaryne Member ID:[id number] Relation to Subscriber:Self Name:JoyaMaryne Subscriber ID:[id number] Payer ID:[id number] Group ID:Not on file Type:Medicare Address: [employer] [address] [place] [phone] [employer] MEDICARE SUPP[facility]MENT [facility] Address: [place] [phone] MEDICARE PART A & B [employer] MEDICARE SUPP[facility]MENT [facility] Address: [place] [phone] MEDICARE PART A & B [employer] MEDICARE SU[facility] Address: [address] [address] MEDICARE PART A & B [employer] MEDICARE SUPP[facility]MENT [facility] Address: [address] [address] Care Teams Chief Sustainability Officer Relationship Specialty Start Date End Date Alyce Pham PA [address] [place] [address] PCP - General Physician Clam Grower 09/28/22 Yudith Wilder MD [address] [place] [address] Internal Medicine 07/30/19 Additional Source Comments The information contained in this document represents components of the legal health record. It is not the complete legal health record.[facility]
--- OUTSIDE RECORDS SUMMARY | 2025-04-06 15:02 | XMS_ITS | Encounter Summary ---
Author Organization [facility] Address [address] [place] [address] Phone Care Team Providers Care Validation Technician Name Role Phone Pcp, Unknown Primary Care Provider Unavailabl e Yudith Wilder MD Primary Care Provider [phone] Yudith Wilder MD Primary Care Provider [phone] Yudith Wilder MD Unavailable Alyce Pham Primary Care Provider [phone] Reason for Referral * MRI/CAT Scan - Closed Specialty Diagnoses / Procedures Referred By Yas larsen Referred To Contact Radiology Diagnoses Cervical radiculopathy Procedures MRI Cervical Spine MRI Lumbar Spine Nidia Nagel NP Phone: tel: fax: mailto:[email or web address] Referral ID Status Reason Start Date Expiration Date Visits Re quested Visits Authorized [id number] Closed 11/27/2018 11/27/2019 1 1 Encounter Details Date Type Department Care Team (Latest Contact Info) Description 11/27/2018 Ancillary Orders Virtual Department [address] [place] [address] Nidia Nagel NP [address] [place] [phone] [email or web address] Cervical radiculopathy Social History Tobacco [...] 11:00 AM EST Office Visit [facility] [address] [place] [address] Natividad Sanders PA-C [address] [place] [address] [email or web address] 08/12/2025 10:40 AM EST Office Visit [facility] [address] [place] [address] [place] [address] Janet Contreras MD [address] [place] [address] documented as of this encounter Results * MRI CERVICAL SPINE (NEURO) FOCUS WITHOUT CONTRAST (12/01/2018 2:57 PM EDT) Anatomical Region Laterality Modality C-spine Magnetic Resonan ce 12/01/2018 3:27 PM EDT Impressions 12/01/2018 3:32 PM EDT No explanation for the patient's signs and symptoms. POS [id number] Narrative 12/01/2018 3:32 PM EDT HISTORY:. Cervical [...] for the patient's signs and symptoms. POS [id number] Nidia Nagel NP IMG MR XSPECIALTY Final Result documented in this encounter Visit Diagnoses Diagnosis Cervical radiculopathy Brachial neuritis or radiculitis nos Cervical radiculopathy Brachial neuritis or radiculitis nos documented in this encounter Care Teams Validation Technician Relationship Specialty Start Date End Date Pcp, Unknown PCP - General 11/27/18 11/30/18 Yudith Wildre MD [address] [place] [address] PCP - General Internal Medicine 12/01/18 07/29/19 Yudith Wilder MD [address] [place] [address] PCP - General Internal Medicine 07/30/19 09/27/22 Alyce Pham PA [address] [place] [address] PCP - General Physician Maintainer Operator 09/28/22 Yudith Wilder MD [address] [place] [address] Internal Medicine 07/30/19 documented as of this encounter Additional Source Comments The information contained in this document represents components of the legal health record. It is not the complete legal health record.[facility]
--- OUTSIDE RECORDS SUMMARY | 2025-04-06 15:02 | XMS_ITS | Encounter Summary ---
Author Organization [facility] Address [address] [place] [address] Phone Care Team Providers Care Regional Tanker Truck Driver Name Role Phone Yudith Wilder MD Primary Care Provider [phone] Yudith Wilder MD Primary Care Provider [phone] Yudith Wilder MD Unavailable Alyce Pham Primary Care Provider [phone] Encounter Details Date Type Department Care Team (Late st Contact Info) Description 04/01/2019 Procedure Pass [facility] [address] [place] [address] Social History Tobacco Use Types Packs/Day Years [...] AM EST Office Visit [facility] [address] [place] [address] Natividad Sanders PA-C 22 [place] [address] 08/12/2025 10:40 AM EST Office Visit [facility] 22 [place] [address] Janet Contreras MD [address] [address] [email or web address] documented as of this encounter Visit Diagnoses Not on filedocumented in this encounter Care Teams Regional Tanker Truck Driver Relationship Specialty Start Date End Date Yudith Wilder MD [address] [place] [address] PCP - General Internal Medicine 12/01/18 07/29/19 Yudith Wilder MD [address] [place] [address] PCP - General Internal Medicine 07/30/19 09/27/22 Alyce Pham PA [address] [place] [address] PCP - General Physician Residential Advisor 09/28/22 Yudith Wilder MD [address] [place] [address] Internal Medicine 07/30/19 documented as of this encounter Additional Source Comments The information contained in this document represents components of the legal health record. It is not the complete legal health record.[facility]
--- OUTSIDE RECORDS SUMMARY | 2025-04-06 15:02 | XMS_ITS | Encounter Summary ---
Author Organization [facility] Address [address] [place] [address] Phone Care Team Providers Care Tariff Supervisor Name Role Phone Yudith Wilder MD Primary Care Provider [phone] Yudith Wilder MD Unavailable Alyce Pham Primary Care Provider [phone] Encounter Details Date Type Department Care Team (Late st Contact Info) Description 12/20/2020 Procedure Pass [facility], [address] [place] [address] Social History Tobacco Use Types Packs/Day Years [...] AM EST Office Visit [facility] [address] [place] [address] Natividad Sanders PA-C 22 [place] [address] 08/12/2025 10:40 AM EST Office Visit [facility] [address] [place] [address] Janet Contreras MD [address] [place] [address] [email or web address] documented as of this encounter Visit Diagnoses Not on filedocumented in this encounter Care Teams Tariff Supervisor Relationship Specialty Start Date End Date Yudith Wilder MD [address] [place] [address] PCP - General Internal Medicine 07/30/19 09/27/22 Alyce Pham PA [address] [place] [address] PCP - General Physician Assistant Hall Director 09/28/22 Yudith Wilder MD [address] [place] [address] Internal Medicine 07/30/19 documented as of this encounter Additional Source Comments The information contained in this document represents components of the legal health record. It is not the complete legal health record.[facility]
--- OUTSIDE RECORDS SUMMARY | 2025-04-06 15:02 | XMS_ITS | Encounter Summary ---
Author Organization [facility] Address [address] [place] [address] Phone Care Team Providers Care Sole Cementer Name Role Phone Pcp, Unknown Primary Care Provider Unavailabl e Yudith Wilder MD Primary Care Provider [phone] Yudith Wilder MD Primary Care Provider [phone] Yudith Wilder MD Unavailable Alyce Pham Primary Care Provider [phone] Encounter Details Date Type Department Care Team (Late st Contact Info) Description 11/27/2018 Procedure Pass [address] [place] [address] Social History Tobacco Use Types Packs/Day Years [...] AM EST Office Visit [facility] [address] [place] [address] Natividad Sanders PA-C [address] [place] [address] 08/12/2025 10:40 AM EST Office Visit [facility] [address] [place] [address] Janet Contreras MD [address] [place] [address] documented as of this encounter Visit Diagnoses Not on filedocumented in this encounter Care Teams Sole Cementer Relationship Specialty Start Date End Date Pcp, Unknown PCP - General 11/27/18 11/30/18 Yudith Wilder MD [address] [place] [address] PCP - General Internal Medicine 12/01/18 07/29/19 Yudith Wilder MD [address] [place] [address] PCP - General Internal Medicine 07/30/19 09/27/22 Alyce Pham PA [address] [place] [address] PCP - General Physician [place] 09/28/22 Yudith Wilder MD [address] [place] [address] Internal Medicine 07/30/19 documented as of this encounter Additional Source Comments The information contained in this document represents components of the legal health record. It is not the complete legal health record.[facility]
--- OUTSIDE RECORDS SUMMARY | 2025-04-06 15:02 | XMS_ITS | Clinical Summary ---
Author Organization [facility] Address [address] [place] [address] Care Team Providers Care Welding Process Specialist Name Role Phone Yudith Welch MD Primary Care Provider [phone] Allergies Active Allergy Reactions Criticality Noted Date [...] capsule,delayed release 0 Active vitamin D3 (CHOLECALCIFEROL) 50752 units CAPS capsule TK 1 C PO [...] age to complete this topic Care Teams Welding Process Specialist Relationship Specialty Start Date End Date Yudith Welch MD PCP - General Internal Medicine 05/12/21
--- OUTSIDE RECORDS SUMMARY | 2025-04-06 15:02 | XMS_ITS | Clinical Summary ---
Author Organization [facility] Address [address] [place] [address] Care Team Providers Care Shot Peen Operator Name Role Phone Alyce Pham Primary Care Provider [phone] Allergies Active Allergy Reactions Criticality Noted Date [...] Department Care Team Description 03/18/2025 myChart Message [facility] [address] [place] [address] Hot Metal Car Operator: Edil Jackson, Appointment 02/18/2025 3:00 PM EDT Office Visit [facility] [address] [place] [address] Hot Metal Car Operator: Nikolay Lancaster NP Fibromyalgia (Primary Dx); Primary [...] Info) Description 04/21/2025 12:00 PM EDT Follow-Up [facility] [address] [place] [address] Hot Metal Car Operator: Edil Jackson DO [address] [place] [address] 05/18/2025 2:30 PM EST Follow-Up [facility] [address] [place] [address] Hot Metal Car Operator: Nikolay Lancaster NP [address] [place] [address] 07/30/2025 10:40 AM EST Follow-Up [facility] [address] [place] [address] Hot Metal Car Operator: Edil Jackson DO [address] [place] [address] Health Maintenance Due Date Last Done Comments Hepatitis C Screening 1950 Medicare AWV 1951 Ophthalmology Exam 1959 Urine Microalbumin 1959 Osteoporosis Screening 1999 DTaP,Tdap,and Td Vaccines (1 - Tdap) 06/07/2021 06/06/2021 Alcohol/Substance Use Screening 07/15/2024 Depression Screening and Follow-Up 07/15/2024 Health Care Proxy Review 07/15/2024 Social Drivers of Health Annual Screening 07/15/2024 Hemoglobin A1C 12/15/2024 06/16/2024, 12/14, 10/01/2022 COVID-19 Vaccine ( season) 2025 03/24/2024, 06/25/2023, 04/13/2022, Additional history exists Basic Metabolic Panel 06/16/2025 06/16/2024 , 01/06/2024, 01/10/2023, Additional history exists Colon Cancer Screening Discontinued FOBT / Fit Test Discontinued 10/01/2022, 10/2013, 09/02/2012 RSV Vaccine (60+ years old and patients) Completed 03/15/2023 Pneumococcal Vaccine: 50+ Years Completed 06/25/2023, 07/10/2022, 04/24/2019, Additional history exists Mammogram Discontinued 09/07/2024 Influenza Vaccine Completed 03/18/2025, , 03/15/2023, Additional history exists Zoster Vaccines Completed 03/18/2025, 10/16/2024 Cologuard Discontinued Colonoscopy Discontinued Hepatitis B Vaccines Aged Out No long er eligible based on patient's age to complete this topic Sigmoidoscopy Discontinued Procedures * Due to [place] [employer] law, this organization might not be sharing negative HIV tests. Procedure Name Priority Date/Time Associated Diagnosis Comments COMPREHENSIVE METABOLIC PANEL Routine 01/10/2023 1:53 PM EDT Elevated erythrocyte sedimentation rate from Last 3 Months or Most Recently Relevant to Health Maintenance Results * Due to [place] [employer] law, this organization might not be sharing negative HIV tests. * (ABNORMAL) Comprehensive Metabolic Panel (01/10/2023 1:53 PM EDT) NA 141 136 - 145 mmol/L 01/10/2023 3:02 PM EDT [facility] K 4.0 3.5 - 5.3 mmol/L 01/10/2023 3:02 PM EDT [facility] Cl 110(H) 98 - 107 mmol/L 01/10/2023 3:02 PM EDT [facility] CO2 27 22 - 30 mmol/L 01/10/2023 3:02 PM EDT [facility] Anion Gap 4(L) 5 - 15 01/10/2023 3:02 PM EDT [facility] Glucose 126(H) 70 - 99 mg/dL 01/10/2023 3:02 PM EDT [facility] Creatinine 0.97 0.60 - 1.30 mg/dL 01/10/2023 3:02 PM EDT [facility] Calcium 8.9 8.5 - 10.1 mg/dL 01/10/2023 3:02 PM EDT [facility] Total Protein 7.6 6.4 - 8.2 g/dL 01/10/2023 3:02 PM EDT [facility] Albumin 3.6 3.4 - 5.0 g/dL 01/10/2023 3:02 PM EDT [facility] Bilirubin, Total [...] - 18 mg/dL 01/10/2023 3:02 PM EDT [facility] eGFR 62 >=60 mL/min/1 .73m2 01/10/2023 3:02 PM EDT [facility] Comment:The estimated glomer ular filtration rate [...] Aaron MD LAB BLOOD ORDERABLES Final Result [facility] [address] [place] [address], from Last 3 Months or Most Recently Relevant to Health Maintenance Insurance MEDICARE [employer] Advance Directives * Full Code (Latest Code Status on File) Date Activated Date Inactivated Comments 11/21/2023 9:59 AM 11/21/2023 1:41 PM * Full Code Date Activated Date Inactivated Comments 11/21/2023 7:28 AM 11/21/2023 9:59 AM Healthcare Agents on File Name Relationship Healthcare Agent Relationshi p Communication Stephon Joya Health Care Agent Care Teams Shot Peen Operator Relationship Specialty Start Date End Date Alyce Pham [address] [place] [address] PCP - General 02/15/21
--- OUTSIDE RECORDS SUMMARY | 2025-04-06 15:02 | XMS_ITS | Encounter Summary ---
Author Organization [facility] [place] [address] Care Team Providers Care Security Escort Name Role Phone Alyce Pham Primary Care Provider [phone] Encounter Details Date Type Department Care Team (Late st Contact Info) Description 09/10/2024 Lab Requisition [facility] [address] [facility] [place] [address] Corrina Alvarez PA [address] [place], [place] [address] Urinary tract infection, site not specified Social [...] ssp pneumoniae(A) BRENT 09/12/2024 10:33 AM EST [facility] Comment: This is an edited [...] - GENERAL ORD ERABLES Final Result [facility] [address] [place] [address], [place] [phone] documented in this encounter Visit Diagnoses Diagnosis Urinary tract infection, site not specified documented in this encounter Additional Health Concerns Infection Onset Date Last Indicated Resolved Time Gastrointestinal Rule-Out 09/15/2024 09/15/2024 5:39 PM EST documented as of this encounter Care Teams Security Escort Relationship Specialty Start Date End Date Alyce Pham PA PCP - General 08/09/22 documented as of this encounter
--- OUTSIDE RECORDS SUMMARY | 2025-04-06 15:02 | XMS_ITS | Clinical Summary ---
Author Organization [facility] [address] [facility] Address [address] [place] [address] Phone Care Team Providers Care Pipe Fitter Street Service Name Role Phone Alyce Pham Primary Care Provider [phone] Allergies Active Allergy Reactions Criticality Noted Date [...] glucose sensor (FREESTYLE ELOISE 14 [facility]) 1 Active fluconazole (DIFLUCAN) 200 mg tablet [...] rehab receiving facet injections Paroxysmal supraventricular tachycardia ([facility] V24) 10/04/2020 Overview (05/04/2024): Paroxysmal [...] kidney disease) stage 3, GFR 30-59 ml/min ([facility] V24, [facility] V28) 04/08/2020 Trigger finger of right thumb 03/24/2020 Primary osteoarthritis of left shoulder 09/03/19 20 Pain in both hands 09/03/2019 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 f 09/03/2019 Dry eyes 09/03/2019 Type 2 diabetes mellitus ([facility] V24, [facility] V 28) 08/26/2019 Vitamin D [...] Encounters Date Type Department Care Team Description 03/29/2025 Lab Requisition [facility] - Main Lab [address] [facility] [place] [address] Garry العراقي PA Urinary tract infection, site not specified 01/21/2025 Lab Requisition [facility] - Main Lab [address] [facility] [place] [address] Garry العراقي PA Urinary tract infection, site not specified [...] obesity with BMI of 4 5.0-49.9, adult ([facility] V24, [facility] V28) 10/18/2017 DX:Morbid obesity wit h BMI of 45.0-49.9, adult ([facility]) Moderate asthma 10/18/2017 DX:Moderate asth [...] S/p Ablation Diabetes mellitus type 2, uncomplicated (CMS/HCC V24, CMS/[facility] V28) 10/28/2017 DX:Diabetes mellitus type 2, uncomplicated ([facility]) H/O total knee replacement 10/28/2017 DX:H/ O total knee replacement; COMMENT: Left 2011 CAD (coronary artery disease) 10/28/2017 DX :CAD (coronary artery disease); COMMENT: 2016 Angioplasty Major depressive disorder, r ecurrent episode, moderate (CMS/HCC V24, [facility] V28) 10/10/2018 DX:Major depressive disorder , recurrent episode, moderate ([facility]) Agoraphobia with panic disorder 10/10/2018 [...] Date/Time Associated Diagnosis Comments CULTURE URINE Routine 03/29/2025 2:05 PM EDT Urinary tract infection, site not specified CULTURE URINE Routine 01/21/2025 12:00 AM EDT [...] Health Maintenance Results * (ABNORMAL) Culture urine (03/29/2025 2:05 PM EDT) Only the most recent of2 resultswithin the time period is included. Culture, Urine >=100,000 CFU/mL Pseudomonas aeruginosa(A) BRENT 04/01/2025 7:43 AM EDT [facility] ([facility]) [facility] Urine Urine specimen obtained by clean catch procedure / Unknown 03/29/2025 2:05 PM EDT 03/29/2025 6:01 PM EDT Narrative Organism Antibiotic Method Susceptibility Pseudomonas aeruginosa Ceftazidime BRENT 2 ug/ml: Susceptible Pseudomonas aeruginosa Cefepime BRENT 4 ug/ml: Susceptible Pseudomonas aeruginosa Meropenem BRENT 0.5 ug/ml: Susceptible Pseudomonas aeruginosa Amikacin BRENT 4 ug/ml: Susceptible Pseudomonas aeruginosa Ciprofloxacin BRENT 0.5 ug/ml: Susceptible Pseudomonas aeruginosa Levofloxacin BRENT 1 ug/ml: Susceptible Pseudomonas aeruginosa Piperacillin/Tazobactam DISK DI FFUSION Susceptible Garry [facility] MICROBIOLOGY - GENERAL ORDE SRIDHAR Final Result [facility]) [facility] [address] [place] [address], * External Colonoscopy Report (11/12/2024 9:15 AM EDT) Anatomical Region Laterality Modality Endoscopy [facility] Provider MD GI~PROCEDURE ORDERABLES F inal Result * MG [...] Signed Date: 09/07/2024 13:59 ET Workstation ID: [id number] Transcribed By: Self Edit Transcribed Date: 09/07/2024 [...] None Computer-aided detection was employed with the Ensenda AI 3-D. TISSUE DENSITY: There are scattered [...] None Computer-aided detection was employed with the [employer] AI 3-D. TISSUE DENSITY: There are scattered [...] Signed Date: 09/07/2024 13:59 ET Workstation ID: [id number] Transcribed By: Self Edit Transcribed Date: 09/07/2024 13:41 ET us Malgorzata Rhea MD IMG BI PROCEDURES Final Resu lt * Lipid panel (09/25/2023) [facility] LDL/HDL Ratio 3 0 - 4 Triglycerides 82 0 - 150 mg/dL Cholesterol 149 0 - 200 mg/dL HDL 54 >=40 mg/dL LDL Cholesterol 79 0 - 100 mg/dL Blood Venous blood specimen / Unknown Result [facility] Provider LAB BLOOD ORDERABLES Leona l Result * Annual BMP Blood Test (01/10/2023) Pathologist [facility] Annual BMP Blood Test Abstracted Result [facility] Provider HEALTH MAINTENANCE Final Result * Hemoglobin A1c (10/01/2022) [facility] Hemoglobin A1C 0.0 % Comment:No interpretation Blood Venous blood specimen / Unknown Result [facility] Provider LAB BLOOD ORDERABLES Leona l Result * Urine Albumin Creatinine Ratio (04/17/2022) Pathologist [facility] Urine Albumin Creatinine Ratio Abstracted Result [facility] Provider HEALTH MAINTENANCE Final Result * Hepatitis C Screening (09/17/2018) [facility] Hepatitis C Screening Abstracted Result [facility] Provider HEALTH MAINTENANCE Final Result from Last 3 Months or Most Recently Relevant to Health Maintenance Insurance MEDICARE [facility] Advance Directives Documents on File Type Date Recorded Patient Multimedia Assistant Expl anation Health Care Decision (hx) [...] (hx) 08/14/2010 AD RILEY DIRECTIVE Care Teams Pipe Fitter Street Service Relationship Specialty Start Date End Date Alyce Pham PA PCP - General 08/09/22
--- OUTSIDE RECORDS SUMMARY | 2025-04-06 15:02 | XMS_ITS | Encounter Summary ---
Author Organization [facility] Address [address] [place] [address] Phone Care Team Providers Care Key Punch Teacher Name Role Phone Yudith Wilder MD Primary Care Provider [phone] Yudith Wilder MD Unavailable Alyce Pham Primary Care Provider [phone] Reason for Referral * MRI/CAT Scan - Closed Specialty Diagnoses / Procedures Referred By Yas larsen Referred To Contact Radiology Diagnoses Radiculopathy of thoracic region Procedures MRI Thoracic Spine Nidia Nagel NP [address] [place] [address] Phone: tel: fax: [email or web address] Referral ID Status Reason Start Date Expiration Date Visits Re quested Visits Authorized [id number] Closed 12/20/2020 12/20/2021 1 1 Encounter Details Date Type Department Care Team (Latest Contact Info) Description 12/20/2020 Ancillary Orders Virtual Department [address] [place] [address] Nidia Nagel NP [address] [place] [phone] [email or web address] Radiculopathy of thoracic region Social History Tobacco [...] 11:00 AM EST Office Visit [facility] [address] [place] [address] [place] [address] Natividad Sanders PA-C [address] [place] [address] 08/12/2025 10:40 AM EST Office Visit [facility] [address] [place] [address] Janet Contreras MD [address] [place] [address] documented as of this encounter Results * [...] anterior superior endplate bone marrow edema at [id number] is likely degenerative. No destructive or suspicious bone lesions.Conus terminates at T12. Spinal cord is within normal limits. Paraspinalsoft tissues are normal. Additional findings: No incidental findings of concern. IMPRESSION: Mild T6-7 and T9 disc disease. No significant disc herniation, canal orneural foraminal stenosis. Nidia Nagel DIRECTOR BIOINFORMATICS IMG MR XSPECIALTY Final Result documented in this encounter Visit Diagnoses Diagnosis Radiculopathy of thoracic region Radiculopathy of thoracic region documented in this encounter Care Teams Key Punch Teacher Relationship Specialty Start Date End Date Yudith Wilder MD [address] [place] [address] PCP - General Internal Medicine 07/30/19 09/27/22 Alyce Pham PA [address] [place] [address] PCP - General Physician Natural Gas Technician 09/28/22 Yudith Wilder MD [address] [place] [address] Internal Medicine 07/30/19 documented as of this encounter Additional Source Comments The information contained in this document represents components of the legal health record. It is not the complete legal health record.[facility]
--- OUTSIDE RECORDS SUMMARY | 2025-04-06 15:02 | XMS_ITS | Encounter Summary ---
Author Organization [facility] Address [address] [place] [address] Care Team Providers Care Full Roll Inspector Name Role Phone Alyce Pham Primary Care Provider [phone] Encounter Details Date Type Department Care Team (Late st Contact Info) Description 12/19/2022 Orders Only [facility] [address] [place] [address], [place] [address] [address] Pancho Sherman MD [address] [place] [address] Social History Tobacco Use Types Packs/Day Years [...] Info) Description 04/21/2025 12:00 PM EDT Follow-Up [facility] [address] [place] [address] Manager Exchange: Edil Jackson DO [address] [place] [address] 05/18/2025 2:30 PM EST Follow-Up [facility] [address] [place] [address] Manager Exchange: Nikolay Lancaster NP [address] [place] [address] 07/30/2025 10:40 AM EST Follow-Up [facility] [address] [place] [address] Manager Exchange: Edil Jackson DO [address] [place] [address] documented as of this encounter Visit Diagnoses Not on filedocumented in this encounter Care Teams Full Roll Inspector Relationship Specialty Start Date End Date Alyce Pham [address] [place] [address] PCP - General 02/15/21 documented as of this encounter
--- OUTSIDE RECORDS SUMMARY | 2025-04-06 15:02 | XMS_ITS | Encounter Summary ---
Author Organization [facility] [place] [address] Care Team Providers Care Watch Band Assembler Name Role Phone Alyce Pham Primary Care Provider [phone] Encounter Details Date Type Department Care Team (Late st Contact Info) Description 01/21/2025 Lab Requisition [facility] - Main Lab [address] [facility] [place] [address] Garry العراقي PA [address] [place], [place] [phone] Urinary tract infection, site not specified Social [...] Enterococcus faecalis(A) BRENT 01/24/2025 8:17 AM EDT [facility] Comment: Edited result: Previously reported as Enterococcus species on 01/23/2025 at 1123 EDT. Urine Urine specimen obtained by clean catch procedure / Unknown 01/21/2025 01/21/2025 1:31 PM EDT Narrative [facility] - 01/24/2025 8:17 AM EDT Additional [...] Enterococcus faecalis Nitrofurantoin BRENT <=16 ug/ml: Susceptible [facility] Dulce Maria [facility] MICROBIOLOGY - GENERAL ORDE SRIDHAR Final Result [facility] [address] [place] [address], documented in this encounter Visit Diagnoses Diagnosis Urinary tract infection, site not specified documented in this encounter Care Teams Watch Band Assembler Relationship Specialty Start Date End Date Alyce Pham PA PCP - General 08/09/22 documented as of this encounter
--- OUTSIDE RECORDS SUMMARY | 2025-04-06 15:02 | XMS_ITS | Encounter Summary ---
Author Organization [facility] [place] [address] Care Team Providers Care Stone Polisher Machine Name Role Phone Alyce Pham Primary Care Provider [phone] Encounter Details Date Type Department Care Team (Late st Contact Info) Description 03/29/2025 Lab Requisition [facility] - Main Lab [address] [facility] [place] [address] Garry العراقي PA [address] [place], [place] [phone] Urinary tract infection, site not specified Social [...] this encounter Results * (ABNORMAL) Culture urine (03/29/2025 2:05 PM EDT) Culture, Urine >=100,000 CFU/mL Pseudomonas aeruginosa(A) BRENT 04/01/2025 7:43 AM EDT [facility] Urine Urine specimen obtained by clean [...] Pseudomonas aeruginosa Piperacillin/Tazobactam DISK DI FFUSION Susceptible [facility] Dulce Maria [facility] MICROBIOLOGY - GENERAL ORDE [facility] Final Result [facility] [address] [place] [address], documented in this encounter Visit Diagnoses Diagnosis Urinary tract infection, site not specified documented in this encounter Care Teams Stone Polisher Machine Relationship Specialty Start Date End Date Alyce Pham PA PCP - General 08/09/22 documented as of this encounter
--- OUTSIDE RECORDS SUMMARY | 2025-04-06 15:02 | XMS_ITS | Clinical Summary ---
Author Organization [facility] Address [address] [facility] [address] [place] [address] Care Team Providers Care Residential Property Consultant Name Role Phone Tila Loyola DO Primary Care Provider Allergies No known active allergies Medications No [...] A AND B FOR LIFE Care Teams Residential Property Consultant Relationship Specialty Start Date End Date Tila Loyola DO [address] [place] [address] PCP - General 08/18/21
--- OUTSIDE RECORDS SUMMARY | 2025-04-06 15:03 | XMS_ITS | Encounter Summary ---
Author Organization [facility] Address [address] [facility] [address] [place] [address] Phone Care Team Providers Care Dry Lumber Grader Name Role Phone Yudith Wilder MD Primary Care Provider [phone] Yudith Widler MD Primary Care Provider [phone] Yudith Wilder MD Unavailable Alyce Pham Primary Care Provider [phone] Encounter Details Date Type Department Care Team (Late st Contact Info) Description 04/01/2019 Procedure Pass [facility] Imaging [address] [place] [address] Social History Tobacco Use Types Packs/Day Years [...] AM EST Office Visit [facility] [address] [place] [address] Natividad Sanders PA-C [address] [place] [address] 08/12/2025 10:40 AM EST Office Visit [facility] [address] [place] [address] Janet Contreras MD [address] [address] [email or web address] documented as of this encounter Visit Diagnoses Not on filedocumented in this encounter Care Teams Dry Lumber Grader Relationship Specialty Start Date End Date Yudith Wilder MD [address] [place] [address] PCP - General Internal Medicine 12/01/18 07/29/19 Yudith Wilder MD [address] [place] [address] PCP - General Internal Medicine 07/30/19 09/27/22 Alyce Pham PA [address] [place] [address] PCP - General Physician Pot Room Tapper 09/28/22 Yudith Wilder MD [address] [place] [address] Internal Medicine 07/30/19 documented as of this encounter Additional Source Comments The information contained in this document represents components of the legal health record. It is not the complete legal health record.[facility]
--- OUTSIDE RECORDS SUMMARY | 2025-04-06 15:03 | XMS_ITS | Encounter Summary ---
Author Organization [facility] Address [address] [facility] [address] [place] [address] Phone Care Team Providers Care Religious Education Teacher Name Role Phone Yudith Wilder MD Unavailable Alyce Pham Primary Care Provider [phone] Encounter Details Date Type Department Care Team ([facility] st Contact Info) Description 02/08/2025 Telephone [facility] Pain Management [address] [facility] [address] [place] [address] Marion Shaw MD [address] [facility] Department of Anesthesiology, [facility] [address] [place] [address] [email or web address] Social History Tobacco Use Types [...] Can someone please reach out to her [phone]? Thanks, David documented in this encounter Plan of Treatment Upcoming Encounters Date Type Department Care Team (Late st Contact Info) Description 07/23/2025 11:00 AM EST Office Visit [facility] [address] [place] [address] Natividad Sanders PA-C [address] [place] [address] [email or web address] 08/12/2025 10:40 AM EST Office Visit [facility] [address] [place] [address] Janet Contreras MD [address] [place] [address] documented as of this encounter Visit Diagnoses Not on filedocumented in this encounter Care Teams Religious Education Teacher Relationship Specialty Start Date End Date Alyce Pham PA [address] [place] [address] PCP - General Physician Athlete Manager 09/28/22 Yudith Wilder MD [address] [place] [address] Internal Medicine 07/30/19 documented as of this encounter Additional Source Comments The information contained in this document represents components of the legal health record. It is not the complete legal health record.[facility]
--- OUTSIDE RECORDS SUMMARY | 2025-04-06 15:03 | XMS_ITS | Encounter Summary ---
Author Organization [facility] Address [address] [facility] [address] [place] [address] Phone Care Team Providers Care Data Warehouse Developer Name Role Phone Yudith Wilder MD Primary Care Provider [phone] Yudith Wilder MD Primary Care Provider [phone] Yudith Wilder MD Unavailable Alyce Pham Primary Care Provider [phone] Encounter Details Date Type Department Care Team (Late st Contact Info) Description 05/13/2019 Procedure Pass [address] [address] Social History Tobacco Use Types Packs/Day Years [...] 11:00 AM EST [facility] [place] [address] [place] [address] 08/12/2025 10:40 AM EST Office Visit [facility] [address] [place] [address] Janet Contreras MD [address] [address] documented as of this encounter Visit Diagnoses Not on filedocumented in this encounter Care Teams Data Warehouse Developer Relationship Specialty Start Date End Date Yudith Wilder MD [address] [place] [address] PCP - General Internal Medicine 12/01/18 07/29/19 Yudith Wilder MD [address] [place] [address] PCP - General Internal Medicine 07/30/19 09/27/22 Alyce Pham PA [address] [place] [address] PCP - General Physician Camp Boss 09/28/22 Yudith Wilder MD [address] [place] [address] Internal Medicine 07/30/19 documented as of this encounter Additional Source Comments The information contained in this document represents components of the legal health record. It is not the complete legal health record.[facility]
--- OUTSIDE RECORDS SUMMARY | 2025-04-06 15:03 | XMS_ITS | Encounter Summary ---
Author Organization [facility] Address [address] [employer] [address] [place] [address] Phone Care Team Providers Care Loans Officer Name Role Phone Yudith Wilder MD Unavailable Alyce Pham Primary Care Provider [phone] Encounter Details Date Type Department Care Team (Late st Contact Info) Description 10/23/2022 Procedure Pass [facility], Ct Scan - [address] [address] Social History Tobacco Use Types Packs/Day Years [...] 11:38 AM EDT Annia Hendrickson RN * [place] Suicide Severity Rating Scale (Screener/Recent Self-Report) Question [...] 11:00 AM EST Office Visit [facility] [address] [place] [address] Natividad Sanders PA-C [address] [place] [address] 08/12/2025 10:40 AM EST Office Visit [facility] [address] [place] [address] Janet Contreras MD [address] [place] [address] documented as of this encounter Visit Diagnoses Not on filedocumented in this encounter Care Teams Loans Officer Relationship Specialty Start Date End Date Alyce Pham PA [address] [place] [address] PCP - General Physician Plaster Helper 09/28/22 Yudith Wilder MD [address] [place] [address] Internal Medicine 07/30/19 documented as of this encounter Additional Source Comments The information contained in this document represents components of the legal health record. It is not the complete legal health record.[facility]
--- OUTSIDE RECORDS SUMMARY | 2025-04-06 15:03 | XMS_ITS | Encounter Summary ---
Author Organization [facility] Address [address] [place] [address] Phone Care Team Providers Care Dairy Associate Name Role Phone Yudith Wilder MD Unavailable Alyce Pham Primary Care Provider [phone] Encounter Details Date Type Department Care Team (Late st Contact Info) Description 01/12/2025 Transcribe Orders Virtual Department [address] [place] [address] Jase Neely MD [address] [place], [place] [phone] [email or web address] Asymptomatic menopausal state (Primary Dx) Social History [...] 11:00 AM EST Office Visit [facility] [address] [place] [address] Natividad Sanders PA-C [address] [place] [address] 08/12/2025 10:40 AM EST Office Visit [facility] [address] [place] [address] [place] [address] Janet Contreras MD [address] [place] [address] [email or web address] Scheduled Orders Name Type Priority Associated Diagnoses Orde r Schedule DXA Screening Imaging Routine Asymptomatic menopausal state Expected: 02/11/2025, Expires: 01/12/2026 documented as of this encounter Visit Diagnoses Diagnosis Asymptomatic menopausal state- Primary documented in this encounter Care Teams Dairy Associate Relationship Specialty Start Date End Date Alyce Pham PA [address] [place] [address] PCP - General Physician Drive In Waiter/Waitress 09/28/22 Yudith Wilder MD [address] [place] [address] Internal Medicine 07/30/19 documented as of this encounter Additional Source Comments The information contained in this document represents components of the legal health record. It is not the complete legal health record.[facility]
--- OUTSIDE RECORDS SUMMARY | 2025-04-06 15:03 | XMS_ITS | Encounter Summary ---
Author Organization [facility] Address [address] [place] [address] Phone Care Team Providers Care Auger Mill Operator Name Role Phone Yudith Wilder MD Unavailable Alyce Pham Primary Care Provider [phone] Encounter Details Date Type Department Care Team ([facility] st Contact Info) Description 01/06/2025 Telephone [facility] Pain Management [address] [place] [address] Marion Shaw MD [address] [facility] Department of Anesthesiology, [facility] [address] [place] [address] [email or web address] Social History Tobacco Use Types Packs/Day Years [...] 11:00 AM EST Office Visit [facility] [address] [place] [address] Natividad Sanders PA-C [address] [place] [address] 08/12/2025 10:40 AM EST Office Visit [facility] [address] [place] [address] Janet Contreras MD [address] [place] [address] documented as of this encounter Visit Diagnoses Not on filedocumented in this encounter Care Teams Auger Mill Operator Relationship Specialty Start Date End Date Alyce Pham PA [address] [place] [address] PCP - General Physician Mechanic Assistant 09/28/22 Yudith Wilder MD [address] [place] [address] Internal Medicine 07/30/19 documented as of this encounter Additional Source Comments The information contained in this document represents components of the legal health record. It is not the complete legal health record.[facility]
--- OUTSIDE RECORDS SUMMARY | 2025-04-06 15:03 | XMS_ITS | Patient Health Record ---
Author Organization [facility] Address [address] [facility] [place] [address] Care Team Providers Care Display Card Writer Name Role Phone Pham, Alyce Primary Care Provider Unavailabl e Black, Arabella Unavailable [phone] Allergies Allergen (clinical drug ingredient) Drug/Non Drug [...] Problem Acquired hammer toe of right foot (6925691928693464 ) Other hammer toe(s) (acquired), right foot (M20.41) Active confirmed Problem Acquired hammer toe of left foot (0873259637675369 ) Other hammer toe(s) (acquired), left foot (M20.42) Active confirmed Problem Non-pressure chronic ulcer of other part of right foot limited to breakdown of skin (L97.511) Active confirmed Problem Polyneuropathy due to type 2 diabetes mellitus (693353312) Type 2 diabetes mellitus with diabetic polyneuropathy (E11.42) Active confirmed Problem Localized, primary osteoarthritis of the ankle and/or foot (554646917) Arthritis of joint of lesser toe, left (M19.072) Active confirmed Problem Localized, primary osteoarthritis of the ankle and/or foot (452216675) Arthritis of joint of lesser toe, right (M19.071) Active confirmed Vital Signs Blood pressure diastolic 70 mm Hg 07/30/2024 Height 5ft6in in 07/30/2024 Blood pressure systolic 130 mm Hg 07/30/2024 Weight 260 lbs 07/30/2024 BMI 41.96 kg/m2 07/30/2024 Procedures Procedure Date Ordered Date Performed Result Body Sit e 85387-SIAC SKIN LESIONS, OVER 4 07/30/2024 N/A 44424-UTJY NAIL(S) 07/30/2024 N/A Encounters Encounter Location Date Provider Diagnosis [address] [address] 07/30/2024 Arabella Charles Type 2 diabetes mellitus with diabetic polyneuropathy E11.42 and Edema, lower extremity R60.[address] [address] 05/11/2024 Arabella Charles Diabetic - [facility]DM[facility] [address] 02/02/2025 Arabella Charles Assessments Encounter Date Diagnosis (ICD Code) Assessment Notes Treatment Notes Treatment Clinical Notes Section Notes 05/11/2024 Diabetic - NIDDM/Neuropathy (ICD9-CM - 250.60) 07/30/2024 Type 2 diabetes mellitus with diabetic polyneuropathy (ICD-10 - E11.42) 07/30/2024 Edema, lower extremity (ICD-10 - R60.0) Plan Of Treatment Pending Test Test Name Order Date 15405-Zgksixlv Plate 09/22/2018 32402-Fkrqzzvb Plate 03/28/2020 64693-HJM 06/27/2020 73224- Debride <25 sq cm 07/18/2020 92818-KZJT SKIN LESIONS, OVER 4 04/01/20 23 27639-MWIN SKIN LESIONS, OVER 4 09/30/19 24 84537-CKHO SKIN LESIONS, OVER 4 01/27/20 24 23828-NHTK SKIN LESIONS, OVER 4 07/30/19 25 87355-LMLR SKIN LESIONS, 2 TO 4 02/14/20 21 16657-CQRI SKIN LESIONS, 2 TO 4 09/19/19 22 10987-NKFU SKIN LESIONS, 2 TO 4 03/26/20 22 07747-VMCH SKIN LESIONS, 2 TO 4 10/02/19 23 26657-XSFL SKIN LESIONS, 2 TO 4 03/28/20 20 10928-LPGY SKIN LESIONS, 2 TO 4 11/15/19 21 46962-ROEH SKIN LESIONS, 2 TO 4 12/24/19 20 06219-FMLH SKIN LESIONS, 2 TO 4 12/23/19 19 44383-LFEW SKIN LESIONS, 2 TO 4 04/13/20 19 66505-RVIA SKIN LESIONS, 2 TO 4 07/20/19 20 13550-QIXQ SKIN LESIONS, 2 TO 4 09/21/19 20 11298-OJAZ SKIN LESIONS, 2 TO 4 10/16/19 15 91885-EIJE SKIN LESIONS, 2 TO 4 12/24/19 15 66808-JBMQ SKIN LESIONS, 2 TO 4 08/03/19 16 35251-IRBU SKIN LESIONS, 2 TO 4 09/17/19 18 29989-EMLZ SKIN LESIONS, 2 TO 4 02/18/20 18 18139-XAQS SKIN LESIONS, 2 TO 4 06/23/20 18 93057-ZPPE SKIN LESIONS, 2 TO 4 09/23/19 19 96227-ZBII SKIN LESION 12/23/2014 87139-JVMJ SKIN LESION 07/28/2014 34041-WULR SKIN LESION 10/15/2014 23729-CNCZ NAIL(S) 10/15/2014 16094-DDKE NAIL(S) 12/23/2014 36298-JDEZ NAIL(S) 08/03/2015 30518-VVMD NAIL(S) 09/22/2018 72413-QRUZ NAIL(S) 06/23/2018 04172-OLVM NAIL(S) 02/17/2018 04195-PEBQ NAIL(S) 09/16/2017 72108-PDFH NAIL(S) 09/21/2019 89268-KSHD NAIL(S) 07/20/2019 89311-YONZ NAIL(S) 04/13/2019 27591-GMRK NAIL(S) 12/22/2018 80102-WDSU NAIL(S) 12/24/2019 49759-EMEF NAIL(S) 03/28/2020 06056-BCIX NAIL(S) 11/14/2020 12265-KPGG NAIL(S) 10/01/2022 67672-IROJ NAIL(S) 03/26/2022 87819-ECOF NAIL(S) 09/18/2021 70890-DRWI NAIL(S) 02/13/2021 13500-DVXE NAIL(S) 07/30/2024 33809-TRST NAIL(S) 01/27/2024 05627-TAJX NAIL(S) 09/30/2023 25304-CYVN NAIL(S) 04/01/2023 Next Appt Details Provider Name:Arabella Charles , 04/15/2025 02:15:00 PM, [address] [facility], [place], [address], Insurance Providers Payer Name Payer Address Payer Phone Subscriber Number Group Number Insured Name Patient Relationship to Insured Coverage Start Date Coverage End Date [employer] [address] [place] [address] [id number] Yessi Joya Self - patient is the insured for Life [address] [place] [phone] [id number] Yessi Joya Self - patient is the [...] in bladder 09/16/23 Hospitalization History Reason Date(Month/Year) [facility]; fall 09/2014
== END 2025-04-06 13:09 | disposition home or self-care (01) ==
PROVIDERS: Visit Provider Physician Assistant
DX: J06.9 Acute upper respiratory infection, unspecified (principal)

== ENCOUNTER 2025-04-06 12:09 | Outpatient (REF) | payer MEDICARE, OTHER, SELFPAY ==
--- NOTE | ~2025-04-06 | XR_ITS ---
EXAMINATION: XR CHEST CLINICAL INFORMATION: R05.9 - Cough, unspecified COMPARISON: November 06, 2024 TECHNIQUE: 2 views of the chest were obtained. FINDINGS: Again seen is a small calcified granuloma in the right upper lobe, projecting in the middle third right lung zone. There is also likely a calcified granuloma in the right lateral lung base. Lungs are clear otherwise. There is no pleural effusion. Heart size is within normal. XR/XR chest 2V IMPRESSION: No acute disease. Suspected calcified granuloma in the right upper lobe and right lateral lung base. Electronically signed by: Sony Cruz MD 04/06/2025 01:43 PM EDT
[2025-04-07 09:18] LABS: Chlamydia pneumoniae PCR Not Detected (Not Detect.); Coronavirus 229E PCR Not Detected (Not Detect.); Coronavirus HKU1 PCR Not Detected (Not Detect.); Coronavirus NL63 PCR Not Detected (Not Detect.); Coronavirus OC43 PCR Not Detected (Not Detect.); RSV PCR Not Detected (Not Detect.); Rhino/Enterovirus PCR Detected (Not Detect.)
[2025-04-07 09:38] LABS: Influenza A H1 PCR Not Detected (Not Detect.); Influenza A H1-2009 PCR Not Detected (Not Detect.); Influenza A H3 PCR Not Detected (Not Detect.); SARS-CoV-2 PCR Not Detected (Not Detect.)
== END 2025-04-06 12:10 | disposition home or self-care (01) ==
LOC: HO.HMGCX 12:09
PROVIDERS: Visit Provider Physician Assistant
DX: J06.9 Acute upper respiratory infection, unspecified (principal); R05.9 Cough, unspecified; J02.9 Acute pharyngitis, unspecified; R51.9 Headache, unspecified; R06.02 Shortness of breath; R09.81 Nasal congestion; J45.909 Unspecified asthma, uncomplicated; K21.9 Gastro-esophageal reflux disease without esophagitis; Z79.899 Other long term (current) drug therapy
CPT/HCPCS: 71046; 87633; 87880; 99212

== ENCOUNTER → 2025-04-06 13:28 | Outpatient (BNV) | payer MEDICARE, OTHER, SELFPAY | PROVIDERS: Visit Provider Radiology Diagnostic Radiology | DX: R05.9 Cough, unspecified (principal) | CPT/HCPCS: 71046 ==